=== PATIENT | female | born 1935 | race Caucasian/White ===

== ENCOUNTER 2016-06-04 15:15 | Emergency (ER) | payer BC ==
[~2016-06-04 15:15] MED LIST: CALC-51 PO; CHOL100010 PO; DILT240C48 PO; METO25TA56 PO; PLV75 PO
[2016-06-04 15:27] VITALS: BP 122/90; PULSE 83; TEMP 36.5; O2SAT 98
[2016-06-04] MEDS ORDERED: ACETAMINOPHEN 500 MG TAB PO STA (15:40)
--- NOTE | 2016-06-04 16:13 | DIAGNOSTIC IMAGING REPORT ---
HEAD CT NONCONTRAST CT DOSE: 2315.78 mGy.cm HISTORY: Trauma. Change in mental status. EVAL TRAUMA TECHNIQUE: Multiaxial CT images of the head were performed without the use of intravenous contrast. Comparison: 11/17/2015 Findings: The paranasal sinuses and mastoid air cells are clear. Moderate ventricular prominence considered chronic. Old left occipital infarct. Mild chronic small vessel change of aging. No acute intracranial abnormality. No midline shift. Impression: Chronic change. No acute intracranial abnormality. Electronically signed by: Doug Adams M.D. 06/04/2016 4:11 PM Dictated Date/Time: 06/04/2016 4:10 PM
--- NOTE | 2016-06-04 16:26 | EMERGENCY ROOM VISIT NOTE ---
ED Visit Note First contact with patient: 15:32 Patient was seen by our PA/[employer]. I was involved in the patient's care and did evaluate the patient myself. I was involved in the care throughout the ER stay. The patient has suffered head trauma from a fall, she has a posterior scalp hematoma. Brain CT shows no acute bleed or mass effect. There are no other obvious injuries by exam. Patient is being discharged with her family.
--- NOTE | 2016-06-04 16:27 | EMERGENCY ROOM VISIT NOTE ---
ED Visit Note First contact with patient: 15:32 CHIEF COMPLAINT: Fall, scalp hematoma HISTORY OF PRESENT ILLNESS: Patient is a 80-year-old white female with extensive past medical history including dementia, atrial fibrillation, hypertension, COPD, among other chronic medical problems who is brought to the emergency department accompanied by her daughters for evaluation of a fall. Injury occurred about 30 minutes ago. Daughter was present with the patient and witnessed the entire incident. The patient was reportedly on the toilet and fell while trying to get off. She fell backwards striking the back of her head on the sink, landing on her buttocks on the floor. The patient's daughter was just not close enough to be able to catch her. She does have problems with lower extremity weakness and has a history of frequent falls. They noticed scant bleeding from a hematoma on the left side of the back of her head, but bleeding has been controlled. There was no loss of consciousness. They report that the patient has been at her baseline. She has otherwise been well recently. She is anticoagulated on Plavix. REVIEW OF SYSTEMS: Review of systems as per HPI. All other systems reviewed were negative. At least 6 systems reviewed. PMH: Electronic medical records are reviewed and summarized as above/below. See Problem List. Tetanus is believed to be up-to-date. SOCIAL HISTORY: Patient lives at home. PHYSICAL EXAM: Vital Signs: Reviewed Nurse's notes. GENERAL: Patient is a thin, chronically ill-appearing 80-year-old white female who is awake and alert and seated in a wheelchair in no acute distress. She is pleasantly demented. HEENT: Head -Left occipital scalp laceration with abrasion, no repairable laceration. Pupils are equal, round, and reactive to light. Extraocular eye muscles are intact and sclera are anicteric. Ears - bilaterally patent canals with no evidence of hemotympanum. Nose - moist nasal mucosa without evidence of trauma or discharge. Mouth - moist buccal mucosa with no trauma to the teeth or signs of malocclusion. Neck: The neck is supple and there is no pain to palpation over the posterior cervical spine and no obvious step-offs or deformities. There is no JVD or tracheal deviation. Chest: There are no signs of deformities, contusions or abrasions to the chest wall. There is no obvious crepitus or paradoxical chest rise. Neuro: Seated in a wheelchair. Demented and not oriented. Moving all extremities, pushing herself around in a wheel chair. Essentially nonverbal. ED COURSE: The patient was seen and evaluated as above. Old records are reviewed. She sustained a minor fall and struck the back of her head. She is on Plavix. Head CT was obtained and not in any acute findings including intracranial bleed. The follow-up. To be mechanical in nature, does not appear to be related to syncope, seizure or arrhythmia. She otherwise is neurologically at her baseline. She does not appear to have sustained any additional injury including neck/spine, rib or other musculoskeletal injury. Family members were educated on the worrisome signs or symptoms for which they should return to the emergency department. The patient was discharged home in good condition. Problem List Medical Problems: (1) Abnormal EKG Status: Resolved (2) Atrial fibrillation Status: Chronic (3) Back pain Status: Resolved (4) Blood clot in abdominal vein Status: Chronic (5) blood clot lower extremity Status: Chronic (6) Bronchitis Status: Chronic (7) Cholecystectomy Status: Resolved (8) Deep venous thrombosis Status: Chronic (9) Dementia Status: Chronic (10) Elevated WBC count Status: Resolved (11) Emphysema Status: Chronic (12) Encephalopathy Status: Resolved (13) Gallbladder problem Status: Chronic (14) Head injury Status: Resolved (15) Heart disease Status: Chronic (16) Hematoma Status: Resolved (17) Hematuria Status: Resolved (18) Hypertension Status: Chronic (19) Hypokalemia Status: Resolved (20) Hyponatremia Status: Resolved (21) Pneumonia Status: Chronic (22) Swelling of right extremity Status: Resolved (23) Swelling of right extremity Status: Resolved (24) Syncope Status: Resolved (25) Urinary tract infection Status: Resolved Current/Historical Medications Scheduled Ascorbic Acid (Vitamin C), 500 MG PO BID Calcium Carbonate-Vitamin D (Calcium), 1,000 MG PO DAILY Cholecalciferol (Vitamin D), 500 INTER.UNIT PO BID Clopidogrel Bisulfate (Clopidogrel), 75 MG PO QAM Diltiazem Hcl Coated Beads (Cartia Xt), 1 CAP PO DAILY Furosemide (Lasix), 20 MG PO DAILY Metoprolol Tartrate (Lopressor) (Lopressor), 0.5 TAB PO BID Multivitamin (Multivitamin), 1 TAB PO DAILY Polyethylene Glycol 3350 (Miralax), 17 GM PO DAILY Potassium Ext Rel (Klor-Con), 20 MEQ PO DAILY Scheduled PRN Hydrocodone/Acetaminophen 5MG/325MG ([place] 5MG/325MG), 0.5 TABLET PO UD PRN for Pain Allergies Coded Allergies: Heparin (Verified Allergy, Unknown, Significant GI bleed, 11/17/15) (per G[facility]elda's H&P) Penicillins (Verified Allergy, Unknown, HAS HAD ROCEPHIN W/OUT PROBLEM, ) Sulfa Antibiotics (Verified Allergy, Unknown, Unknown, 11/17/15) Sulfamethoxazole (Verified Allergy, Unknown, 11/17/15) Vital Signs Date Time Temp Pulse Resp B/P Pulse Ox O2 Delivery O2 Flow Rate FiO2 06/04/16 15:27 36.5 83 18 122/90 98 Room Air Medications Administered Medications (Trade) Dose Ordered Sig/Kathy Route Start Time Stop Time Status Last Admin Dose Admin Acetaminophen (Tylenol Tab) 1,000 mg NOW STAT PO 06/04/16 15:40 06/04/16 15:42 DC 06/04/16 15:48 1,000 MG Departure Information Impression Primary Impression: Scalp hematoma Additional Impression: Fall Referrals Jaspreet Cruz M.D. (PCP) Patient Instructions My [facility] Additional Instructions Ice to the area for pain and swelling. Continue current medications. Acetaminophen(Tylenol) may be used for fever or pain. Use 1000mg every six hours as needed. Avoid using more than 3000mg in a 24 hour period. Return to the emergency department for severe sudden worsening headache, lethargy or inability to awaken from sleep, confusion, vomiting, seizures or passing out, changes in mental status, or any other concerns. Follow up with your primary physician in 2-3 days for a recheck of your current condition. Problem Qualifiers
[2016-07-25] MEDS ORDERED: ERTA1INJ IM (16:32)
[2016-08-29] MEDS ORDERED: POTA20TA16 PO (06:27)
[2016-08-29] MEDS ORDERED: POLY335019 PO (06:31)
[2016-08-29] MEDS ORDERED: FURO-85 PO (10:51)
[2016-09-25] MEDS ORDERED: CPR500 PO (10:42)
[2016-09-25] MEDS ORDERED: NYSP EXT (10:42)
[2016-09-25] MEDS ORDERED: LACTCHW3 PO (10:42)
[2016-09-25] MEDS ORDERED: ERYOPO IO (10:42)
[2016-10-01] MEDS ORDERED: MULT-506 PO (07:17)
[2016-10-01] MEDS ORDERED: ASCO500C3 PO (07:19)
[2016-10-01] MEDS ORDERED: ACET1TAB84 PO (15:06)
[2016-10-01] MEDS ORDERED: PRT/40 PO (17:59)
[2016-10-01] MEDS ORDERED: CALC500T83 PO (17:59)
[2016-10-01] MEDS ORDERED: CHOL100010 PO (17:59)
== END 2016-06-04 16:34 | disposition home or self-care (01) ==
LOC: C.EDB 15:16 → C.EDD 16:34
DX: S00.03XA Contusion of scalp, initial encounter (principal); W18.11XA Fall from or off toilet without subsequent striking against object, initial encounter; Y92.012 Bathroom of single-family (private) house as the place of occurrence of the external cause; F03.90 Unspecified dementia, unspecified severity, without behavioral disturbance, psychotic disturbance, mood disturbance, and anxiety; I48.91 Unspecified atrial fibrillation; I10 Essential (primary) hypertension; J44.9 Chronic obstructive pulmonary disease, unspecified; Z86.718 Personal history of other venous thrombosis and embolism; J43.9 Emphysema, unspecified; I51.9 Heart disease, unspecified; Z79.02 Long term (current) use of antithrombotics/antiplatelets; Z79.899 Other long term (current) drug therapy

== ENCOUNTER → 2016-06-16 | Outpatient (CLI) | payer BC ==
[~2016-06-16] MED LIST changes: +ACET1TAB84 PO; +ASCO500C3 PO; +ATV5X PO; +CALC500T83 PO; +CHOL1000 PO; +CLOP1TAB15 PO; +CPR500 PO; +CPR500HP PO; +DEXT30TA7 PO; +DILT240C57 PO; +ERTA1INJ IM; +ERYOPO IO; +FURO-85 PO; +HYDR-4313 PO; +HYDR-5688 PO; +INVI1 INJ; +LACTCHW3 PO; +LPR25 PO; +LSX20 PO; +MRLP527 PO; +MULT-506 PO; +NITR-5 PO; +NITR100C6 PO; +NYSP EXT; +POLY335019 PO; +POTA20TA13 PO; +POTA20TA16 PO; +PRT/40 PO; +VITACAP26 PO; +[UNRECOGNIZED DRUG - CODE] INJ
--- NOTE | 2016-06-16 17:00 | DIAGNOSTIC IMAGING REPORT ---
LUMBAR SPINE 5 VIEWS HISTORY: Trauma. Pain. FALL COMPARISON: 11/09/2014 FINDINGS: There is no fracture. No subluxation. Generalized degenerative disc change. IMPRESSION: Generalized degenerative change. No acute compression deformity. Stable aneurysmal distention lower abdominal aorta. Nonobstructive bowel pattern. Electronically signed by: Doug Adams M.D. 06/16/2016 4:59 PM Dictated Date/Time: 06/16/2016 4:58 PM
--- NOTE | 2016-06-16 17:11 | DIAGNOSTIC IMAGING REPORT ---
SACRUM COCCYX MIN 2 VIEWS CLINICAL HISTORY: FALL pain COMPARISON STUDY: 11/17/2015 FINDINGS: Mild deformity of the sacrococcygeal junction possibly secondary to old trauma. No acute bony abnormalities appreciated. Sacral foramina although compromise in visibility due to overlying fecal material appear unremarkable. IMPRESSION: Degenerative change. No acute process. Electronically signed by: Doug Adams M.D. 06/16/2016 5:10 PM Dictated Date/Time: 06/16/2016 5:07 PM
== END | disposition home or self-care (01) ==
LOC: C.RADBC 16:16
PROVIDERS: ATTEND Internal Medicine Geriatric Medicine
DX: M54.5 Low back pain (principal); W19.XXXA Unspecified fall, initial encounter

== ENCOUNTER → 2016-06-21 | Outpatient (CLI) | payer BC ==
--- NOTE | 2016-06-21 10:55 | DIAGNOSTIC IMAGING REPORT ---
ULTRASOUND RIGHT VENOUS DOPP LOWER EXT UNILAT CLINICAL HISTORY: Right leg swelling COMPARISON STUDY: 11/17/2015 FINDINGS: The common femoral vein and popliteal veins demonstrated wall thickening and were incompletely compressible. The findings remain similar to the prior October 2015 study, and are likely chronic. IMPRESSION: Right lower extremity DVT involving the superficial femoral and popliteal veins. The findings remain similar to the prior October 2015 study, and likely represent chronic DVT. Electronically signed by: Silver Fong M.D. 06/21/2016 10:54 AM Dictated Date/Time: 06/21/2016 10:48 AM
== END | disposition home or self-care (01) ==
LOC: C.ULTRBC 10:13
PROVIDERS: ATTEND Internal Medicine Geriatric Medicine
DX: I82.431 Acute embolism and thrombosis of right popliteal vein (principal); I82.411 Acute embolism and thrombosis of right femoral vein

== ENCOUNTER → 2016-06-22 | Outpatient (CLI) | payer BC ==
[2016-06-22 18:59] LABS: URINE APPEARANCE TURBID (CLEAR); URINE BILIRUBIN NEG (NEG); URINE COLOR YELLOW; URINE EPITHELIAL CELL AUTO >30 /lpf (0-5); URINE NITRITE POS (NEG); URINE PH 6.5 (4.5-7.5); UROBILINOGEN NEG (NEG)
[2016-06-22 19:09] LABS: MANUAL MICROSCOPIC REQUIRED? NO; REVIEW REQ? YES
== END | disposition home or self-care (01) ==
LOC: C.LAB 17:57
PROVIDERS: ATTEND Internal Medicine Geriatric Medicine
DX: I50.9 Heart failure, unspecified (principal); R39.9 Unspecified symptoms and signs involving the genitourinary system

== ENCOUNTER → 2016-06-29 | Outpatient (CLI) | payer BC ==
--- NOTE | 2016-06-29 11:55 | DIAGNOSTIC IMAGING REPORT ---
SOFT TISSUE ULTRASOUND OF THE LOWER BACK CLINICAL HISTORY: Palpable back mass COMPARISON STUDY: No previous studies for comparison. FINDINGS: Within the lower back and coccygeal level, there is soft tissue edema. To the right of the coccyx, there is a 4 x 0.9 x 1.9 cm echogenic focus which likely represents subcutaneous fat. There are no definite fluid collections. If a clinically suspicious mass is palpated, then a CT scan or MRI could be obtained in follow-up. IMPRESSION: Soft tissue edema. No suspicious masses or fluid collections identified ultrasonographically. If a clinically suspicious mass is repalpated, then additional imaging such as a CT scan or MRI could be obtained in follow-up. Electronically signed by: Silver Fong M.D. 06/29/2016 11:54 AM Dictated Date/Time: 06/29/2016 11:52 AM
== END | disposition home or self-care (01) ==
LOC: C.ULTRBC 11:00
PROVIDERS: ATTEND Internal Medicine Geriatric Medicine
DX: R60.0 Localized edema (principal)

== ENCOUNTER 2016-07-19 16:43 | Inpatient (IN) | payer BC, OTHER ==
[~2016-07-19] VITALS: Ht 165.1 cm; Wt 49.7 kg
[~2016-07-19 16:43] MED LIST changes: -ACET1TAB84 PO; -ASCO500C3 PO; -ATV5X PO; -CALC500T83 PO; -CHOL1000 PO; -CLOP1TAB15 PO; -CPR500 PO; -CPR500HP PO; -DEXT30TA7 PO; -DILT240C57 PO; -ERTA1INJ IM; -ERYOPO IO; -FURO-85 PO; -HYDR-4313 PO; -HYDR-5688 PO; -INVI1 INJ; -LACTCHW3 PO; -LPR25 PO; -LSX20 PO; -MRLP527 PO; -MULT-506 PO; -NITR-5 PO; -NITR100C6 PO; -NYSP EXT; -POLY335019 PO; -POTA20TA13 PO; -POTA20TA16 PO; -PRT/40 PO; -VITACAP26 PO; -[UNRECOGNIZED DRUG - CODE] INJ
[2016-07-19] MEDS ORDERED: SODIUM CHLORIDE 0.9% 1000ML 1,000 ML IV STA (16:55)
[2016-07-19 17:25] LABS: BASO % 0.2 %; BASO ABS # 0.02 K/uL (0-0.2); COMPLETE YES; EOS % 1.2 %; IG% 0.2 %; LYMPH ABS # 2.41 K/uL (1.2-3.4); MEAN CELL VOLUME 89.6 fL (80-100); MEAN CORPUSCULAR HEMOGLOBIN 30.6 pg (25-34); MEAN CORPUSCULAR HGB CONC 34.2 g/dl (32-36); MEAN PLATELET VOLUME 10.1 fL (7.4-10.4); MONO % 7.8 %; NEUT % 66.6 %; PLATELET COUNT 201 K/uL (130-400); WHITE BLOOD COUNT 10.06 K/uL (4.8-10.8)
[2016-07-19 17:35] LABS: INR 1.1 (0.9-1.1); PARTIAL THROMBOPLASTIN RATIO 0.9; PROTHROMBIN TIME (PATIENT) 11.6 SECONDS (9.0-12.0)
[2016-07-19 17:37] LABS: URINE APPEARANCE TURBID (CLEAR); URINE BILIRUBIN NEG (NEG); URINE COLOR YELLOW; URINE NITRITE POS (NEG); URINE SPECIFIC GRAVITY 1.013 (1.000-1.030); UROBILINOGEN NEG (NEG)
[2016-07-19] MEDS ORDERED: METOPROLOL TARTRATE 1 MG/ML VIAL IV STA (17:38)
[2016-07-19 17:43] LABS: MANUAL MICROSCOPIC REQUIRED? NO; REVIEW REQ? NO
[2016-07-19 17:45] LABS: BUN/CREATININE RATIO 18.4 (10-20); CALCIUM 9.1 mg/dl (8.5-10.1); POTASSIUM 4.2 mmol/L (3.5-5.1)
[2016-07-19 17:56] LABS: PHOSPHORUS 3.1 mg/dl (2.5-4.9); THYROID STIMULATING HORMONE 5.19 uIu/ml (0.300-4.500)
[2016-07-19] MEDS ORDERED: HALOPERIDOL LACTATE 5 MG/ML 1 ML VIAL IV STA ×2 (18:13→18:40)
--- NOTE | 2016-07-19 18:17 | DIAGNOSTIC IMAGING REPORT ---
CHEST ONE VIEW PORTABLE HISTORY: SEIZURE COMPARISON: Chest 11/17/2015. FINDINGS: The heart remains enlarged. No focal lung consolidations to suggest pneumonia. No evidence for pulmonary edema. Mild interstitial thickening appears to be chronic. The patient is slightly rotated on this study. An IVC filter is unchanged in position. This appears to be in an intrahepatic location. IMPRESSION: No significant change compared to the prior study. No acute process. Chronic changes as described above. Electronically signed by: Doug Burt M.D. 07/19/2016 6:15 PM Dictated Date/Time: 07/19/2016 6:14 PM
--- NOTE | 2016-07-19 19:56 | DIAGNOSTIC IMAGING REPORT ---
HEAD CT NONCONTRAST CT DOSE: 537.48 mGy.cm HISTORY: seizure TECHNIQUE: Multiaxial CT images of the head were performed without the use of intravenous contrast. Automated exposure control was utilized for this study. Comparison: Head CT 06/04/2016. Findings: The paranasal sinuses and mastoid air cells are clear. The calvarium and skull base are intact. There is no mass, hematoma, midline shift, acute infarct. White matter hypodensity is nonspecific but suggestive of moderate microvascular ischemic change. The ventricles and sulci demonstrate moderate age-related involutional changes. Old infarcts seen within the bilateral occipital lobes and right MCA territory. This remains unchanged. Impression: No significant change compared to the prior study. No acute intracranial abnormality. Old infarcts as described above Electronically signed by: Doug Burt M.D. 07/19/2016 7:55 PM Dictated Date/Time: 07/19/2016 7:49 PM
[2016-07-19] MEDS ORDERED: CEFTRIAXONE SOD INJ 1 GM ADDVIAL IV STA (20:42)
[2016-07-19] MEDS ORDERED: AZTREONAM IV 2,000 MG in DEXTROSE 5% 100ML 100 ML IV STA (20:45)
[2016-07-19] MEDS ORDERED: ERTAPENEM 1 GM ADDVIAL IV ONE (21:00)
[2016-07-19] MEDS ORDERED: MoRPHine SULFATE 2 MG/ML CARP IV PRN (21:30)
[2016-07-19] MEDS ORDERED: ACETAMINOPHEN 325 MG TAB PO PRN (21:30)
[2016-07-19] MEDS ORDERED: LORAZEPAM 2 MG/ML 1 ML VIAL IV PRN (21:30)
[2016-07-19] MEDS ORDERED: HYDROCODONE/ACETAMOPHEN 5/325MG TAB PO PRN (21:30)
[2016-07-19] MEDS ORDERED: ONDANSETRON INJ 2 MG/ML 2 ML VIAL IV PRN (21:30)
[2016-07-19] MEDS ORDERED: ERTAPENEM IV 1 GM in SODIUM CHLOR 0.9% AD-VAN 50ML IV ONE (22:00)
--- NOTE | 2016-07-19 22:17 | History and Physical ---
History & Physical Date & Time of Service: Jul 19, 2016 at 22:15 Chief Complaint: Seizure Primary Care Physician: Jaspreet Cruz M.D. History of Present Illness Mrs Mccurdy is a 80-year-old female with atrial fibrillation, history of stroke in October 2015, and advanced dementia who presents with altered mental status. She isn't normally only verbal with her daughter who lives at home with her, and not many other people. Her other daughter reports they found her being less responsive than usual, the eyes are open, and she was having rhythmic movements of her upper extremity. They were concerned she was having a severe so brought her in. Currently she is not communicating with me, or her other daughter she normally talks to. She is pulling at all IV lines and trying to eat them. She required 2 doses of Haldol just to obtain routine lab work. Past Medical/Surgical History Medical Problems: (1) Abnormal EKG Status: Resolved (2) Atrial fibrillation Status: Chronic (3) Back pain Status: Resolved (4) Blood clot in abdominal vein Status: Chronic (5) blood clot lower extremity Status: Chronic (6) Bronchitis Status: Chronic (7) Cholecystectomy Status: Resolved (8) Deep venous thrombosis Status: Chronic (9) Dementia Status: Chronic (10) Elevated WBC count Status: Resolved (11) Emphysema Status: Chronic (12) Encephalopathy Status: Resolved (13) Gallbladder problem Status: Chronic (14) Head injury Status: Resolved (15) Heart disease Status: Chronic (16) Hematoma Status: Resolved (17) Hematuria Status: Resolved (18) Hypertension Status: Chronic (19) Hypokalemia Status: Resolved (20) Hyponatremia Status: Resolved (21) Pneumonia Status: Chronic (22) Swelling of right extremity Status: Resolved (23) Swelling of right extremity Status: Resolved (24) Syncope Status: Resolved (25) Urinary tract infection Status: Resolved Family History FH: HTN (hypertension) FH: diabetes mellitus Gallbladder disease Heart disease Lung disease Social History Smoking Status: Former Smoker Drug Use: none Marital Status: Housing status: lives with family Occupational Status: retired Immunizations History of Influenza Vaccine: Unknown History of Tetanus Vaccine?: Unknown History of Pneumococcal: Unknown History of Hepatitis B Vaccine: Unknown Multi-Drug Resistant Organisms History of MDRO: No Allergies Coded Allergies: Heparin (Verified Allergy, Unknown, Significant GI bleed, 07/19/16) (per A.Urban's H&P) Penicillins (Verified Allergy, Unknown, HAS HAD ROCEPHIN W/OUT PROBLEM, ) Sulfa Antibiotics (Verified Allergy, Unknown, Unknown, 07/19/16) Sulfamethoxazole (Verified Allergy, Unknown, 07/19/16) Home Medications Scheduled Ascorbic Acid (Vitamin C), 500 MG PO BID Calcium (Calcium), 500 MG PO BID Cholecalciferol (Vitamin D), 500 UNIT PO BID Clopidogrel Bisulfate (Clopidogrel), 75 MG PO QAM Diltiazem Hcl Coated Beads (Cartia Xt), 1 CAP PO DAILY Furosemide (Lasix), 20 MG PO DAILY Metoprolol Tartrate (Lopressor) (Lopressor), 0.5 TAB PO BID Multivitamin (Multivitamin), 1 TAB PO DAILY Pantoprazole (Pantoprazole Sodium), 40 MG PO QAM Polyethylene Glycol 3350 (Miralax), 17 GM PO DAILY Potassium Ext Rel (Klor-Con), 20 MEQ PO DAILY Scheduled PRN Hydrocodone/Acetaminophen 5MG/325MG ([place] 5MG/325MG), 0.5 TABLET PO UD PRN for Pain Review of Systems Review of systems unable to be obtained due to altered mental status Physical Exam Vital Signs Date Time Temp Pulse Resp B/P Pulse Ox O2 Delivery O2 Flow Rate FiO2 07/19/16 22:13 100 20 130/88 94 Room Air 07/19/16 20:23 100 20 119/72 96 Room Air 07/19/16 18:34 80 18 152/83 96 Room Air 07/19/16 17:57 111 136/86 07/19/16 17:48 124 07/19/16 17:14 36.2 105 20 108/91 95 Room Air 07/19/16 17:14 95 Room Air 07/19/16 17:14 95 Room Air 07/19/16 16:59 36.2 105 20 108/91 94 Room Air GENERAL: Awake, disoriented, cachectic. Pulling out lines, drinking water from sponge given to her by her daughter. HENT: Normocephalic, atraumatic. Oropharynx dry EYES: Normal conjunctiva. Sclera non-icteric. NECK: Supple. No nuchal rigidity. FROM. No JVD. RESPIRATORY: Clear to auscultation. CARDIAC: Regular rate, normal rhythm. Extremities warm and well perfused. Pulses equal. ABDOMEN: Soft, non-distended. No tenderness to palpation. No rebound or guarding. No masses. RECTAL: Deferred. MUSCULOSKELETAL: Chest examination reveals no tenderness. The back is symmetrical on inspection without obvious abnormality. There is no CVA tenderness to palpation. No joint edema. LOWER EXTREMITIES: Calves are equal size bilaterally and non-tender. No edema. No discoloration. NEURO: Disoriented x 3 SKIN: No rash or jaundice noted. Diagnostics Laboratory Results Results Past 24 Hours Test 07/19/16 17:05 07/19/16 17:10 Range/Units Urine Color YELLOW Urine Appearance TURBID CLEAR Urine pH 5.0 4.5-7.5 Urine Specific Wanda 1.013 1.000-1.030 Urine Protein TRACE NEG Urine Glucose (UA) NEG NEG Urine Ketones NEG NEG Urine Occult Blood 2+ NEG Urine Nitrite POS NEG Urine Bilirubin NEG NEG Urine Urobilinogen NEG NEG Urine Leukocyte Esterase LARGE NEG Urine WBC (Auto) >30 0-5 /hpf Urine RBC (Auto) 5-10 0-4 /hpf Urine Hyaline Casts (Auto) 1-5 0-5 /lpf Urine Epithelial Cells (Auto) 10-20 0-5 /lpf Urine Bacteria (Auto) 4+ NEG White Blood Count 10.06 4.8-10.8 K/uL Red Blood Count 4.80 4.2-5.4 M/uL Hemoglobin 14.7 12.0-16.0 g/dL Hematocrit 43.0 37-47 % Mean Corpuscular Volume 89.6 80-100 fL Mean Corpuscular Hemoglobin 30.6 25-34 pg Mean Corpuscular Hemoglobin Concent 34.2 32-36 g/dl Platelet Count 201 130-400 K/uL Mean Platelet Volume 10.1 7.4-10.4 fL Neutrophils (%) (Auto) 66.6 % Lymphocytes (%) (Auto) 24.0 % Monocytes (%) (Auto) 7.8 % Eosinophils (%) (Auto) 1.2 % Basophils (%) (Auto) 0.2 % Neutrophils # (Auto) 6.71 1.4-6.5 K/uL Lymphocytes # (Auto) 2.41 1.2-3.4 K/uL Monocytes # (Auto) 0.78 0.11-0.59 K/uL Eosinophils # (Auto) 0.12 0-0.5 K/uL Basophils # (Auto) 0.02 0-0.2 K/uL RDW Standard Deviation 46.4 36.4-46.3 fL RDW Coefficient of Variation 14.1 11.5-14.5 % Immature Granulocyte % (Auto) 0.2 % Immature Granulocyte # (Auto) 0.02 0.00-0.02 K/uL Prothrombin Time 11.6 9.0-12.0 SECONDS Prothromb Time International Ratio 1.1 0.9-1.1 Activated Partial Thromboplast Time 23.3 21.0-31.0 SECONDS Partial Thromboplastin Ratio 0.9 Sodium Level 138 136-145 mmol/L Potassium Level 4.2 3.5-5.1 mmol/L Chloride Level 101 98-107 mmol/L Carbon Dioxide Level 28 21-32 mmol/L Anion Gap 9.0 3-11 mmol/L Blood Urea Nitrogen 18 7-18 mg/dl Creatinine 1.00 0.60-1.20 mg/dl Est Creatinine Clear Calc Drug Dose 35.8 ml/min Estimated GFR () 62.1 Estimated GFR (Non- 53.5 BUN/Creatinine Ratio 18.4 10-20 Random Glucose 143 70-99 mg/dl Calcium Level 9.1 8.5-10.1 mg/dl Phosphorus Level 3.1 2.5-4.9 mg/dl Magnesium Level 2.0 1.8-2.4 mg/dl Thyroid Stimulating Hormone (TSH) 5.190 0.300-4.500 uIu/ml Microbiology Results 07/19/16 Urine Culture, Received Pending Diagnostic Radiology CT HEAD: Impression: No significant change compared to the prior study. No acute intracranial abnormality. Old infarcts as described above CXR normal Normal EKG Impression Assessment and Plan 80-year-old female with background of dementia presents with acute metabolic encephalopathy. Differential includes UTI, stroke, pneumonia, iatrogenic, dehydration, sepsis. Plan: Acute metabolic encephalopathy - We'll treat underlying cause, for now the top differential is UTI.Stroke was ruled out by CT, no focal weakness was found. Pneumonia was ruled out by chest x-ray. She'll receive IV fluids to avoid dehydration, though she does seem to have good by mouth intake. - We'll continue with Haldol 1 mg IM q4h when necessary for agitation UTI, with history of ESBL - We'll continue with ertapenem IV, and consult infectious diseases - Culture her urine from ED History of stroke - Continue Plavix 75 mg daily Atrial fibrillation - Continue metoprolol 12.5 twice a day - Continue diltiazem - Is not anticoagulated apart from Plavix Both her daughters say that she is a DO NOT RESUSCITATE and priority would be to keep her comfortable if she were to deteriorate. Level of Care Med/Surg VTE Prophylaxis VTE Risk Assessment Done? Y/N: Yes Risk Level: Moderate Given or contraindicated: Tisha Swanson, SCD's Resident Tracking Resident Involvement: Resident Care Provided Care Provided: [facility] Medicine Assessment and Plan Attending Addendum: I have physically seen and examined this patient, have directed their medical care, have supervised the medical residents activities, and agree with the H&P as noted above, with the following changes: The patient is awake, alert, not oriented and nonverbal, normocephalic and atraumatic, lying in bed , continually licking fingers, and in no acute distress. HEENT--PERRL, EOMI, mucous membranes and oropharynx dry. Neck--supple, no JVD or bruits, thyroid normal, trachea midline, no adenopathy. Heart--normal S1 and S2, no extra beats, no murmurs, rubs or gallops. Lungs--clear bilaterally, no respiratory distress, no accessory muscle use. Abdomen--normal bowel sounds and soft, nontender and nondistended, no hernias or masses, no organomegaly. Extremities--no cyanosis, clubbing or edema. There are good distal pulses b/l. Dermatologic--normal skin turgor, normal color, warm and dry, no abnormal lymph nodes, no rash. Neurologic--cranial nerves II through XII grossly intact. Rheumatologic--normal range of motion, nontender, muscles and joints. Psychiatric--flat affect. Assessment and Plan: Altered mental status/acute metabolic encephalopathy/history of ESBL UTI-- ertapenem 1 g IV daily, follow urine culture and sensitivity reports. Haldol 1 mg IM every 4 hours when necessary as per outpatient. Cerebrovascular disease--CT suggests old infarcts, would not likely be able to get an MRI performed as she were very sedated, and with nonfocal examination would not pursue additional studies. Atrial fibrillation/hypertension--continue metoprolol tartrate 12.5 mg by mouth twice a day, clopidogrel 75 mg by mouth daily, Cardia XT daily, and potassium chloride, 20 mEq by mouth daily. We'll hold Lasix 20 mg by mouth daily. GERD--continue pantoprazole 40 mg by mouth every morning.
[2016-07-19] MEDS ORDERED: HALOPERIDOL LACTATE 5 MG/ML 1 ML VIAL IM PRN (22:30)
[2016-07-19 23:40] VITALS: BP 109/84; PULSE 95; TEMP 37.2; O2SAT 96; Ht 165.1 cm; Wt 49.7 kg
--- NOTE | 2016-07-19 23:56 | EMERGENCY ROOM VISIT NOTE ---
History Report prepared by Brody: Terese Francisco Under the Supervision of: Dr. Cornelio Thompson M.D. First contact with patient: 16:53 Stated Complaint: SEIZURE History of Present Illness The patient is a 80 year old female who presents to the Emergency Room with complaints of sudden seizure like activity that occurred prior to arrival. Per the patient's family, the patient has a history of Alzheimer's and is non- verbal except to one daughter. They note that the patient today has been non- verbal to her daughter. The family notes that the patient has a history of blood clots in her bilateral lower extremities and a recent stroke. They note that she is on blood thinners. The patient's family states that the patient had a fall at the beginning of June, but denies any more recent falls. They deny the patient having any history of seizures. The patient's family notes that the patient was contracted and screaming for approximately 15 minutes. They state that the patient wasn't responsive during the episode. The patient' s family states that the patient was unresponsive and flaccid after the episode. They additionally note that the patient was incontinent. The patient' s family notes that the patient was recently treated for a UTI, and has a history of them. The history is limited secondary to dementia. Source of History: family History Limited By: dementia Onset: prior to arrival Position: other (global) Quality: other (seizure like activity) Timing: other (sudden) Note: Associated Symptoms: flaccid, unresponsive, incontinent of urine. Review of Systems History is limited secondary to dementia. Past Medical & Surgical Medical Problems: (1) Abnormal EKG (2) Altered mental state (3) Altered mental status (4) Atrial fibrillation (5) Back pain (6) Blood clot in abdominal vein (7) blood clot lower extremity (8) Bronchitis (9) Cholecystectomy (10) CVA (cerebral vascular accident) (11) Deep venous thrombosis (12) Dementia (13) Elevated WBC count (14) Emphysema (15) Encephalopathy (16) Gallbladder problem (17) Head injury (18) Heart disease (19) Hematoma (20) Hematuria (21) Hypertension (22) Hypokalemia (23) Hyponatremia (24) Pneumonia (25) Seizure-like activity (26) Swelling of right extremity (27) Swelling of right extremity (28) Syncope (29) Urinary tract infection (30) UTI (urinary tract infection) Family History FH: HTN (hypertension) FH: diabetes mellitus Gallbladder disease Heart disease Lung disease Social History Smoking Status: Never Smoker Alcohol Use: none Drug Use: none Marital Status: Housing Status: lives with family Occupation Status: retired Current/Historical Medications Scheduled Ascorbic Acid (Vitamin C), 500 MG PO BID Calcium (Calcium), 500 MG PO BID Cholecalciferol (Vitamin D), 500 UNIT PO BID Clopidogrel Bisulfate (Clopidogrel), 75 MG PO QAM Diltiazem Hcl Coated Beads (Cartia Xt), 1 CAP PO DAILY Furosemide (Lasix), 20 MG PO DAILY Metoprolol Tartrate (Lopressor) (Lopressor), 0.5 TAB PO BID Multivitamin (Multivitamin), 1 TAB PO DAILY Pantoprazole (Pantoprazole Sodium), 40 MG PO QAM Polyethylene Glycol 3350 (Miralax), 17 GM PO DAILY Potassium Ext Rel (Klor-Con), 20 MEQ PO DAILY Scheduled PRN Hydrocodone/Acetaminophen 5MG/325MG ([place] 5MG/325MG), 0.5 TABLET PO UD PRN for Pain Allergies Coded Allergies: Heparin (Verified Allergy, Unknown, Significant GI bleed, 07/19/16) (per Gricelda's H&P) Penicillins (Verified Allergy, Unknown, HAS HAD ROCEPHIN W/OUT PROBLEM, ) Sulfa Antibiotics (Verified Allergy, Unknown, Unknown, 07/19/16) Sulfamethoxazole (Verified Allergy, Unknown, 07/19/16) Physical Exam Vital Signs Date Time Temp Pulse Resp B/P Pulse Ox O2 Delivery O2 Flow Rate FiO2 07/19/16 23:31 98 18 101/75 97 07/19/16 22:13 100 20 130/88 94 Room Air 07/19/16 20:23 100 20 119/72 96 Room Air 07/19/16 18:34 80 18 152/83 96 Room Air 07/19/16 17:57 111 136/86 07/19/16 17:48 124 07/19/16 17:14 36.2 105 20 108/91 95 Room Air 07/19/16 17:14 95 Room Air 07/19/16 17:14 95 Room Air 07/19/16 16:59 36.2 105 20 108/91 94 Room Air Physical Exam GENERAL: Awake, alert, mildly uncomfortable-appearing, sitting upright, in no distress HENT: Normocephalic, atraumatic. Oropharynx unremarkable. EYES: Normal conjunctiva. Sclera non-icteric. PERRL. NECK: Supple. No nuchal rigidity. FROM. No JVD. RESPIRATORY: Clear to auscultation. CARDIAC: Regular rate, normal rhythm. Extremities warm and well perfused. Pulses equal. ABDOMEN: Soft, non-distended. No tenderness to palpation. No rebound or guarding. No masses. RECTAL: Deferred. MUSCULOSKELETAL: Chest examination reveals no tenderness. The back is kyphotic. There is no CVA tenderness to palpation. No joint edema. LOWER EXTREMITIES: Chronic venous discoloration, 1+ pitting edema. Calves are equal size bilaterally and non-tender. NEURO: Demented sensorium. Nonverbal, not following commands. SKIN: No rash or jaundice noted. Medical Decision & Procedures ER Provider Diagnostic Interpretation: X ray results as stated below per my interpretation and radiologist interpretation. Other radiology results as stated below per my review and radiologist interpretation CHEST ONE VIEW PORTABLE HISTORY: SEIZURE COMPARISON: Chest 11/17/2015. FINDINGS: The heart remains enlarged. No focal lung consolidations to suggest pneumonia. No evidence for pulmonary edema. Mild interstitial thickening appears to be chronic. The patient is slightly rotated on this study. An IVC filter is unchanged in position. This appears to be in an intrahepatic location. IMPRESSION: No significant change compared to the prior study. No acute process. Chronic changes as described above. Electronically signed by: Doug Burt M.D. 07/19/2016 6:15 PM Dictated Date/Time: 07/19/2016 6:[address]AST CT DOSE: 537.48 mGy.cm HISTORY: seizure TECHNIQUE: Multiaxial CT images of the head were performed without the use of intravenous contrast. Automated exposure control was utilized for this study. Comparison: Head CT 06/04/2016. Findings: The paranasal sinuses and mastoid air cells are clear. The calvarium and skull base are intact. There is no mass, hematoma, midline shift, acute infarct. White matter hypodensity is nonspecific but suggestive of moderate microvascular ischemic change. The ventricles and sulci demonstrate moderate age-related involutional changes. Old infarcts seen within the bilateral occipital lobes and right MCA territory. This remains unchanged. Impression: No significant change compared to the prior study. No acute intracranial abnormality. Old infarcts as described above Electronically signed by: Doug Burt M.D. 07/19/2016 7:55 PM Laboratory Results 07/19/16 17:10 Red Blood Count 4.80, Mean Corpuscular Volume 89.6, Mean Corpuscular Hemoglobin 30.6, Mean Corpuscular Hemoglobin Concent 34.2, Mean Platelet Volume 10.1, Neutrophils (%) (Auto) 66.6, Lymphocytes (%) (Auto) 24.0, Monocytes (%) (Auto) 7.8, Eosinophils (%) (Auto) 1.2, Basophils (%) (Auto) 0.2, Neutrophils # (Auto) 6.71, Lymphocytes # (Auto) 2.41, Monocytes # (Auto) 0.78, Eosinophils # (Auto) 0.12, Basophils # (Auto) 0.02 07/19/16 17:10 Test 07/19/16 17:05 07/19/16 17:10 Urine Color YELLOW Urine Appearance TURBID (CLEAR) Urine pH 5.0 (4.5-7.5) Urine Specific [place] 1.013 (1.000-1.030) Urine Protein TRACE (NEG) Urine Glucose (UA) NEG (NEG) Urine Ketones NEG (NEG) Urine Occult Blood 2+ (NEG) Urine Nitrite POS (NEG) Urine Bilirubin NEG (NEG) Urine Urobilinogen NEG (NEG) Urine Leukocyte Esterase LARGE (NEG) Urine WBC (Auto) >30 /hpf (0-5) Urine RBC (Auto) 5-10 /hpf (0-4) Urine Hyaline Casts (Auto) 1-5 /lpf (0-5) Urine Epithelial Cells (Auto) 10-20 /lpf (0-5) Urine Bacteria (Auto) 4+ (NEG) White Blood Count 10.06 K/uL (4.8-10.8) Red Blood Count 4.80 M/uL (4.2-5.4) Hemoglobin 14.7 g/dL (12.0-16.0) Hematocrit 43.0 % (37-47) Mean Corpuscular Volume 89.6 fL (80-100) Mean Corpuscular Hemoglobin 30.6 pg (25-34) Mean Corpuscular Hemoglobin Concent 34.2 g/dl (32-36) Platelet Count 201 K/uL (130-400) Mean Platelet Volume 10.1 fL (7.4-10.4) Neutrophils (%) (Auto) 66.6 % Lymphocytes (%) (Auto) 24.0 % Monocytes (%) (Auto) 7.8 % Eosinophils (%) (Auto) 1.2 % Basophils (%) (Auto) 0.2 % Neutrophils # (Auto) 6.71 K/uL (1.4-6.5) Lymphocytes # (Auto) 2.41 K/uL (1.2-3.4) Monocytes # (Auto) 0.78 K/uL (0.11-0.59) Eosinophils # (Auto) 0.12 K/uL (0-0.5) Basophils # (Auto) 0.02 K/uL (0-0.2) RDW Standard Deviation 46.4 fL (36.4-46.3) RDW Coefficient of Variation 14.1 % (11.5-14.5) Immature Granulocyte % (Auto) 0.2 % Immature Granulocyte # (Auto) 0.02 K/uL (0.00-0.02) Prothrombin Time 11.6 SECONDS (9.0-12.0) Prothromb Time International Ratio 1.1 (0.9-1.1) Activated Partial Thromboplast Time 23.3 SECONDS (21.0-31.0) Partial Thromboplastin Ratio 0.9 Anion Gap 9.0 mmol/L (3-11) Est Creatinine Clear Calc Drug Dose 35.8 ml/min Estimated GFR () 62.1 Estimated GFR (Non- 53.5 BUN/Creatinine Ratio 18.4 (10-20) Calcium Level 9.1 mg/dl (8.5-10.1) Phosphorus Level 3.1 mg/dl (2.5-4.9) Magnesium Level 2.0 mg/dl (1.8-2.4) Thyroid Stimulating Hormone (TSH) 5.190 uIu/ml (0.300-4.500) Laboratory results reviewed by me Medications Administered Medications (Trade) Dose Ordered Sig/Kathy Route Start Time Stop Time Status Last Admin Dose Admin Sodium Chloride (Nss 1000ml) 1,000 ml @ 125 mls/hr Q8H STAT IV 3/21/17 16:55 07/20/16 00:54 07/19/16 16:55 125 MLS/HR Metoprolol Tartrate (Lopressor Iv) 2.5 mg Q5M STAT IV 07/19/16 17:38 07/19/16 17:39 DC 07/19/16 17:57 2.5 MG Haloperidol Lactate (Haldol Inj) 1 mg NOW STAT IV 07/19/16 18:13 07/19/16 18:14 DC 07/19/16 18:18 1 MG Haloperidol Lactate 2 mg 2 mg NOW STAT IV 07/19/16 18:40 07/19/16 18:41 DC 07/19/16 19:01 2 MG Ertapenem/Sodium Chloride (Invanz Iv/Nss Ad-Van 50ml) 50 ml @ 100 mls/hr TODAY@2200 ONCE IV 07/19/16 22:00 07/19/16 22:29 DC 07/19/16 21:42 100 MLS/HR ECG Indication: other (seizure like activity) Rate (beats per minute): 122 Rhythm: atrial fibrillation (with RVR) Findings: Q waves (Septal), no acute ischemic change, other (Normal QT) ED Course 1655: Ordered Sodium Chloride 1000 ml @ 125 mls/hr IV. 1732: The patient was evaluated in room C4. A complete history and physical exam was performed. 1737: Ordered Lopressor IV 2.5 mg IV. 1812: Ordered Haldol Inj 1 mg IV. 1839: Ordered Haldol Inj 2 mg IV. 0: I updated the patients family at this time. 2044: I consulted pharmacy at this time, they recommended Invanz for the patient 's UTI. 2047: I reevaluated the patient and she is resting comfortably. I discussed the exam findings with her family and I discussed the treatment plan. They verbalized complete understanding and agreement. The patient will be evaluated for further treatment. 2099: Ordered Invanz IV 1 gm IV. 2109: I discussed the patient's case with Dr. Susi Hopson, Taxi Driver. She is going to evaluate the patient for further treatment. Medical Decision Prior records/ancillary studies reviewed and summarized above. Nursing notes reviewed and agree them. Additional history obtained from family. The patient's history was concerning for altered mental status. Differential diagnosis: Etiologies such as infection, hypoglycemia, electrolyte abnormalities, cardiac sources, intracerebral event, toxicologic, neurologic, as well as others were entertained. Physical examination: As above ER treatment provided: IV Lock Normal saline hydration IV Invanz IV Haldol 2 to help facilitate imaging and catheterization Diagnostics interpretation by me: ECG: Unremarkable except for A. fib The labs revealed an unremarkable CBC and chemistry panel. Urinalysis is very concerning for infection. Record review indicates the patient has an ESBL Escherichia coli on prior infections. Magnesium and phosphorus levels were unremarkable. TSH was unremarkable. Imaging studies: X-ray and CT scan as above. Consultation: A consultation was placed with the hospitalist. The case was discussed and diagnostics were reviewed. The patient was evaluated in the ER for further treatment. The chart was completed utilizing [employer] Speech voice recognition software. Grammatical errors, random word insertions, pronoun errors, and incomplete sentences are an occasional consequence of this system due to software limitations, ambient noise, and hardware issues. Any formal questions or concerns about the content, text, or information contained within the body of this dictation should be directly addressed to the physician for clarification. Consults Time Called: 2051 Consulting Physician: Dr. Susi Hopson, Taxi Driver Returned Call: [phone] I discussed the patient's case with Dr. Susi Hopson, Taxi Driver. She is going to evaluate the patient for further treatment. Impression Primary Impression: UTI (urinary tract infection) Additional Impression: Seizure-like activity Scribe Attestation The scribe's documentation has been prepared under my direction and personally reviewed by me in its entirety. I confirm that the note above accurately reflects all work, treatment, procedures, and medical decision making performed by me. Departure Information Dispostion Being Evaluated By Hospitalist Jaspreet Stratton M.D. (PCP) Problem Qualifiers
[2016-07-20] MEDS: NSS + 20MEQ KCL 1000ML 1,000 ML IV SCH ×2 (00:32→13:49)
[2016-07-20 07:31] VITALS: BP 126/82; PULSE 99; TEMP 36.8; O2SAT 98
[2016-07-20] MEDS: METOPROLOL TARTRATE 25 MG TAB PO SCH ×2 (10:22→20:45)
[2016-07-20] MEDS: CLOPIDOGREL BISULFATE 75 MG TAB PO SCH (10:22)
[2016-07-20] MEDS: DILTIAZEM HCL 240 MG CAPCR PO SCH (10:23)
[2016-07-20] MEDS: POTASSIUM CHLORIDE 20 MEQ TABCR PO SCH (10:24)
[2016-07-20] MEDS: FUROSEMIDE 20 MG TAB PO SCH (10:24)
[2016-07-20] MEDS: PANTOprazole SOD 40 MG TAB PO SCH (10:25)
--- NOTE | 2016-07-20 11:33 | Medical Consult ---
Consultation Date of Consultation: Jul 20, 2016. Attending Physician: Favian Navarro M.D. Reason for Consultation: ESBL UTI History of Present Illness Patient is a 80-year-old female who presented to the emergency department with her daughter with concerns of sudden seizure-like activity at home. The patient is nonverbal and lethargic, so her daughter fills in most of the patient 's history. The patient does have history of Alzheimer's and is typically nonverbal, but she does normally communicate with her daughter. The patient all of a sudden at home began to have contractions, and had been gradually becoming less attentive. Her daughter states that she does have history of recurrent urinary tract infections which have been in the past very resistant antibiotics. The patient has had to do I had an antibiotics at home because she is prone to pulling out IV lines otherwise. Since admission, the patient's white blood cell count was 10.06. Her TSH was noted be 5.19 fever. Her creatinine was 1.00. Her urinalysis showed 4+ bacteria, greater than 30 white blood cells, large leukocyte esterase, and positive nitrite with 2+ blood. Her urine culture is growing E coli with sensitivities pending. The patient's past records were reviewed, and it was noted that she has had E coli which was resistant to most antibiotics, and sensitive to only carbapenems, Zosyn, Macrobid, and aminoglycosides. The patient is penicillin allergic as well. She is currently on IV ertapenem pending culture results. She did have a chest x-ray which showed no significant change to her prior study and no acute process. A CT scan of her head showed no acute abnormality either. Past Medical/Surgical History Medical Problems: (1) Cardiac ischemia Status: Acute (2) DVT (deep venous thrombosis) Status: Acute (3) Elevated liver enzymes Status: Acute (4) Fall Status: Acute (5) Scalp hematoma Status: Acute (6) Sepsis Status: Acute (7) UTI (urinary tract infection) Status: Acute (8) UTI (urinary tract infection) Status: Acute Medical Problems: (1) Abnormal EKG (2) Altered mental state (3) Altered mental status (4) Atrial fibrillation (5) Back pain (6) Blood clot in abdominal vein (7) blood clot lower extremity (8) Bronchitis (9) Cholecystectomy (10) CVA (cerebral vascular accident) (11) Deep venous thrombosis (12) Dementia (13) Elevated WBC count (14) Emphysema (15) Encephalopathy (16) Gallbladder problem (17) Head injury (18) Heart disease (19) Hematoma (20) Hematuria (21) Hypertension (22) Hypokalemia (23) Hyponatremia (24) Pneumonia (25) Seizure-like activity (26) Swelling of right extremity (27) Swelling of right extremity (28) Syncope (29) Urinary tract infection (30) UTI (urinary tract infection) Family History FH: HTN (hypertension) FH: diabetes mellitus Gallbladder disease Heart disease Lung disease Noncontributory Social History Smoking Status: Never Smoker Drug Use: none Marital Status: Housing Status: lives with family Occupation Status: retired Allergies Coded Allergies: Heparin (Verified Allergy, Unknown, Significant GI bleed, 07/19/16) (per [facility] H&P) Penicillins (Verified Allergy, Unknown, HAS HAD ROCEPHIN W/OUT PROBLEM, ) Sulfa Antibiotics (Verified Allergy, Unknown, Unknown, 07/19/16) Sulfamethoxazole (Verified Allergy, Unknown, 07/19/16) Home Medications Reported Home Medications Medications Dose Route/Sig Max Daily Dose Days Date Category Pantoprazole Sodium (Pantoprazole) 40 Mg Tab 40 Mg PO QAM 07/19/16 Reported Vitamin D (Cholecalciferol) 1,000 Unit Tab 500 Unit PO BID 07/19/16 Reported Calcium 500 Mg Tab 500 Mg PO BID 07/19/16 Reported Clopidogrel (Clopidogrel Bisulfate) 75 Mg Tab 75 Mg PO QAM 30 11/20/15 Rx Lasix (Furosemide) 20 Mg Tab 20 Mg PO DAILY 11/17/15 Reported Lopressor (Metoprolol Tartrate) 25 Mg Tab 0.5 Tab PO BID 90 05/09/15 Rx Cartia Xt (Diltiazem Hcl Coated Beads) 240 Mg Cap 1 Cap PO DAILY 30 05/06/15 Reported Vitamin C (Ascorbic Acid) 500 Mg Chw 500 Mg PO BID 11/01/14 Reported Multivitamin (Multivitamins) Tab 1 Tab PO DAILY 11/01/14 Reported Oracle 5MG/325MG (Acetaminophen/Hydrocodone Bitart) Tab 0.5 Tablet PO UD PRN 09/02/13 Reported Miralax (Polyethylene Glycol 3350) 1 Pow Pow 17 Gm PO DAILY 08/26/13 Reported Klor-Con (Potassium Chloride) 20 Meq Tabcr 20 Meq PO DAILY 08/26/13 Reported Current Inpatient Medications Current Inpatient Medications Medications (Trade) Dose Ordered Sig/Kathy Route Start Time Stop Time Status Last Admin Dose Admin Potassium Chloride/Sodium Chloride (Nss + 20meq KCl 1000ml) 1,000 ml @ 75 mls/hr [id number] IV 07/19/16 23:59 07/21/16 15:58 07/20/16 00:32 75 MLS/HR Acetaminophen (Tylenol Tab) 650 mg Q4H PRN PO 07/19/16 21:30 08/18/16 21:29 Ondansetron HCl (Zofran Inj) 4 mg Q6H PRN IV 07/19/16 21:30 08/18/16 21:29 Morphine Sulfate (MoRPHine SULFATE INJ) 2 mg Q30M PRN IV 07/19/16 21:30 08/02/16 21:29 Lorazepam (Ativan Inj) 0.5 mg Q4H PRN IV 07/19/16 21:30 08/18/16 21:29 Clopidogrel Bisulfate (plAVix TAB) 75 mg QAM PO 07/20/16 09:00 08/19/16 08:59 07/20/16 10:22 75 MG Diltiazem HCl (Cardizem Cd Cap) 240 mg DAILY PO 07/20/16 09:00 08/19/16 08:59 07/20/16 10:23 240 MG Furosemide (Lasix Tab) 20 mg DAILY PO 07/20/16 09:00 08/19/16 08:59 07/20/16 10:24 20 MG Acetaminophen/ Hydrocodone Bitart (Oracle 5/325 Tab) 1 tab Q6H PRN PO 07/19/16 21:30 08/02/16 21:29 Metoprolol Tartrate (Lopressor Tab) 12.5 mg BID PO 07/20/16 09:00 08/19/16 08:59 07/20/16 10:22 12.5 MG Pantoprazole Sodium (Protonix Tab) 40 mg QAM PO 07/20/16 09:00 08/19/16 08:59 07/20/16 10:25 40 MG Potassium Chloride 20 meq 20 meq DAILY PO 07/20/16 09:00 08/19/16 08:59 07/20/16 10:24 20 MEQ Ertapenem/Sodium Chloride (Invanz Iv/Nss Ad-Van 50ml) 50 ml @ 120 mls/hr Q24H IV 07/20/16 21:00 07/29/16 23:59 Haloperidol Lactate (Haldol Inj) 1 mg Q4H PRN IM 07/19/16 22:30 08/18/16 22:29 Review of Systems ROS unable to be obtained due to patient lethargy/state. Daughter answered some questions regarding history Constitutional: + fatigue, + weakness, No chills, No fever, No sweats Eyes: No worsening of vision ENT: No hearing loss Physical Exam Date Time Temp Pulse Resp B/P Pulse Ox O2 Delivery O2 Flow Rate FiO2 07/20/16 07:45 Room Air 07/20/16 07:31 36.8 99 18 126/82 98 Room Air 07/20/16 02:00 Room Air 07/20/16 02:00 Room Air 07/19/16 23:40 37.2 95 16 109/84 96 Room Air 07/19/16 23:31 98 18 101/75 97 07/19/16 22:13 100 20 130/88 94 Room Air 07/19/16 20:23 100 20 119/72 96 Room Air 07/19/16 18:34 80 18 152/83 96 Room Air 07/19/16 17:57 111 136/86 07/19/16 17:48 124 07/19/16 17:14 36.2 105 20 108/91 95 Room Air 07/19/16 17:14 95 Room Air 07/19/16 17:14 95 Room Air 07/19/16 16:59 36.2 105 20 108/91 94 Room Air General Appearance: + pertinent finding (lethargic, thin, nonverbal) Head: normocephalic, atraumatic Eyes: + pertinent finding (closed throughout most of exam) ENT: + pertinent finding (unable to assess) Neck: supple Respiratory/Chest: chest non-tender, normal breath sounds, no respiratory distress, no accessory muscle use Cardiovascular: regular rate, rhythm Abdomen/GI: normal bowel sounds, soft Extremities/Musculoskelatal: + pedal edema (mild b/l) Neurologic/Psych: alert, normal mood/affect Skin: normal color, warm/dry, no rash Laboratory Results CHEST ONE VIEW PORTABLE HISTORY: SEIZURE COMPARISON: Chest 11/17/2015. FINDINGS: The heart remains enlarged. No focal lung consolidations to suggest pneumonia. No evidence for pulmonary edema. Mild interstitial thickening appears to be chronic. The patient is slightly rotated on this study. An IVC filter is unchanged in position. This appears to be in an intrahepatic location. IMPRESSION: No significant change compared to the prior study. No acute process. Chronic changes as described above. RUN DATE: 07/20/16 [facility] LAB PAGE 1 RUN TIME: 848 Specimen Inquiry PATIENT: LA NENA CAMEJO LOC: S[facility]chaLEIGHANN U # : [id number] AGE/SX: 80/F ROOM: [facility] REG : 07/19/[address]: Favian Navarro M.D : 1935 BED: 1 DIS : STATUS: ADM IN TLOC: SPEC #: [id number] ISIAH: 07/19/16 STATUS: RES REQ #: [id number] RECD: 07/19/[address] [facility] [address]: Cornelio Thompson MD SOURCE: URINE CATH ENTR: 07/19/16 [facility] DR: Jsapreet Cruz M.D. [facility]: ORDERED: CULTURE UR CATH COMMENTS: Has Specimen Been Obtained/Collected? Y Procedure Result Verified Site URINE CULTURE Preliminary 07/20/1649 Organism 1 ESCHERICHIA COLI COLONY COUNT >100,000 CFU/ml SENS SENSITIVITY TO FOLLOW Last 24 Hours Test 07/19/16 17:05 07/19/16 17:10 Urine Color YELLOW Urine Appearance TURBID Urine pH 5.0 Urine Specific Reva 1.013 Urine Protein TRACE Urine Glucose (UA) NEG Urine Ketones NEG Urine Occult Blood 2+ Urine Nitrite POS Urine Bilirubin NEG Urine Urobilinogen NEG Urine Leukocyte Esterase LARGE Urine WBC (Auto) >30 /hpf Urine RBC (Auto) 5-10 /hpf Urine Hyaline Casts (Auto) 1-5 /lpf Urine Epithelial Cells (Auto) 10-20 /lpf Urine Bacteria (Auto) 4+ White Blood Count 10.06 K/uL Red Blood Count 4.80 M/uL Hemoglobin 14.7 g/dL Hematocrit 43.0 % Mean Corpuscular Volume 89.6 fL Mean Corpuscular Hemoglobin 30.6 pg Mean Corpuscular Hemoglobin Concent 34.2 g/dl Platelet Count 201 K/uL Mean Platelet Volume 10.1 fL Neutrophils (%) (Auto) 66.6 % Lymphocytes (%) (Auto) 24.0 % Monocytes (%) (Auto) 7.8 % Eosinophils (%) (Auto) 1.2 % Basophils (%) (Auto) 0.2 % Neutrophils # (Auto) 6.71 K/uL Lymphocytes # (Auto) 2.41 K/uL Monocytes # (Auto) 0.78 K/uL Eosinophils # (Auto) 0.12 K/uL Basophils # (Auto) 0.02 K/uL RDW Standard Deviation 46.4 fL RDW Coefficient of Variation 14.1 % Immature Granulocyte % (Auto) 0.2 % Immature Granulocyte # (Auto) 0.02 K/uL Prothrombin Time 11.6 SECONDS Prothromb Time International Ratio 1.1 Activated Partial Thromboplast Time 23.3 SECONDS Partial Thromboplastin Ratio 0.9 Sodium Level 138 mmol/L Potassium Level 4.2 mmol/L Chloride Level 101 mmol/L Carbon Dioxide Level 28 mmol/L Anion Gap 9.0 mmol/L Blood Urea Nitrogen 18 mg/dl Creatinine 1.00 mg/dl Est Creatinine Clear Calc Drug Dose 35.8 ml/min Estimated GFR () 62.1 Estimated GFR (Non- 53.5 BUN/Creatinine Ratio 18.4 Random Glucose 143 mg/dl Calcium Level 9.1 mg/dl Phosphorus Level 3.1 mg/dl Magnesium Level 2.0 mg/dl Thyroid Stimulating Hormone (TSH) 5.190 uIu/ml Assessment & Plan Patient with E. Coli UTI and encephalopathy in the setting of dementia and previous ESBL E. Coli UTI. The patient is currently on IV Ertapenem. Agree with this pending culture results. The patient has had multiple occasions with the same ESBL E. Coli in her urine. Question whether this patient could have chronically infected renal stones. She has not had abdominal imaging recently. Recommend at least Abdominal X-Ray to assess for stones and maybe consider Abdominal/pelvic CT scan. Unsure of whether this patient would be a candidate for lithotripsy/stone removal regardless of result. She likely will require continued IV therapy, and she has had IM Ertapenem in the past at home per her daughter. We will follow Plan: 1. Continue Ertapenem 2. Follow urine cx 3. Recommend Abdominal X-Ray or CT to assess for renal stones Note: This document was dictated utilizing [employer] voice recognition software. Minor errors in scouts may be present. PROVIDER ADDENDUM: Patient examined and reviewed with Ms. Ernst. Agree with above assessment.
--- NOTE | 2016-07-20 12:54 | Hospitalist Progress Note ---
Hospitalist Progress Note Date of Service Jul 20, 2016. Subjective Pt evaluation today including: conversation w/ patient, conversation w/ family , physical exam, chart review, lab review, review of studies, review of inpatient medication list Patient will not open eyes or communicate with me. Daughter that is present with patient now reports that through the night she was trying to get out of bed and ate breakfast and lunch. She has underlying dementia. Additional Comments: Unable to attain due to dementia and current medical condition. Objective Vital Signs Date Time Temp Pulse Resp B/P Pulse Ox O2 Delivery O2 Flow Rate FiO2 07/20/16 07:45 Room Air 07/20/16 07:31 36.8 99 18 126/82 98 Room Air 07/20/16 02:00 Room Air 07/20/16 02:00 Room Air 07/19/16 23:40 37.2 95 16 109/84 96 Room Air 07/19/16 23:31 98 18 101/75 97 07/19/16 22:13 100 20 130/88 94 Room Air 07/19/16 20:23 100 20 119/72 96 Room Air 07/19/16 18:34 80 18 152/83 96 Room Air 07/19/16 17:57 111 136/86 07/19/16 17:48 124 07/19/16 17:14 36.2 105 20 108/91 95 Room Air 07/19/16 17:14 95 Room Air 07/19/16 17:14 95 Room Air 07/19/16 16:59 36.2 105 20 108/91 94 Room Air Physical Exam Notes: GEN: Not in acute distress HEENT: MMM Neck: Soft, supple Lungs: CTA b/l, no r/r/w Heart: IRREG, nrl S1S2 without murmurs, rubs or gallops Abdomen: Soft, NT, ND, + BS EXT: No C/C/E NEURO: moves all 4 extremities. Skin: warm, dry, no rashes Laboratory Results Last 24 Hours Test 07/19/16 17:05 07/19/16 17:10 Urine Color YELLOW Urine Appearance TURBID Urine pH 5.0 Urine Specific Valders 1.013 Urine Protein TRACE Urine Glucose (UA) NEG Urine Ketones NEG Urine Occult Blood 2+ Urine Nitrite POS Urine Bilirubin NEG Urine Urobilinogen NEG Urine Leukocyte Esterase LARGE Urine WBC (Auto) >30 /hpf Urine RBC (Auto) 5-10 /hpf Urine Hyaline Casts (Auto) 1-5 /lpf Urine Epithelial Cells (Auto) 10-20 /lpf Urine Bacteria (Auto) 4+ White Blood Count 10.06 K/uL Red Blood Count 4.80 M/uL Hemoglobin 14.7 g/dL Hematocrit 43.0 % Mean Corpuscular Volume 89.6 fL Mean Corpuscular Hemoglobin 30.6 pg Mean Corpuscular Hemoglobin Concent 34.2 g/dl Platelet Count 201 K/uL Mean Platelet Volume 10.1 fL Neutrophils (%) (Auto) 66.6 % Lymphocytes (%) (Auto) 24.0 % Monocytes (%) (Auto) 7.8 % Eosinophils (%) (Auto) 1.2 % Basophils (%) (Auto) 0.2 % Neutrophils # (Auto) 6.71 K/uL Lymphocytes # (Auto) 2.41 K/uL Monocytes # (Auto) 0.78 K/uL Eosinophils # (Auto) 0.12 K/uL Basophils # (Auto) 0.02 K/uL RDW Standard Deviation 46.4 fL RDW Coefficient of Variation 14.1 % Immature Granulocyte % (Auto) 0.2 % Immature Granulocyte # (Auto) 0.02 K/uL Prothrombin Time 11.6 SECONDS Prothromb Time International Ratio 1.1 Activated Partial Thromboplast Time 23.3 SECONDS Partial Thromboplastin Ratio 0.9 Sodium Level 138 mmol/L Potassium Level 4.2 mmol/L Chloride Level 101 mmol/L Carbon Dioxide Level 28 mmol/L Anion Gap 9.0 mmol/L Blood Urea Nitrogen 18 mg/dl Creatinine 1.00 mg/dl Est Creatinine Clear Calc Drug Dose 35.8 ml/min Estimated GFR () 62.1 Estimated GFR (Non- 53.5 BUN/Creatinine Ratio 18.4 Random Glucose 143 mg/dl Calcium Level 9.1 mg/dl Phosphorus Level 3.1 mg/dl Magnesium Level 2.0 mg/dl Thyroid Stimulating Hormone (TSH) 5.190 uIu/ml Assessment and Plan 1) UTI - E.Coli - IV Ertapenem, IVF, I.D. on case 2) Dementia - Appears patient is not verbal to anyone other than family (which is also intermittent) 3) HTN - stable 4) A Fib - rate stable, not on full anticoagulation. takes plavix. DVT prophylaxis - TEDs and SCDs, patient has a heparin allergy. Continued [facility] stay due to: multiple IV medications needed
[2016-07-20 15:37] VITALS: BP 100/57; PULSE 88; TEMP 36.5; O2SAT 98
[2016-07-20] MEDS: BOOST PLUS VANILLA PO SCH ×2 (17:13)
[2016-07-20 19:25] VITALS: O2SAT 96
[2016-07-20 20:43] VITALS: BP 106/66; PULSE 65
[2016-07-20] MEDS: ERTAPENEM IV 1 GM in SODIUM CHLOR 0.9% AD-VAN 50ML 50 ML IV SCH (20:45)
[2016-07-20 23:40] VITALS: BP 112/71; PULSE 98; TEMP 37; O2SAT 100
[2016-07-21] MEDS: NSS + 20MEQ KCL 1000ML 1,000 ML IV SCH (02:13)
[2016-07-21 07:24] LABS: BASO % 0.1 %; BASO ABS # 0.01 K/uL (0-0.2); COMPLETE YES; EOS % 0.7 %; IG% 0.2 %; LYMPH % 19.3 %; LYMPH ABS # 1.65 K/uL (1.2-3.4); MEAN CELL VOLUME 87.5 fL (80-100); MEAN CORPUSCULAR HGB CONC 33.1 g/dl (32-36); MEAN PLATELET VOLUME 9.8 fL (7.4-10.4); MONO % 8.2 %; NEUT % 71.5 %; PLATELET COUNT 148 K/uL (130-400); WHITE BLOOD COUNT 8.56 K/uL (4.8-10.8)
[2016-07-21 07:51] VITALS: BP 105/69; PULSE 79; TEMP 36.4; O2SAT 97
[2016-07-21 08:02] LABS: BUN/CREATININE RATIO 28.2 (10-20); CALCIUM 7.9 mg/dl (8.5-10.1); CREATININE 0.72 mg/dl (0.60-1.20)
[2016-07-21 08:10] VITALS: O2SAT 98
[2016-07-21] MEDS: BOOST PLUS VANILLA PO SCH ×4 (09:29→17:45)
[2016-07-21] MEDS: CLOPIDOGREL BISULFATE 75 MG TAB PO SCH (09:31)
[2016-07-21] MEDS: METOPROLOL TARTRATE 25 MG TAB PO SCH ×2 (09:31→21:00)
[2016-07-21] MEDS: FUROSEMIDE 20 MG TAB PO SCH (09:32)
[2016-07-21] MEDS: PANTOprazole SOD 40 MG TAB PO SCH (09:32)
[2016-07-21] MEDS: POTASSIUM CHLORIDE 20 MEQ TABCR PO SCH (09:33)
[2016-07-21] MEDS: DILTIAZEM HCL 240 MG CAPCR PO SCH (09:34)
--- NOTE | 2016-07-21 10:18 | Clinical Documentation Query ---
CLINICAL DOCUMENTATION QUERY Metabolic encephalopathy was well documented on H&P but has since fallen off the record. Unless carried through record and on to DC summary this diagnosis and its' associated SOI may be lost. In your clinical opinion is this patient being managed for: ( X ) Metabolic encephalopathy in setting of UTI ( ) ruled out Please clarify and document your clinical opinion in the progress notes and discharge summary. Terms such as "probable", "suspected", "likely", "questionable", "possible", or "still to be ruled out" are acceptable. IF IN AGREEMENT, YOU MUST DOCUMENT ABOVE DIAGNOSTIC STATEMENT IN DAILY PROGRESS NOTES AND DISCHARGE SUMMARY. This document is not part of the patient's record. Thank You, Deshaun Mcelroy, RN [phone]
--- NOTE | 2016-07-21 11:02 | Infectious Disease Progress Nt ---
Progress Note Date of Service Jul 21, 2016. Subjective Pt evaluation today including: conversation w/ patient, conversation w/ family (daughter), physical exam, chart review, lab review, review of studies, review of inpatient medication list WBC count this morning was 8.56. Urine culture is growing ESBL producing E. Coli - same that she has previously grown. Patient is feeling slightly better today according to her daughter. Patient continues to be nonverbal, but she is speaking with her daughter intermitently. She is up in her chair today and does stand up with PT in the room. All Other Systems: Reviewed and Negative Medications Current Inpatient Medications Medications (Trade) Dose Ordered Sig/Kathy Route Start Time Stop Time Status Last Admin Dose Admin Potassium Chloride/Sodium Chloride (Nss + 20meq KCl 1000ml) 1,000 ml @ 75 mls/hr [id number] IV 07/19/16 23:59 07/21/16 15:58 07/21/16 02:13 75 MLS/HR Acetaminophen (Tylenol Tab) 650 mg Q4H PRN PO 07/19/16 21:30 08/18/16 21:29 Ondansetron HCl (Zofran Inj) 4 mg Q6H PRN IV 07/19/16 21:30 08/18/16 21:29 Morphine Sulfate (MoRPHine SULFATE INJ) 2 mg Q30M PRN IV 07/19/16 21:30 08/02/16 21:29 Lorazepam (Ativan Inj) 0.5 mg Q4H PRN IV 07/19/16 21:30 08/18/16 21:29 Clopidogrel Bisulfate (plAVix TAB) 75 mg QAM PO 07/20/16 09:00 08/19/16 08:59 07/21/16 09:31 75 MG Diltiazem HCl (Cardizem Cd Cap) 240 mg DAILY PO 07/20/16 09:00 08/19/16 08:59 07/21/16 09:34 240 MG Furosemide (Lasix Tab) 20 mg DAILY PO 07/20/16 09:00 08/19/16 08:59 07/21/16 09:32 20 MG Acetaminophen/ Hydrocodone Bitart ([place] 5/325 Tab) 1 tab Q6H PRN PO 07/19/16 21:30 08/02/16 21:29 Metoprolol Tartrate (Lopressor Tab) 12.5 mg BID PO 07/20/16 09:00 08/19/16 08:59 07/21/16 09:31 12.5 MG Pantoprazole Sodium (Protonix Tab) 40 mg QAM PO 07/20/16 09:00 08/19/16 08:59 07/21/16 09:32 40 MG Potassium Chloride 20 meq 20 meq DAILY PO 07/20/16 09:00 08/19/16 08:59 07/21/16 09:33 20 MEQ Ertapenem/Sodium Chloride (Invanz Iv/Nss Ad-Van 50ml) 50 ml @ 120 mls/hr Q24H IV 07/20/16 21:00 07/29/16 23:59 07/20/16 20:45 120 MLS/HR Haloperidol Lactate (Haldol Inj) 1 mg Q4H PRN IM 07/19/16 22:30 08/18/16 22:29 Enteral Nutritional Formula (Boost Plus Vanilla) 1 can BIDM PO 07/20/16 17:45 08/19/16 17:44 07/21/16 09:29 1 CAN Objective Vital Signs Date Time Temp Pulse Resp B/P Pulse Ox O2 Delivery O2 Flow Rate FiO2 07/21/16 08:10 98 Room Air 07/21/16 08:10 Room Air 07/21/16 07:51 36.4 79 16 105/69 97 07/20/16 23:40 37.0 98 18 112/71 100 Room Air 07/20/16 20:43 65 106/66 07/20/16 19:25 96 Room Air 07/20/16 19:25 Room Air 07/20/16 15:37 36.5 88 17 100/57 98 Room Air Physical Exam General Appearance: no apparent distress, + thin Eyes: normal inspection, sclerae normal ENT: hearing grossly normal Neck: supple, trachea midline Respiratory/Chest: no respiratory distress, no accessory muscle use Cardiovascular: regular rate, rhythm Abdomen: normal bowel sounds Neurologic/Psychiatric: alert, + pertinent finding (nonverbal) Skin: normal color, warm/dry, no rash Laboratory Results RUN DATE: 07/21/16 [facility] LAB PAGE 1 RUN TIME: 736 Specimen Inquiry PATIENT: LA NENA CAMEJO LOC: [facility]A U # : [id number] AGE/SX: 80/F ROOM: [facility] REG : 07/19/[address]: Javier Méndez DO : 1935 BED: 1 DIS : STATUS: ADM IN TLOC: SPEC #: [id number] ISIAH: 07/19/16 STATUS: RES REQ #: [id number] RECD: 07/19/[address]: Cornelio Thompson MD SOURCE: URINE CATH ENTR: 07/19/16 [facility] DR: Jaspreet Cruz M.D. [facility] UR CATH COMMENTS: Has Specimen Been Obtained/Collected? Y Procedure Result Verified Site URINE CULTURE Preliminary 07/21/16-0737 Organism 1 ESCHERICHIA COLI COLONY COUNT >100,000 CFU/ml SENS SENSITIVITY TO FOLLOW SENSITIVITY RESULT INDICATES AN ORGANISM WITH AN EXTENDED SPECTRUM BETA LACTAMASE.THIS IS CONSIDERED A MULTIDRUG RESISTANT ORGANISM.PHONED TO CLAUDIO RAHMAN ON 07/21/16 AT 0736 BY Brandon Price. Results were verbalized back to [facility]ERT. RESULTS WERE ALSO CALLED TO [facility] INFECTION CONTROL ANSWERING MACHINE ON 07/21/16 BY EVERT. 1. ESCHERICHIA COLI Target Route Dose RX AB Cost M.I.C. IQ ------ ----- ------ -- ------ -------- - ------ TRIMET/SULFA R >2/38 AMPICILLIN R >16 AMPICILLIN/SUL R >16/8 CEFAZOLIN R >16 CEFOTAXIME R >32 CEFTRIAXONE R >32 CEFEPIME R >16 CEFUROXIME R >16 IMIPENEM S <=1 GENTAMICIN S <=4 TOBRAMYCIN S <=4 AMIKACIN S <=16 CIPROFLOXACIN R >2 LEVOFLOXACIN R >4 ERTAPENEM S <=1 NITROFURANTOIN S <=32 PIP/TAZO S <=16 S = SENSITIVE I = INTERMEDIATE R = RESISTANT Last 24 Hours Test 07/21/16 07:05 White Blood Count 8.56 K/uL Red Blood Count 4.00 M/uL Hemoglobin 11.6 g/dL Hematocrit 35.0 % Mean Corpuscular Volume 87.5 fL Mean Corpuscular Hemoglobin 29.0 pg Mean Corpuscular Hemoglobin Concent 33.1 g/dl Platelet Count 148 K/uL Mean Platelet Volume 9.8 fL Neutrophils (%) (Auto) 71.5 % Lymphocytes (%) (Auto) 19.3 % Monocytes (%) (Auto) 8.2 % Eosinophils (%) (Auto) 0.7 % Basophils (%) (Auto) 0.1 % Neutrophils # (Auto) 6.12 K/uL Lymphocytes # (Auto) 1.65 K/uL Monocytes # (Auto) 0.70 K/uL Eosinophils # (Auto) 0.06 K/uL Basophils # (Auto) 0.01 K/uL RDW Standard Deviation 45.8 fL RDW Coefficient of Variation 14.2 % Immature Granulocyte % (Auto) 0.2 % Immature Granulocyte # (Auto) 0.02 K/uL Sodium Level 142 mmol/L Potassium Level 4.0 mmol/L Chloride Level 110 mmol/L Carbon Dioxide Level 25 mmol/L Anion Gap 7.0 mmol/L Blood Urea Nitrogen 20 mg/dl Creatinine 0.72 mg/dl Est Creatinine Clear Calc Drug Dose 49.7 ml/min Estimated GFR () 92.3 Estimated GFR (Non- 79.7 BUN/Creatinine Ratio 28.2 Random Glucose 109 mg/dl Calcium Level 7.9 mg/dl Assessment and Plan Patient with ESBL producing E. Coli UTI and encephalopathy in the setting of dementia and history of multiple ESBL E. Coli UTI. The patient is currently on IV Ertapenem. Will continue this therapy. Question whether this patient could have chronically infected renal stones. Ordered Abdominal/pelvic CT scan to check for renal stones. Unsure of whether this patient would be a candidate for lithotripsy/stone removal regardless of result. She likely will require continued IV therapy, and she has had IM Ertapenem in the past at home per her daughter. We will follow Plan: 1. Continue Ertapenem 2. Abdominal CT scan to check for stones PROVIDER ADDENDUM: Patient reviewed with Ms. Ernst. Agree with above assessment.
--- NOTE | 2016-07-21 11:52 | DIAGNOSTIC IMAGING REPORT ---
ABDOMEN AND PELVIS CT WITHOUT CONTRAST CT DOSE: 541.82 mGycm HISTORY: Flank pain Recurrent UTI with ESBL E. Coli- ? Stones TECHNIQUE: Multiaxial CT images of the abdomen and pelvis were performed without the use of intravenous and oral contrast according to the standard department stone protocol. COMPARISON STUDY: 11/01/2014 FINDINGS: Trace pleural fluid right base. Minimal infiltrative change right base. Left base is clear. Aneurysmal dilatation lower thoracic aorta unchanged. Small hiatal hernia. Inferior vena caval filter in position. Prior cholecystectomy. Aneurysmal dilatation abdominal aorta unchanged from the prior exam. 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 Interval development of mild body wall anasarca. Kidneys negative for hydronephrosis or obstructive change. Moderate increase in fecal load throughout the colon. Small amount of free fluid within the pelvic cul-de-sac. Mild fecal impaction. Mild rectal prolapse. IMPRESSION: 1. No evidence for an obstructing urinary tract calculus. 2. Mild increase in fecal load throughout the colon similar to the prior study. 3. Interval development of mild to moderate body wall anasarca. 4. 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 5. Prior cholecystectomy as well as inferior vena caval stent placement. 6. Small amount of free fluid within the pelvic cul-de-sac. 7 small right pleural effusion with mild right basilar infiltrative change. Electronically signed by: Doug Adams M.D. 07/21/2016 11:51 AM Dictated Date/Time: 07/21/2016 11:46 AM
[2016-07-21 15:37] VITALS: BP 98/65; PULSE 69; TEMP 36.9; O2SAT 96
--- NOTE | 2016-07-21 17:19 | Hospitalist Progress Note ---
Hospitalist Progress Note Date of Service Jul 21, 2016. 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 I spoke with daughter who reports that when Terese is awake she is acting more like herself. Sensitivities show that Ertapenem is appropriate. Additional Comments: Unable to assess due to sedation in the face of severe dementia. Objective Vital Signs Date Time Temp Pulse Resp B/P Pulse Ox O2 Delivery O2 Flow Rate FiO2 07/21/16 15:37 36.9 69 20 98/65 96 Room Air 07/21/16 08:10 98 Room Air 07/21/16 08:10 Room Air 07/21/16 07:51 36.4 79 16 105/69 97 07/20/16 23:40 37.0 98 18 112/71 100 Room Air 07/20/16 20:43 65 106/66 07/20/16 19:25 96 Room Air 07/20/16 19:25 Room Air Physical Exam Notes: Neck: Soft, supple Lungs: CTA b/l, no r/r/w Heart: REG, nrl S1S2 without murmurs, rubs or gallops Abdomen: Soft, NT, ND, + BS EXT: No C/C/E NEURO: reports that patient has no deficits was seated eating breakfast this am. Skin: warm, dry, no rashes PSYCH: pt is sleeping soundly. Laboratory Results Last 24 Hours Test 07/21/16 07:05 White Blood Count 8.56 K/uL Red Blood Count 4.00 M/uL Hemoglobin 11.6 g/dL Hematocrit 35.0 % Mean Corpuscular Volume 87.5 fL Mean Corpuscular Hemoglobin 29.0 pg Mean Corpuscular Hemoglobin Concent 33.1 g/dl Platelet Count 148 K/uL Mean Platelet Volume 9.8 fL Neutrophils (%) (Auto) 71.5 % Lymphocytes (%) (Auto) 19.3 % Monocytes (%) (Auto) 8.2 % Eosinophils (%) (Auto) 0.7 % Basophils (%) (Auto) 0.1 % Neutrophils # (Auto) 6.12 K/uL Lymphocytes # (Auto) 1.65 K/uL Monocytes # (Auto) 0.70 K/uL Eosinophils # (Auto) 0.06 K/uL Basophils # (Auto) 0.01 K/uL RDW Standard Deviation 45.8 fL RDW Coefficient of Variation 14.2 % Immature Granulocyte % (Auto) 0.2 % Immature Granulocyte # (Auto) 0.02 K/uL Sodium Level 142 mmol/L Potassium Level 4.0 mmol/L Chloride Level 110 mmol/L Carbon Dioxide Level 25 mmol/L Anion Gap 7.0 mmol/L Blood Urea Nitrogen 20 mg/dl Creatinine 0.72 mg/dl Est Creatinine Clear Calc Drug Dose 49.7 ml/min Estimated GFR () 92.3 Estimated GFR (Non- 79.7 BUN/Creatinine Ratio 28.2 Random Glucose 109 mg/dl Calcium Level 7.9 mg/dl Assessment and Plan 1) UTI - E.Coli - IV Ertapenem, IVF, Following IDs recommendations. 2) Dementia - She is awake at night and morning and sleeps in the afternoon and early evening. 3) HTN - stable 4) A Fib - rate stable, not on full anticoagulation. takes plavix. DVT prophylaxis - TEDs and SCDs, patient has a heparin allergy.
[2016-07-21] MEDS: ERTAPENEM IV 1 GM in SODIUM CHLOR 0.9% AD-VAN 50ML 50 ML IV SCH (22:30)
[2016-07-21 23:18] VITALS: BP 122/78; PULSE 82; TEMP 36.5; O2SAT 95
[2016-07-22 08:04] VITALS: BP 123/80; PULSE 82; TEMP 36; O2SAT 97
[2016-07-22 08:18] LABS: BASO % 0.2 %; BASO ABS # 0.02 K/uL (0-0.2); COMPLETE YES; EOS % 0.8 %; HEMATOCRIT 37.6 % (37-47); IG% 0.2 %; LYMPH % 20.1 %; LYMPH ABS # 1.84 K/uL (1.2-3.4); MEAN CELL VOLUME 90.6 fL (80-100); MEAN CORPUSCULAR HEMOGLOBIN 29.6 pg (25-34); MEAN CORPUSCULAR HGB CONC 32.7 g/dl (32-36); MEAN PLATELET VOLUME 9.7 fL (7.4-10.4); MONO % 9.3 %; NEUT % 69.4 %; PLATELET COUNT 165 K/uL (130-400); RED BLOOD COUNT 4.15 M/uL (4.2-5.4); WHITE BLOOD COUNT 9.17 K/uL (4.8-10.8)
[2016-07-22 08:46] LABS: BUN/CREATININE RATIO 23.8 (10-20); CALCIUM 8.3 mg/dl (8.5-10.1); CREATININE 0.97 mg/dl (0.60-1.20); POTASSIUM 4.3 mmol/L (3.5-5.1)
[2016-07-22] MEDS: METOPROLOL TARTRATE 25 MG TAB PO SCH ×2 (09:20→21:11)
[2016-07-22] MEDS: CLOPIDOGREL BISULFATE 75 MG TAB PO SCH (09:22)
[2016-07-22] MEDS: FUROSEMIDE 20 MG TAB PO SCH (09:22)
[2016-07-22] MEDS: POTASSIUM CHLORIDE 20 MEQ TABCR PO SCH (09:23)
[2016-07-22] MEDS: PANTOprazole SOD 40 MG TAB PO SCH (09:23)
[2016-07-22] MEDS: DILTIAZEM HCL 240 MG CAPCR PO SCH (09:23)
[2016-07-22] MEDS: BOOST PLUS VANILLA PO SCH ×4 (09:41→18:21)
[2016-07-22 10:46] VITALS: O2SAT 97
[2016-07-22 15:08] VITALS: BP 104/59; PULSE 81; TEMP 37.2; O2SAT 97
--- NOTE | 2016-07-22 18:39 | Hospitalist Progress Note ---
Hospitalist Progress Note Date of Service Jul 22, 2016. Subjective Pt evaluation today including: conversation w/ family, physical exam, chart review, lab review, review of studies, review of inpatient medication list Daughter feels patient is back to her baseline mentation. Patient was again soundly sleeping when I visited as she is awake all night. Daughter reports that her mother worked 3rd trick. Patient resides with daughters. They want her to return to home with them. Not interested in even short term care even if IV antibiotics are needed they would want to do at home. Additional Comments: Unobtainable. Objective Vital Signs Date Time Temp Pulse Resp B/P Pulse Ox O2 Delivery O2 Flow Rate FiO2 07/22/16 15:30 Room Air 07/22/16 15:08 37.2 81 18 104/59 97 Room Air 07/22/16 10:46 97 Room Air 07/22/16 08:04 36.0 82 28 123/80 97 Room Air 07/22/16 08:00 Room Air 07/21/16 23:18 36.5 82 16 122/78 95 Room Air Physical Exam Notes: GEN: Sleeping, did awaken briefly when daughter spoke to her. HEENT: MMM Neck: Soft, supple Lungs: decreased breath sounds at the bases. Heart: REG, nrl S1S2 without murmurs, rubs or gallops Abdomen: Soft, NT, ND, + BS EXT: No C/C/E NEURO: moves all 4. Skin: warm, dry, no rashes PSYCH: Non-verbal. she speaks only to daughters. Laboratory Results Last 24 Hours Test 07/22/16 08:06 White Blood Count 9.17 K/uL Red Blood Count 4.15 M/uL Hemoglobin 12.3 g/dL Hematocrit 37.6 % Mean Corpuscular Volume 90.6 fL Mean Corpuscular Hemoglobin 29.6 pg Mean Corpuscular Hemoglobin Concent 32.7 g/dl Platelet Count 165 K/uL Mean Platelet Volume 9.7 fL Neutrophils (%) (Auto) 69.4 % Lymphocytes (%) (Auto) 20.1 % Monocytes (%) (Auto) 9.3 % Eosinophils (%) (Auto) 0.8 % Basophils (%) (Auto) 0.2 % Neutrophils # (Auto) 6.37 K/uL Lymphocytes # (Auto) 1.84 K/uL Monocytes # (Auto) 0.85 K/uL Eosinophils # (Auto) 0.07 K/uL Basophils # (Auto) 0.02 K/uL RDW Standard Deviation 48.6 fL RDW Coefficient of Variation 14.6 % Immature Granulocyte % (Auto) 0.2 % Immature Granulocyte # (Auto) 0.02 K/uL Sodium Level 142 mmol/L Potassium Level 4.3 mmol/L Chloride Level 107 mmol/L Carbon Dioxide Level 27 mmol/L Anion Gap 8.0 mmol/L Blood Urea Nitrogen 23 mg/dl Creatinine 0.97 mg/dl Est Creatinine Clear Calc Drug Dose 36.9 ml/min Estimated GFR () 64.4 Estimated GFR (Non- 55.5 BUN/Creatinine Ratio 23.8 Random Glucose 96 mg/dl Calcium Level 8.3 mg/dl Assessment and Plan 1) UTI - E.Coli - IV Ertapenem, IVF. 2) Dementia - Back to her baseline per family. 3) HTN - stable 4) A Fib - rate stable, not on full anticoagulation. takes plavix. DVT prophylaxis - TEDs and SCDs, patient has a heparin allergy. Anticipate her here through the weekend. Will go home after hospital stay.
[2016-07-22] MEDS: ERTAPENEM IV 1 GM in SODIUM CHLOR 0.9% AD-VAN 50ML 50 ML IV SCH (21:08)
[2016-07-22 21:11] VITALS: BP 108/67; PULSE 88
[2016-07-22 23:30] VITALS: BP 114/74; PULSE 83; TEMP 36.4; O2SAT 95
[2016-07-23] VITALS (7 sets, daily range): BP systolic 100–122; BP diastolic 64–81; PULSE 59–96; TEMP 36.5–37; O2SAT 96–99
[2016-07-23 08:01] LABS: BASO % 0.3 %; BASO ABS # 0.03 K/uL (0-0.2); COMPLETE YES; EOS % 0.7 %; HEMATOCRIT 36.3 % (37-47); IG% 0.3 %; LYMPH % 20.2 %; LYMPH ABS # 2.01 K/uL (1.2-3.4); MEAN CELL VOLUME 89.6 fL (80-100); MEAN CORPUSCULAR HEMOGLOBIN 29.4 pg (25-34); MEAN CORPUSCULAR HGB CONC 32.8 g/dl (32-36); MEAN PLATELET VOLUME 10.1 fL (7.4-10.4); MONO % 9.5 %; PLATELET COUNT 167 K/uL (130-400); RED BLOOD COUNT 4.05 M/uL (4.2-5.4); WHITE BLOOD COUNT 9.96 K/uL (4.8-10.8)
[2016-07-23 08:36] LABS: BUN/CREATININE RATIO 33.6 (10-20); CALCIUM 8.5 mg/dl (8.5-10.1); CREATININE 0.86 mg/dl (0.60-1.20); POTASSIUM 3.9 mmol/L (3.5-5.1)
[2016-07-23] MEDS: FUROSEMIDE 20 MG TAB PO SCH (09:00)
[2016-07-23] MEDS: DILTIAZEM HCL 240 MG CAPCR PO SCH (09:00)
[2016-07-23] MEDS: BOOST PLUS VANILLA PO SCH ×4 (09:28→17:41)
[2016-07-23] MEDS: METOPROLOL TARTRATE 25 MG TAB PO SCH ×2 (09:28→21:31)
[2016-07-23] MEDS ORDERED: COUGH DROP (SUGAR FREE) LOZ 24 LOZ/1 BOX ONE (09:41)
[2016-07-23] MEDS: CLOPIDOGREL BISULFATE 75 MG TAB PO SCH (09:48)
[2016-07-23] MEDS: PANTOprazole SOD 40 MG TAB PO SCH (09:48)
[2016-07-23] MEDS: POTASSIUM CHLORIDE 20 MEQ TABCR PO SCH (09:48)
--- NOTE | 2016-07-23 13:15 | Hospitalist Progress Note ---
Hospitalist Progress Note Date of Service Jul 23, 2016. Subjective Pt evaluation today including: conversation w/ family, physical exam, chart review, lab review, review of studies, review of inpatient medication list Patient remains at baseline. Daughter reports no new issues. Additional Comments: Unobtainable due to severe dementia. Objective Vital Signs Date Time Temp Pulse Resp B/P Pulse Ox O2 Delivery O2 Flow Rate FiO2 07/23/16 11:52 36.7 85 22 103/64 98 Room Air 07/23/16 10:41 Room Air 07/23/16 10:29 98 Room Air 07/23/16 08:29 37.0 80 24 121/80 98 Room Air 07/23/16 07:32 72 16 122/81 99 Room Air 07/23/16 00:50 Room Air 07/22/16 23:30 36.4 83 17 114/74 95 Room Air 07/22/16 21:11 88 108/67 07/22/16 20:00 Room Air 07/22/16 15:30 Room Air 07/22/16 15:08 37.2 81 18 104/59 97 Room Air Physical Exam Notes: GEN: Awake today. Non-verbal. HEENT: Tm's intact, no inflammation, EOMI, PERRLA, MMM Neck: Soft, supple Lungs: CTA b/l, no r/r/w Heart: REG, nrl S1S2 without murmurs, rubs or gallops Abdomen: Soft, NT, ND, + BS EXT: No C/C/E NEURO: moving all 4, does not follow commands. Skin: warm, dry, no rashes Laboratory Results Last 24 Hours Test 07/23/16 07:44 White Blood Count 9.96 K/uL Red Blood Count 4.05 M/uL Hemoglobin 11.9 g/dL Hematocrit 36.3 % Mean Corpuscular Volume 89.6 fL Mean Corpuscular Hemoglobin 29.4 pg Mean Corpuscular Hemoglobin Concent 32.8 g/dl Platelet Count 167 K/uL Mean Platelet Volume 10.1 fL Neutrophils (%) (Auto) 69.0 % Lymphocytes (%) (Auto) 20.2 % Monocytes (%) (Auto) 9.5 % Eosinophils (%) (Auto) 0.7 % Basophils (%) (Auto) 0.3 % Neutrophils # (Auto) 6.87 K/uL Lymphocytes # (Auto) 2.01 K/uL Monocytes # (Auto) 0.95 K/uL Eosinophils # (Auto) 0.07 K/uL Basophils # (Auto) 0.03 K/uL RDW Standard Deviation 47.3 fL RDW Coefficient of Variation 14.4 % Immature Granulocyte % (Auto) 0.3 % Immature Granulocyte # (Auto) 0.03 K/uL Sodium Level 142 mmol/L Potassium Level 3.9 mmol/L Chloride Level 106 mmol/L Carbon Dioxide Level 28 mmol/L Anion Gap 8.0 mmol/L Blood Urea Nitrogen 29 mg/dl Creatinine 0.86 mg/dl Est Creatinine Clear Calc Drug Dose 41.6 ml/min Estimated GFR () 74.5 Estimated GFR (Non- 64.3 BUN/Creatinine Ratio 33.6 Random Glucose 94 mg/dl Calcium Level 8.5 mg/dl Assessment and Plan 1) UTI - E.Coli - IV Ertapenem, IVF, ID following and advising. 2) Dementia - Back to her baseline per family. 3) HTN - stable 4) A Fib - rate stable, not on full anticoagulation. takes plavix. DVT prophylaxis - TEDs and SCDs, patient has a heparin allergy. Anticipate her here through the weekend. Will go home after hospital stay she has good family support and care.
[2016-07-23] MEDS: ERTAPENEM IV 1 GM in SODIUM CHLOR 0.9% AD-VAN 50ML 50 ML IV SCH (21:33)
[2016-07-24 00:15] VITALS: PULSE 78
[2016-07-24 08:13] VITALS: BP 110/70; PULSE 78; TEMP 36.8; O2SAT 97
[2016-07-24] MEDS: CLOPIDOGREL BISULFATE 75 MG TAB PO SCH (09:53)
[2016-07-24] MEDS: METOPROLOL TARTRATE 25 MG TAB PO SCH ×2 (09:53→21:00)
[2016-07-24] MEDS: FUROSEMIDE 20 MG TAB PO SCH (09:54)
[2016-07-24] MEDS: POTASSIUM CHLORIDE 20 MEQ TABCR PO SCH (09:55)
[2016-07-24] MEDS: PANTOprazole SOD 40 MG TAB PO SCH (09:55)
[2016-07-24] MEDS: DILTIAZEM HCL 240 MG CAPCR PO SCH (09:56)
[2016-07-24] MEDS: BOOST PLUS VANILLA PO SCH ×4 (09:56→18:14)
[2016-07-24 10:05] VITALS: BP 108/67; PULSE 89
[2016-07-24 15:06] VITALS: BP 94/54; PULSE 77; TEMP 36.9; O2SAT 96
--- NOTE | 2016-07-24 17:16 | Hospitalist Progress Note ---
Hospitalist Progress Note Date of Service Jul 24, 2016. Subjective Pt evaluation today including: conversation w/ family, physical exam, chart review, lab review, review of studies, review of inpatient medication list Patient was awake today eating pudding (requires being fed). She again does not talk to me, but nurse reported hearing her say ouch. Additional Comments: unobtainable due to dementia. Objective Vital Signs Date Time Temp Pulse Resp B/P Pulse Ox O2 Delivery O2 Flow Rate FiO2 07/24/16 15:06 36.9 77 20 94/54 96 Room Air 07/24/16 10:05 89 108/67 07/24/16 09:00 Room Air 07/24/16 08:13 36.8 78 21 110/70 97 Room Air 07/24/16 00:15 78 07/24/16 00:15 Room Air 07/23/16 23:29 36.8 59 18 100/64 96 Room Air 07/23/16 21:22 96 105/69 Physical Exam Notes: GEN: Awake, alert. Not in acute distress HEENT: EOMI, PERRLA, MMM Neck: Soft, supple Lungs: CTA b/l, no r/r/w Heart: REG, nrl S1S2 without murmurs, rubs or gallops Abdomen: Soft, NT, ND, + BS EXT: No C/C/E NEURO: CN's II-XII intact, non-focal. Skin: warm, dry, no rashes PSYCH: pleasantly demented. Assessment and Plan 1) UTI - E.Coli - IV Ertapenem, IVF, ID following and advising. 2) Dementia - Back to her baseline per family. 3) HTN - stable 4) A Fib - rate stable, not on full anticoagulation. takes plavix. DVT prophylaxis - TEDs and SCDs, patient has a heparin allergy. Anticipate D/C tomorrow. This will require IM Ertapenem daily for length of time to be determined by ID. Will go home after hospital stay she has good family support and care.
[2016-07-24 21:32] VITALS: BP 93/52; PULSE 77
[2016-07-24] MEDS: ERTAPENEM IV 1 GM in SODIUM CHLOR 0.9% AD-VAN 50ML 50 ML IV SCH (21:35)
[2016-07-24 23:11] VITALS: BP 104/70; PULSE 83; TEMP 36.8; O2SAT 95
[2016-07-25] VITALS (13 sets, daily range): BP systolic 104–122; BP diastolic 66–82; PULSE 87–97; TEMP 35.8–37.3; O2SAT 85–95
--- NOTE | 2016-07-25 06:43 | DIAGNOSTIC IMAGING REPORT ---
CHEST ONE VIEW PORTABLE CLINICAL HISTORY: Tachypnea, hypoxia. COMPARISON STUDY: 07/19/2016 FINDINGS: The heart is enlarged. There are low lung volumes. There is no lobar consolidation. There is no overt failure. An IVC filter is visualized. There is minor blunting of the right lateral costophrenic angle.[ IMPRESSION: Technically limited study with low lung volumes. Cardiomegaly. No focal pulmonary consolidation. Electronically signed by: Silver Fong M.D. 07/25/2016 6:42 AM Dictated Date/Time: 07/25/2016 6:40 AM
--- NOTE | 2016-07-25 09:03 | Infectious Disease Progress Nt ---
Progress Note Date of Service Jul 22, 2016. Subjective Pt evaluation today including: conversation w/ patient, conversation w/ family , physical exam, chart review, lab review, review of studies, review of inpatient medication list Patient appears to be slightly improved today. She is standing up with physical therapy and is more conversant with her daughters. It was noted that on her abdominal/pelvic CT scan as she was not noted to have any renal stones. She was noted to have mild increase in fecal load and a mild to moderate body wall anasarca. Her white blood cell count was 9.17. Her creatinine was stable at 0.97. All Other Systems: Reviewed and Negative Medications Current Inpatient Medications Medications (Trade) Dose Ordered Sig/Kathy Route Start Time Stop Time Status Last Admin Dose Admin Acetaminophen (Tylenol Tab) 650 mg Q4H PRN PO 07/19/16 21:30 08/18/16 21:29 Ondansetron HCl (Zofran Inj) 4 mg Q6H PRN IV 07/19/16 21:30 08/18/16 21:29 Morphine Sulfate (MoRPHine SULFATE INJ) 2 mg Q30M PRN IV 07/19/16 21:30 08/02/16 21:29 Lorazepam (Ativan Inj) 0.5 mg Q4H PRN IV 07/19/16 21:30 08/18/16 21:29 Clopidogrel Bisulfate (plAVix TAB) 75 mg QAM PO 07/20/16 09:00 08/19/16 08:59 07/24/16 09:53 75 MG Diltiazem HCl (Cardizem Cd Cap) 240 mg DAILY PO 07/20/16 09:00 08/19/16 08:59 07/24/16 09:56 240 MG Furosemide (Lasix Tab) 20 mg DAILY PO 07/20/16 09:00 08/19/16 08:59 07/24/16 09:54 20 MG Acetaminophen/ Hydrocodone Bitart ([place] 5/325 Tab) 1 tab Q6H PRN PO 07/19/16 21:30 08/02/16 21:29 07/23/16 12:04 1 TAB Metoprolol Tartrate (Lopressor Tab) 12.5 mg BID PO 07/20/16 09:00 08/19/16 08:59 07/24/16 09:53 12.5 MG Pantoprazole Sodium (Protonix Tab) 40 mg QAM PO 07/20/16 09:00 08/19/16 08:59 07/24/16 09:55 40 MG Potassium Chloride 20 meq 20 meq DAILY PO 07/20/16 09:00 08/19/16 08:59 07/24/16 09:55 20 MEQ Ertapenem/Sodium Chloride (Invanz Iv/Nss Ad-Van 50ml) 50 ml @ 120 mls/hr Q24H IV 07/20/16 21:00 07/29/16 23:59 07/24/16 21:35 120 MLS/HR Haloperidol Lactate (Haldol Inj) 1 mg Q4H PRN IM 07/19/16 22:30 08/18/16 22:29 Enteral Nutritional Formula (Boost Plus Vanilla) 1 can BIDM PO 07/20/16 17:45 08/19/16 17:44 07/24/16 18:14 1 CAN Objective Vital Signs Date Time Temp Pulse Resp B/P Pulse Ox O2 Delivery O2 Flow Rate FiO2 07/25/16 08:27 87 07/25/16 08:15 37.3 89 16 110/66 95 Room Air 07/25/16 03:29 97 24 95 Nasal Cannula 3.0 07/25/16 00:03 95 Nasal Cannula 3.0 07/25/16 00:01 88 Nasal Cannula 2.0 07/25/16 00:00 36 85 Room Air 07/24/16 23:11 36.8 83 20 104/70 95 Room Air 07/24/16 21:32 77 93/52 07/24/16 16:15 Room Air 07/24/16 15:06 36.9 77 20 94/54 96 Room Air 07/24/16 10:05 89 108/67 Physical Exam General Appearance: no apparent distress, + thin Eyes: normal inspection, sclerae normal ENT: hearing grossly normal Neck: supple, trachea midline Respiratory/Chest: no respiratory distress, no accessory muscle use Cardiovascular: + pertinent finding (regular rate) Extremities: normal range of motion Neurologic/Psychiatric: alert, + pertinent finding (nonverbal) Skin: normal color, warm/dry Laboratory Results ABDOMEN AND PELVIS CT WITHOUT CONTRAST CT DOSE: 541.82 mGycm HISTORY: Flank pain Recurrent UTI with ESBL E. Coli- ? Stones TECHNIQUE: Multiaxial CT images of the abdomen and pelvis were performed without the use of intravenous and oral contrast according to the standard department stone protocol. COMPARISON STUDY: 11/01/2014 FINDINGS: Trace pleural fluid right base. Minimal infiltrative change right base. Left base is clear. Aneurysmal dilatation lower thoracic aorta unchanged. Small hiatal hernia. Inferior vena caval filter in position. Prior cholecystectomy. Aneurysmal dilatation abdominal aorta unchanged from the prior exam. 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 Interval development of mild body wall anasarca. Kidneys negative for hydronephrosis or obstructive change. Moderate increase in fecal load throughout the colon. Small amount of free fluid within the pelvic cul-de-sac. Mild fecal impaction. Mild rectal prolapse. IMPRESSION: 1. No evidence for an obstructing urinary tract calculus. 2. Mild increase in fecal load throughout the colon similar to the prior study. 3. Interval development of mild to moderate body wall anasarca. 4. 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 5. Prior cholecystectomy as well as inferior vena caval stent placement. 6. Small amount of free fluid within the pelvic cul-de-sac. 7 small right pleural effusion with mild right basilar infiltrative change. RUN DATE: 07/21/16 [facility] LAB PAGE 1 RUN TIME: 1207 Specimen Inquiry PATIENT: LA NENA CAMEJO Waqas LOC: VERA U # : [id number] AGE/SX: 80/F ROOM: [facility] REG : 07/19/[address]: Javier Méndez DO : 1935 BED: 1 DIS : STATUS: ADM IN TLOC: SPEC #: [id number] ISIAH: 07/19/16 STATUS: COMP REQ #: [id number] RECD: 07/19/[address]: Cornelio Thompson MD SOURCE: URINE CATH ENTR: 07/19/16-[address]: Jaspreet Cruz M.D. SPDESC: ORDERED: CULTURE UR CATH COMMENTS: Has Specimen Been Obtained/Collected? Y Procedure Result Verified Site URINE CULTURE Final 07/21/16-1207 Organism 1 ESCHERICHIA COLI COLONY COUNT >100,000 CFU/ml SENS SENSITIVITY TO FOLLOW SENSITIVITY RESULT INDICATES AN ORGANISM WITH AN EXTENDED SPECTRUM BETA LACTAMASE.THIS IS CONSIDERED A MULTIDRUG RESISTANT ORGANISM.PHONED TO CLAUDIO RAHMAN ON 07/21/16 AT 0736 BY Brandon Price. Results were verbalized back to EVERT. RESULTS WERE ALSO CALLED TO [facility] INFECTION CONTROL ANSWERING MACHINE ON 07/21/16 BY EVERT. 1. ESCHERICHIA COLI Target Route Dose RX AB Cost M.I.C. IQ ------ ----- ------ -- ------ -------- - ------ TRIMET/SULFA R >2/38 AMPICILLIN R >16 AMPICILLIN/SUL R >16/8 CEFAZOLIN R >16 CEFOTAXIME R >32 CEFTRIAXONE R >32 CEFEPIME R >16 CEFUROXIME R >16 IMIPENEM S <=1 GENTAMICIN S <=4 TOBRAMYCIN S <=4 AMIKACIN S <=16 CIPROFLOXACIN R >2 LEVOFLOXACIN R >4 ERTAPENEM S <=1 NITROFURANTOIN S <=32 PIP/TAZO S <=16 S = SENSITIVE I = INTERMEDIATE R = RESISTANT Assessment and Plan Patient with ESBL producing E. Coli UTI and encephalopathy in the setting of dementia and history of multiple ESBL E. Coli UTI. The patient is currently on IV Ertapenem. Recommend completing 14 days of therapy with Ertapenem. May transition to IM Ertapenem at home for ease of use with patient's dementia/ likelihood to pull out PICC line. Daughter agrees. We can follow as outpatient. Thanks PROVIDER ADDENDUM: Pt. reviewed with Ms. Ernst. Agree with above assessment.
[2016-07-25] MEDS: METOPROLOL TARTRATE 25 MG TAB PO SCH (11:18)
[2016-07-25] MEDS: PANTOprazole SOD 40 MG TAB PO SCH (11:19)
[2016-07-25] MEDS: FUROSEMIDE 20 MG TAB PO SCH (11:21)
[2016-07-25] MEDS: POTASSIUM CHLORIDE 20 MEQ TABCR PO SCH (11:21)
[2016-07-25] MEDS: DILTIAZEM HCL 240 MG CAPCR PO SCH (11:23)
[2016-07-25] MEDS: CLOPIDOGREL BISULFATE 75 MG TAB PO SCH (11:24)
[2016-07-25] MEDS: BOOST PLUS VANILLA PO SCH ×2 (11:24)
[2016-07-25] MEDS ORDERED: ALBUT/IPRATROP 3MG/0.5MG NEB 3 ML VIAL INH PRN (12:00)
[2016-07-25] MEDS: ALBUT/IPRATROP 3MG/0.5MG NEB 3 ML VIAL INH SCH ×2 (12:12→16:07)
--- NOTE | 2016-07-25 16:23 | Infectious Disease Progress Nt ---
Progress Note Date of Service Jul 25, 2016. Subjective Pt evaluation today including: conversation w/ patient, physical exam, chart review, lab review, review of studies, review of inpatient medication list WBC count on 07/23 was 9.96. Creatinine was stable. CXR showed no focal consolidation. Patient had some SOB overnight according to her daughter but has improved today. She is anticipating D/C. Additional Comments: Patient is nonverbal so unable to review systems Medications Current Inpatient Medications Medications (Trade) Dose Ordered Sig/Kathy Route Start Time Stop Time Status Last Admin Dose Admin Acetaminophen (Tylenol Tab) 650 mg Q4H PRN PO 07/19/16 21:30 08/18/16 21:29 Ondansetron HCl (Zofran Inj) 4 mg Q6H PRN IV 07/19/16 21:30 08/18/16 21:29 Morphine Sulfate (MoRPHine SULFATE INJ) 2 mg Q30M PRN IV 07/19/16 21:30 08/02/16 21:29 Lorazepam (Ativan Inj) 0.5 mg Q4H PRN IV 07/19/16 21:30 08/18/16 21:29 Clopidogrel Bisulfate (plAVix TAB) 75 mg QAM PO 07/20/16 09:00 08/19/16 08:59 07/25/16 11:24 75 MG Diltiazem HCl (Cardizem Cd Cap) 240 mg DAILY PO 07/20/16 09:00 08/19/16 08:59 07/25/16 11:23 240 MG Furosemide (Lasix Tab) 20 mg DAILY PO 07/20/16 09:00 08/19/16 08:59 07/25/16 11:21 20 MG Acetaminophen/ Hydrocodone Bitart ([place] 5/325 Tab) 1 tab Q6H PRN PO 07/19/16 21:30 08/02/16 21:29 07/23/16 12:04 1 TAB Metoprolol Tartrate (Lopressor Tab) 12.5 mg BID PO 07/20/16 09:00 08/19/16 08:59 07/25/16 11:18 12.5 MG Pantoprazole Sodium (Protonix Tab) 40 mg QAM PO 07/20/16 09:00 08/19/16 08:59 07/25/16 11:19 40 MG Potassium Chloride 20 meq 20 meq DAILY PO 07/20/16 09:00 08/19/16 08:59 07/25/16 11:21 20 MEQ Ertapenem/Sodium Chloride (Invanz Iv/Nss Ad-Van 50ml) 50 ml @ 120 mls/hr Q24H IV 07/20/16 21:00 07/29/16 23:59 07/24/16 21:35 120 MLS/HR Haloperidol Lactate (Haldol Inj) 1 mg Q4H PRN IM 07/19/16 22:30 08/18/16 22:29 Enteral Nutritional Formula (Boost Plus Vanilla) 1 can BIDM PO 07/20/16 17:45 08/19/16 17:44 07/25/16 11:24 1 CAN Albuterol/ Ipratropium (Duoneb) 3 ml QIDR INH 07/25/16 12:00 08/24/16 11:59 07/25/16 16:07 3 ML Albuterol/ Ipratropium (Duoneb) 3 ml Q2H PRN INH 07/25/16 12:00 08/24/16 11:59 Objective Vital Signs Date Time Temp Pulse Resp B/P Pulse Ox O2 Delivery O2 Flow Rate FiO2 07/25/16 16:08 93 18 95 Room Air 07/25/16 15:19 35.8 89 20 104/71 95 Room Air 07/25/16 12:15 90 20 95 Room Air 07/25/16 11:15 89 122/82 07/25/16 11:04 94 Room Air 07/25/16 08:27 87 07/25/16 08:15 37.3 89 16 110/66 95 Room Air 07/25/16 08:10 Room Air 07/25/16 03:29 97 24 95 Nasal Cannula 3.0 07/25/16 00:03 95 Nasal Cannula 3.0 07/25/16 00:01 88 Nasal Cannula 2.0 07/25/16 00:00 36 85 Room Air 07/24/16 23:11 36.8 83 20 104/70 95 Room Air 07/24/16 21:32 77 93/52 Physical Exam General Appearance: no apparent distress, + thin, + pertinent finding ( nonverbal) Eyes: normal inspection, sclerae normal Neck: trachea midline Respiratory/Chest: no respiratory distress, no accessory muscle use Neurologic/Psychiatric: alert, + pertinent finding (nonverbal- does not make conversation) Skin: warm/dry, no rash Laboratory Results CHEST ONE VIEW PORTABLE CLINICAL HISTORY: Tachypnea, hypoxia. COMPARISON STUDY: 07/19/2016 FINDINGS: The heart is enlarged. There are low lung volumes. There is no lobar consolidation. There is no overt failure. An IVC filter is visualized. There is minor blunting of the right lateral costophrenic angle.[ IMPRESSION: Technically limited study with low lung volumes. Cardiomegaly. No focal pulmonary consolidation. Assessment and Plan Patient with ESBL producing E. Coli UTI and encephalopathy in the setting of dementia and history of multiple ESBL E. Coli UTI. The patient is currently on IV Ertapenem. Recommend completing 14 days of therapy with Ertapenem. May transition to IM Ertapenem at home for ease of use with patient's dementia/ likelihood to pull out PICC line. Daughter agrees. We can follow as outpatient. Thanks PROVIDER ADDENDUM: Patient reviewed with Ms. Ernst. Agree with above assessment.
[2016-07-25] MEDS ORDERED: ERTA1INJ IM (16:32)
--- NOTE | 2016-07-25 16:36 | Discharge Instructions ---
Discharge Instructions Date of Service Jul 25, 2016. Admission Reason for Admission: Altered Mental Status Uti Discharge Discharge Diagnosis / Problem: UTI (multi-resistant)/Dementia Discharge Goals Goal(s): Improve function, Improve disease control Activity Recommendations Activity Limitations: resume your previous activity . Instructions / Follow-Up Instructions / Follow-Up PCP in 5-7 days. Infectious disease, Dr. Ingram and Kateryna Ernst PA-C in 2-3 weeks - call office for follow up appointment Current Hospital Diet Patient's current hospital diet: AHA Diet (Heart Healthy) Discharge Diet Recommended Diet: AHA Diet (Heart Healthy) Procedures Procedures Performed: None Pending Studies Studies pending at discharge: no Medical Emergencies . Who to Call and When: Medical Emergencies: If at any time you feel your situation is an emergency, please call 911 immediately. . Non-Emergent Contact Non-Emergency issues call your: Primary Care Provider . . "Provider Documentation" section prepared by Javier Méndez. VTE Core Measure Inpt VTE Proph given/why not?: Tisha Swanson, SCD's
[2016-07-25] MEDS: ERTAPENEM IV 1 GM in SODIUM CHLOR 0.9% AD-VAN 50ML 50 ML IV SCH (17:10)
--- NOTE | 2016-07-25 19:23 | Discharge Summary ---
Discharge Summary Date of Service Jul 25, 2016. Discharge Summary Admission Date: Jul 19, 2016 at 22:11 Discharge Date: Jul 25, 2016 Discharge Disposition: Home Principal Diagnosis: UTI - ESBL Problems/Secondary Diagnoses: A.Fib/dementia Immunizations: Have You Had Influenza Vaccine: Unknown History of Tetanus Vaccine?: Unknown History of Pneumococcal: Unknown History of Hepatitis B Vaccine: Unknown Procedures: None. Consultations: Infectious disease, Dr. Ingram and Kateryna Ernst PA-C. Medication Reconciliation New Medications: Ertapenem Sodium (Invanz) 1 Gm Inj 1 GM IM Q24H for 7 Days, #7 VIAL NS Continued Medications: Ascorbic Acid (Vitamin C) 500 Mg Chw 500 MG PO BID Calcium (Calcium) 500 Mg Tab 500 MG PO BID Cholecalciferol (Vitamin D) 1,000 Unit Tab 500 UNIT PO BID Clopidogrel Bisulfate (Clopidogrel) 75 Mg Tab 75 MG PO QAM for 30 Days, #30 TAB 1 Refill Diltiazem Hcl Coated Beads (Cartia Xt) 240 Mg Cap 1 CAP PO DAILY for 30 Days, #30 CAP 5 Refills Furosemide (Lasix) 20 Mg Tab 20 MG PO DAILY, TAB Hydrocodone/Acetaminophen 5MG/325MG ([place] 5MG/325MG) Tab 0.5 TABLET PO UD PRN for Pain Metoprolol Tartrate (Lopressor) (Lopressor) 25 Mg Tab 0.5 TAB PO BID for 90 Days, #180 TAB 1 Refill Multivitamin (Multivitamin) Tab 1 TAB PO DAILY Pantoprazole (Pantoprazole Sodium) 40 Mg Tab 40 MG PO QAM, #30 Polyethylene Glycol 3350 (Miralax) 1 Pow Pow 17 GM PO DAILY Potassium Ext Rel (Klor-Con) 20 Meq Tabcr 20 MEQ PO DAILY Discharge Exam ROS is not obtainable due to non-verbal state of dementia. GEN: Awake, alert. Not in acute distress HEENT: EOMI, PERRLA, MMM Neck: Soft, supple Lungs: Scattered rhonchi. Heart: IRREG, nrl S1S2 without murmurs, rubs or gallops Abdomen: Soft, NT, ND, + BS EXT: No C/C/E NEURO: non-focal Skin: warm, dry, no rashes PSYCH: pleasantly demented. Hospital Course Patient presented with metabolic encephalopathy due to UTI she was treated with IV Ertapenem and IVF. She returned to her baseline dementia state. Id was consulted and recommended a total of 14 day course of Ertapenem. At discharge she had 7 days of IV. She will continue 7 days of IM at home. Actually the daughters had treated the patient with the same in the past. The night prior to discharge, she was found to have aspirated and was hypoxemic transiently. Chest X-ray showed no pneumonia. She had no further low pulse ox readings and was at her baseline in the after noon. I discharged her after the dose of Ertapenem. DVT prophylaxis - TEDs and SCDs, patient has a heparin allergy. Total Time Spent: Greater than 30 minutes This includes examination of the patient, discharge planning, medication reconciliation, and communication with other providers. Discharge Instructions Please refer to the electronic Patient Visit Report (Discharge Instructions) for additional information. Follow-Up PCP in 5-7 days Infectious disease, Dr. Ingram and Kateryna Ernst PA-C - call office to set up visit.
[2016-08-29] MEDS ORDERED: POTA20TA16 PO (06:27)
[2016-08-29] MEDS ORDERED: POLY335019 PO (06:31)
[2016-08-29] MEDS ORDERED: FURO-85 PO (10:51)
[2016-09-25] MEDS ORDERED: NYSP EXT (10:42)
[2016-09-25] MEDS ORDERED: ERYOPO IO (10:42)
[2016-09-25] MEDS ORDERED: CPR500 PO (10:42)
[2016-09-25] MEDS ORDERED: LACTCHW3 PO (10:42)
[2016-10-01] MEDS ORDERED: MULT-506 PO (07:17)
[2016-10-01] MEDS ORDERED: ASCO500C3 PO (07:19)
[2016-10-01] MEDS ORDERED: ACET1TAB84 PO (15:06)
[2016-10-01] MEDS ORDERED: PRT/40 PO (17:59)
[2016-10-01] MEDS ORDERED: CALC500T83 PO (17:59)
[2016-10-01] MEDS ORDERED: CHOL100010 PO (17:59)
== END 2016-07-25 19:30 | disposition home health service (06) | DRG 689 ==
LOC: ENRESERVDT → ENRESERVTM → EDBD 16:43 → C.EDC 16:44 → C.MSN 22:11 → EDBEDREQSVC 22:29
PROVIDERS: ADMIT Hospitalist; ATTEND Hospitalist
DX: N39.0 Urinary tract infection, site not specified (principal); G93.41 Metabolic encephalopathy; G30.9 Alzheimer's disease, unspecified; I48.91 Unspecified atrial fibrillation; I25.10 Atherosclerotic heart disease of native coronary artery without angina pectoris; R56.9 Unspecified convulsions; Z16.12 Extended spectrum beta lactamase (ESBL) resistance; K21.9 Gastro-esophageal reflux disease without esophagitis; B96.20 Unspecified Escherichia coli [E. coli] as the cause of diseases classified elsewhere; I10 Essential (primary) hypertension; F02.80 Dementia in other diseases classified elsewhere, unspecified severity, without behavioral disturbance, psychotic disturbance, mood disturbance, and anxiety; Z86.73 Personal history of transient ischemic attack (TIA), and cerebral infarction without residual deficits; Z86.718 Personal history of other venous thrombosis and embolism; Z43.9 Encounter for attention to unspecified artificial opening; Z79.02 Long term (current) use of antithrombotics/antiplatelets; Z79.899 Other long term (current) drug therapy; Z87.891 Personal history of nicotine dependence; Z79.891 Long term (current) use of opiate analgesic

== ENCOUNTER 2016-07-30 22:17 | Emergency (ER) | payer BC ==
[~2016-07-30] VITALS: Ht 157.5 cm; Wt 50.0 kg
[~2016-07-30 22:17] MED LIST changes: -CALC-51 PO; -CHOL100010 PO; +ERTA1INJ IM
[2016-07-30 22:27] VITALS: TEMP 36.8; Ht 157.5 cm; Wt 50.0 kg
[2016-07-30] MEDS ORDERED: SODIUM CHLORIDE 0.9% 1000ML 500 ML IV STA (23:03)
--- NOTE | 2016-07-30 23:11 | EMERGENCY ROOM VISIT NOTE ---
History Report prepared by Brody: Malcom Daniels Under the Supervision of: Dr. Edmond Acuna M.D. First contact with patient: 22:58 Chief Complaint: ALTERED MENTAL STATUS Stated Complaint: AMS/WEAKNESS Nursing Triage Summary: brought in by ALS. lives with daughter, found her gasping for air tonight while sleeping in bed and unresponsive. for EMS, gained wakefullness with stimulation. VS stable - sbp 90s. Hx dementia. TORRES, agitated but not speaking. Per daughter, not interactive at baseline but does talk. More agitated than usual. When asked if she follows commands at baseline, daughter said, "sometimes she does, and sometimes she doesn't. it's been worse since she had the UTI." Daughter reports worsening right lower extremity swelling noticed today. Recently discharged from [facility] for UTI with home nursing. PMH: afib, htn, dementia, wheelchair bound History of Present Illness The patient is a 80 year old female who presents to the Emergency Room via ALS with complaints of altered mental status that occurred this evening. This HPI is limited secondary to the patient's altered mental status. The patient was found unresponsive tonight by her family. The patient has a history of dementia. She was discharged from the hospital six days ago with a UTI. She is currently getting Invanz IM injections to treat the very resistant urine infection. Per her family, the patient seemed to have been improving over the past couple of days. She was verbal and eating normally. Tonight, she was "gasping for air" and coughing occasionally. Currently, she is nonverbal which is abnormal. Source of History: family, EMS History Limited By: AMS Onset: this evening Position: other (global) Symptom Intensity: moderate Quality: other (altered mental status) Timing: constant Associated Symptoms: + SOB, + cough Review of Systems Limited secondary to altered mental status. Past Medical & Surgical Medical Problems: (1) Abnormal EKG (2) Altered mental state (3) Altered mental status (4) Atrial fibrillation (5) Back pain (6) Blood clot in abdominal vein (7) blood clot lower extremity (8) Bronchitis (9) Cholecystectomy (10) CVA (cerebral vascular accident) (11) Deep venous thrombosis (12) Dementia (13) Elevated WBC count (14) Emphysema (15) Encephalopathy (16) Gallbladder problem (17) Head injury (18) Heart disease (19) Hematoma (20) Hematuria (21) Hypertension (22) Hypokalemia (23) Hyponatremia (24) Pneumonia (25) Seizure-like activity (26) Swelling of right extremity (27) Swelling of right extremity (28) Syncope (29) Urinary tract infection (30) UTI (urinary tract infection) Family History FH: HTN (hypertension) FH: diabetes mellitus Gallbladder disease Heart disease Lung disease Social History Smoking Status: Former Smoker Alcohol Use: none Drug Use: none Marital Status: Housing Status: lives with family Occupation Status: retired Current/Historical Medications Scheduled Ascorbic Acid (Vitamin C), 500 MG PO BID Calcium (Calcium), 500 MG PO BID Cholecalciferol (Vitamin D), 1,000 UNIT PO BID Clopidogrel Bisulfate (Clopidogrel), 75 MG PO QAM Diltiazem Hcl Coated Beads (Cardizem Cd), 240 MG PO DAILY Furosemide (Lasix), 20 MG PO DAILY Metoprolol Tartrate (Lopressor) (Lopressor), 0.5 TAB PO BID Multivitamin (Multivitamin), 1 TAB PO DAILY Pantoprazole (Pantoprazole Sodium), 40 MG PO QAM Potassium Ext Rel (Klor-Con), 20 MEQ PO DAILY Scheduled PRN Hydrocodone/Acetaminophen 5MG/325MG ([place] 5MG/325MG), 0.5 TABLET PO UD PRN for Pain Polyethylene Glycol 3350 (Miralax), 17 GM PO DAILY PRN for Constipation Allergies Coded Allergies: Heparin (Verified Allergy, Unknown, Significant GI bleed, 07/19/16) (per Gricelda's H&P) Penicillins (Verified Allergy, Unknown, HAS HAD ROCEPHIN W/OUT PROBLEM, ) Sulfa Antibiotics (Verified Allergy, Unknown, Unknown, 07/19/16) Sulfamethoxazole (Verified Allergy, Unknown, 07/19/16) Physical Exam Vital Signs Date Time Temp Pulse Resp B/P Pulse Ox O2 Delivery O2 Flow Rate FiO2 07/31/16 01:52 84 20 101/52 96 07/31/16 00:58 87 18 96/58 96 Room Air 07/30/16 22:43 110 07/30/16 22:27 36.8 90 18 100/76 94 Room Air Physical Exam GENERAL: Patient is in no acute distress. HEENT: No acute trauma, normocephalic atraumatic, mucous membranes moist, no nasal congestion, no scleral icterus. NECK: No stridor, no adenopathy, no meningismus, trachea is midline. LUNGS: Clear to auscultation bilaterally, no wheeze, no rhonchi, breath sounds equal. HEART: Without murmurs gallops or rubs, regular rate and rhythm. ABDOMEN: Soft, nontender, bowel sounds positive, no hernias, no peritonitis. EXTREMITIES: No cyanosis, moderate bilateral pedal edema that is worse on the right, full range of motion of all the joints without pain or difficulty, no signs for acute trauma. NEUROLOGIC: Presently nonverbal, moving all extremities, somewhat agitated, no focal motor deficits, awake. SKIN: No rash, no jaundice, no diaphoresis. Medical Decision & Procedures ER Provider Diagnostic Interpretation: X ray results and stated below per my interpretation and radiologist interpretation. Other radiology results and stated below per my review and radiologist interpretation: US VENOUS BILATERAL LOWER EXTREMITIES: There is a previous examination from 11/17/15 There is extensive DVT bilaterally. DVT was seen bilaterally on the previous examination as well. Essentially, all interrogated veins have findings suspicious for at least a component of DVT. Much of thrombus has an echogenic appearance and appears chronic. A component of acute on chronic DVT is not definitively excluded. Apparently, patient is on anticoagulation. Soft tissue edema. Radiologist: Barry Lo M.D. CHEST X-RAY: No pneumonia or CHF, no mediastinal widening, compared to old, similar findings. Per nc CT HEAD: Comparison 07/19 No significant interval changes appreciated. Unchanged findings include atrophy and chronic-appearing ischemic changes/old infarcts as well as some mild sinus opacity with hazy opacity in the left maxillary sinus which may represent acute sinusitis and partial opacification of mastoids. Radiologist: Barry Lo M.D. Laboratory Results 07/30/16 23:21 Red Blood Count 4.14, Mean Corpuscular Volume 88.2, Mean Corpuscular Hemoglobin 29.7, Mean Corpuscular Hemoglobin Concent 33.7, Mean Platelet Volume 9.4, Neutrophils (%) (Auto) 76.3, Lymphocytes (%) (Auto) 13.5, Monocytes (%) (Auto) 8.0, Eosinophils (%) (Auto) 1.6, Basophils (%) (Auto) 0.4, Neutrophils # (Auto) 6.30, Lymphocytes # (Auto) 1.11, Monocytes # (Auto) 0.66, Eosinophils # (Auto) 0.13, Basophils # (Auto) 0.03 07/30/16 23:21 Test 07/30/16 23:21 07/30/16 23:31 White Blood Count 8.25 K/uL (4.8-10.8) Red Blood Count 4.14 M/uL (4.2-5.4) Hemoglobin 12.3 g/dL (12.0-16.0) Hematocrit 36.5 % (37-47) Mean Corpuscular Volume 88.2 fL (80-100) Mean Corpuscular Hemoglobin 29.7 pg (25-34) Mean Corpuscular Hemoglobin Concent 33.7 g/dl (32-36) Platelet Count 191 K/uL (130-400) Mean Platelet Volume 9.4 fL (7.4-10.4) Neutrophils (%) (Auto) 76.3 % Lymphocytes (%) (Auto) 13.5 % Monocytes (%) (Auto) 8.0 % Eosinophils (%) (Auto) 1.6 % Basophils (%) (Auto) 0.4 % Neutrophils # (Auto) 6.30 K/uL (1.4-6.5) Lymphocytes # (Auto) 1.11 K/uL (1.2-3.4) Monocytes # (Auto) 0.66 K/uL (0.11-0.59) Eosinophils # (Auto) 0.13 K/uL (0-0.5) Basophils # (Auto) 0.03 K/uL (0-0.2) RDW Standard Deviation 45.2 fL (36.4-46.3) RDW Coefficient of Variation 13.9 % (11.5-14.5) Immature Granulocyte % (Auto) 0.2 % Immature Granulocyte # (Auto) 0.02 K/uL (0.00-0.02) Anion Gap 8.0 mmol/L (3-11) Est Creatinine Clear Calc Drug Dose 32.7 ml/min Estimated GFR () 55.3 Estimated GFR (Non- 47.7 BUN/Creatinine Ratio 24.1 (10-20) Calcium Level 8.5 mg/dl (8.5-10.1) Magnesium Level 2.2 mg/dl (1.8-2.4) Total Bilirubin 0.3 mg/dl (0.2-1) Aspartate Amino Transf (AST/SGOT) 20 U/L (15-37) Alanine Aminotransferase (ALT/SGPT) 30 U/L (12-78) Alkaline Phosphatase 150 U/L (45-117) Troponin I < 0.015 ng/ml (0-0.045) Total Protein 6.7 gm/dl (6.4-8.2) Albumin 2.7 gm/dl (3.4-5.0) Globulin 4.0 gm/dl (2.5-4.0) Albumin/Globulin Ratio 0.7 (0.9-2) Thyroid Stimulating Hormone (TSH) 3.070 uIu/ml (0.300-4.500) Urine Color YELLOW Urine Appearance CLEAR (CLEAR) Urine pH 7.0 (4.5-7.5) Urine Specific [place] 1.014 (1.000-1.030) Urine Protein NEG (NEG) Urine Glucose (UA) NEG (NEG) Urine Ketones NEG (NEG) Urine Occult Blood NEG (NEG) Urine Nitrite NEG (NEG) Urine Bilirubin NEG (NEG) Urine Urobilinogen NEG (NEG) Urine Leukocyte Esterase NEG (NEG) Laboratory results reviewed by me. Medications Administered Medications (Trade) Dose Ordered Sig/Kathy Route Start Time Stop Time Status Last Admin Dose Admin Sodium Chloride (Nss 1000ml) 500 ml @ 999 mls/hr Q31M STAT IV 07/30/16 23:03 07/30/16 23:33 DC 07/31/16 00:58 999 MLS/HR ECG Indication: weakness Rate (beats per minute): 96 Rhythm: atrial fibrillation Findings: no acute ischemic change, other (Old lateral and septal infarct, flattened T-waves laterally) Comparison ECG Date: 19 Jul 2016 Change: The lateral infarct seems to be new. ED Course 2258: The patient was evaluated in room C9. A complete history and physical exam was performed. 2303: Ordered 500 ml @ 999 mls/hr 0143: At this time, I spoke with the patient's family. He agreed to send the patient home. 0150: Reevaluated the patient. Discussed results and discharge instructions: The family verbalized understanding and agreement. The patient is ready for discharge. Medical Decision Differential diagnosis includes but is not limited to intracranial bleeding, stroke, worsening infection, renal failure, electrolyte imbalance, anemia, pneumonia, pulmonary embolism, and cardiac ischemia. There is no leukocytosis or concerning anemia. No significant electrolyte abnormality, kidney failure or hepatitis. Urinalysis does not show evidence for infection. Brain CT does not show acute bleed or mass effect. Sinusitis was seen-this sinus disease was documented on previous CT scans. Chest x-ray does not show pneumonia or pneumothorax. There is no CHF. Bilateral lower extremity ultrasound shows significant clot, this has also been documented before. EKG shows A. fib without any acute ischemia. Some old infarcts were noted. Cardiac enzyme testing 1 is not consistent with acute cardiac injury. The patient received IV saline, she has remained wake. Her family has been to visit and has been with her the entire time in the emergency room. In regard to the bilateral lower extremity DVT, apparently the patient is on Pradaxa and has a vena cava filter. The family was told that the clots would never resolved. I had a long talk with the patient's family. At this point, I do not find anything truly acute. The patient's urinalysis appears improved compared to previous testing and she is still receiving Ertapenem injections. The family states that they would just like to take her home. No need for hospitalization. The patient has fairly severe dementia and does not do well in the hospital. Patient is being discharged, the cause for the change in mental status is unclear. In short, no acute changes were found today in her workup. Her urinalysis/urine infection appears improved. Impression Primary Impression: Altered mental status Scribe Attestation The scribe's documentation has been prepared under my direction and personally reviewed by me in its entirety. I confirm that the note above accurately reflects all work, treatment, procedures, and medical decision making performed by me. Departure Information Dispostion Home / Self-Care Referrals Jaspreet Cruz M.D. Forms HOME CARE DOCUMENTATION FORM, IMPORTANT VISIT INFORMATION Patient Instructions My [facility] Additional Instructions care as before see luis miguel varma this upcoming week return for worsening symptoms testing today seemed as baseline urine is clean by our testing
[2016-07-30 23:27] LABS: BASO % 0.4 %; BASO ABS # 0.03 K/uL (0-0.2); COMPLETE YES; EOS % 1.6 %; HEMATOCRIT 36.5 % (37-47); IG% 0.2 %; LYMPH % 13.5 %; LYMPH ABS # 1.11 K/uL (1.2-3.4); MEAN CELL VOLUME 88.2 fL (80-100); MEAN CORPUSCULAR HEMOGLOBIN 29.7 pg (25-34); MEAN CORPUSCULAR HGB CONC 33.7 g/dl (32-36); MEAN PLATELET VOLUME 9.4 fL (7.4-10.4); NEUT % 76.3 %; PLATELET COUNT 191 K/uL (130-400); RED BLOOD COUNT 4.14 M/uL (4.2-5.4); WHITE BLOOD COUNT 8.25 K/uL (4.8-10.8)
[2016-07-30 23:45] LABS: ALT/SGPT 30 U/L (12-78); AST/SGOT 20 U/L (15-37); BLOOD UREA NITROGEN 27 mg/dl (7-18); BUN/CREATININE RATIO 24.1 (10-20); CALCIUM 8.5 mg/dl (8.5-10.1); CARBON DIOXIDE 27 mmol/L (21-32); CHLORIDE 102 mmol/L (98-107); GLUCOSE 143 mg/dl (70-99); MAGNESIUM 2.2 mg/dl (1.8-2.4); POTASSIUM 4.8 mmol/L (3.5-5.1); SODIUM 137 mmol/L (136-145)
[2016-07-30 23:54] LABS: ALB/GLOB RATIO 0.7 (0.9-2); ALKALINE PHOSPHATASE 150 U/L (45-117)
[2016-07-31 00:07] LABS: URINE APPEARANCE CLEAR (CLEAR); URINE BILIRUBIN NEG (NEG); URINE COLOR YELLOW; URINE NITRITE NEG (NEG); URINE SPECIFIC GRAVITY 1.014 (1.000-1.030); UROBILINOGEN NEG (NEG); ZZURINE CULT IF INDIC CATH NO
[2016-07-31 00:12] LABS: MANUAL MICROSCOPIC REQUIRED? NO; REVIEW REQ? NO
[2016-07-31 01:52] VITALS: BP 101/52; PULSE 84; O2SAT 96
--- NOTE | 2016-07-31 06:53 | DIAGNOSTIC IMAGING REPORT ---
ULTRASOUND VENOUS DOPPLER LWR EXT BILA CLINICAL HISTORY: Bilateral leg swelling COMPARISON STUDY: 11/17/2015 FINDINGS: There is chronic fibrin stranding within the right common femoral superficial femoral and popliteal vein. There is broken flow within the calf vessels. On the left, there is chronic fibrin stranding within the common femoral superficial femoral and popliteal vein. There is broken flow with the calf vessels. There is soft tissue edema present. IMPRESSION: Extensive bilateral chronic DVT. No definite acute thrombus identified. Soft tissue swelling. Electronically signed by: Silver Fong M.D. 07/31/2016 6:52 AM Dictated Date/Time: 07/31/2016 6:50 AM
--- NOTE | 2016-07-31 07:11 | DIAGNOSTIC IMAGING REPORT ---
CT HEAD WITHOUT CONTRAST (CT) CLINICAL HISTORY: Acute change in mental status COMPARISON STUDY: 07/19/2016 TECHNIQUE: Axial CT of the brain is performed from the vertex to the skull base. IV contrast was not administered for this examination. CT DOSE: 921.40 mGy.cm FINDINGS: No intra or extra-axial mass lesions are visualized. There is no CT evidence of acute cortical infarction. There is no evidence of midline shift. There is no acute hemorrhage. No calvarial fractures are visualized. There are patchy extensive matter hypodensities likely on a small vessel basis. 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 There is ventricular dilatation, likely secondary to volume loss. There is mild left maxillary sinus mucosal thickening. There is opacification of inferior left mastoid air cells. IMPRESSION: No acute intracranial findings Electronically signed by: Silver Fong M.D. 07/31/2016 7:09 AM Dictated Date/Time: 07/31/2016 7:07 AM
--- NOTE | 2016-07-31 07:20 | DIAGNOSTIC IMAGING REPORT ---
CHEST ONE VIEW PORTABLE CLINICAL HISTORY: Altered mental status, weakness. COMPARISON STUDY: 07/25/2016 FINDINGS: The heart remains enlarged. There is mild interstitial thickening/edema. There is no lobar consolidation. There is minor left basilar atelectasis. There is no significant pleural fluid.[ IMPRESSION: Cardiomegaly and mild interstitial thickening possibly chronic. No evidence of lobar consolidation Electronically signed by: Silver Fong M.D. 07/31/2016 7:19 AM Dictated Date/Time: 07/31/2016 7:18 AM
[2016-08-29] MEDS ORDERED: POTA20TA16 PO (06:27)
[2016-08-29] MEDS ORDERED: POLY335019 PO (06:31)
[2016-08-29] MEDS ORDERED: FURO-85 PO (10:51)
[2016-09-25] MEDS ORDERED: ERYOPO IO (10:42)
[2016-09-25] MEDS ORDERED: LACTCHW3 PO (10:42)
[2016-09-25] MEDS ORDERED: CPR500 PO (10:42)
[2016-09-25] MEDS ORDERED: NYSP EXT (10:42)
[2016-10-01] MEDS ORDERED: MULT-506 PO (07:17)
[2016-10-01] MEDS ORDERED: ASCO500C3 PO (07:19)
[2016-10-01] MEDS ORDERED: ACET1TAB84 PO (15:06)
[2016-10-01] MEDS ORDERED: CHOL100010 PO (17:59)
[2016-10-01] MEDS ORDERED: PANT40TA2 PO (17:59)
[2016-10-01] MEDS ORDERED: CALC500T83 PO (17:59)
== END 2016-07-31 01:53 | disposition home or self-care (01) ==
LOC: EDBD 22:17 → C.EDC 22:18
DX: R41.82 Altered mental status, unspecified (principal); R53.1 Weakness; F03.90 Unspecified dementia, unspecified severity, without behavioral disturbance, psychotic disturbance, mood disturbance, and anxiety; N39.0 Urinary tract infection, site not specified; I10 Essential (primary) hypertension; I82.403 Acute embolism and thrombosis of unspecified deep veins of lower extremity, bilateral; Z87.891 Personal history of nicotine dependence; Z79.899 Other long term (current) drug therapy; I48.91 Unspecified atrial fibrillation; R60.9 Edema, unspecified

== ENCOUNTER → 2016-08-11 | Outpatient (CLI) | payer BC ==
[~2016-08-11] MED LIST changes: +ACET1TAB84 PO; +ASCO500C3 PO; +ATV5X PO; +CALC-51 PO; +CALC500T83 PO; +CHOL1000 PO; +CHOL100010 PO; +CLOP1TAB15 PO; +CPR500 PO; +CPR500HP PO; +DEXT30TA7 PO; +DILT240C57 PO; -ERTA1INJ IM; +ERYOPO IO; +FURO-85 PO; +HYDR-4313 PO; +HYDR-5688 PO; +INVI1 INJ; +LACTCHW3 PO; +LPR25 PO; +LSX20 PO; +MRLP527 PO; +MULT-506 PO; +NITR-5 PO; +NITR100C6 PO; +NYSP EXT; +PANT40TA2 PO; +POLY335019 PO; +POTA20TA13 PO; +POTA20TA16 PO; +VITACAP26 PO; +[UNRECOGNIZED DRUG - CODE] INJ
[2016-08-11 15:44] LABS: URINE APPEARANCE CLEAR (CLEAR); URINE BILIRUBIN NEG (NEG); URINE COLOR YELLOW; URINE EPITHELIAL CELL AUTO >30 /lpf (0-5); URINE NITRITE NEG (NEG); URINE PH 5.5 (4.5-7.5); URINE SPECIFIC GRAVITY 1.009 (1.000-1.030); UROBILINOGEN NEG (NEG)
[2016-08-11 16:02] LABS: MANUAL MICROSCOPIC REQUIRED? NO; REVIEW REQ? NO
== END | disposition home or self-care (01) ==
LOC: C.LABSPEC 14:08
PROVIDERS: ATTEND Internal Medicine Geriatric Medicine
DX: R30.0 Dysuria (principal)

== ENCOUNTER → 2016-08-13 | Outpatient (CLI) | payer BC ==
[2016-08-13 11:59] LABS: URINE APPEARANCE TURBID (CLEAR); URINE BILIRUBIN NEG (NEG); URINE COLOR YELLOW; URINE NITRITE NEG (NEG); URINE SPECIFIC GRAVITY 1.006 (1.000-1.030); UROBILINOGEN NEG (NEG)
[2016-08-13 12:01] LABS: MANUAL MICROSCOPIC REQUIRED? NO; REVIEW REQ? NO
== END | disposition home or self-care (01) ==
LOC: C.LAB 11:14
PROVIDERS: ATTEND Internal Medicine Geriatric Medicine
DX: N39.0 Urinary tract infection, site not specified (principal); R39.9 Unspecified symptoms and signs involving the genitourinary system

== ENCOUNTER 2016-08-29 18:00 | Emergency (ER) | payer BC ==
[~2016-08-29] VITALS: Ht 165.1 cm; Wt 50.0 kg
[~2016-08-29 18:00] MED LIST changes: -ACET1TAB84 PO; -ASCO500C3 PO; -ATV5X PO; -CALC-51 PO; -CALC500T83 PO; -CHOL1000 PO; -CHOL100010 PO; -CLOP1TAB15 PO; -CPR500 PO; -CPR500HP PO; -DEXT30TA7 PO; -DILT240C48 PO; -DILT240C57 PO; -ERYOPO IO; -HYDR-4313 PO; -HYDR-5688 PO; -INVI1 INJ; -LACTCHW3 PO; -LPR25 PO; -LSX20 PO; -MRLP527 PO; -MULT-506 PO; -NITR-5 PO; -NITR100C6 PO; -NYSP EXT; -PANT40TA2 PO; -POTA20TA13 PO; -VITACAP26 PO; -[UNRECOGNIZED DRUG - CODE] INJ
[2016-08-29 18:21] VITALS: TEMP 36.3; Ht 165.1 cm; Wt 50.0 kg
[2016-08-29] MEDS ORDERED: LIDOCAINE/EPINEPH/TETRACAINE 1 EA SYR EXT STA (18:23)
[2016-08-29] MEDS ORDERED: HYDR-5688 PO (18:23)
[2016-08-29] MEDS ORDERED: LIDO/EPINEPHRINE/SOD BICARB 20 ML VIAL INFIL ONE (18:30)
--- NOTE | 2016-08-29 18:40 | EMERGENCY ROOM VISIT NOTE ---
History Report prepared by Brody: Michael Petersen Under the Supervision of: Dr. Edmond Acuna M.D. First contact with patient: 18:12 Chief Complaint: FALL Stated Complaint: FALL, HEAD INJURY History of Present Illness The patient is an 81 year old female with severe dementia who presents to the Emergency Room with complaints of a sudden fall beginning 30-45 minutes prior to arrival. As per daughter, she administered a shot to the patient that makes her "woozy". The patient was using the restroom and when she pulled up her pants , the patient fell forward hitting her head off of the bathtub and then backwards onto her bottom. She denies the patient losing consciousness during the event. The daughter notes the patient is on Plavix. She denies the patient vomiting. The daughter associates the patient having a laceration to the forehead and a skin tear on her right ring finger. She states the patient was able to weight bare following the incident. The daughter notes the patient's tetanus shot is up to date. 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 A total of 10 systems reviewed and were otherwise negative. Past Medical & Surgical Medical Problems: (1) Abnormal EKG (2) Altered mental state (3) Altered mental status (4) Atrial fibrillation (5) Back pain (6) Blood clot in abdominal vein (7) blood clot lower extremity (8) Bronchitis (9) Cholecystectomy (10) CVA (cerebral vascular accident) (11) Deep venous thrombosis (12) Dementia (13) Elevated WBC count (14) Emphysema (15) Encephalopathy (16) Gallbladder problem (17) Head injury (18) Heart disease (19) Hematoma (20) Hematuria (21) Hypertension (22) Hypokalemia (23) Hyponatremia (24) Pneumonia (25) Seizure-like activity (26) Swelling of right extremity (27) Swelling of right extremity (28) Syncope (29) Urinary tract infection (30) UTI (urinary tract infection) Family History FH: HTN (hypertension) FH: diabetes mellitus Gallbladder disease Heart disease Lung disease Social History Smoking Status: Former Smoker Alcohol Use: none Drug Use: none Marital Status: Housing Status: lives with family Occupation Status: retired Current/Historical Medications Scheduled Ascorbic Acid (Vitamin C), 500 MG PO DAILY Calcium (Calcium), 500 MG PO DAILY Cholecalciferol (Vitamin D), 1,000 UNIT PO DAILY Clopidogrel Bisulfate (Clopidogrel), 75 MG PO QAM Diltiazem Hcl Coated Beads (Cardizem Cd), 240 MG PO DAILY Ertapenem (Invanz), 1 DOSE INJ DAILY Furosemide (Lasix), 20 MG PO DAILY Lidocaine HCl (Lidocaine HCl), 10 ML INJ DAILY Metoprolol Tartrate (Lopressor) (Lopressor), 0.5 TAB PO BID Multivitamin (Multivitamin), 1 TAB PO DAILY Pantoprazole (Pantoprazole Sodium), 40 MG PO QAM Potassium Ext Rel (Klor-Con), 20 MEQ PO DAILY Scheduled PRN Hydrocodone/Acetaminophen 5MG/325MG ([place] 5MG/325MG), 0.5 TABLET PO UD PRN for Pain Polyethylene Glycol 3350 (Miralax), 17 GM PO DAILY PRN for Constipation Allergies Coded Allergies: Heparin (Verified Allergy, Unknown, Significant GI bleed, 07/19/16) (per Gricelda's H&P) Penicillins (Verified Allergy, Unknown, HAS HAD ROCEPHIN W/OUT PROBLEM, ) Sulfa Antibiotics (Verified Allergy, Unknown, Unknown, 07/19/16) Sulfamethoxazole (Verified Allergy, Unknown, 07/19/16) Physical Exam Vital Signs Date Time Temp Pulse Resp B/P Pulse Ox O2 Delivery O2 Flow Rate FiO2 08/29/16 20:13 64 16 125/87 92 08/29/16 18:21 36.3 80 20 125/80 Room Air Physical Exam GENERAL: Patient is in no acute distress. HEENT: 1/2 cm laceration just superior to the left eyebrow laterally. No negro step-off. No other facial or scalp trauma noted. Mucous membranes are moist. NECK: No posterior C-spine tenderness or step-off. No stridor, no adenopathy, no meningismus, trachea is midline. LUNGS: Clear to auscultation bilaterally, no wheeze, no rhonchi, breath sounds equal. HEART: Without murmurs gallops or rubs, regular rate and rhythm. ABDOMEN: Soft, nontender, bowel sounds positive, no hernias, no peritonitis. BACK: Nontender thoracic or lumbar spine. EXTREMITIES: Skin tear on the dorsal aspect of the right 4th finger, no suturing required, no obvious deformity. Functionality of all joints seems intact. No other extremity trauma noted. NEUROLOGIC: Awake, moving all extremities, non-verbal, confused consistent with dementia. SKIN: No rash, no jaundice, no diaphoresis. Medical Decision & Procedures ER Provider Diagnostic Interpretation: X ray results and stated below per my interpretation and radiologist interpretation. Other radiology results and stated below per my review and radiologist interpretation: RIGHT FOURTH FINGER 3 VIEWS CLINICAL HISTORY: Fourth finger injury. FINDINGS: 3 portable views of the right fourth finger are obtained. No prior studies are available for comparison at the time of dictation. The skeletal structures are osteopenic. No fracture is identified in the right fourth finger. The fourth metacarpophalangeal and interphalangeal joints appear maintained. The overlying soft tissues are within normal limits. IMPRESSION: There is no radiographic evidence of right fourth finger fracture as clinically queried. Electronically signed by: Edmond Schwarz M.D. 08/29/2016 7:[address] SCAN OF THE BRAIN WITHOUT IV CONTRAST CLINICAL HISTORY: Fall. Head injury. COMPARISON STUDY: CT of the brain dated 07/31/2016. TECHNIQUE: Unenhanced axial CT scan of the brain is performed from the vertex to the skull base. The Examination is degraded by motion artifact. The skull base was scanned twice in an attempt to improve image quality. CT DOSE: 1132.92 mGycm FINDINGS: Brain parenchyma: There are age-related involutional changes noting moderate to advanced subcortical and periventricular microangiopathic change. There is right posterior frontal encephalomalacia consistent with remote infarct. There is no hemorrhage, mass effect, or evidence of acute territorial ischemia by CT criteria. A chronic lacunar infarct is present in the right caudate head. Palma-white matter is preserved. No extra-axial fluid collection is seen. Ventricles, sulci, cisterns: Prominent secondary to involutional change. Intracranial vasculature: There is atherosclerotic calcification of the cavernous carotid and vertebral arteries. Calvarium: The skeletal structures are osteopenic. There is no depressed calvarial fracture. Sinuses and mastoids: Trace mucosal thickening is seen within the left maxillary antrum. The remaining paranasal sinuses are clear. There are small bilateral mastoid effusions. Orbits: The bony orbits are grossly intact. IMPRESSION: 1. Motion degraded examination. 2. Senescent changes and remote infarct as above. There is no hemorrhage, mass effect, or evidence of acute territorial ischemia by CT criteria. Electronically signed by: Edmond Schwarz M.D. 08/29/2016 6:[address] SCAN OF THE CERVICAL SPINE CLINICAL HISTORY: Fall. COMPARISON STUDY: CT scan of cervical spine dated 08/28/2013. TECHNIQUE: CT scan of the cervical spine is performed from the skull base to the upper thoracic spine. Images are reviewed in the axial, sagittal, and coronal planes. IV contrast was not administered for this examination. CT DOSE: 408.62 mGycm FINDINGS: Skeletal structures: The skeletal structures are osteopenic. There is no evidence of fracture or subluxation involving the cervical spine. Vertebral body height and alignment are maintained. The odontoid process and lateral masses are intact. The atlantoaxial articulation is preserved noting productive degenerative change. The spinous processes appear intact. There is moderate multilevel cervical spondylosis. Uncovertebral and facet arthropathy contribute to neural foraminal narrowing at most levels. Intervertebral discs: There is moderate to advanced degenerative disc space narrowing at C5-C6 and C6-C7. Mild narrowing is seen at the remaining cervical levels. Central canal: Posterior disc osteophyte complexes at C4-C5, C5-C6, and C6-C7 likely contribute to acquired compromise of the central canal. Soft tissues: The prevertebral and paraspinous soft tissues are within normal limits. There is advanced atherosclerotic calcification of the carotid bulbs. Low-attenuation thyroid nodules measure up to 1.1 cm. Calvarium: The visualized calvarium at the skull base appears intact. Brain parenchyma: Partially visualized brain parenchyma the skull base is within normal limits noting age-related involutional change. Sinuses and mastoids: Trace mucosal thickening is seen in the left maxillary antrum. There are bilateral mastoid effusions. Lung apices: Emphysema is noted. Apical lung parenchyma is otherwise clear as visualized. Secretions are present within the trachea and upper esophagus. IMPRESSION: 1. There is no evidence of fracture or subluxation involving the cervical spine. 2. Osteopenia and spondylotic change as above. 3. Emphysema. Electronically signed by: Edmond Schwarz M.D. 08/29/2016 7:07 PM Medications Administered Medications (Trade) Dose Ordered Sig/Kathy Route Start Time Stop Time Status Last Admin Dose Admin Tetracaine/ Epinephrine/ Lidocaine (L.e.t. Gel 4%/ 1:100/0.5%) 1 ea NOW STAT EXT 08/29/16 18:23 08/29/16 18:25 DC 08/29/16 19:00 1 EA ED Course 1815: The patient was evaluated in room C10. A complete history and physical exam was performed. 1822: Ordered Tetracaine/ Epinephrine/ Lidocaine 1 ea EXT. 1829: Ordered Lidocaine/ Epinephrine 20 ml INFIL. 1925: Reevaluated and updated the patient and her daughter at this time. Refer to Terrance Jim PA-C procedure note. 1945: Reevaluated the patient. Discussed results and discharge instructions with the patient's daughter: She verbalized understanding and agreement. The patient is ready for discharge. Medical Decision The differential diagnoses include but are not limited to: intracranial bleeding , skull fracture, finger fracture; neck, chest, back or abdominal trauma. The patient presents after falling. Brain CT shows no acute bleed or mass effect. No skull fracture. C-spine CT shows no fracture. Right fourth finger film shows no fracture. On exam, I could not find evidence for injury to the back, chest or abdomen. The patient's tetanus was current. The patient's left forehead laceration was repaired by my PA, please see his note. The right fourth finger skin tear was dressed, suturing was not required. Family was reassured. The patient is being discharged. They can follow with the family doctors office for suture removal. They will watch closely for infection. Impression Primary Impression: Head trauma Additional Impressions: Facial laceration Finger laceration Fall Scribe Attestation The scribe's documentation has been prepared under my direction and personally reviewed by me in its entirety. I confirm that the note above accurately reflects all work, treatment, procedures, and medical decision making performed by me. Departure Information Dispostion Home / Self-Care Referrals Jaspreet Cruz M.D. (PCP) Forms HOME CARE DOCUMENTATION FORM, IMPORTANT VISIT INFORMATION Patient Instructions My [facility] Additional Instructions suture out in about 1 week watch for infection--redness, fever, drainage return for worsening symptoms or change in behavior clean wound with soap and water gently 2x per day and redress Brain CT scan and finger film were ok today Problem Qualifiers
--- NOTE | 2016-08-29 19:00 | DIAGNOSTIC IMAGING REPORT ---
CT SCAN OF THE BRAIN WITHOUT IV CONTRAST CLINICAL HISTORY: Fall. Head injury. COMPARISON STUDY: CT of the brain dated 07/31/2016. TECHNIQUE: Unenhanced axial CT scan of the brain is performed from the vertex to the skull base. The Examination is degraded by motion artifact. The skull base was scanned twice in an attempt to improve image quality. CT DOSE: 1132.92 mGycm FINDINGS: Brain parenchyma: There are age-related involutional changes noting moderate to advanced subcortical and periventricular microangiopathic change. There is right posterior frontal encephalomalacia consistent with remote infarct. There is no hemorrhage, mass effect, or evidence of acute territorial ischemia by CT criteria. A chronic lacunar infarct is present in the right caudate head. Palma-white matter is preserved. No extra-axial fluid collection is seen. Ventricles, sulci, cisterns: Prominent secondary to involutional change. Intracranial vasculature: There is atherosclerotic calcification of the cavernous carotid and vertebral arteries. Calvarium: The skeletal structures are osteopenic. There is no depressed calvarial fracture. Sinuses and mastoids: Trace mucosal thickening is seen within the left maxillary antrum. The remaining paranasal sinuses are clear. There are small bilateral mastoid effusions. Orbits: The bony orbits are grossly intact. IMPRESSION: 1. Motion degraded examination. 2. Senescent changes and remote infarct as above. There is no hemorrhage, mass effect, or evidence of acute territorial ischemia by CT criteria. Electronically signed by: Edmond Schwarz M.D. 08/29/2016 6:59 PM Dictated Date/Time: 08/29/2016 6:55 PM
--- NOTE | 2016-08-29 19:09 | DIAGNOSTIC IMAGING REPORT ---
CT SCAN OF THE CERVICAL SPINE CLINICAL HISTORY: Fall. COMPARISON STUDY: CT scan of cervical spine dated 08/28/2013. TECHNIQUE: CT scan of the cervical spine is performed from the skull base to the upper thoracic spine. Images are reviewed in the axial, sagittal, and coronal planes. IV contrast was not administered for this examination. CT DOSE: 408.62 mGycm FINDINGS: Skeletal structures: The skeletal structures are osteopenic. There is no evidence of fracture or subluxation involving the cervical spine. Vertebral body height and alignment are maintained. The odontoid process and lateral masses are intact. The atlantoaxial articulation is preserved noting productive degenerative change. The spinous processes appear intact. There is moderate multilevel cervical spondylosis. Uncovertebral and facet arthropathy contribute to neural foraminal narrowing at most levels. Intervertebral discs: There is moderate to advanced degenerative disc space narrowing at C5-C6 and C6-C7. Mild narrowing is seen at the remaining cervical levels. Central canal: Posterior disc osteophyte complexes at C4-C5, C5-C6, and C6-C7 likely contribute to acquired compromise of the central canal. Soft tissues: The prevertebral and paraspinous soft tissues are within normal limits. There is advanced atherosclerotic calcification of the carotid bulbs. Low-attenuation thyroid nodules measure up to 1.1 cm. Calvarium: The visualized calvarium at the skull base appears intact. Brain parenchyma: Partially visualized brain parenchyma the skull base is within normal limits noting age-related involutional change. Sinuses and mastoids: Trace mucosal thickening is seen in the left maxillary antrum. There are bilateral mastoid effusions. Lung apices: Emphysema is noted. Apical lung parenchyma is otherwise clear as visualized. Secretions are present within the trachea and upper esophagus. IMPRESSION: 1. There is no evidence of fracture or subluxation involving the cervical spine. 2. Osteopenia and spondylotic change as above. 3. Emphysema. Electronically signed by: Edmond Schwarz M.D. 08/29/2016 7:07 PM Dictated Date/Time: 08/29/2016 7:04 PM
--- NOTE | 2016-08-29 19:23 | DIAGNOSTIC IMAGING REPORT ---
RIGHT FOURTH FINGER 3 VIEWS CLINICAL HISTORY: Fourth finger injury. FINDINGS: 3 portable views of the right fourth finger are obtained. No prior studies are available for comparison at the time of dictation. The skeletal structures are osteopenic. No fracture is identified in the right fourth finger. The fourth metacarpophalangeal and interphalangeal joints appear maintained. The overlying soft tissues are within normal limits. IMPRESSION: There is no radiographic evidence of right fourth finger fracture as clinically queried. Electronically signed by: Edmond Schwarz M.D. 08/29/2016 7:22 PM Dictated Date/Time: 08/29/2016 7:20 PM
--- NOTE | 2016-08-29 19:40 | EMERGENCY ROOM VISIT NOTE ---
ED Visit Note Patient was seen and evaluated by Dr. Acuna. I was asked to perform primary wound closure of the left temporal region laceration. Risks and benefits of performing primary wound closure versus no repair were discussed with the patient/family who verbalizes understanding. Verbal consent was obtained prior to performing the procedure. Let gel was applied to the left temporal region with adequate anesthetization. The wound was cleansed and prepped in the typical sterile fashion utilizing normal saline and Betadine. Once proper anesthetization was established, the wound was further examined and demonstrated a subcentimeter laceration overlying the left islam region. The wound was copiously irrigated with normal saline and Betadine. The wound was closed using one simple, 6-0 nylon sutures with the wound edges being well approximated. Patient tolerated the procedure well. No complications were met. The wound was cleansed and dressed with a Bacitracin dressing. Please refer to further documentation regarding the patient's management and care.
[2016-08-29] MEDS ORDERED: [UNRECOGNIZED DRUG - CODE] INJ (20:08)
[2016-08-29] MEDS ORDERED: INVI1 INJ (20:08)
[2016-08-29 20:13] VITALS: BP 125/87; PULSE 64; O2SAT 92
[2016-08-29] MEDS ORDERED: DILT240C57 PO (22:34)
[2016-09-25] MEDS ORDERED: LACTCHW3 PO (10:42)
[2016-09-25] MEDS ORDERED: NYSP EXT (10:42)
[2016-09-25] MEDS ORDERED: CPR500 PO (10:42)
[2016-09-25] MEDS ORDERED: ERYOPO IO (10:42)
[2016-10-01] MEDS ORDERED: MULT-506 PO (07:17)
[2016-10-01] MEDS ORDERED: ASCO500C3 PO (07:19)
[2016-10-01] MEDS ORDERED: ACET1TAB84 PO (15:06)
[2016-10-01] MEDS ORDERED: PANT40TA2 PO (17:59)
[2016-10-01] MEDS ORDERED: CHOL100010 PO (17:59)
[2016-10-01] MEDS ORDERED: CALC500T83 PO (17:59)
== END 2016-08-29 20:15 | disposition home or self-care (01) ==
LOC: EDBD 18:00 → C.EDC 18:01
DX: S09.90XA Unspecified injury of head, initial encounter (principal); S01.81XA Laceration without foreign body of other part of head, initial encounter; S61.214A Laceration without foreign body of right ring finger without damage to nail, initial encounter; W18.12XA Fall from or off toilet with subsequent striking against object, initial encounter; J43.9 Emphysema, unspecified; I10 Essential (primary) hypertension; I48.91 Unspecified atrial fibrillation; Z86.73 Personal history of transient ischemic attack (TIA), and cerebral infarction without residual deficits; Z86.718 Personal history of other venous thrombosis and embolism; Z87.01 Personal history of pneumonia (recurrent); Z87.440 Personal history of urinary (tract) infections; Z79.02 Long term (current) use of antithrombotics/antiplatelets; Z82.49 Family history of ischemic heart disease and other diseases of the circulatory system; Z83.3 Family history of diabetes mellitus; Z87.891 Personal history of nicotine dependence

== ENCOUNTER → 2016-09-12 | Outpatient (CLI) | payer BC ==
[~2016-09-12] MED LIST changes: +ACET1TAB84 PO; +ASCO500C3 PO; +ATV5X PO; +CALC-51 PO; +CALC500T83 PO; +CHOL1000 PO; +CHOL100010 PO; +CLOP1TAB15 PO; +CPR500 PO; +CPR500HP PO; +DEXT30TA7 PO; +DILT240C48 PO; +DILT240C57 PO; +ERYOPO IO; +HYDR-4313 PO; +HYDR-5688 PO; +INVI1 INJ; +LACTCHW3 PO; +LPR25 PO; +LSX20 PO; +MRLP527 PO; +MULT-506 PO; +NITR-5 PO; +NITR100C6 PO; +NYSP EXT; +PANT40TA2 PO; +POTA20TA13 PO; +VITACAP26 PO; +[UNRECOGNIZED DRUG - CODE] INJ
--- NOTE | 2016-09-12 19:27 | DIAGNOSTIC IMAGING REPORT ---
RIGHT HAND 3 VIEWS CLINICAL HISTORY: Second finger injury. FINDINGS: 3 views of the right hand are correlated with radiographs of the right fourth finger dated 08/29/2016. The skeletal structures are osteopenic. There is a minimally distracted oblique fracture through the base of the second proximal phalanx with overlying soft tissue edema. No additional fracture is seen. Advanced arthritic change is present at the first carpometacarpal joint with bony sclerosis, subchondral cyst rotation, overgrowth, and subluxation. Osteoarthritic change is present involving the interphalangeal joints, distal greater than proximal. Mild erosive osteoarthritis is noted at the second and third distal interphalangeal joints. Osteoarthritic change is also seen at the first metacarpophalangeal joint. IMPRESSION: 1. Minimally distracted oblique fracture through the base of the second proximal phalanx with overlying soft tissue edema. 2. Osteopenia and arthritic change as above. Electronically signed by: Edmond Schwarz M.D. 09/12/2016 7:26 PM Dictated Date/Time: 09/12/2016 7:22 PM
== END | disposition home or self-care (01) ==
LOC: C.RAD 18:57
PROVIDERS: ATTEND Internal Medicine
DX: S62.610A Displaced fracture of proximal phalanx of right index finger, initial encounter for closed fracture (principal); X58.XXXA Exposure to other specified factors, initial encounter

== ENCOUNTER 2016-09-22 13:46 | Inpatient (IN) | payer BC, OTHER ==
[~2016-09-22] VITALS: Ht 165.1 cm; Wt 47.0 kg
[~2016-09-22 13:46] MED LIST changes: -ACET1TAB84 PO; -ASCO500C3 PO; -ATV5X PO; -CALC-51 PO; -CALC500T83 PO; -CHOL1000 PO; -CHOL100010 PO; -CLOP1TAB15 PO; -CPR500 PO; -CPR500HP PO; -DEXT30TA7 PO; -DILT240C48 PO; -ERYOPO IO; -HYDR-4313 PO; -LACTCHW3 PO; -LPR25 PO; -LSX20 PO; -MRLP527 PO; -MULT-506 PO; -NITR-5 PO; -NITR100C6 PO; -NYSP EXT; -PANT40TA2 PO; -POTA20TA13 PO; -VITACAP26 PO
[2016-09-22] MEDS ORDERED: SODIUM CHLORIDE 0.9% 1000ML 1,000 ML IV STA (13:54)
[2016-09-22 14:18] LABS: BASO % 0.2 %; BASO ABS # 0.03 K/uL (0-0.2); COMPLETE YES; EOS % 0.6 %; HEMATOCRIT 45.6 % (37-47); IG% 0.2 %; LYMPH % 11.5 %; MEAN CELL VOLUME 88.2 fL (80-100); MEAN CORPUSCULAR HEMOGLOBIN 28.8 pg (25-34); MEAN CORPUSCULAR HGB CONC 32.7 g/dl (32-36); MEAN PLATELET VOLUME 9.4 fL (7.4-10.4); MONO % 6.6 %; NEUT % 80.9 %; PLATELET COUNT 203 K/uL (130-400); RED BLOOD COUNT 5.17 M/uL (4.2-5.4); WHITE BLOOD COUNT 12.17 K/uL (4.8-10.8)
[2016-09-22 14:24] LABS: INR 1.1 (0.9-1.1); PARTIAL THROMBOPLASTIN RATIO 0.9; PROTHROMBIN TIME (PATIENT) 11.4 SECONDS (9.0-12.0)
--- NOTE | 2016-09-22 14:26 | DIAGNOSTIC IMAGING REPORT ---
CT OF THE HEAD WITHOUT CONTRAST CLINICAL HISTORY: Altered mental status. Weakness. COMPARISON STUDY: Head CT August 29, 2016. CT DOSE: 614.27 mGy.cm TECHNIQUE: Helical axial images of the head were obtained without IV contrast. Automated exposure control was utilized for the study. FINDINGS: This exam is mild compromised by motion artifact. No acute intracranial hemorrhage, midline shift or mass effect is present. Moderate ventricular dilatation is unchanged and likely due to central atrophy. 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 Moderate small vessel disease suggests small vessel disease. There are no findings to suggest acute dural sinus thrombosis or acute territorial infarct. An old lacunar infarct within the right basal ganglia is noted. There are no calvarial abnormalities. There are secretions within the left maxillary sinus. IMPRESSION: No acute intracranial findings. No significant change since prior exam with stable ventricular dilatation likely due to atrophy and several old infarcts. Electronically signed by: Tello Fernández M.D. 09/22/2016 2:25 PM Dictated Date/Time: 09/22/2016 2:22 PM
[2016-09-22 14:34] LABS: ALT/SGPT 24 U/L (12-78); AST/SGOT 21 U/L (15-37); BLOOD UREA NITROGEN 16 mg/dl (7-18); BUN/CREATININE RATIO 14.9 (10-20); CARBON DIOXIDE 32 mmol/L (21-32); CHLORIDE 101 mmol/L (98-107); GLUCOSE 130 mg/dl (70-99); MAGNESIUM 2.1 mg/dl (1.8-2.4); POTASSIUM 4.6 mmol/L (3.5-5.1); SODIUM 139 mmol/L (136-145)
--- NOTE | 2016-09-22 14:36 | DIAGNOSTIC IMAGING REPORT ---
CHEST ONE VIEW PORTABLE CLINICAL HISTORY: Altered mental status. Weakness. COMPARISON STUDY: Chest radiograph July 31, 2016. FINDINGS: There is a trace right pleural effusion. Moderate cardiomegaly is unchanged. There is no evidence of pulmonary edema. There is no consolidation to suggest pneumonia. There is no pneumothorax. An IVC filter is incidentally noted. IMPRESSION: 1. Moderate cardiomegaly without evidence of pulmonary edema. 2. Trace right pleural effusion. Electronically signed by: Tello Fernández M.D. 09/22/2016 2:35 PM Dictated Date/Time: 09/22/2016 2:34 PM
[2016-09-22 14:42] LABS: ALKALINE PHOSPHATASE 177 U/L (45-117); CKMB/CK RATIO 3.8 (0-3.0)
[2016-09-22 14:47] LABS: URINE APPEARANCE TURBID (CLEAR); URINE BILIRUBIN NEG (NEG); URINE COLOR YELLOW; URINE EPITHELIAL CELL AUTO >30 /lpf (0-5); URINE NITRITE POS (NEG); URINE PH 7.5 (4.5-7.5); URINE SPECIFIC GRAVITY 1.012 (1.000-1.030); UROBILINOGEN NEG (NEG)
[2016-09-22 14:48] LABS: MANUAL MICROSCOPIC REQUIRED? NO; REVIEW REQ? NO
[2016-09-22] MEDS ORDERED: CEFTRIAXONE SOD INJ 1 GM ADDVIAL IV STA (15:59)
--- NOTE | 2016-09-22 16:21 | History and Physical ---
History & Physical Date & Time of Service: September 22, 2016 at 16:17 Chief Complaint: Stroke Systems Primary Care Physician: Jaspreet Cruz M.D. History of Present Illness This is an 81 yo F with PMHx of atrial fibrillation on Plavix, COPD, CHF, HTN, DM II, DVT, dementia and ESBL producing E. Coli UTI which has occured multiple times, and dementia who presents today with acute onset of aphasia. Patient is here with her daughter, daughter supplies majority of history as the patient is nonverbal. The patient's daughter lives with her at home, and reports that last night she was in normal state of health. This morning the patient was unable to talk and so she was brought to the ER. Per outside records the patient has been nonverbal due to severe dementia for some time now. The patient was seen by urology last week for routine follow-up to determine why she has so many recurrent UTIs. The patient finished a course of ertapenem IM injections to total a 14 day course, ~3-4weeks ago from the most recent libation for encephalopathy associated with UTI. Patient does follow commands occasionally during my examination; she takes deep breaths when asked. Daughter reports that she is very cold often, but have not noted any fevers or sweats at home. In the ER CT of the head was completed to rule out stroke which was negative for any acute findings, a chest x-ray 1 view portable was done showing moderate cardiomegaly and trace right pleural effusion. WBC=12 K with left shift. Alk phos is elevated along with direct bilirubin. Glucose mildly elevated = 130. UA is grossly dirty with positive esterase and nitrates and 1+ bacteria. Past Medical/Surgical History Medical Problems: (1) Abnormal EKG Status: Resolved (2) Atrial fibrillation Status: Chronic (3) Back pain Status: Resolved (4) Blood clot in abdominal vein Status: Chronic (5) blood clot lower extremity Status: Chronic (6) Bronchitis Status: Chronic (7) Cholecystectomy Status: Resolved (8) Deep venous thrombosis Status: Chronic (9) Dementia Status: Chronic (10) Elevated WBC count Status: Resolved (11) Emphysema Status: Chronic (12) Encephalopathy Status: Resolved (13) Gallbladder problem Status: Chronic (14) Head injury Status: Resolved (15) Heart disease Status: Chronic (16) Hematoma Status: Resolved (17) Hematuria Status: Resolved (18) Hypertension Status: Chronic (19) Hypokalemia Status: Resolved (20) Hyponatremia Status: Resolved (21) Pneumonia Status: Chronic (22) Swelling of right extremity Status: Resolved (23) Swelling of right extremity Status: Resolved (24) Syncope Status: Resolved (25) Urinary tract infection Status: Resolved Family History FH: HTN (hypertension) FH: diabetes mellitus Gallbladder disease Heart disease Lung disease Social History Smoking Status: Unknown if Ever Smoked Drug Use: none Marital Status: Housing status: lives with family Occupational Status: retired Immunizations History of Influenza Vaccine: Unknown History of Tetanus Vaccine?: Unknown History of Pneumococcal: Unknown History of Hepatitis B Vaccine: Unknown Multi-Drug Resistant Organisms History of MDRO: No Allergies Coded Allergies: Heparin (Verified Allergy, Unknown, Significant GI bleed, 07/19/16) (per [facility] H&P) Penicillins (Verified Allergy, Unknown, HAS HAD ROCEPHIN W/OUT PROBLEM, ) Sulfa Antibiotics (Verified Allergy, Unknown, Unknown, 07/19/16) Sulfamethoxazole (Verified Allergy, Unknown, 07/19/16) Home Medications Scheduled Ascorbic Acid (Vitamin C), 500 MG PO DAILY Calcium (Calcium), 500 MG PO DAILY Cholecalciferol (Vitamin D), 1,000 UNIT PO DAILY Clopidogrel Bisulfate (Clopidogrel), 75 MG PO QAM Diltiazem Hcl Coated Beads (Cardizem Cd), 240 MG PO DAILY Furosemide (Lasix), 20 MG PO DAILY Metoprolol Tartrate (Lopressor) (Lopressor), 0.5 TAB PO BID Multivitamin (Multivitamin), 1 TAB PO DAILY Pantoprazole (Pantoprazole Sodium), 40 MG PO QAM Potassium Ext Rel (Klor-Con), 20 MEQ PO DAILY Scheduled PRN Acetaminophen (Tylenol Arthritis Ext Rel), 650 MG PO Q8H PRN for Pain Hydrocodone/Acetaminophen 5MG/325MG ([place] 5MG/325MG), 0.5 TABLET PO UD PRN for Pain Polyethylene Glycol 3350 (Miralax), 17 GM PO DAILY PRN for Constipation Physical Exam Vital Signs Date Time Temp Pulse Resp B/P Pulse Ox O2 Delivery O2 Flow Rate FiO2 09/22/16 14:41 87 18 120/67 98 Room Air 09/22/16 14:05 81 09/22/16 13:57 36.6 88 14 122/83 95 Room Air Diagnostics Laboratory Results Results Past 24 Hours Test 09/22/16 14:00 09/22/16 14:04 09/22/16 14:35 Range/Units White Blood Count 12.17 4.8-10.8 K/uL Red Blood Count 5.17 4.2-5.4 M/uL Hemoglobin 14.9 12.0-16.0 g/dL Hematocrit 45.6 37-47 % Mean Corpuscular Volume 88.2 80-100 fL Mean Corpuscular Hemoglobin 28.8 25-34 pg Mean Corpuscular Hemoglobin Concent 32.7 32-36 g/dl Platelet Count 203 130-400 K/uL Mean Platelet Volume 9.4 7.4-10.4 fL Neutrophils (%) (Auto) 80.9 % Lymphocytes (%) (Auto) 11.5 % Monocytes (%) (Auto) 6.6 % Eosinophils (%) (Auto) 0.6 % Basophils (%) (Auto) 0.2 % Neutrophils # (Auto) 9.85 1.4-6.5 K/uL Lymphocytes # (Auto) 1.40 1.2-3.4 K/uL Monocytes # (Auto) 0.80 0.11-0.59 K/uL Eosinophils # (Auto) 0.07 0-0.5 K/uL Basophils # (Auto) 0.03 0-0.2 K/uL RDW Standard Deviation 44.7 36.4-46.3 fL RDW Coefficient of Variation 13.7 11.5-14.5 % Immature Granulocyte % (Auto) 0.2 % Immature Granulocyte # (Auto) 0.02 0.00-0.02 K/uL Prothrombin Time 11.4 9.0-12.0 SECONDS Prothromb Time International Ratio 1.1 0.9-1.1 Activated Partial Thromboplast Time 23.1 21.0-31.0 SECONDS Partial Thromboplastin Ratio 0.9 Sodium Level 139 136-145 mmol/L Potassium Level 4.6 3.5-5.1 mmol/L Chloride Level 101 98-107 mmol/L Carbon Dioxide Level 32 21-32 mmol/L Anion Gap 6.0 3-11 mmol/L Blood Urea Nitrogen 16 7-18 mg/dl Creatinine 1.10 0.60-1.20 mg/dl Est Creatinine Clear Calc Drug Dose 30.7 ml/min Estimated GFR () 54.9 Estimated GFR (Non- 47.4 BUN/Creatinine Ratio 14.9 10-20 Random Glucose 130 70-99 mg/dl Calcium Level 9.0 8.5-10.1 mg/dl Magnesium Level 2.1 1.8-2.4 mg/dl Total Bilirubin 0.9 0.2-1 mg/dl Direct Bilirubin 0.3 0-0.2 mg/dl Aspartate Amino Transf (AST/SGOT) 21 15-37 U/L Alanine Aminotransferase (ALT/SGPT) 24 12-78 U/L Alkaline Phosphatase 177 45-117 U/L Total Creatine Kinase 45 26-192 U/L Creatine Kinase MB 1.7 0.5-3.6 ng/ml Creatine Kinase MB Ratio 3.8 0-3.0 Troponin I < 0.015 0-0.045 ng/ml Total Protein 7.1 6.4-8.2 gm/dl Albumin 2.9 3.4-5.0 gm/dl Lipase 88 73-393 U/L Thyroid Stimulating Hormone (TSH) 1.930 0.300-4.500 uIu/ml Bedside Prothrombin Time INR 1.1 0.9-1.1 Bedside Glucose 113 70-90 mg/dl Urine Color YELLOW Urine Appearance TURBID CLEAR Urine pH 7.5 4.5-7.5 Urine Specific [place] 1.012 1.000-1.030 Urine Protein NEG NEG Urine Glucose (UA) NEG NEG Urine Ketones NEG NEG Urine Occult Blood 1+ NEG Urine Nitrite POS NEG Urine Bilirubin NEG NEG Urine Urobilinogen NEG NEG Urine Leukocyte Esterase LARGE NEG Urine WBC (Auto) >30 0-5 /hpf Urine RBC (Auto) 5-10 0-4 /hpf Urine Hyaline Casts (Auto) 1-5 0-5 /lpf Urine Epithelial Cells (Auto) >30 0-5 /lpf Urine Bacteria (Auto) 1+ NEG Microbiology Results 09/22/16 Urine Culture, Received Pending Diagnostic Radiology CT OF THE HEAD WITHOUT CONTRAST CLINICAL HISTORY: Altered mental status. Weakness. COMPARISON STUDY: Head CT August 29, 2016. CT DOSE: 614.27 mGy.cm TECHNIQUE: Helical axial images of the head were obtained without IV contrast. Automated exposure control was utilized for the study. FINDINGS: This exam is mild compromised by motion artifact. No acute intracranial hemorrhage, midline shift or mass effect is present. Moderate ventricular dilatation is unchanged and likely due to central atrophy. 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 Moderate small vessel disease suggests small vessel disease. There are no findings to suggest acute dural sinus thrombosis or acute territorial infarct. An old lacunar infarct within the right basal ganglia is noted. There are no calvarial abnormalities. There are secretions within the left maxillary sinus. IMPRESSION: No acute intracranial findings. No significant change since prior exam with stable ventricular dilatation likely due to atrophy and several old infarcts. Electronically signed by: Tello Fernández M.D. 09/22/2016 2:25 PM Dictated Date/Time: 09/22/2016 2:22 PM The status of this report is Signed. CHEST ONE VIEW PORTABLE CLINICAL HISTORY: Altered mental status. Weakness. COMPARISON STUDY: Chest radiograph July 31, 2016. FINDINGS: There is a trace right pleural effusion. Moderate cardiomegaly is unchanged. There is no evidence of pulmonary edema. There is no consolidation to suggest pneumonia. There is no pneumothorax. An IVC filter is incidentally noted. IMPRESSION: 1. Moderate cardiomegaly without evidence of pulmonary edema. 2. Trace right pleural effusion. Electronically signed by: Tello Fernández M.D. 09/22/2016 2:35 PM Dictated Date/Time: 09/22/2016 2:34 PM The status of this report is Signed. Impression Assessment and Plan This is an 81 yo F with PMHx of atrial fibrillation on Plavix, COPD, chronic diastolic CHF, HTN, DM II, DVT, dementia and ESBL producing E. Coli UTI which has occured multiple times, and dementia who presents today with acute onset of aphasia. 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 She was most recently seen by infectious disease during her last hospitalization in June 2016 where she was treated with IV ertapenem x 14 d course. Due to the patient's dementia ertapenem was transitioned to IM injections for fear that she would pull out a PICC line if placed. The patient was seen by urology as an outpatient and have plans for future cystoscopy workup for anatomical abnormality with repetitive UTIs. - Will consult urology for inpatient cystoscopy - UA and UCx likely to show similar picture now, await culture results - No blood cultures initially drawn, will check them now - Mild leukocytosis with a left shift - ID consult for antibiotic recs- patient received 1 dose ceftriaxone in the ER , will transition to ertapenem IV + Cough - Patient with wet cough, daughter reports patient has been bringing up clear/ white mucus recently - will keep the pt NPO until speech eval - Speech therapy consulted - Chest x-ray completed in showing trace right-sided pleural effusion, ordering lateral view as only AP completed. 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 Chronic atrial fibrillation -Continue on Pradaxa Chronic diastolic CHF HTN - Cont Cardizem 240 mg daily and metoprolol tartrate 12.5 mg BID - Last Echo completed in 2013 per [employer] with EF >70% and left ventricular wall thickness. Dementia - nonverbal state of the patient appears to be chronic, may have been an acute change in obeying commands vs aphasia. - chronic, unsure of pts baseline status or if this is acutely worsening. - PT OT to evaluate, the patient may benefit from SNF placement. DM II - Currently NPO, will order accuchecks Q6H while npo, dextrose prn GERD - GI prophylaxis with Protonix IV for now will switch from oral tablet. DVT prophylaxis: Teds, SCDs, continue Pradaxa CODE STATUS: DO NOT RESUSCITATE Disposition: Patient from home, await PT OT evaluation Level of Care Med/Surg Resuscitation Status DO NOT RESUSCITATE VTE Prophylaxis VTE Risk Assessment Done? Y/N: Yes Risk Level: Very Low Given or contraindicated: T.E.Tiffany Stockings, SCD's Reviewed: Pt Seen/Exam by Me History Family is present with pt. Her daughter (who is not the daughter who lives with pt "but I am there all the time") states that pt is looking better s/p IVF and abx. She states that pt will generally talk to them, "but you can't really tell what she is saying, none of it makes any sense". Today she was not doing that as much and had some facial droop, so they called EMS. Facial droop is gone and pt is interacting more, but not quite at baseline. Daughter states that urine was cloudy "like Ca-seltzer" the last few days. Pt has back pain at baseline, but no new complaints per daughter. Daughter who lives with pt is not present during my exam. Agree with HPI/ROS as noted. All info came from daughter as pt is unable to provide details. General Appearance: no apparent distress, thin Respiratory: normal breath sounds, no respiratory distress Cardiovascular: normal peripheral pulses, regular rate, rhythm Gastrointestinal: non tender, soft Extremities: non-tender, no pedal edema Neurologic/Psychiatric: alert (eyes open, look at me when I say her name, opens mouth to speak with non meaningful words formed) Skin Characteristics: normal color, warm/dry Assessment/Plan Agree with plan as outlined above Pt brought here with concern for CVA, however improving s/p IVF and abx UA +, cx pending Started on ceftriaxone in the ED, recent cx shows R to this. Changed to ertapenem and monitor Blood cx not drawn prior to abx, will draw now Elevated WBC Pt was for cysto as outpt for concern about anatomy, will have urology eval pt given likely new UTI Concern for possible need for placement, PT/OT pending
--- NOTE | 2016-09-22 16:29 | EMERGENCY ROOM VISIT NOTE ---
History Report prepared by Brody: Shant Connors Under the Supervision of: Dr. Rahat Rodas D.O. First contact with patient: 13:49 History of Present Illness The patient is an 81 year old female who presents to the Emergency Room with complaints of persistent stroke symptoms that started around an hour and a half ago. Per EMS, the patient had a CVA a year ago. Per the patient's daughter, the patient awoke from a nap around 1215 this afternoon, and was leaning towards her right side with a right-sided facial droop. The patient was not following any commands, and the patient is usually verbal. She has been nonverbal since awaking from the nap. The patient has not been able to swallow well. Her right arm was originally flaccid, per EMS. The patient still is not moving her right arm. The patient's daughter is concerned of a stroke or heart attack. The patient takes Plavix daily. The patient has a history of hypertension and atrial fibrillation. Source of History: patient, family, EMS Onset: 1215 this afternoon Position: other (global - stroke symptoms) Symptom Intensity: right arm originally flaccid Timing: other (persistent) Note: Associated symptoms: Not using right arm. Leaning towards right side with right- sided facial droop. Unable to swallow, nonverbal, not following commands. Review of Systems See HPI for pertinent positives & negatives. A total of 10 systems reviewed and were otherwise negative. Past Medical & Surgical Medical Problems: (1) Abnormal EKG (2) Altered mental state (3) Altered mental status (4) Atrial fibrillation (5) Back pain (6) Blood clot in abdominal vein (7) blood clot lower extremity (8) Bronchitis (9) Cholecystectomy (10) CVA (cerebral vascular accident) (11) Deep venous thrombosis (12) Dementia (13) Elevated WBC count (14) Emphysema (15) Encephalopathy (16) Gallbladder problem (17) Head injury (18) Heart disease (19) Hematoma (20) Hematuria (21) Hypertension (22) Hypokalemia (23) Hyponatremia (24) Pneumonia (25) Seizure-like activity (26) Swelling of right extremity (27) Swelling of right extremity (28) Syncope (29) Urinary tract infection (30) UTI (urinary tract infection) Family History FH: HTN (hypertension) FH: diabetes mellitus Gallbladder disease Heart disease Lung disease Social History Smoking Status: Former Smoker Alcohol Use: none Drug Use: none Marital Status: Housing Status: lives with family Occupation Status: retired Current/Historical Medications Scheduled Ascorbic Acid (Vitamin C), 500 MG PO DAILY Calcium (Calcium), 500 MG PO DAILY Cholecalciferol (Vitamin D), 1,000 UNIT PO DAILY Clopidogrel Bisulfate (Clopidogrel), 75 MG PO QAM Diltiazem Hcl Coated Beads (Cardizem Cd), 240 MG PO DAILY Furosemide (Lasix), 20 MG PO DAILY Metoprolol Tartrate (Lopressor) (Lopressor), 0.5 TAB PO BID Multivitamin (Multivitamin), 1 TAB PO DAILY Pantoprazole (Pantoprazole Sodium), 40 MG PO QAM Potassium Ext Rel (Klor-Con), 20 MEQ PO DAILY Scheduled PRN Acetaminophen (Tylenol Arthritis Ext Rel), 650 MG PO Q8H PRN for Pain Hydrocodone/Acetaminophen 5MG/325MG ([place] 5MG/325MG), 0.5 TABLET PO UD PRN for Pain Polyethylene Glycol 3350 (Miralax), 17 GM PO DAILY PRN for Constipation Allergies Coded Allergies: Heparin (Verified Allergy, Unknown, Significant GI bleed, 07/19/16) (per Gricelda's H&P) Penicillins (Verified Allergy, Unknown, HAS HAD ROCEPHIN W/OUT PROBLEM, ) Sulfa Antibiotics (Verified Allergy, Unknown, Unknown, 07/19/16) Sulfamethoxazole (Verified Allergy, Unknown, 07/19/16) Physical Exam Vital Signs Date Time Temp Pulse Resp B/P Pulse Ox O2 Delivery O2 Flow Rate FiO2 09/22/16 14:41 87 18 120/67 98 Room Air 09/22/16 14:05 81 09/22/16 13:57 36.6 88 14 122/83 95 Room Air Physical Exam CONSTITUTIONAL/VITAL SIGNS: Reviewed / noted above. GENERAL: Non-toxic in appearance. INTEGUMENTARY: Warm, dry, and [place]. HEAD: Normocephalic. EYES: without scleral icterus or trauma. ENT/OROPHARYNX: clear and moist. LYMPHADENOPATHY/NECK: Is supple without lymphadenopathy or meningismus. RESPIRATORY: Lungs clear and equal. CARDIOVASCULAR: Regular rate and rhythm. GI/ABDOMEN: Soft and nontender. No organomegaly or pulsatile mass. No rebound or guarding. Normal bowel sounds. EXTREMITIES: Warm and well perfused. BACK: No CVA tenderness. NEUROLOGICAL: Nonverbal (not her baseline). Has right arm weakness compared to left, appears to have difficulty with control of right arm. Right sided neglect. PSYCHIATRIC: normal affect. MUSCULOSKELETAL: Normally developed with good muscle tone. Medical Decision & Procedures ER Provider Diagnostic Interpretation: Radiology results as stated below per my review and radiologist interpretation: CT OF THE HEAD WITHOUT CONTRAST CLINICAL HISTORY: Altered mental status. Weakness. COMPARISON STUDY: Head CT August 29, 2016. CT DOSE: 614.27 mGy.cm TECHNIQUE: Helical axial images of the head were obtained without IV contrast. Automated exposure control was utilized for the study. FINDINGS: This exam is mild compromised by motion artifact. No acute intracranial hemorrhage, midline shift or mass effect is present. Moderate ventricular dilatation is unchanged and likely due to central atrophy. 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 Moderate small vessel disease suggests small vessel disease. There are no findings to suggest acute dural sinus thrombosis or acute territorial infarct. An old lacunar infarct within the right basal ganglia is noted. There are no calvarial abnormalities. There are secretions within the left maxillary sinus. IMPRESSION: No acute intracranial findings. No significant change since prior exam with stable ventricular dilatation likely due to atrophy and several old infarcts. Electronically signed by: Tello Fernández M.D. 09/22/2016 2:25 PM Dictated Date/Time: 09/22/2016 2:22 PM CHEST ONE VIEW PORTABLE CLINICAL HISTORY: Altered mental status. Weakness. COMPARISON STUDY: Chest radiograph July 31, 2016. FINDINGS: There is a trace right pleural effusion. Moderate cardiomegaly is unchanged. There is no evidence of pulmonary edema. There is no consolidation to suggest pneumonia. There is no pneumothorax. An IVC filter is incidentally noted. IMPRESSION: 1. Moderate cardiomegaly without evidence of pulmonary edema. 2. Trace right pleural effusion. Electronically signed by: Tello Fernández M.D. 09/22/2016 2:35 PM Dictated Date/Time: 09/22/2016 2:34 PM Laboratory Results 09/22/16 14:00 Red Blood Count 5.17, Mean Corpuscular Volume 88.2, Mean Corpuscular Hemoglobin 28.8, Mean Corpuscular Hemoglobin Concent 32.7, Mean Platelet Volume 9.4, Neutrophils (%) (Auto) 80.9, Lymphocytes (%) (Auto) 11.5, Monocytes (%) (Auto) 6.6, Eosinophils (%) (Auto) 0.6, Basophils (%) (Auto) 0.2, Neutrophils # (Auto) 9.85, Lymphocytes # (Auto) 1.40, Monocytes # (Auto) 0.80, Eosinophils # (Auto) 0.07, Basophils # (Auto) 0.03 09/22/16 14:00 Test 09/22/16 14:00 09/22/16 14:04 09/22/16 14:35 White Blood Count 12.17 K/uL (4.8-10.8) Red Blood Count 5.17 M/uL (4.2-5.4) Hemoglobin 14.9 g/dL (12.0-16.0) Hematocrit 45.6 % (37-47) Mean Corpuscular Volume 88.2 fL (80-100) Mean Corpuscular Hemoglobin 28.8 pg (25-34) Mean Corpuscular Hemoglobin Concent 32.7 g/dl (32-36) Platelet Count 203 K/uL (130-400) Mean Platelet Volume 9.4 fL (7.4-10.4) Neutrophils (%) (Auto) 80.9 % Lymphocytes (%) (Auto) 11.5 % Monocytes (%) (Auto) 6.6 % Eosinophils (%) (Auto) 0.6 % Basophils (%) (Auto) 0.2 % Neutrophils # (Auto) 9.85 K/uL (1.4-6.5) Lymphocytes # (Auto) 1.40 K/uL (1.2-3.4) Monocytes # (Auto) 0.80 K/uL (0.11-0.59) Eosinophils # (Auto) 0.07 K/uL (0-0.5) Basophils # (Auto) 0.03 K/uL (0-0.2) RDW Standard Deviation 44.7 fL (36.4-46.3) RDW Coefficient of Variation 13.7 % (11.5-14.5) Immature Granulocyte % (Auto) 0.2 % Immature Granulocyte # (Auto) 0.02 K/uL (0.00-0.02) Prothrombin Time 11.4 SECONDS (9.0-12.0) Prothromb Time International Ratio 1.1 (0.9-1.1) Activated Partial Thromboplast Time 23.1 SECONDS (21.0-31.0) Partial Thromboplastin Ratio 0.9 Anion Gap 6.0 mmol/L (3-11) Est Creatinine Clear Calc Drug Dose 30.7 ml/min Estimated GFR () 54.9 Estimated GFR (Non- 47.4 BUN/Creatinine Ratio 14.9 (10-20) Calcium Level 9.0 mg/dl (8.5-10.1) Magnesium Level 2.1 mg/dl (1.8-2.4) Total Bilirubin 0.9 mg/dl (0.2-1) Direct Bilirubin 0.3 mg/dl (0-0.2) Aspartate Amino Transf (AST/SGOT) 21 U/L (15-37) Alanine Aminotransferase (ALT/SGPT) 24 U/L (12-78) Alkaline Phosphatase 177 U/L (45-117) Total Creatine Kinase 45 U/L (26-192) Creatine Kinase MB 1.7 ng/ml (0.5-3.6) Creatine Kinase MB Ratio 3.8 (0-3.0) Troponin I < 0.015 ng/ml (0-0.045) Total Protein 7.1 gm/dl (6.4-8.2) Albumin 2.9 gm/dl (3.4-5.0) Lipase 88 U/L (73-393) Thyroid Stimulating Hormone (TSH) 1.930 uIu/ml (0.300-4.500) Bedside Prothrombin Time INR 1.1 (0.9-1.1) Bedside Glucose 113 mg/dl (70-90) Urine Color YELLOW Urine Appearance TURBID (CLEAR) Urine pH 7.5 (4.5-7.5) Urine Specific [place] 1.012 (1.000-1.030) Urine Protein NEG (NEG) Urine Glucose (UA) NEG (NEG) Urine Ketones NEG (NEG) Urine Occult Blood 1+ (NEG) Urine Nitrite POS (NEG) Urine Bilirubin NEG (NEG) Urine Urobilinogen NEG (NEG) Urine Leukocyte Esterase LARGE (NEG) Urine WBC (Auto) >30 /hpf (0-5) Urine RBC (Auto) 5-10 /hpf (0-4) Urine Hyaline Casts (Auto) 1-5 /lpf (0-5) Urine Epithelial Cells (Auto) >30 /lpf (0-5) Urine Bacteria (Auto) 1+ (NEG) Laboratory results as stated above per my review. Medications Administered Medications (Trade) Dose Ordered Sig/Kathy Route Start Time Stop Time Status Last Admin Dose Admin Sodium Chloride (Nss 1000ml) 1,000 ml @ 999 mls/hr Q1H1M STAT IV 09/22/16 13:54 09/22/16 14:54 DC 09/22/16 13:54 999 MLS/HR ECG Indication: weakness (one sided) Rate (beats per minute): 80 Rhythm: atrial fibrillation Findings: no ectopy, other (no acute injury) ED Course 1349: Previous medical records were reviewed. The patient was evaluated in room B1. A complete history and physical examination was performed. 1354: Ordered NSS 1000 ml @ 999 mls/hr IV. 1559: Ordered Rocephin Inj 1 gm IV. 1604: I reevaluated the patient and she is resting comfortably. The patient's daughter verbally expressed understanding and agreement of the treatment plan. The patient will be evaluated for further treatment. 1608: I discussed the patient with Dr. Javier Peguero supervisor aircraft maintenance - she will evaluate the patient for further treatment. Medical Decision Differential includes acute coronary syndrome, myocardial infarction, CVA, TIA, anemia, infection, pneumonia, UTI, pyelonephritis, poor nutrition, dehydration, electrolyte disturbance,hypoglycemia. I attest that I have personally reviewed the patient's current medication list. Consults Time Called: 1604 Consulting Physician: Dr. Javier Peguero supervisor aircraft maintenance Returned Call: 1608 (in person) I discussed the patient with Dr. Javier Peguero supervisor aircraft maintenance - she will evaluate the patient for further treatment. Impression Primary Impression: Stroke Additional Impression: UTI (urinary tract infection) Scribe Attestation The scribe's documentation has been prepared under my direction and personally reviewed by me in its entirety. I confirm that the note above accurately reflects all work, treatment, procedures, and medical decision making performed by me. Departure Information Dispostion Being Evaluated By Hospitalist Jaspreet Stratton M.D. (PCP) Stroke History Time Last Known Well Unknown Stroke t-PA Criteria Reviewed Does NOT meet criteria for t-PA Reason t-PA Not Given Treatment not indicated (time of onset unknown) Problem Qualifiers
[2016-09-22] MEDS ORDERED: SODIUM CHLORIDE 0.9% 1000ML 1,000 ML IV SCH (16:39)
[2016-09-22] MEDS ORDERED: ENOXAPARIN 30 MG/0.3 ML SYR SC SCH (16:45)
[2016-09-22] MEDS ORDERED: BISACODYL 5 MG TABEC PO PRN (16:45)
[2016-09-22] MEDS ORDERED: GLUCAGON FOR INJ 1 MG VIAL SQ PRN (17:15)
[2016-09-22] MEDS ORDERED: GLUCOSE 10 TABS/TUBE PO PRN (17:15)
[2016-09-22] MEDS ORDERED: DEXTROSE 50% 50 ML SYR IV PRN (17:15)
[2016-09-22] MEDS ORDERED: GLUCOSE 40% GEL 15 GM TUBE PO PRN (17:15)
[2016-09-22 18:47] VITALS: BP 112/74; PULSE 87; TEMP 36.7; O2SAT 97; Ht 165.1 cm; Wt 47.0 kg
[2016-09-22 20:05] VITALS: O2SAT 95
[2016-09-22] MEDS: METOPROLOL TARTRATE 25 MG TAB PO SCH (21:00)
[2016-09-22] MEDS: ERTAPENEM IV 1 GM in SODIUM CHLOR 0.9% AD-VAN 50ML 50 ML IV SCH (21:11)
[2016-09-22] MEDS ORDERED: METOPROLOL TARTRATE 1 MG/ML VIAL IV PRN (21:45)
[2016-09-22 23:16] VITALS: BP 126/86; PULSE 94; TEMP 36.3; O2SAT 97
[2016-09-22 23:59] VITALS: O2SAT 97
[2016-09-23] VITALS (7 sets, daily range): BP systolic 98–122; BP diastolic 58–79; PULSE 63–97; TEMP 36.4–36.9; O2SAT 94–97
[2016-09-23 07:04] LABS: BASO % 0.4 %; BASO ABS # 0.03 K/uL (0-0.2); COMPLETE YES; EOS % 1.2 %; HEMATOCRIT 42.5 % (37-47); IG% 0.1 %; LYMPH % 16.7 %; LYMPH ABS # 1.43 K/uL (1.2-3.4); MEAN CELL VOLUME 87.3 fL (80-100); MEAN CORPUSCULAR HEMOGLOBIN 29.2 pg (25-34); MEAN CORPUSCULAR HGB CONC 33.4 g/dl (32-36); MEAN PLATELET VOLUME 9.4 fL (7.4-10.4); MONO % 8.7 %; NEUT % 72.9 %; PLATELET COUNT 181 K/uL (130-400); RED BLOOD COUNT 4.87 M/uL (4.2-5.4); WHITE BLOOD COUNT 8.55 K/uL (4.8-10.8)
[2016-09-23 07:22] LABS: PARTIAL THROMBOPLASTIN RATIO 0.9; PROTHROMBIN TIME (PATIENT) 11.2 SECONDS (9.0-12.0)
[2016-09-23 07:47] LABS: BUN/CREATININE RATIO 17.9 (10-20); CALCIUM 8.5 mg/dl (8.5-10.1); CREATININE 0.76 mg/dl (0.60-1.20); POTASSIUM 4.1 mmol/L (3.5-5.1)
--- NOTE | 2016-09-23 09:02 | Clinical Documentation Query ---
DANIEL Dave : CLINICAL DOCUMENTATION QUERY Patient is an 81 year old female admitted for treatment of recurrent UTI. Noted BMI of 17.2 kg/m*m. Weight this admission 47 kg. Weight last October was 63.7 kg. This represents a weight loss of 26.2% of initial body weight over this interval. She is described as "thin" on physical exam. Prior slip presser assessment suggested use of dietary supplementation for noted weight loss. As appropriate, consider clarification as suggested below to capture the severity of illness associated with this important clinical diagnosis. In your clinical opinion is this patient being managed for: (x ) Severe protein-calorie malnutrition ( ) Other explanation of clinical findings (Please Explain) ( ) Unable to determine (Please Define) ( ) Need to Discuss ( ) Not Agree The medical record reflects the following clinical findings, treatment, and risk factors. Clinical Indicators: As above Treatment: MVI, dietary consultation based upon BMI Risk Factors: Age, dementia, difficulty chewing, swallowing Please clarify and document your clinical opinion in the progress notes and discharge summary. Terms such as "probable", "suspected", "likely", "questionable", "possible", or "still to be ruled out" are acceptable. IF IN AGREEMENT, YOU MUST DOCUMENT ABOVE DIAGNOSTIC STATEMENT IN DAILY PROGRESS NOTES AND DISCHARGE SUMMARY. This document is not part of the patient's record. Thank You, Didier French RN [phone]
[2016-09-23] MEDS: METOPROLOL TARTRATE 25 MG TAB PO SCH ×2 (09:07→20:52)
[2016-09-23] MEDS: DILTIAZEM HCL 240 MG CAPCR PO SCH (09:08)
[2016-09-23] MEDS: POLYETHYLENE (MIRALAX) 17 GM PACK PO SCH (09:08)
[2016-09-23] MEDS: CLOPIDOGREL BISULFATE 75 MG TAB PO SCH (09:08)
--- NOTE | 2016-09-23 09:53 | DIAGNOSTIC IMAGING REPORT ---
CHEST 1 VW lateral CLINICAL HISTORY: coarse breath sounds, ?asp pnea pneumonitis COMPARISON STUDY: 09/22/2016 FINDINGS: A single lateral projection of the chest was performed per the ordering provider. Calcification of the mitral annulus is noted. Lateral projection demonstrates lungs to be clear. There are degenerative changes of the thoracic spine. IMPRESSION: No acute process of the chest based on the lateral projection. Electronically signed by: Doug Adams M.D. 09/23/2016 9:52 AM Dictated Date/Time: 09/23/2016 9:51 AM
[2016-09-23] MEDS ORDERED: PANTOprazole INJ 40 MG in SYRINGE 0 ML IV SCH (11:00)
--- NOTE | 2016-09-23 11:45 | Medical Consult ---
Consultation Date of Consultation: September 23, 2016. Attending Physician: Shade Gunn MD Reason for Consultation: ESBL E. Coli UTI hx History of Present Illness Patient is an 81 year old female well known to myself from previous consultation inpatient presented to the emergency department with complaints of right-sided facial weakness and a fading just. The patient does have chronic history of being nonverbal the majority of the time. The patient does also have history of ESBL producing E coli UTI which has occurred multiple times over the past few months. The patient previously was treated with 14 days of IV [place] ertapenem at home. She overall has done well with this treatment, but continues to have recurrent urinary tract infections. She previously was evaluated by CT scan of for concern of renal stones, but she was noted to have no nephrolithiasis of the bilateral kidneys. Since current admission, the patient did have repeat blood and urine cultures completed. Blood cultures are pending. Urine culture is showing gram-negative bacilli pending identification. Her white blood cell count on admission was 12.17. Her creatinine was 1.10. She was placed on IV ertapenem empirically. Her daughter states that she has improved greatly today already. She did have a head CT completed which showed no acute intracranial findings. A chest x-ray was completed as well which showed no acute consolidative changes. The patient' s most recent hospital records were reviewed, and it was noted that on her previous culture results, the patient did have sensitivity of her ESBL producing E coli to Macrobid. Past Medical/Surgical History Medical Problems: (1) Cardiac ischemia Status: Acute (2) DVT (deep venous thrombosis) Status: Acute (3) Elevated liver enzymes Status: Acute (4) Facial laceration Status: Acute (5) Fall Status: Acute (6) Fall Status: Acute (7) Finger laceration Status: Acute (8) Head trauma Status: Acute (9) Scalp hematoma Status: Acute (10) Sepsis Status: Acute (11) Stroke Status: Acute (12) UTI (urinary tract infection) Status: Acute (13) UTI (urinary tract infection) Status: Acute Medical Problems: (1) Abnormal EKG (2) Altered mental state (3) Altered mental status (4) Aphasia (5) Atrial fibrillation (6) Back pain (7) Blood clot in abdominal vein (8) blood clot lower extremity (9) Bronchitis (10) Cholecystectomy (11) CVA (cerebral vascular accident) (12) Deep venous thrombosis (13) Dementia (14) Elevated WBC count (15) Emphysema (16) Encephalopathy (17) Gallbladder problem (18) Head injury (19) Heart disease (20) Hematoma (21) Hematuria (22) Hypertension (23) Hypokalemia (24) Hyponatremia (25) Pneumonia (26) Seizure-like activity (27) Swelling of right extremity (28) Swelling of right extremity (29) Syncope (30) Urinary tract infection (31) UTI (urinary tract infection) Family History FH: HTN (hypertension) FH: diabetes mellitus Gallbladder disease Heart disease Lung disease Noncontributory Social History Smoking Status: Current Some Day Smoker Drug Use: none Marital Status: Housing Status: lives with family Occupation Status: retired Allergies Coded Allergies: Heparin (Verified Allergy, Unknown, Significant GI bleed, 07/19/16) (per [facility]) Penicillins (Verified Allergy, Unknown, HAS HAD ROCEPHIN W/OUT PROBLEM, ) Sulfa Antibiotics (Verified Allergy, Unknown, Unknown, 07/19/16) Sulfamethoxazole (Verified Allergy, Unknown, 07/19/16) Home Medications Reported Home Medications Medications Dose Route/Sig Max Daily Dose Days Date Category Tylenol Arthritis Ext Rel (Acetaminophen) 650 Mg Cplt 650 Mg PO Q8H PRN 09/22/16 Reported Cardizem Cd (Diltiazem Hcl Coated Beads) 240 Mg Cap 240 Mg PO DAILY 07/30/16 Reported Pantoprazole Sodium (Pantoprazole) 40 Mg Tab 40 Mg PO QAM 07/19/16 Reported Vitamin D (Cholecalciferol) 1,000 Unit Tab 1,000 Unit PO DAILY 07/19/16 Reported Calcium 500 Mg Tab 500 Mg PO DAILY 07/19/16 Reported Clopidogrel (Clopidogrel Bisulfate) 75 Mg Tab 75 Mg PO QAM 30 11/20/15 Rx Lasix (Furosemide) 20 Mg Tab 20 Mg PO DAILY 11/17/15 Reported Lopressor (Metoprolol Tartrate) 25 Mg Tab 0.5 Tab PO BID 90 05/09/15 Rx Vitamin C (Ascorbic Acid) 500 Mg Chw 500 Mg PO DAILY 11/01/14 Reported Multivitamin (Multivitamins) Tab 1 Tab PO DAILY 11/01/14 Reported Warren 5MG/325MG (Acetaminophen/Hydrocodone Bitart) Tab 0.5 Tablet PO UD PRN 09/02/13 Reported Miralax (Polyethylene Glycol 3350) 1 Pow Pow 17 Gm PO DAILY PRN 08/26/13 Reported Klor-Con (Potassium Chloride) 20 Meq Tabcr 20 Meq PO DAILY 08/26/13 Reported Current Inpatient Medications Current Inpatient Medications Medications (Trade) Dose Ordered Sig/Kathy Route Start Time Stop Time Status Last Admin Dose Admin Ertapenem/Sodium Chloride (Invanz Iv/Nss Ad-Van 50ml) 50 ml @ 120 mls/hr Q24H IV 09/22/16 20:00 10/02/16 19:59 09/22/16 21:11 120 MLS/HR Clopidogrel Bisulfate (plAVix TAB) 75 mg QAM PO 09/23/16 09:00 10/23/16 08:59 09/23/16 09:08 75 MG Diltiazem HCl (Cardizem Cd Cap) 240 mg DAILY PO 09/23/16 09:00 10/23/16 08:59 09/23/16 09:08 240 MG Metoprolol Tartrate 12.5 mg 12.5 mg BID PO 09/22/16 21:00 10/22/16 20:59 09/23/16 09:07 12.5 MG Pantoprazole Sodium/Syringe (Protonix Inj/ Syringe) 10 ml @ 5 mls/min DAILY@11 IV 09/23/16 11:00 10/23/16 10:59 09/23/16 09:08 5 MLS/MIN Polyethylene (Miralax Powder Packet) 17 gm DAILY PO 09/23/16 09:00 10/23/16 08:59 09/23/16 09:08 17 GM Bisacodyl (Dulcolax Tab) 5 mg BID PRN PO 09/22/16 16:45 10/22/16 16:44 Glucose (Glucose 40% Gel) 15-30 GRAMS 15 GRAMS... UD PRN PO 09/22/16 17:15 10/22/16 17:14 Glucose (Glucose Chew Tab) 4-8 Tablets 4 Tabl... UD PRN PO 09/22/16 17:15 10/22/16 17:14 Dextrose (Dextrose 50% 50ML Syringe) 25-50ML OF 50% DW IV FOR... UD PRN IV 09/22/16 17:15 10/22/16 17:14 Glucagon (Glucagon Inj) 1 mg UD PRN SQ 09/22/16 17:15 10/22/16 17:14 Metoprolol Tartrate (Lopressor Iv) 5 mg Q6 PRN IV 09/22/16 21:45 10/22/16 21:44 Review of Systems ROS limited due to patient's state, but daughters helped to fill in Constitutional: + fatigue, + weakness, No chills, No fever, No sweats Eyes: No worsening of vision ENT: No hearing loss Respiratory: + cough, + sputum Cardiovascular: No chest pain Abdomen: No diarrhea, No nausea, No pain, No vomiting Musculoskeletal: No joint pain, No swelling Genitourinary - Female: No dysuria, No urinary frequency, No urinary urgency Integumentary: No itch, No rash Physical Exam Date Time Temp Pulse Resp B/P Pulse Ox O2 Delivery O2 Flow Rate FiO2 09/23/16 08:00 Room Air 09/23/16 07:54 36.5 89 16 121/58 96 09/23/16 04:00 97 Room Air 09/23/16 03:06 36.4 97 16 122/79 97 Room Air 09/22/16 23:59 97 Room Air 09/22/16 23:16 36.3 94 20 126/86 97 Room Air 09/22/16 20:05 95 Room Air 09/22/16 18:47 36.7 87 18 112/74 97 Room Air 09/22/16 18:12 36.6 79 25 109/59 93 09/22/16 18:02 86/65 09/22/16 18:01 79 25 93 09/22/16 17:56 82 25 94 09/22/16 17:51 83 20 92 09/22/16 17:46 92 23 94 09/22/16 17:41 85 27 93 09/22/16 17:36 84 25 93 09/22/16 17:31 82 26 102/63 93 09/22/16 17:26 85 32 91 09/22/16 17:21 94 26 92 09/22/16 17:16 80 28 92 09/22/16 17:11 82 33 91 09/22/16 17:06 85 27 94 09/22/16 17:01 86 22 100/84 89 09/22/16 16:56 88 27 94 09/22/16 16:51 82 30 92 09/22/16 16:46 84 20 92 09/22/16 16:41 92 21 95 09/22/16 16:36 93 9 95 09/22/16 16:31 79 26 109/70 95 09/22/16 16:26 80 21 95 09/22/16 16:21 91 17 94 09/22/16 16:16 81 27 96 09/22/16 16:11 79 20 95 09/22/16 16:06 82 15 94 09/22/16 16:01 78 24 104/66 95 09/22/16 15:56 81 22 96 09/22/16 15:51 77 23 96 09/22/16 15:46 75 24 97 09/22/16 15:41 79 23 96 09/22/16 15:36 81 26 96 09/22/16 15:31 80 19 104/70 94 09/22/16 15:26 71 25 92 09/22/16 15:21 81 24 93 09/22/16 15:16 69 24 96 09/22/16 15:11 82 25 97 09/22/16 15:10 98/72 09/22/16 15:06 81 25 94 09/22/16 15:01 82 22 95 09/22/16 14:56 78 23 95 09/22/16 14:51 81 26 95 09/22/16 14:41 87 18 120/67 98 Room Air 09/22/16 14:40 120/78 09/22/16 14:36 81 29 94 09/22/16 14:31 82 21 96 09/22/16 14:26 81 24 95 09/22/16 14:25 116/67 09/22/16 14:06 80 23 95 09/22/16 14:05 81 09/22/16 13:57 36.6 88 14 122/83 95 Room Air 09/22/16 13:56 122/83 09/22/16 13:49 156/98 General Appearance: no apparent distress, + thin Head: normocephalic, atraumatic Eyes: normal inspection, sclerae normal ENT: hearing grossly normal Neck: trachea midline Respiratory/Chest: chest non-tender, no respiratory distress, no accessory muscle use, + pertinent finding (coarse breath sounds left base) Cardiovascular: regular rate, rhythm Abdomen/GI: normal bowel sounds, non tender Extremities/Musculoskelatal: normal inspection, no pedal edema Neurologic/Psych: alert Skin: normal color, warm/dry, no rash Laboratory Results CHEST 1 VW lateral CLINICAL HISTORY: coarse breath sounds, ?asp pnea pneumonitis COMPARISON STUDY: 09/22/2016 FINDINGS: A single lateral projection of the chest was performed per the ordering provider. Calcification of the mitral annulus is noted. Lateral projection demonstrates lungs to be clear. There are degenerative changes of the thoracic spine. IMPRESSION: No acute process of the chest based on the lateral projection. Item Value Date Time Blood Culture Received 09/22/161937 Blood Pending Blood Culture Received 09/22/161934 Blood Pending Urine Culture - Preliminary Resulted 09/22/16 1435 Urine,Catheterized Gram Negative Bacilli Last 24 Hours Test 09/22/16 14:00 09/22/16 14:04 09/22/16 14:35 09/22/16 20:35 White Blood Count 12.17 K/uL Red Blood Count 5.17 M/uL Hemoglobin 14.9 g/dL Hematocrit 45.6 % Mean Corpuscular Volume 88.2 fL Mean Corpuscular Hemoglobin 28.8 pg Mean Corpuscular Hemoglobin Concent 32.7 g/dl Platelet Count 203 K/uL Mean Platelet Volume 9.4 fL Neutrophils (%) (Auto) 80.9 % Lymphocytes (%) (Auto) 11.5 % Monocytes (%) (Auto) 6.6 % Eosinophils (%) (Auto) 0.6 % Basophils (%) (Auto) 0.2 % Neutrophils # (Auto) 9.85 K/uL Lymphocytes # (Auto) 1.40 K/uL Monocytes # (Auto) 0.80 K/uL Eosinophils # (Auto) 0.07 K/uL Basophils # (Auto) 0.03 K/uL RDW Standard Deviation 44.7 fL RDW Coefficient of Variation 13.7 % Immature Granulocyte % (Auto) 0.2 % Immature Granulocyte # (Auto) 0.02 K/uL Prothrombin Time 11.4 SECONDS Prothromb Time International Ratio 1.1 Activated Partial Thromboplast Time 23.1 SECONDS Partial Thromboplastin Ratio 0.9 Sodium Level 139 mmol/L Potassium Level 4.6 mmol/L Chloride Level 101 mmol/L Carbon Dioxide Level 32 mmol/L Anion Gap 6.0 mmol/L Blood Urea Nitrogen 16 mg/dl Creatinine 1.10 mg/dl Est Creatinine Clear Calc Drug Dose 30.7 ml/min Estimated GFR () 54.9 Estimated GFR (Non- 47.4 BUN/Creatinine Ratio 14.9 Random Glucose 130 mg/dl Calcium Level 9.0 mg/dl Magnesium Level 2.1 mg/dl Total Bilirubin 0.9 mg/dl Direct Bilirubin 0.3 mg/dl Aspartate Amino Transf (AST/SGOT) 21 U/L Alanine Aminotransferase (ALT/SGPT) 24 U/L Alkaline Phosphatase 177 U/L Total Creatine Kinase 45 U/L Creatine Kinase MB 1.7 ng/ml Creatine Kinase MB Ratio 3.8 Troponin I < 0.015 ng/ml Total Protein 7.1 gm/dl Albumin 2.9 gm/dl Lipase 88 U/L Thyroid Stimulating Hormone (TSH) 1.930 uIu/ml Bedside Prothrombin Time INR 1.1 Bedside Glucose 113 mg/dl 102 mg/dl Urine Color YELLOW Urine Appearance TURBID Urine pH 7.5 Urine Specific [place] 1.012 Urine Protein NEG Urine Glucose (UA) NEG Urine Ketones NEG Urine Occult Blood 1+ Urine Nitrite POS Urine Bilirubin NEG Urine Urobilinogen NEG Urine Leukocyte Esterase LARGE Urine WBC (Auto) >30 /hpf Urine RBC (Auto) 5-10 /hpf Urine Hyaline Casts (Auto) 1-5 /lpf Urine Epithelial Cells (Auto) >30 /lpf Urine Bacteria (Auto) 1+ Test 09/23/16 00:49 09/23/16 06:42 09/23/16 06:52 Bedside Glucose 100 mg/dl 103 mg/dl White Blood Count 8.55 K/uL Red Blood Count 4.87 M/uL Hemoglobin 14.2 g/dL Hematocrit 42.5 % Mean Corpuscular Volume 87.3 fL Mean Corpuscular Hemoglobin 29.2 pg Mean Corpuscular Hemoglobin Concent 33.4 g/dl Platelet Count 181 K/uL Mean Platelet Volume 9.4 fL Neutrophils (%) (Auto) 72.9 % Lymphocytes (%) (Auto) 16.7 % Monocytes (%) (Auto) 8.7 % Eosinophils (%) (Auto) 1.2 % Basophils (%) (Auto) 0.4 % Neutrophils # (Auto) 6.24 K/uL Lymphocytes # (Auto) 1.43 K/uL Monocytes # (Auto) 0.74 K/uL Eosinophils # (Auto) 0.10 K/uL Basophils # (Auto) 0.03 K/uL RDW Standard Deviation 43.2 fL RDW Coefficient of Variation 13.7 % Immature Granulocyte % (Auto) 0.1 % Immature Granulocyte # (Auto) 0.01 K/uL Prothrombin Time 11.2 SECONDS Prothromb Time International Ratio 1.0 Activated Partial Thromboplast Time 24.0 SECONDS Partial Thromboplastin Ratio 0.9 Sodium Level 140 mmol/L Potassium Level 4.1 mmol/L Chloride Level 105 mmol/L Carbon Dioxide Level 29 mmol/L Anion Gap 6.0 mmol/L Blood Urea Nitrogen 14 mg/dl Creatinine 0.76 mg/dl Est Creatinine Clear Calc Drug Dose 43.8 ml/min Estimated GFR () 85.9 Estimated GFR (Non- 74.1 BUN/Creatinine Ratio 17.9 Random Glucose 99 mg/dl Calcium Level 8.5 mg/dl Assessment & Plan Patient with acute onset weakness and encephalopathy- now improving with recurrent UTI. The patient does have history of ESBL E. Coli and feel that she may have this again. If it is the same bacteria, recommend completion of 7 days of IV ertapenem 1 g daily at home (can transition to IM at home- daughters have done this before) and then will start PO Macrobid 100 mg daily after discontinuation of Ertapenem. She is showing Macrobid sensitivity, and I feel that this patient may benefit from attempted suppression of infection. We will follow up as outpatient. PROVIDER ADDENDUM: Patient examined and reviewed with Ms. Ernst. Agree with above assessment.
[2016-09-23] MEDS: ERTAPENEM IV 1 GM in SODIUM CHLOR 0.9% AD-VAN 50ML 50 ML IV SCH (20:52)
[2016-09-23] MEDS: NYSTATIN POWDER 15GM BTL EXT SCH (20:52)
--- NOTE | 2016-09-23 22:20 | Progress Note ---
Subjective Date of Service: September 23, 2016. Subjective Pt evaluation today including: conversation w/ family (daughter at bedside), physical exam, chart review, lab review, review of inpatient medication list Pain: nothing obvious PO Intake: fair Voiding: incontinence tele stable overnight no issues reported by daughter at bedside patient lives with her daughter has had dementia for 10 years largely nonverbal Problem List Medical Problems: (1) Cardiac ischemia Status: Acute (2) DVT (deep venous thrombosis) Status: Acute (3) Elevated liver enzymes Status: Acute (4) Facial laceration Status: Acute (5) Fall Status: Acute (6) Fall Status: Acute (7) Finger laceration Status: Acute (8) Head trauma Status: Acute (9) Scalp hematoma Status: Acute (10) Sepsis Status: Acute (11) Stroke Status: Acute (12) UTI (urinary tract infection) Status: Acute (13) UTI (urinary tract infection) Status: Acute Review of Systems unable to obtain due to noncommunicative status Objective Vital Signs Date Time Temp Pulse Resp B/P Pulse Ox O2 Delivery O2 Flow Rate FiO2 09/23/16 19:44 96 18 109/72 94 Room Air 09/23/16 19:39 Room Air 09/23/16 16:00 Room Air 09/23/16 15:07 78 95 09/23/16 14:55 36.6 63 18 98/62 97 Room Air 09/23/16 12:06 36.9 76 18 122/63 95 09/23/16 12:00 Room Air 09/23/16 08:00 Room Air 09/23/16 07:54 36.5 89 16 121/58 96 09/23/16 04:00 97 Room Air 09/23/16 03:06 36.4 97 16 122/79 97 Room Air 09/22/16 23:59 97 Room Air 09/22/16 23:16 36.3 94 20 126/86 97 Room Air Physical Exam General Appearance: no apparent distress, + thin ENT: pharynx normal Neck: no JVD Respiratory/Chest: lungs clear, no respiratory distress, no accessory muscle use Cardiovascular: no gallop, no murmur, + irregularly irregular Abdomen: normal bowel sounds, non tender, soft, no organomegaly Extremities: no pedal edema Neurologic/Psychiatric: alert, + pertinent finding (nonverbal; contractures of LEs noted ) Skin: + pertinent finding (candidal rash in groin, thighs, vulvar region ) Laboratory Results Last 24 Hours Test 09/23/16 00:49 09/23/16 06:42 09/23/16 06:52 09/23/16 11:37 Bedside Glucose 100 mg/dl 103 mg/dl 125 mg/dl White Blood Count 8.55 K/uL Red Blood Count 4.87 M/uL Hemoglobin 14.2 g/dL Hematocrit 42.5 % Mean Corpuscular Volume 87.3 fL Mean Corpuscular Hemoglobin 29.2 pg Mean Corpuscular Hemoglobin Concent 33.4 g/dl Platelet Count 181 K/uL Mean Platelet Volume 9.4 fL Neutrophils (%) (Auto) 72.9 % Lymphocytes (%) (Auto) 16.7 % Monocytes (%) (Auto) 8.7 % Eosinophils (%) (Auto) 1.2 % Basophils (%) (Auto) 0.4 % Neutrophils # (Auto) 6.24 K/uL Lymphocytes # (Auto) 1.43 K/uL Monocytes # (Auto) 0.74 K/uL Eosinophils # (Auto) 0.10 K/uL Basophils # (Auto) 0.03 K/uL RDW Standard Deviation 43.2 fL RDW Coefficient of Variation 13.7 % Immature Granulocyte % (Auto) 0.1 % Immature Granulocyte # (Auto) 0.01 K/uL Prothrombin Time 11.2 SECONDS Prothromb Time International Ratio 1.0 Activated Partial Thromboplast Time 24.0 SECONDS Partial Thromboplastin Ratio 0.9 Sodium Level 140 mmol/L Potassium Level 4.1 mmol/L Chloride Level 105 mmol/L Carbon Dioxide Level 29 mmol/L Anion Gap 6.0 mmol/L Blood Urea Nitrogen 14 mg/dl Creatinine 0.76 mg/dl Est Creatinine Clear Calc Drug Dose 43.8 ml/min Estimated GFR () 85.9 Estimated GFR (Non- 74.1 BUN/Creatinine Ratio 17.9 Random Glucose 99 mg/dl Calcium Level 8.5 mg/dl Assessment and Plan 81yo female with: 1. concern of UTI - urine cx growing GNR. has h/o ESBL producing e. coli UTIs this may represent chronic colonization seen by ID; ertapenem recommended, followed by macrobid prophylaxis chronically thereafter await final ID/sens on GNR in urine 2. h/o DVT - has IVC filter in place 3. acute kidney injury - resolved; Cr now at baseline. 4. CKD stage 3 - Cr at baseline. 5. advanced dementia - speech therapy for swallow eval. Moist pureed diet with NECTAR THICK liquids recommended. 6. candidal rash - nystatin powder TID. 7. a. fib - rates controlled. 8. h/o COPD - noted; respiratory status is stable. 9. chronic diastolic CHF - compensated. 10. h/o T2DM - glycemic control is acceptable at this time. 11. HTN - controlled. d/c tele move to med/surg home this weekend once urine cx is final Continued [facility] stay due to: multiple IV medications needed
[2016-09-24 00:21] VITALS: BP 113/77; PULSE 82; TEMP 36.9; O2SAT 97
[2016-09-24 07:09] LABS: BASO % 0.3 %; BASO ABS # 0.03 K/uL (0-0.2); COMPLETE YES; EOS % 1.3 %; HEMATOCRIT 38.3 % (37-47); IG% 0.1 %; LYMPH % 24.8 %; LYMPH ABS # 2.13 K/uL (1.2-3.4); MEAN CELL VOLUME 87.8 fL (80-100); MEAN CORPUSCULAR HEMOGLOBIN 29.6 pg (25-34); MEAN CORPUSCULAR HGB CONC 33.7 g/dl (32-36); MEAN PLATELET VOLUME 9.7 fL (7.4-10.4); MONO % 9.2 %; NEUT % 64.3 %; PLATELET COUNT 163 K/uL (130-400); RED BLOOD COUNT 4.36 M/uL (4.2-5.4)
[2016-09-24 07:37] LABS: INR 1.1 (0.9-1.1)
[2016-09-24 07:44] LABS: BUN/CREATININE RATIO 31.6 (10-20); CALCIUM 8.3 mg/dl (8.5-10.1); CREATININE 0.78 mg/dl (0.60-1.20); POTASSIUM 4.3 mmol/L (3.5-5.1)
[2016-09-24] MEDS: METOPROLOL TARTRATE 25 MG TAB PO SCH ×2 (08:08→20:40)
[2016-09-24] MEDS: NYSTATIN POWDER 15GM BTL EXT SCH ×3 (08:08→20:40)
[2016-09-24] MEDS: DILTIAZEM HCL 240 MG CAPCR PO SCH (08:08)
[2016-09-24] MEDS: CLOPIDOGREL BISULFATE 75 MG TAB PO SCH (08:08)
[2016-09-24] MEDS: POLYETHYLENE (MIRALAX) 17 GM PACK PO SCH (08:08)
[2016-09-24 08:11] VITALS: BP 109/72; PULSE 78; TEMP 36.5; O2SAT 95
[2016-09-24] MEDS ORDERED: NURSING DECISION MEDICATION ORDER SCH (08:30)
[2016-09-24] MEDS ORDERED: ARTIFICIAL TEARS OP OINT 3.5 GM TUBE OP PRN (09:30)
[2016-09-24 15:33] VITALS: BP 105/69; PULSE 81; TEMP 35.8; O2SAT 92
[2016-09-24 16:45] VITALS: O2SAT 92
[2016-09-24] MEDS: ERTAPENEM IV 1 GM in SODIUM CHLOR 0.9% AD-VAN 50ML 50 ML IV SCH (20:38)
[2016-09-25 00:11] VITALS: BP 110/67; PULSE 68; TEMP 36.5; O2SAT 96
--- NOTE | 2016-09-25 04:24 | Progress Note ---
Subjective Date of Service: late entry for visit September 24, 2016. Subjective Pt evaluation today including: conversation w/ family (daughter at bedside), physical exam, chart review, lab review, review of inpatient medication list Pain: none PO Intake: good Voiding: incontinence no issues overnight daughter confirms her mother is at bedside Problem List Medical Problems: (1) Cardiac ischemia Status: Acute (2) DVT (deep venous thrombosis) Status: Acute (3) Elevated liver enzymes Status: Acute (4) Facial laceration Status: Acute (5) Fall Status: Acute (6) Fall Status: Acute (7) Finger laceration Status: Acute (8) Head trauma Status: Acute (9) Scalp hematoma Status: Acute (10) Sepsis Status: Acute (11) Stroke Status: Acute (12) UTI (urinary tract infection) Status: Acute (13) UTI (urinary tract infection) Status: Acute Review of Systems cannot obtain ROS due to dementia and noncommunicative status Objective Vital Signs Date Time Temp Pulse Resp B/P Pulse Ox O2 Delivery O2 Flow Rate FiO2 09/25/16 00:30 Room Air 09/25/16 00:11 36.5 68 18 110/67 96 Room Air 09/24/16 16:45 92 Room Air 09/24/16 15:33 35.8 81 16 105/69 92 Room Air 09/24/16 08:11 36.5 78 16 109/72 95 Room Air 09/24/16 08:00 Room Air Physical Exam General Appearance: no apparent distress ENT: pharynx normal Neck: no JVD Respiratory/Chest: lungs clear, no respiratory distress, no accessory muscle use Cardiovascular: regular rate, rhythm, no gallop, no murmur Abdomen: normal bowel sounds, non tender, soft, no organomegaly Extremities: no pedal edema Neurologic/Psychiatric: + pertinent finding (alert, nonverbal) Laboratory Results Last 24 Hours Test 09/24/16 06:44 White Blood Count 8.60 K/uL Red Blood Count 4.36 M/uL Hemoglobin 12.9 g/dL Hematocrit 38.3 % Mean Corpuscular Volume 87.8 fL Mean Corpuscular Hemoglobin 29.6 pg Mean Corpuscular Hemoglobin Concent 33.7 g/dl Platelet Count 163 K/uL Mean Platelet Volume 9.7 fL Neutrophils (%) (Auto) 64.3 % Lymphocytes (%) (Auto) 24.8 % Monocytes (%) (Auto) 9.2 % Eosinophils (%) (Auto) 1.3 % Basophils (%) (Auto) 0.3 % Neutrophils # (Auto) 5.53 K/uL Lymphocytes # (Auto) 2.13 K/uL Monocytes # (Auto) 0.79 K/uL Eosinophils # (Auto) 0.11 K/uL Basophils # (Auto) 0.03 K/uL RDW Standard Deviation 45.0 fL RDW Coefficient of Variation 13.8 % Immature Granulocyte % (Auto) 0.1 % Immature Granulocyte # (Auto) 0.01 K/uL Prothrombin Time 12.0 SECONDS Prothromb Time International Ratio 1.1 Activated Partial Thromboplast Time 24.8 SECONDS Partial Thromboplastin Ratio 1.0 Sodium Level 140 mmol/L Potassium Level 4.3 mmol/L Chloride Level 105 mmol/L Carbon Dioxide Level 29 mmol/L Anion Gap 6.0 mmol/L Blood Urea Nitrogen 25 mg/dl Creatinine 0.78 mg/dl Est Creatinine Clear Calc Drug Dose 42.7 ml/min Estimated GFR () 83.2 Estimated GFR (Non- 71.8 BUN/Creatinine Ratio 31.6 Random Glucose 99 mg/dl Calcium Level 8.3 mg/dl Assessment and Plan 81yo female with: 1. GNR UTI - awaiting final urine cx result. cont ertapenem. has h/o ESBL producing e. coli UTIs seen by ID; ertapenem recommended, followed by macrobid prophylaxis chronically thereafter 2. h/o DVT - has IVC filter in place 3. acute kidney injury - resolved; Cr now at baseline. BUN elevated today but pt eating/drinking well; repeat BMP in am 4. CKD stage 3 - Cr at baseline. 5. advanced dementia - speech therapy for swallow eval. Moist pureed diet with NECTAR THICK liquids recommended. 6. candidal rash - nystatin powder TID. 7. a. fib - rates controlled. 8. h/o COPD - stable. 9. chronic diastolic CHF - compensated. 10. h/o T2DM - glycemic control is acceptable at this time. 11. HTN - controlled. hopefully home tomorrow pending final urine cx result Continued [facility] stay due to: multiple IV medications needed Discharge planning: home
[2016-09-25 07:06] LABS: BUN/CREATININE RATIO 30.4 (10-20); CALCIUM 8.1 mg/dl (8.5-10.1); CREATININE 0.72 mg/dl (0.60-1.20); POTASSIUM 4.2 mmol/L (3.5-5.1)
[2016-09-25] MEDS: DILTIAZEM HCL 240 MG CAPCR PO SCH (07:21)
[2016-09-25] MEDS: METOPROLOL TARTRATE 25 MG TAB PO SCH (07:21)
[2016-09-25] MEDS: NYSTATIN POWDER 15GM BTL EXT SCH (07:22)
[2016-09-25] MEDS: POLYETHYLENE (MIRALAX) 17 GM PACK PO SCH (07:22)
[2016-09-25] MEDS: CLOPIDOGREL BISULFATE 75 MG TAB PO SCH (07:22)
[2016-09-25 08:00] VITALS: BP 119/82; PULSE 75; TEMP 36.6; O2SAT 96
[2016-09-25] MEDS ORDERED: CIPROFLOXACIN 500 MG TAB PO SCH (09:00)
[2016-09-25] MEDS ORDERED: NYSP EXT (10:42)
[2016-09-25] MEDS ORDERED: ERYOPO IO (10:42)
[2016-09-25] MEDS ORDERED: LACTCHW3 PO (10:42)
[2016-09-25] MEDS ORDERED: CPR500 PO (10:42)
--- NOTE | 2016-09-25 10:53 | Discharge Instructions ---
Discharge Instructions Date of Service September 25, 2016. Admission Reason for Admission: Urinary Tract Infection Discharge Discharge Diagnosis / Problem: Urinary Tract Infection Discharge Goals Goal(s): Learn about illness, Diagnostic testing, Therapeutic intervention Activity Recommendations Activity Limitations: resume your previous activity . Instructions / Follow-Up Instructions / Follow-Up From Dr. Gunn 1. urinary tract infection - * please take cipro 500mg twice a day for 10 days; start this TONIGHT 09/25/16 * please take lactinex 2 chewable tablets three times a day for 10 days; this will prevent diarrhea from the antibiotics 2. yeast rash in groin - * use nystatin powder three times a day for 7-10 days 3. left eye drainage - * use erythromycin eye ointment once a day to the left eye at bedtime for 7-10 days 4. skin irritation on lower back/sacral area - * apply optifoam dressing to the region * leave in place and change daily or every other day * frequent turning in bed at home will prevent worsening of the irritation * the home health nurse can check the area frequently as well 5. please see Ms. Yolis Ernst, infectious disease, in 7-10 days to discuss ongoing prophylactic antibiotics after the cipro is complete 6. diet - * please continue PUREED foods with nectar thick liquids * this will help prevent aspiration * it is best for Ms Mccurdy to remain upright in bed or the chair for meals and snacks Return to [facility] if - * fever over 100.5 degrees * poor oral intake * concern of dehydration * vomiting * shortness of breath Current Hospital Diet Patient's current hospital diet: Diabetes Type 2 Diet Discharge Diet Recommended Diet: Diabetes Type 2 Diet Diet Texture: Pureed (blended smooth) Liquid Consistency: [place] Thick Procedures Procedures Performed: CAT scan of the head - no evidence of stroke. Pending Studies Studies pending at discharge: no Medical Emergencies . Who to Call and When: Medical Emergencies: If at any time you feel your situation is an emergency, please call 911 immediately. . Non-Emergent Contact Non-Emergency issues call your: Primary Care Provider Call Non-Emergent contact if: temperature is above 100.5, you have any medication questions . . "Provider Documentation" section prepared by Shade Gunn. . VTE Core Measure Inpt VTE Proph given/why not?: Tisha Swanson, SCD's
[2016-09-25 11:13] VITALS: BP 119/82; PULSE 75; TEMP 36.6; O2SAT 96
--- NOTE | 2016-09-26 23:00 | Discharge Summary ---
Discharge Summary Date of Service September 26, 2016. Discharge Summary Admission Date: September 22, 2016 at 16:46 Discharge Date: September 25, 2016 Discharge Disposition: Home with services Principal Diagnosis: pseudomonas UTI Problems/Secondary Diagnoses: 1. advanced dementia 2. dysphagia 3. acute kidney injury 4. T2DM 5. CKD stage 3 6. chronic diastolic CHF 7. COPD 8. h/o DVT s/p IVC filter 9. a. fib 10. HTN 11. recurrent UTIs 12. candidal rash - groin 13. severe protein calorie malnutrition Immunizations: Have You Had Influenza Vaccine: Unknown History of Tetanus Vaccine?: Unknown History of Pneumococcal: Unknown History of Hepatitis B Vaccine: Unknown Procedures: head CT - no acute pathology Consultations: infectious disease - JUSTINA Kay / Heladio Ingram MD speech therapy Medication Reconciliation New Medications: Erythromycin Opth (Erythromycin Opth) 12 Appln/3.5 Gm Oint 1 APPLN IO HS, #1 TUBE 0 Refills apply to left eye Lactobacillus (Lactinex) Chw 2 TAB PO TID for 10 Days, #60 CHW 0 Refills Ciprofloxacin (Ciprofloxacin HCl) 500 Mg Tab 500 MG PO BID for 10 Days, #19 TAB 0 Refills take first dose EVENING of 09/25/16 Nystatin (Nystop) 45 Appln/15 Gm Powd 1 APPLN EXT TID for 10 Days, #1 CAN 1 Refill apply liberally to groin/inner thighs/vulvar region Continued Medications: Acetaminophen (Tylenol Arthritis Ext Rel) 650 Mg Cplt 650 MG PO Q8H PRN for Pain, CAP Ascorbic Acid (Vitamin C) 500 Mg Chw 500 MG PO DAILY Calcium (Calcium) 500 Mg Tab 500 MG PO DAILY Cholecalciferol (Vitamin D) 1,000 Unit Tab 1000 UNIT PO DAILY Clopidogrel Bisulfate (Clopidogrel) 75 Mg Tab 75 MG PO QAM for 30 Days, #30 TAB 1 Refill Diltiazem Hcl Coated Beads (Cardizem Cd) 240 Mg Cap 240 MG PO DAILY Furosemide (Lasix) 20 Mg Tab 20 MG PO DAILY, TAB Hydrocodone/Acetaminophen 5MG/325MG (Odonnell 5MG/325MG) Tab 0.5 TABLET PO UD PRN for Pain Metoprolol Tartrate (Lopressor) (Lopressor) 25 Mg Tab 0.5 TAB PO BID for 90 Days, #180 TAB 1 Refill Multivitamin (Multivitamin) Tab 1 TAB PO DAILY Pantoprazole (Pantoprazole Sodium) 40 Mg Tab 40 MG PO QAM, #30 Polyethylene Glycol 3350 (Miralax) 1 Pow Pow 17 GM PO DAILY PRN for Constipation Potassium Ext Rel (Klor-Con) 20 Meq Tabcr 20 MEQ PO DAILY Referrals At Discharge Follow up Referrals: Infectious Disease - Within 1 Week with Kateryna Ernst .REINA Discharge Exam Physical Exam: General Appearance: no apparent distress, + thin Eyes: + pertinent finding (scant drainage, left eye) ENT: pharynx normal Neck: no JVD Respiratory/Chest: lungs clear, no respiratory distress, no accessory muscle use Cardiovascular: no gallop, normal peripheral pulses, + systolic murmur, + irregularly irregular Abdomen / GI: normal bowel sounds, non tender, soft, no organomegaly Extremities: no pedal edema Neurologic/Psychiatric: + pertinent finding (nonverbal, +suck reflex, + grasp reflex, contractures LEs) Skin: + pertinent finding (candidal rash groin/thighs) Hospital Course HISTORY OF PRESENT ILLNESS: This is an 81yo female with history of atrial fibrillation, COPD, chronic diastolic CHF, HTN, DM II, DVT, dementia and ESBL producing E. Coli UTIs which have occurred multiple times who presented with acute onset of aphasia. Patient lives with her daughters and they reported that last night she was in her normal state of health. On the AM of admission, however, the patient was unable to talk and so she was brought to the ER by her family. Per the outpatient clinic records the patient is largely nonverbal at baseline due to her severe dementia. Thus, her daughters felt that she was not at neuropsychiatric baseline. The patient was seen by urology last week for routine follow-up to determine why she has recurrent UTIs. The patient finished a course of ertapenem IM injections about 3-4 weeks ago for ESBL e. coli UTI. In the ER CT of the head was completed to rule out stroke which was negative for any acute findings, a chest x-ray 1 view portable was done showing moderate cardiomegaly and trace right pleural effusion. WBC=12 K with left shift. UA was grossly dirty with positive leukocyte esterase, nitrates, and 1+ bacteria. HOSPITAL COURSE: The patient was ultimately found to have a pseudomonas UTI. Fortunately the pathogen was ye-sensitive and thus she will complete a 10-day course of oral cipro at home. She also had evidence of mild acute kidney injury with presenting creatinine of 1.1, improving to 0.7 before discharge. This was likely due to poor oral intake at home from the UTI. The family confirmed that she was at neuropsychiatric baseline on day of discharge. She was seen in consult by speech therapy who recommended a pureed diet with nectar thick liquids due to her dysphagia. The family was instructed on this diet. All other medical problems remained stable while hospitalized. The patient will have follow-up with the infectious disease clinic after discharge. Daily, oral prophylactic antibiotic has been considered in light of her recurrent UTIs. Lastly, social work has arranged home health services for the patient and her family. Total Time Spent: Greater than 30 minutes This includes examination of the patient, discharge planning, medication reconciliation, and communication with other providers. Discharge Instructions Please refer to the electronic Patient Visit Report (Discharge Instructions) for additional information. Follow-Up 1. see JUSTINA Kay - infectious disease - in 1-[address] Cruz within 1 week Additional Copies To Kateryna Ernst .HUC; Jaspreet Cruz M.D.
[2016-10-01] MEDS ORDERED: MULT-506 PO (07:17)
[2016-10-01] MEDS ORDERED: ASCO500C3 PO (07:19)
[2016-10-01] MEDS ORDERED: ACET1TAB84 PO (15:06)
[2016-10-01] MEDS ORDERED: PANT40TA2 PO (17:59)
[2016-10-01] MEDS ORDERED: CALC500T83 PO (17:59)
[2016-10-01] MEDS ORDERED: CHOL100010 PO (17:59)
== END 2016-09-25 12:10 | disposition home health service (06) | DRG 689 ==
LOC: ENRESERVTM → ENRESERVDT → EDBD 13:46 → C.EDB 13:47 → C.2T 16:46 → C.MS2W 09-23 19:31
PROVIDERS: ADMIT Family Medicine; ATTEND Internal Medicine
DX: N39.0 Urinary tract infection, site not specified (principal); G93.49 Other encephalopathy; E43 Unspecified severe protein-calorie malnutrition; N17.9 Acute kidney failure, unspecified; Z68.1 Body mass index [BMI] 19.9 or less, adult; I13.0 Hypertensive heart and chronic kidney disease with heart failure and stage 1 through stage 4 chronic kidney disease, or unspecified chronic kidney disease; R47.01 Aphasia; I50.32 Chronic diastolic (congestive) heart failure; B96.5 Pseudomonas (aeruginosa) (mallei) (pseudomallei) as the cause of diseases classified elsewhere; R29.810 Facial weakness; R13.10 Dysphagia, unspecified; R05 Cough; B37.2 Candidiasis of skin and nail; R32 Unspecified urinary incontinence; I48.2 Chronic atrial fibrillation; N18.3 Chronic kidney disease, stage 3 (moderate); E11.22 Type 2 diabetes mellitus with diabetic chronic kidney disease; J44.9 Chronic obstructive pulmonary disease, unspecified; K21.9 Gastro-esophageal reflux disease without esophagitis; F03.90 Unspecified dementia, unspecified severity, without behavioral disturbance, psychotic disturbance, mood disturbance, and anxiety; Z22.39 Carrier of other specified bacterial diseases; Z87.891 Personal history of nicotine dependence; Z86.718 Personal history of other venous thrombosis and embolism; Z79.02 Long term (current) use of antithrombotics/antiplatelets; Z79.891 Long term (current) use of opiate analgesic; Z79.899 Other long term (current) drug therapy

== ENCOUNTER 2016-10-01 18:20 | Emergency (ER) | payer BC, OTHER ==
[~2016-10-01] VITALS: Ht 162.6 cm; Wt 50.0 kg
[~2016-10-01 18:20] MED LIST changes: +ACET1TAB84 PO; +ASCO500C3 PO; +CALC500T83 PO; +CHOL100010 PO; +CPR500 PO; +ERYOPO IO; -INVI1 INJ; +LACTCHW3 PO; +MULT-506 PO; +NYSP EXT; +PANT40TA2 PO; -[UNRECOGNIZED DRUG - CODE] INJ
[2016-10-01 18:32] VITALS: TEMP 37.5; Ht 162.6 cm; Wt 50.0 kg
--- NOTE | 2016-10-01 18:47 | EMERGENCY ROOM VISIT NOTE ---
History Report prepared by Brody: Kushal Loving Under the Supervision of: Dr. Edmond Acuna M.D. First contact with patient: 18:33 Chief Complaint: ALTERED MENTAL STATUS Stated Complaint: SEIZURE History of Present Illness The patient is an 81 year old female with baseline dementia who presents to the Emergency Room with a possible seizure that occurred just prior to arrival. The patient's daughter, who lives with the patient, was attempting to help the patient up into a chair when she started shaking especially towards the left side. The episode only lasted for seconds and the patient did not yell out or make any noise. The patient did not lose consciousness, fall or hit her head. The daughter believes that the patient has a history of seizure disorder, however she is not on any seizure medications. The patient now appears to be at her baseline mental status as per the daughter. The patient appeared fine earlier in the day. The patient left the hospital last week after being treated for a UTI. The patient is currently on Cipro. Source of History: family (daughter) Onset: just prior to arrival Position: other (global) Quality: other (possible seizure) Timing: resolved Associated Symptoms: No LOC Review of Systems See HPI for pertinent positives & negatives. A total of 10 systems reviewed and were otherwise negative. Past Medical & Surgical Medical Problems: (1) Abnormal EKG (2) Altered mental state (3) Altered mental status (4) Aphasia (5) Atrial fibrillation (6) Back pain (7) Blood clot in abdominal vein (8) blood clot lower extremity (9) Bronchitis (10) Cholecystectomy (11) CVA (cerebral vascular accident) (12) Deep venous thrombosis (13) Dementia (14) Elevated WBC count (15) Emphysema (16) Encephalopathy (17) Gallbladder problem (18) Head injury (19) Heart disease (20) Hematoma (21) Hematuria (22) Hypertension (23) Hypokalemia (24) Hyponatremia (25) Pneumonia (26) Seizure-like activity (27) Swelling of right extremity (28) Swelling of right extremity (29) Syncope (30) Urinary tract infection (31) UTI (urinary tract infection) Family History FH: HTN (hypertension) FH: diabetes mellitus Gallbladder disease Heart disease Lung disease Social History Smoking Status: Former Smoker Alcohol Use: none Drug Use: none Marital Status: Housing Status: lives with family Occupation Status: retired Current/Historical Medications Scheduled Ascorbic Acid (Vitamin C), 500 MG PO DAILY Calcium (Calcium), 500 MG PO DAILY Cholecalciferol (Vitamin D), 1,000 INTER.UNIT PO DAILY Ciprofloxacin (Ciprofloxacin HCl), 500 MG PO BID Clopidogrel (Plavix), 75 MG PO QAM Diltiazem Hcl Coated Beads (Cartia Xt), 240 MG PO DAILY Erythromycin Opth (Erythromycin Opth), 1 APPLN IO HS Furosemide (Furosemide), 20 MG PO DAILY Lactobacillus (Lactinex), 2 TABS PO TID Metoprolol Tartrate (Lopressor), 12.5 MG PO BID Multivitamin (Multivitamin), 1 TAB PO DAILY Nystatin (Nystop), 1 APPLN EXT TID Pantoprazole (Pantoprazole Sodium), 40 MG PO QAM Potassium Chloride Microencaps (Potassium Chloride Er), 20 MEQ PO DAILY Scheduled PRN Acetaminophen (Tylenol Arthritis Ext Rel), 650 MG PO Q8H PRN for Pain Acetaminophen/Hydrocodone (Hydrocodone/Acetaminophen 5-325 mg), 0.5 TAB PO DAILY PRN for Pain Polyethylene (Polyethylene Glycol 3350), 17 GM PO DAILY PRN for Constipation Allergies Coded Allergies: Heparin (Verified Allergy, Unknown, Significant GI bleed, 07/19/16) (per Gricelda's H&P) Penicillins (Verified Allergy, Unknown, HAS HAD ROCEPHIN W/OUT PROBLEM, ) Sulfa Antibiotics (Verified Allergy, Unknown, Unknown, 07/19/16) Sulfamethoxazole (Verified Allergy, Unknown, 07/19/16) Physical Exam Vital Signs Date Time Temp Pulse Resp B/P (MAP) Pulse Ox O2 Delivery O2 Flow Rate FiO2 10/01/16 20:11 66 16 110/62 95 Room Air 10/01/16 18:32 37.5 70 18 110/62 97 Room Air 10/01/16 18:30 76 Physical Exam GENERAL: Patient is in no acute distress. HEENT: No acute trauma, normocephalic atraumatic, mucous membranes moist, no nasal congestion, no scleral icterus. NECK: No stridor, no adenopathy, no meningismus, trachea is midline. LUNGS: Clear to auscultation bilaterally, no wheeze, no rhonchi, breath sounds equal. HEART: Without murmurs gallops or rubs, regular rate and rhythm. ABDOMEN: Soft, nontender, bowel sounds positive, no hernias, no peritonitis. EXTREMITIES: No cyanosis or edema, full range of motion of all the joints without pain or difficulty, no signs for acute trauma. NEUROLOGIC: Somewhat agitated but awake and alert, moves all extremities equally , demonstrates evidence for dementia, daughter believes that the patient's mental state is now at baseline. SKIN: No rash, no jaundice, no diaphoresis. Medical Decision & Procedures ER Provider Diagnostic Interpretation: Radiology results as stated below per my review and radiologist interpretation: CT SCAN OF THE BRAIN WITHOUT IV CONTRAST CLINICAL HISTORY: Change in mental status. COMPARISON STUDY: CT of the brain dated 09/22/2016. TECHNIQUE: Unenhanced axial CT scan of the brain is performed from the vertex to the skull base. CT DOSE: 537.48 mGy.cm FINDINGS: Brain parenchyma: There are age-related involutional changes noting moderate to advanced subcortical and periventricular microangiopathic change. Foci of right frontal and bilateral occipital encephalomalacia are unchanged and consistent with remote infarcts. There is no hemorrhage, mass effect, or evidence of acute territorial ischemia by CT criteria. A chronic lacunar infarct is present in the right caudate head. Palma-white matter is preserved. No extra-axial fluid collection is seen. Ventricles, sulci, cisterns: Prominent secondary to involutional change. Intracranial vasculature: There is atherosclerotic calcification of the cavernous carotid and vertebral arteries. Calvarium: The skeletal structures are osteopenic. There is no depressed calvarial fracture. Sinuses and mastoids: The visualized paranasal sinuses are clear. There are small bilateral mastoid effusions. Orbits: The bony orbits are grossly intact. IMPRESSION: Senescent changes and remote infarcts as above. There is no hemorrhage, mass effect, or evidence of acute territorial ischemia by CT criteria and there has been no significant change from 09/22/2016. Electronically signed by: Edmond Schwarz M.D. 10/01/2016 7:40 PM Dictated Date/Time: 10/01/2016 7:36 PM Laboratory Results 10/01/16 19:46 10/01/16 19:46 Test 10/01/16 19:46 Red Blood Count 4.83 M/uL (4.2-5.4) Mean Corpuscular Volume 89.4 fL (80-100) Mean Corpuscular Hemoglobin 28.8 pg (25-34) Mean Corpuscular Hemoglobin Concent 32.2 g/dl (32-36) RDW Standard Deviation 45.8 fL (36.4-46.3) RDW Coefficient of Variation 13.9 % (11.5-14.5) Mean Platelet Volume 9.4 fL (7.4-10.4) Anion Gap 6.0 mmol/L (3-11) Est Creatinine Clear Calc Drug Dose 40.7 ml/min Estimated GFR () 72.9 Estimated GFR (Non- 62.9 BUN/Creatinine Ratio 22.3 (10-20) Calcium Level 8.4 mg/dl (8.5-10.1) Total Bilirubin 0.3 mg/dl (0.2-1) Aspartate Amino Transf (AST/SGOT) 20 U/L (15-37) Alanine Aminotransferase (ALT/SGPT) 22 U/L (12-78) Alkaline Phosphatase 155 U/L (45-117) Total Protein 7.0 gm/dl (6.4-8.2) Albumin 3.0 gm/dl (3.4-5.0) Globulin 4.0 gm/dl (2.5-4.0) Albumin/Globulin Ratio 0.8 (0.9-2) Laboratory results reviewed by me. ECG Indication: altered mental status Rate (beats per minute): 71 Rhythm: atrial fibrillation Findings: no acute ischemic change, no ectopy, other (old septal infarct) Comparison ECG Date: 22 Sep 2016 Change: no significant change ED Course 1833: The patient was evaluated in room B3b. A complete history and physical exam was performed. 2031: Reassessed the patient. She is doing okay. I discussed the discharge instructions with her daughter, who verbalized understanding and agreement. The patient is ready for discharge. Medical Decision Differential diagnosis includes near-syncope, dysrhythmia, anemia, electrolyte imbalance, dehydration, seizure, dementia. There is no leukocytosis or concerning anemia. No significant electrolyte abnormality, kidney failure or hepatitis. Brain CT shows some older changes, no acute bleed or mass effect. On exam, the patient was not febrile. She was not toxic. She had no focal neurologic deficits. As per her daughter, her mental state was at baseline. EKG shows A. fib, no acute ischemic change. The patient has been here now and has had no recurrence of symptoms. She is acting at her baseline as per her daughter. I am not sure what happened today, possibly, she had a near syncopal event with the change of position. This could have just been her dementia. I do think seizure is less likely but I have talked about the possibility with the daughter. At this point, the patient is being discharged with outpatient follow-up. No change in her care or medications. Medication Reconciliation: I attest that I have personally reviewed the patient' s current medication list. Blood Pressure Screening: Patient was found to have normal blood pressure on screening and does not require follow-up. Impression Primary Impression: Seizure-like activity Scribe Attestation The scribe's documentation has been prepared under my direction and personally reviewed by me in its entirety. I confirm that the note above accurately reflects all work, treatment, procedures, and medical decision making performed by me. Departure Information Dispostion Home / Self-Care Referrals Jaspreet Cruz M.D. (PCP) Forms HOME CARE DOCUMENTATION FORM, IMPORTANT VISIT INFORMATION Patient Instructions My [facility] Additional Instructions care as before see your doctor this week return if worsening all testing today was ok
--- NOTE | 2016-10-01 19:41 | DIAGNOSTIC IMAGING REPORT ---
CT SCAN OF THE BRAIN WITHOUT IV CONTRAST CLINICAL HISTORY: Change in mental status. COMPARISON STUDY: CT of the brain dated 09/22/2016. TECHNIQUE: Unenhanced axial CT scan of the brain is performed from the vertex to the skull base. CT DOSE: 537.48 mGy.cm FINDINGS: Brain parenchyma: There are age-related involutional changes noting moderate to advanced subcortical and periventricular microangiopathic change. Foci of right frontal and bilateral occipital encephalomalacia are unchanged and consistent with remote infarcts. There is no hemorrhage, mass effect, or evidence of acute territorial ischemia by CT criteria. A chronic lacunar infarct is present in the right caudate head. Palma-white matter is preserved. No extra-axial fluid collection is seen. Ventricles, sulci, cisterns: Prominent secondary to involutional change. Intracranial vasculature: There is atherosclerotic calcification of the cavernous carotid and vertebral arteries. Calvarium: The skeletal structures are osteopenic. There is no depressed calvarial fracture. Sinuses and mastoids: The visualized paranasal sinuses are clear. There are small bilateral mastoid effusions. Orbits: The bony orbits are grossly intact. IMPRESSION: Senescent changes and remote infarcts as above. There is no hemorrhage, mass effect, or evidence of acute territorial ischemia by CT criteria and there has been no significant change from 09/22/2016. Electronically signed by: Edmond Schwarz M.D. 10/01/2016 7:40 PM Dictated Date/Time: 10/01/2016 7:36 PM
[2016-10-01] MEDS ORDERED: DILT240C48 PO (19:54)
[2016-10-01] MEDS ORDERED: LACTCHW3 PO (19:54)
[2016-10-01] MEDS ORDERED: MRLP527 PO (19:54)
[2016-10-01] MEDS ORDERED: POTA20TA13 PO (19:54)
[2016-10-01] MEDS ORDERED: LSX20 PO (19:54)
[2016-10-01] MEDS ORDERED: LPR25 PO (19:54)
[2016-10-01] MEDS ORDERED: CPR500HP PO (19:54)
[2016-10-01] MEDS ORDERED: CLOP1TAB15 PO (19:54)
[2016-10-01 19:55] LABS: HEMATOCRIT 43.2 % (37-47); MEAN CELL VOLUME 89.4 fL (80-100); MEAN CORPUSCULAR HEMOGLOBIN 28.8 pg (25-34); MEAN CORPUSCULAR HGB CONC 32.2 g/dl (32-36); MEAN PLATELET VOLUME 9.4 fL (7.4-10.4); PLATELET COUNT 214 K/uL (130-400); RED BLOOD COUNT 4.83 M/uL (4.2-5.4)
[2016-10-01] MEDS ORDERED: HYDR-4313 PO (19:55)
[2016-10-01 20:14] LABS: ALB/GLOB RATIO 0.8 (0.9-2); BUN/CREATININE RATIO 22.3 (10-20); CALCIUM 8.4 mg/dl (8.5-10.1); CREATININE 0.87 mg/dl (0.60-1.20); POTASSIUM 4.5 mmol/L (3.5-5.1)
[2016-10-01 20:52] VITALS: BP 111/65; PULSE 65; O2SAT 96
== END 2016-10-01 21:00 | disposition home or self-care (01) ==
LOC: EDBD 18:20 → C.EDB 18:22
DX: R56.9 Unspecified convulsions (principal); I48.91 Unspecified atrial fibrillation; Z86.73 Personal history of transient ischemic attack (TIA), and cerebral infarction without residual deficits; F03.90 Unspecified dementia, unspecified severity, without behavioral disturbance, psychotic disturbance, mood disturbance, and anxiety; I10 Essential (primary) hypertension; E87.6 Hypokalemia; E87.1 Hypo-osmolality and hyponatremia; Z83.3 Family history of diabetes mellitus; Z82.49 Family history of ischemic heart disease and other diseases of the circulatory system; Z87.891 Personal history of nicotine dependence

== ENCOUNTER 2016-10-17 12:43 | Inpatient (IN) | payer BC, OTHER ==
[~2016-10-17] VITALS: Ht 162.6 cm; Wt 48.0 kg
[~2016-10-17 12:43] MED LIST changes: +CLOP1TAB15 PO; -CPR500 PO; +CPR500HP PO; +DILT240C48 PO; -DILT240C57 PO; -FURO-85 PO; +HYDR-4313 PO; -HYDR-5688 PO; +LPR25 PO; +LSX20 PO; -METO25TA56 PO; +MRLP527 PO; -PANT40TA2 PO; -PLV75 PO; -POLY335019 PO; +POTA20TA13 PO; -POTA20TA16 PO; +PRT/40 PO
[2016-10-17] MEDS ORDERED: SODIUM CHLORIDE 0.9% 500ML 500 ML IV STA (13:34)
--- NOTE | 2016-10-17 13:34 | EMERGENCY ROOM VISIT NOTE ---
History First contact with patient: 13:27 Chief Complaint: SYNCOPE Stated Complaint: SYNCOPE Nursing Triage Summary: Pt's daughter was transferring her from wheelchair to toilet and pt. had syncopal episode. Pt. placed back into wheelchair. Pt's daughter states pt. is more lethargic and confused than usual. Has been treated for UTIs recently. History of Present Illness The patient is a 81 year old female who presents to the Emergency Room with complaints of altered mental status. Episode of unresponsiveness around 12:30. She had fallen asleep in chair and then daughter was taking her to the bathroom. The patient had passed stool and urine in her underwear. Her daughter helped her up to pull down her underwear to clean it up. On sitting back down she slumped to the left side and became unresponsive to her voice. As per her daughter who she lives with; she is not far off her baseline with quite severe dementia. She is concerned about a UTI given she has had many before in the past. Last on antibiotics 2 weeks ago. They are waiting for insurance approval for chronic nitrofurantoin therapy. She is under [facility] [place] [facility]. Her usual state is wheelchair bound. Needs help feeding. Sometimes coughs on food (not today) and has a soft diet. She is not for resuscitation as per her daughter. Review of Systems See HPI for pertinent positives & negatives. A total of 10 systems reviewed with the patient's daughter and were otherwise negative. Past Medical/Surgical History Medical Problems: (1) Abnormal EKG (2) Altered mental state (3) Altered mental status (4) Aphasia (5) Atrial fibrillation (6) Back pain (7) Blood clot in abdominal vein (8) blood clot lower extremity (9) Bronchitis (10) Cholecystectomy (11) Complicated UTI (urinary tract infection) (12) CVA (cerebral vascular accident) (13) Deep venous thrombosis (14) Dementia (15) Elevated WBC count (16) Emphysema (17) Encephalopathy (18) Gallbladder problem (19) Head injury (20) Heart disease (21) Hematoma (22) Hematuria (23) Hypertension (24) Hypokalemia (25) Hyponatremia (26) Pneumonia (27) Seizure-like activity (28) Swelling of right extremity (29) Swelling of right extremity (30) Syncope (31) Urinary tract infection (32) UTI (urinary tract infection) Family History FH: HTN (hypertension) FH: diabetes mellitus Gallbladder disease Heart disease Lung disease Social History Smoking Status: Former Smoker Alcohol Use: none Drug Use: none Marital Status: Housing Status: lives with family Occupation Status: retired Current/Historical Medications Scheduled Ascorbic Acid (Vitamin C), 500 MG PO DAILY Calcium (Calcium), 500 MG PO DAILY Cholecalciferol (Vitamin D), 1,000 INTER.UNIT PO DAILY Clopidogrel (Plavix), 75 MG PO QAM Diltiazem Hcl Coated Beads (Cartia Xt), 240 MG PO DAILY Erythromycin Opth (Erythromycin Opth), 1 APPLN IO HS Furosemide (Furosemide), 20 MG PO DAILY Metoprolol Tartrate (Lopressor), 12.5 MG PO BID Multivitamin (Multivitamin), 1 TAB PO DAILY Nystatin (Nystop), 1 APPLN EXT TID Pantoprazole (Pantoprazole Sodium), 40 MG PO QAM Potassium Chloride Microencaps (Potassium Chloride Er), 20 MEQ PO DAILY Scheduled PRN Acetaminophen (Tylenol Arthritis Ext Rel), 650 MG PO Q8H PRN for Pain Acetaminophen/Hydrocodone (Hydrocodone/Acetaminophen 5-325 mg), 0.5 TAB PO DAILY PRN for Pain Polyethylene (Polyethylene Glycol 3350), 17 GM PO DAILY PRN for Constipation Allergies Coded Allergies: Penicillins (Verified Allergy, Unknown, HAS HAD ROCEPHIN W/OUT PROBLEM, ) Sulfa Antibiotics (Verified Allergy, Unknown, Unknown, 10/17/16) Sulfamethoxazole (Verified Allergy, Unknown, 10/17/16) Heparin (Verified Adverse Reaction, Unknown, Significant GI bleed, 10/17/16 ) (per G[facility]el[facility]'s H&P) Physical Exam Vital Signs Date Time Temp Pulse Resp B/P (MAP) Pulse Ox O2 Delivery O2 Flow Rate FiO2 10/17/16 15:50 67 16 88/62 95 Room Air 10/17/16 14:49 99 Room Air 10/17/16 12:53 61 10/17/16 12:49 62 19 90/54 98 Room Air Physical Exam VITAL SIGNS: were reviewed as above GENERAL: no acute distress, sleeping in bed on her right side, pulling up sheets and generally resistant to being examined, wakes to voice SKIN: Warm dry and pink, no rashes, no lesions HEAD: Normocephalic and atraumatic EYES: pupils equal OROPHARYNX: non erythematous, clear and moist NECK: Supple, no adenopathy or meningismus LUNGS: clear to auscultation, no accessory muscle use HEART: Regular rate and rhythm, heart sounds 1+2, no murmurs ABDOMEN: Soft and nontender, bowel sounds normal BACK: no CVA tenderness EXTREMITIES: Warm and well perfused, no calf tenderness/swelling, no pedal edema. NEUROLOGICALLY: Limited examination due to patient dementia and non compliance. Can follow basic commands (occasionally). Wakes to voice, disorientated. Pupils equal and moving upper extremities, limited movements of lower extremities elicited. There is no facial droop. MUSCULOSKELETAL: Increased tone in both legs, likely chronic, No evidence of trauma. No pain on hip movements or palpation of her back Medical Decision & Procedures ER Provider Diagnostic Interpretation: SINGLE VIEW CHEST CLINICAL HISTORY: Change in mental status. FINDINGS: An AP, portable, upright chest radiograph is compared to study dated 09/23/2016. The examination is severely degraded by portable technique and patient rotation. The heart is enlarged and there is atherosclerotic calcification of the thoracic aorta. The pulmonary vasculature is noncongested. The mitral annulus is densely calcified. Chronic interstitial thickening is similar to previous. The lungs and pleural spaces are clear. No pneumothorax is seen. The skeletal structures are osteopenic. The bony thorax is grossly intact. An IVC filter is located below the diaphragm. IMPRESSION: Cardiomegaly with no acute cardiopulmonary abnormality. Electronically signed by: Edmond Schwarz M.D. 10/17/2016 2:06 PM Dictated Date/Time: 10/17/2016 2:[address] CT DOSE: 1151.75 mGy.cm HISTORY: Mental status change AMS, unresponsive episode TECHNIQUE: Multiaxial CT images of the head were performed without the use of intravenous contrast. Comparison: 10/01/2016 Findings: The paranasal sinuses and mastoid air cells are clear. Chronic small vessel change of aging. Atrophy. Mild compensatory ventricular prominence. No acute intracranial hemorrhage. No midline shift. Impression: Chronic and age-related change. No acute process. Electronically signed by: Doug Adams M.D. 10/17/2016 3:04 PM Dictated Date/Time: 10/17/2016 3:01 PM Laboratory Results 10/17/16 14:35 Red Blood Count 4.73, Mean Corpuscular Volume 88.8, Mean Corpuscular Hemoglobin 29.4, Mean Corpuscular Hemoglobin Concent 33.1, Mean Platelet Volume 9.9, Neutrophils (%) (Auto) 82.3, Lymphocytes (%) (Auto) 9.3, Monocytes (%) (Auto) 7.2, Eosinophils (%) (Auto) 0.7, Basophils (%) (Auto) 0.2, Neutrophils # (Auto) 10.22, Lymphocytes # (Auto) 1.16, Monocytes # (Auto) 0.90, Eosinophils # (Auto) 0.09, Basophils # (Auto) 0.03 10/17/16 14:35 Test 10/17/16 13:51 10/17/16 14:35 Urine Color DK YELLOW Urine Appearance TURBID (CLEAR) Urine pH 6.5 (4.5-7.5) Urine Specific [place] 1.016 (1.000-1.030) Urine Protein 2+ (NEG) Urine Glucose (UA) NEG (NEG) Urine Ketones NEG (NEG) Urine Occult Blood 3+ (NEG) Urine Nitrite NEG (NEG) Urine Bilirubin NEG (NEG) Urine Urobilinogen NEG (NEG) Urine Leukocyte Esterase LARGE (NEG) Urine WBC (Auto) >30 /hpf (0-5) Urine RBC (Auto) >30 /hpf (0-4) Urine Hyaline Casts (Auto) 1-5 /lpf (0-5) Urine Epithelial Cells (Auto) 5-10 /lpf (0-5) Urine Bacteria (Auto) 4+ (NEG) Urine Pathogenic Casts /lpf (0) Urine Yeast (Auto) (NONE PRSENT) White Blood Count 12.44 K/uL (4.8-10.8) Red Blood Count 4.73 M/uL (4.2-5.4) Hemoglobin 13.9 g/dL (12.0-16.0) Hematocrit 42.0 % (37-47) Mean Corpuscular Volume 88.8 fL (80-100) Mean Corpuscular Hemoglobin 29.4 pg (25-34) Mean Corpuscular Hemoglobin Concent 33.1 g/dl (32-36) Platelet Count 196 K/uL (130-400) Mean Platelet Volume 9.9 fL (7.4-10.4) Neutrophils (%) (Auto) 82.3 % Lymphocytes (%) (Auto) 9.3 % Monocytes (%) (Auto) 7.2 % Eosinophils (%) (Auto) 0.7 % Basophils (%) (Auto) 0.2 % Neutrophils # (Auto) 10.22 K/uL (1.4-6.5) Lymphocytes # (Auto) 1.16 K/uL (1.2-3.4) Monocytes # (Auto) 0.90 K/uL (0.11-0.59) Eosinophils # (Auto) 0.09 K/uL (0-0.5) Basophils # (Auto) 0.03 K/uL (0-0.2) RDW Standard Deviation 46.8 fL (36.4-46.3) RDW Coefficient of Variation 14.3 % (11.5-14.5) Immature Granulocyte % (Auto) 0.3 % Immature Granulocyte # (Auto) 0.04 K/uL (0.00-0.02) Prothrombin Time 11.4 SECONDS (9.0-12.0) Prothromb Time International Ratio 1.1 (0.9-1.1) Activated Partial Thromboplast Time 21.4 SECONDS (21.0-31.0) Partial Thromboplastin Ratio 0.8 Anion Gap 9.0 mmol/L (3-11) Est Creatinine Clear Calc Drug Dose 28.6 ml/min Estimated GFR () 49.4 Estimated GFR (Non- 42.7 BUN/Creatinine Ratio 19.1 (10-20) Calcium Level 8.6 mg/dl (8.5-10.1) Total Bilirubin 0.7 mg/dl (0.2-1) Aspartate Amino Transf (AST/SGOT) 19 U/L (15-37) Alanine Aminotransferase (ALT/SGPT) 21 U/L (12-78) Alkaline Phosphatase 142 U/L (45-117) Total Protein 7.1 gm/dl (6.4-8.2) Albumin 2.9 gm/dl (3.4-5.0) Globulin 4.2 gm/dl (2.5-4.0) Albumin/Globulin Ratio 0.7 (0.9-2) Medications Administered Medications (Trade) Dose Ordered Sig/Kathy Route Start Time Stop Time Status Last Admin Dose Admin Sodium Chloride 500 ml @ 999 mls/hr Q31M STAT IV 10/17/16 13:34 10/17/16 14:04 DC 10/17/16 15:50 999 MLS/HR Imipenem/ Cilastatin Sodium 500 mg/Dextrose 110 ml @ 100 mls/hr NOW STAT IV 10/17/16 14:08 10/17/16 15:13 DC 10/17/16 15:08 100 MLS/HR Sodium Chloride 1,000 ml @ 500 mls/hr Q2H STAT IV 10/17/16 15:24 10/17/16 17:23 DC 10/17/16 16:04 500 MLS/HR ECG Indication: altered mental status Rate (beats per minute): 60 Rhythm: atrial fibrillation Findings: no acute ischemic change Change: no significant change (01 October 2016) ED Course Complete history and physical performed Discussed with Dr Rodas who separately performed history and physical Reassessed patient after imaging and labs back with no change in her mental status of examination Discussed with her family and Cr elevated with UA suggesting another UTI with previous ESBL, I suggested admission to the hospital to which they agreed Discussed with Dr Anderson and Dr Rivera and accepted for evaluation for admission Medical Decision Prior records/ancillary studies reviewed and summarized above. Nursing notes reviewed. Additional history obtained from patient The patient's history was concerning for altered mental status. Differential diagnosis: Etiologies such as metabolic, infection, hypoglycemia, electrolyte abnormalities , cardiac sources, intracerebral event, toxicologic, neurologic, as well as others were entertained. Physical examination: As above. no specific abnormal findings other than dementia. ER treatment provided: IV Lock Normal saline hydration at 500ml bolus then 1L 500ML/HR Imipenem 500mg IV after blood cultures taken On reassessment the patients mental status improved. Diagnostics interpretation by me: ECG: atrial fibrillation The labs revealed elevated WBC and CR (>1.5x her baseline) Imaging studies: CT head and CXR show no pathology Given the above diagnostic work-up and treatment, this episode appears to be consistent with orthostatic hypotension +/- UTI. Further treatment will be required. Consultation: A consultation was placed with the [facility] [place] hospitalist. The case was discussed and diagnostics were reviewed. The patient was evaluated in the ER for further treatment. Consults Time Called: [phone] Consulting Physician: Dr. Anderson Returned Call: [phone] Accepted patient for further evaluation Impression Primary Impression: Syncope Additional Impressions: Complicated UTI (urinary tract infection) Altered mental state Departure Information Dispostion Being Evaluated By Hospitalist Condition FAIR Referrals Jaspreet Cruz M.D. (PCP) Patient Instructions My [facility] Resident Tracking Resident Involvement: Resident Care Provided Care Provided: Adult ED Problem Qualifiers Primary Impression: Syncope Syncope type: unspecified Qualified Codes: R55 - Syncope and collapse Additional Impressions: Altered mental state Altered mental status type: unspecified Qualified Codes: R41.82 - Altered mental status, unspecified
[2016-10-17] MEDS ORDERED: IMIPENEM/CILASTATIN IV 500 MG in DEXTROSE 5% 100ML 100 ML IV STA ×2 (13:51→14:08)
[2016-10-17 14:06] LABS: URINE APPEARANCE TURBID (CLEAR); URINE COLOR DK YELLOW; URINE NITRITE NEG (NEG); URINE PH 6.5 (4.5-7.5); URINE SPECIFIC GRAVITY 1.016 (1.000-1.030); UROBILINOGEN NEG (NEG)
--- NOTE | 2016-10-17 14:07 | DIAGNOSTIC IMAGING REPORT ---
SINGLE VIEW CHEST CLINICAL HISTORY: Change in mental status. FINDINGS: An AP, portable, upright chest radiograph is compared to study dated 09/23/2016. The examination is severely degraded by portable technique and patient rotation. The heart is enlarged and there is atherosclerotic calcification of the thoracic aorta. The pulmonary vasculature is noncongested. The mitral annulus is densely calcified. Chronic interstitial thickening is similar to previous. The lungs and pleural spaces are clear. No pneumothorax is seen. The skeletal structures are osteopenic. The bony thorax is grossly intact. An IVC filter is located below the diaphragm. IMPRESSION: Cardiomegaly with no acute cardiopulmonary abnormality. Electronically signed by: Edmond Schwarz M.D. 10/17/2016 2:06 PM Dictated Date/Time: 10/17/2016 2:05 PM
[2016-10-17 14:23] LABS: MANUAL MICROSCOPIC REQUIRED? NO; REVIEW REQ? YES
[2016-10-17 14:24] LABS: URINE BILIRUBIN NEG (NEG)
[2016-10-17 14:46] LABS: BASO % 0.2 %; BASO ABS # 0.03 K/uL (0-0.2); COMPLETE YES; EOS % 0.7 %; IG% 0.3 %; LYMPH % 9.3 %; LYMPH ABS # 1.16 K/uL (1.2-3.4); MEAN CELL VOLUME 88.8 fL (80-100); MEAN CORPUSCULAR HEMOGLOBIN 29.4 pg (25-34); MEAN CORPUSCULAR HGB CONC 33.1 g/dl (32-36); MEAN PLATELET VOLUME 9.9 fL (7.4-10.4); MONO % 7.2 %; NEUT % 82.3 %; PLATELET COUNT 196 K/uL (130-400); RED BLOOD COUNT 4.73 M/uL (4.2-5.4); WHITE BLOOD COUNT 12.44 K/uL (4.8-10.8)
[2016-10-17 14:54] LABS: INR 1.1 (0.9-1.1); PARTIAL THROMBOPLASTIN RATIO 0.8; PROTHROMBIN TIME (PATIENT) 11.4 SECONDS (9.0-12.0)
--- NOTE | 2016-10-17 15:05 | DIAGNOSTIC IMAGING REPORT ---
HEAD CT NONCONTRAST CT DOSE: 1151.75 mGy.cm HISTORY: Mental status change AMS, unresponsive episode TECHNIQUE: Multiaxial CT images of the head were performed without the use of intravenous contrast. Comparison: 10/01/2016 Findings: The paranasal sinuses and mastoid air cells are clear. Chronic small vessel change of aging. Atrophy. Mild compensatory ventricular prominence. No acute intracranial hemorrhage. No midline shift. Impression: Chronic and age-related change. No acute process. Electronically signed by: Doug Adams M.D. 10/17/2016 3:04 PM Dictated Date/Time: 10/17/2016 3:01 PM
[2016-10-17 15:10] LABS: BUN/CREATININE RATIO 19.1 (10-20); CREATININE 1.2 mg/dl (0.60-1.20); POTASSIUM 4.3 mmol/L (3.5-5.1)
[2016-10-17 15:13] LABS: ALB/GLOB RATIO 0.7 (0.9-2); CALCIUM 8.6 mg/dl (8.5-10.1)
[2016-10-17] MEDS ORDERED: SODIUM CHLORIDE 0.9% 1000ML 1,000 ML IV STA (15:24)
[2016-10-17] MEDS ORDERED: ONDANSETRON INJ 2 MG/ML 2 ML VIAL IV PRN (16:00)
[2016-10-17] MEDS ORDERED: POLYETHYLENE (MIRALAX) 17 GM PACK PO PRN (16:00)
[2016-10-17] MEDS ORDERED: ZOLPIDEM TARTRATE 5 MG TAB PO PRN ×2 (16:00)
[2016-10-17] MEDS ORDERED: ACETAMINOPHEN 325 MG TAB PO PRN (16:00)
[2016-10-17] MEDS ORDERED: ALUMINUM/MAGNESIUM/SIMETH (MAALOX MAX) 30 ML UDC PO PRN (16:00)
[2016-10-17] MEDS ORDERED: MAGNESIUM HYDROXIDE SUSP 30 ML UDC PO PRN (16:00)
[2016-10-17] MEDS ORDERED: HYDROCODONE/ACETAMOPHEN 5/325MG TAB PO PRN (16:15)
--- NOTE | 2016-10-17 16:39 | EMERGENCY ROOM VISIT NOTE ---
History Report prepared by Ishmaelibchapis: Kushal Loving Under the Supervision of: Dr. Rahat Rodas D.O. First contact with patient: 13:27 Chief Complaint: SYNCOPE Stated Complaint: SYNCOPE Nursing Triage Summary: Pt's daughter was transferring her from wheelchair to toilet and pt. had syncopal episode. Pt. placed back into wheelchair. Pt's daughter states pt. is more lethargic and confused than usual. Has been treated for UTIs recently. History of Present Illness The patient is an 81 year old female with baseline dementia who presents to the Emergency Room with acute altered mental status. The patient has been altered since approximately 1230 today, and she is still not back to baseline. The patient's daughter states that she was incontinent of stool and urine. The daughter helped change her, and when she sat back down into her wheelchair she became unresponsive and remained so until EMS arrived. The patient's mental status is consistent with past UTIs. The patient came to the ED via ambulance. She lives with her daughter and is cared for by her children. Source of History: family (daughter) Onset: 1230 Position: other (global) Quality: other (altered mental status) Timing: other (acute) Associated Symptoms: + urinary symptoms (incontinent) Note: + incontinent of bowel Review of Systems See HPI for pertinent positives & negatives. A total of 10 systems reviewed and were otherwise negative. Past Medical & Surgical Medical Problems: (1) Abnormal EKG (2) Altered mental state (3) Altered mental status (4) Aphasia (5) Atrial fibrillation (6) Back pain (7) Blood clot in abdominal vein (8) blood clot lower extremity (9) Bronchitis (10) Cholecystectomy (11) Complicated UTI (urinary tract infection) (12) CVA (cerebral vascular accident) (13) Deep venous thrombosis (14) Dementia (15) Elevated WBC count (16) Emphysema (17) Encephalopathy (18) Gallbladder problem (19) Head injury (20) Heart disease (21) Hematoma (22) Hematuria (23) Hypertension (24) Hypokalemia (25) Hyponatremia (26) Pneumonia (27) Seizure-like activity (28) Swelling of right extremity (29) Swelling of right extremity (30) Syncope (31) Urinary tract infection (32) UTI (urinary tract infection) Family History FH: HTN (hypertension) FH: diabetes mellitus Gallbladder disease Heart disease Lung disease Social History Smoking Status: Former Smoker Alcohol Use: none Drug Use: none Marital Status: Housing Status: lives with family Occupation Status: retired Current/Historical Medications Scheduled Ascorbic Acid (Vitamin C), 500 MG PO DAILY Calcium (Calcium), 500 MG PO DAILY Cholecalciferol (Vitamin D), 1,000 INTER.UNIT PO DAILY Clopidogrel (Plavix), 75 MG PO QAM Diltiazem Hcl Coated Beads (Cartia Xt), 240 MG PO DAILY Erythromycin Opth (Erythromycin Opth), 1 APPLN IO HS Furosemide (Furosemide), 20 MG PO DAILY Metoprolol Tartrate (Lopressor), 12.5 MG PO BID Multivitamin (Multivitamin), 1 TAB PO DAILY Nystatin (Nystop), 1 APPLN EXT TID Pantoprazole (Pantoprazole Sodium), 40 MG PO QAM Potassium Chloride Microencaps (Potassium Chloride Er), 20 MEQ PO DAILY Scheduled PRN Acetaminophen (Tylenol Arthritis Ext Rel), 650 MG PO Q8H PRN for Pain Acetaminophen/Hydrocodone (Hydrocodone/Acetaminophen 5-325 mg), 0.5 TAB PO DAILY PRN for Pain Polyethylene (Polyethylene Glycol 3350), 17 GM PO DAILY PRN for Constipation Allergies Coded Allergies: Heparin (Verified Allergy, Unknown, Significant GI bleed, 10/17/16) (per Gricelda's H&P) Penicillins (Verified Allergy, Unknown, HAS HAD ROCEPHIN W/OUT PROBLEM, ) Sulfa Antibiotics (Verified Allergy, Unknown, Unknown, 10/17/16) Sulfamethoxazole (Verified Allergy, Unknown, 10/17/16) Physical Exam Vital Signs Date Time Temp Pulse Resp B/P (MAP) Pulse Ox O2 Delivery O2 Flow Rate FiO2 10/17/16 15:50 67 16 88/62 95 Room Air 10/17/16 14:49 99 Room Air 10/17/16 12:53 61 10/17/16 12:49 62 19 90/54 98 Room Air Physical Exam CONSTITUTIONAL/VITAL SIGNS: Reviewed / noted above. GENERAL: Patient has generalized weakness. She is resting comfortably and is in no distress. Daughter states that this is not unusual for her. INTEGUMENTARY: Warm, dry, and [place]. HEAD: Normocephalic. EYES: without scleral icterus or trauma. ENT/OROPHARYNX: clear and moist. LYMPHADENOPATHY/NECK: Is supple without lymphadenopathy or meningismus. RESPIRATORY: Lungs clear and equal. CARDIOVASCULAR: Regular rate and rhythm. GI/ABDOMEN: Soft and nontender. No organomegaly or pulsatile mass. No rebound or guarding. Normal bowel sounds. EXTREMITIES: Warm and well perfused. BACK: No CVA tenderness. NEUROLOGICAL: Follows basic commands at times. Nonverbal on exam. PSYCHIATRIC: normal affect. MUSCULOSKELETAL: Normally developed with good muscle tone. Medical Decision & Procedures ER Provider Diagnostic Interpretation: X ray results and stated below per my interpretation and radiology interpretation. Radiology results as stated below per my review and radiologist interpretation: SINGLE VIEW CHEST CLINICAL HISTORY: Change in mental status. FINDINGS: An AP, portable, upright chest radiograph is compared to study dated 09/23/2016. The examination is severely degraded by portable technique and patient rotation. The heart is enlarged and there is atherosclerotic calcification of the thoracic aorta. The pulmonary vasculature is noncongested. The mitral annulus is densely calcified. Chronic interstitial thickening is similar to previous. The lungs and pleural spaces are clear. No pneumothorax is seen. The skeletal structures are osteopenic. The bony thorax is grossly intact. An IVC filter is located below the diaphragm. IMPRESSION: Cardiomegaly with no acute cardiopulmonary abnormality. Electronically signed by: Edmond Schwarz M.D. 10/17/2016 2:06 PM Dictated Date/Time: 10/17/2016 2:[address]AST CT DOSE: 1151.75 mGy.cm HISTORY: Mental status change AMS, unresponsive episode TECHNIQUE: Multiaxial CT images of the head were performed without the use of intravenous contrast. Comparison: 10/01/2016 Findings: The paranasal sinuses and mastoid air cells are clear. Chronic small vessel change of aging. Atrophy. Mild compensatory ventricular prominence. No acute intracranial hemorrhage. No midline shift. Impression: Chronic and age-related change. No acute process. Electronically signed by: Doug Adams M.D. 10/17/2016 3:04 PM Dictated Date/Time: 10/17/2016 3:01 PM Laboratory Results 10/17/16 14:35 Red Blood Count 4.73, Mean Corpuscular Volume 88.8, Mean Corpuscular Hemoglobin 29.4, Mean Corpuscular Hemoglobin Concent 33.1, Mean Platelet Volume 9.9, Neutrophils (%) (Auto) 82.3, Lymphocytes (%) (Auto) 9.3, Monocytes (%) (Auto) 7.2, Eosinophils (%) (Auto) 0.7, Basophils (%) (Auto) 0.2, Neutrophils # (Auto) 10.22, Lymphocytes # (Auto) 1.16, Monocytes # (Auto) 0.90, Eosinophils # (Auto) 0.09, Basophils # (Auto) 0.03 10/17/16 14:35 Test 10/17/16 13:51 10/17/16 14:35 Urine Color DK YELLOW Urine Appearance TURBID (CLEAR) Urine pH 6.5 (4.5-7.5) Urine Specific [place] 1.016 (1.000-1.030) Urine Protein 2+ (NEG) Urine Glucose (UA) NEG (NEG) Urine Ketones NEG (NEG) Urine Occult Blood 3+ (NEG) Urine Nitrite NEG (NEG) Urine Bilirubin NEG (NEG) Urine Urobilinogen NEG (NEG) Urine Leukocyte Esterase LARGE (NEG) Urine WBC (Auto) >30 /hpf (0-5) Urine RBC (Auto) >30 /hpf (0-4) Urine Hyaline Casts (Auto) 1-5 /lpf (0-5) Urine Epithelial Cells (Auto) 5-10 /lpf (0-5) Urine Bacteria (Auto) 4+ (NEG) Urine Pathogenic Casts /lpf (0) Urine Yeast (Auto) (NONE PRSENT) White Blood Count 12.44 K/uL (4.8-10.8) Red Blood Count 4.73 M/uL (4.2-5.4) Hemoglobin 13.9 g/dL (12.0-16.0) Hematocrit 42.0 % (37-47) Mean Corpuscular Volume 88.8 fL (80-100) Mean Corpuscular Hemoglobin 29.4 pg (25-34) Mean Corpuscular Hemoglobin Concent 33.1 g/dl (32-36) Platelet Count 196 K/uL (130-400) Mean Platelet Volume 9.9 fL (7.4-10.4) Neutrophils (%) (Auto) 82.3 % Lymphocytes (%) (Auto) 9.3 % Monocytes (%) (Auto) 7.2 % Eosinophils (%) (Auto) 0.7 % Basophils (%) (Auto) 0.2 % Neutrophils # (Auto) 10.22 K/uL (1.4-6.5) Lymphocytes # (Auto) 1.16 K/uL (1.2-3.4) Monocytes # (Auto) 0.90 K/uL (0.11-0.59) Eosinophils # (Auto) 0.09 K/uL (0-0.5) Basophils # (Auto) 0.03 K/uL (0-0.2) RDW Standard Deviation 46.8 fL (36.4-46.3) RDW Coefficient of Variation 14.3 % (11.5-14.5) Immature Granulocyte % (Auto) 0.3 % Immature Granulocyte # (Auto) 0.04 K/uL (0.00-0.02) Prothrombin Time 11.4 SECONDS (9.0-12.0) Prothromb Time International Ratio 1.1 (0.9-1.1) Activated Partial Thromboplast Time 21.4 SECONDS (21.0-31.0) Partial Thromboplastin Ratio 0.8 Anion Gap 9.0 mmol/L (3-11) Est Creatinine Clear Calc Drug Dose 28.6 ml/min Estimated GFR () 49.4 Estimated GFR (Non- 42.7 BUN/Creatinine Ratio 19.1 (10-20) Calcium Level 8.6 mg/dl (8.5-10.1) Total Bilirubin 0.7 mg/dl (0.2-1) Aspartate Amino Transf (AST/SGOT) 19 U/L (15-37) Alanine Aminotransferase (ALT/SGPT) 21 U/L (12-78) Alkaline Phosphatase 142 U/L (45-117) Total Protein 7.1 gm/dl (6.4-8.2) Albumin 2.9 gm/dl (3.4-5.0) Globulin 4.2 gm/dl (2.5-4.0) Albumin/Globulin Ratio 0.7 (0.9-2) Laboratory results as stated above per my review. Medications Administered Medications (Trade) Dose Ordered Sig/Kathy Route Start Time Stop Time Status Last Admin Dose Admin Imipenem/ Cilastatin Sodium 500 mg/Dextrose 110 ml @ 100 mls/hr NOW STAT IV 10/17/16 14:08 10/17/16 15:13 DC 6/19/17 15:08 100 MLS/HR Sodium Chloride 1,000 ml @ 500 mls/hr Q2H STAT IV 10/17/16 15:24 10/17/16 17:23 10/17/16 16:04 500 MLS/HR ECG Indication: altered mental status Rate (beats per minute): 60 Rhythm: atrial fibrillation Findings: no acute ischemic change, no ectopy ED Course 1330: The patient was evaluated by my resident, Dr. Shade Canales M.D. 1334: NSS 500 ml @ 999 mls/hr. 1350: Previous medical records were reviewed. The patient was evaluated in room B7. A complete history and physical examination was performed. 1408: Imipenem / Cilastatin Sodium 500 mg / dextrose 110 ml @ 100 mls/hr IV. 1524: NSS 1000 ml @ 500 mls/hr. 1532: Dr. Canales discussed the case with Dr. Anderson, [facility]. The patient will be evaluated. Medical Decision Differential diagnosis: Etiologies such as metabolic, infection, hypo/hyperglycemia, electrolyte abnormalities, cardiac sources, intracerebral event, toxicologic, neurologic, as well as others were entertained. Medication Reconciliation: I attest that I have personally reviewed the patient' s current medication list. This is a 81-year-old female who presents to the ED with a chief complaint of altered mental status around noon today. Per the daughter the patient was also unresponsive briefly. She does have a history of dementia. She is not having any specific complaints herself. The patient's vital signs are stable. Her physical exam reveals the above. Much of her condition is chronic in nature. EKG shows A. fib at a rate of 60. This is chronic. CT scan of the head did not show acute disease. Chest x-ray was negative for acute disease. CBC and complete metabolic panel were unremarkable. Urine does suggest UTI. She was treated with IV fluids and IV antibiotics. Because of previous cultures, patient will be given imipenem IV. She'll be admitted to the hospital for further evaluation of her symptoms and await cultures. Consults Time Called: 1524 Consulting Physician: Dr. Anedrson, [facility]. Returned Call: 1531 The patient will be evaluated. Impression Primary Impression: UTI (urinary tract infection) Additional Impression: Altered mental status Scribe Attestation The scribe's documentation has been prepared under my direction and personally reviewed by me in its entirety. I confirm that the note above accurately reflects all work, treatment, procedures, and medical decision making performed by me. Departure Information Dispostion Being Evaluated By Hospitalist Referrals Jaspreet Cruz M.D. (PCP) Patient Instructions My [facility] Problem Qualifiers
[2016-10-17 16:47] VITALS: O2SAT 98; Ht 162.6 cm; Wt 48.0 kg
--- NOTE | 2016-10-17 17:02 | History and Physical ---
History & Physical Date & Time of Service: Oct 17, 2016 at 16:04 Chief Complaint: Syncope Primary Care Physician: Jaspreet Cruz M.D. History of Present Illness Source: patient, family 81F with a PMHx of ESBL producing UTIs, AZ, Afib, CVA, COPD, DM2, HTN, chronic diastolic CHF and chronic urinary and fecal incontinence (not on a home frank) p /w a one day history of AMS. Primary historian is the daughter who lives with the patient. According to the daughter the patient is off her baseline - she is not responding to questions and is wanting to sleep all day. The pt has a baseline of dementia but typically responds to questions. According to daughter pt acts like this whenever she has a UTI. Family is understandably frustrated the numerous hospital and ER visits for AMS, CVA and UTIs. Pt is currently being worked up as outpatient for chronic UTIs and appears to have cystoscopy scheduled. Pt was seen in Dr. Mason office last week and Rx'd Macrobid 100mg daily for UTI prophylaxis. Remainder of chart review shown below. Chart Review - Last hospital admission late August for seizure like activity showed a Pseudomonas UTI and pt was discharged on Ciprofloxacin 500mg BID. Pseudomonas was Caraballo Sensitive. - Previous Urine culture for E. Coli show: 08/13/16 Urine E. Coli: Sensitive to Ertapenem, Gent, Imipenem, Bactrim, Tobramycin, Macrobid Resistant to : Ampicillin, Cephalosporins, Ciprofloxacin, Levofloxacin 07/19/2016 - Urine E. Coli from Sensitive to Ertapenem, Get, Imipenem, Bactrim, Tobramycin, Macrobid Resistant to : Ampicillin, Cephalosporins, Ciprofloxacin, Macrobid, Levofloxacin - CT Abdo and Pelvis of the abdomen in June showed no renal stones. - Pt saw urology outpatient on September 12 to determine UTI etiology. Recommended Cystoscopy. According to family, not yet completed. - s/p ertapenem IM injections in July for ESBL E Coli UTI. - Chart Review shows that for the UTI in June pt was discharged on 7 days of Ertapenem 1g IV [id number]. Family states that there was some insurance issues with that. - Dr. Mason office (Yolis Ernst) visit on 10/11/16, pt Rx'ed Macrobid 100mg daily for prophylaxis. ROS: Unable to assess b/c pt is sleeping and not adequately responding to question. Daughter denies that the pt is feeling febrile. Daughter has no other concerns . Denies that the pt has been complaining of chest pain, SOB, dysuria. Pt is usually incontinent. PMHx: CVA, A Fib, UTIs, see above. Allergies: Penicillin (does not recall what happens, says it runs in the family) Sulfa (does not recall what happens, says it runs in the family) Meds: see chart SHx: Lives with daughter in home, does not get home services. Past Medical/Surgical History Medical Problems: (1) Abnormal EKG Status: Resolved (2) Atrial fibrillation Status: Chronic (3) Back pain Status: Resolved (4) Blood clot in abdominal vein Status: Chronic (5) blood clot lower extremity Status: Chronic (6) Bronchitis Status: Chronic (7) Cholecystectomy Status: Resolved (8) Deep venous thrombosis Status: Chronic (9) Dementia Status: Chronic (10) Elevated WBC count Status: Resolved (11) Emphysema Status: Chronic (12) Encephalopathy Status: Resolved (13) Gallbladder problem Status: Chronic (14) Head injury Status: Resolved (15) Heart disease Status: Chronic (16) Hematoma Status: Resolved (17) Hematuria Status: Resolved (18) Hypertension Status: Chronic (19) Hypokalemia Status: Resolved (20) Hyponatremia Status: Resolved (21) Pneumonia Status: Chronic (22) Swelling of right extremity Status: Resolved (23) Swelling of right extremity Status: Resolved (24) Syncope Status: Resolved (25) Urinary tract infection Status: Resolved Family History FH: HTN (hypertension) FH: diabetes mellitus Gallbladder disease Heart disease Lung disease Social History Smoking Status: Former Smoker Drug Use: none Marital Status: Housing status: lives with family Occupational Status: retired Immunizations History of Influenza Vaccine: Unknown History of Tetanus Vaccine?: Unknown History of Pneumococcal: Unknown History of Hepatitis B Vaccine: Unknown Multi-Drug Resistant Organisms History of MDRO: No Allergies Coded Allergies: Penicillins (Verified Allergy, Unknown, HAS HAD ROCEPHIN W/OUT PROBLEM, ) Sulfa Antibiotics (Verified Allergy, Unknown, Unknown, 10/17/16) Sulfamethoxazole (Verified Allergy, Unknown, 10/17/16) Heparin (Verified Adverse Reaction, Unknown, Significant GI bleed, 10/17/16 ) (per [facility] H&P) Home Medications Scheduled Ascorbic Acid (Vitamin C), 500 MG PO DAILY Calcium (Calcium), 500 MG PO DAILY Cholecalciferol (Vitamin D), 1,000 INTER.UNIT PO DAILY Clopidogrel (Plavix), 75 MG PO QAM Diltiazem Hcl Coated Beads (Cartia Xt), 240 MG PO DAILY Erythromycin Opth (Erythromycin Opth), 1 APPLN IO HS Furosemide (Furosemide), 20 MG PO DAILY Metoprolol Tartrate (Lopressor), 12.5 MG PO BID Multivitamin (Multivitamin), 1 TAB PO DAILY Nystatin (Nystop), 1 APPLN EXT TID Pantoprazole (Pantoprazole Sodium), 40 MG PO QAM Potassium Chloride Microencaps (Potassium Chloride Er), 20 MEQ PO DAILY Scheduled PRN Acetaminophen (Tylenol Arthritis Ext Rel), 650 MG PO Q8H PRN for Pain Acetaminophen/Hydrocodone (Hydrocodone/Acetaminophen 5-325 mg), 0.5 TAB PO DAILY PRN for Pain Polyethylene (Polyethylene Glycol 3350), 17 GM PO DAILY PRN for Constipation Physical Exam Vital Signs Date Time Temp Pulse Resp B/P (MAP) Pulse Ox O2 Delivery O2 Flow Rate FiO2 10/17/16 15:50 67 16 88/62 95 Room Air 10/17/16 14:49 99 Room Air 10/17/16 12:53 61 10/17/16 12:49 62 19 90/54 98 Room Air General Appearance: WD/WN, + pertinent finding (Pt appears tired. Unable to understand what she is saying at times due to slurring of speech. ) Respiratory/Chest: chest non-tender, no respiratory distress, + pertinent finding (CTA posteriorly and bilaterally. ) Cardiovascular: no murmur, + irregularly irregular Abdomen/GI: non tender, soft Back: no CVA tenderness Extremities/Musculoskelatal: no pedal edema, + pertinent finding (Difficult to assess MSK lower and upper extremities because pt does not respond to commands. ) Neurologic/Psych: + pertinent finding (Pt is a poor historian, not adequatly responding to questions, pt yells that she does not want to be examined and just wants to sleep. ) Diagnostics Laboratory Results Results Past 24 Hours Test 10/17/16 13:51 10/17/16 14:35 Range/Units Urine Color DK YELLOW Urine Appearance TURBID CLEAR Urine pH 6.5 4.5-7.5 Urine Specific [place] 1.016 1.000-1.030 Urine Protein 2+ NEG Urine Glucose (UA) NEG NEG Urine Ketones NEG NEG Urine Occult Blood 3+ NEG Urine Nitrite NEG NEG Urine Bilirubin NEG NEG Urine Urobilinogen NEG NEG Urine Leukocyte Esterase LARGE NEG Urine WBC (Auto) >30 0-5 /hpf Urine RBC (Auto) >30 0-4 /hpf Urine Hyaline Casts (Auto) 1-5 0-5 /lpf Urine Epithelial Cells (Auto) 5-10 0-5 /lpf Urine Bacteria (Auto) 4+ NEG Urine Pathogenic Casts 0 /lpf Urine Yeast (Auto) NONE PRSENT White Blood Count 12.44 4.8-10.8 K/uL Red Blood Count 4.73 4.2-5.4 M/uL Hemoglobin 13.9 12.0-16.0 g/dL Hematocrit 42.0 37-47 % Mean Corpuscular Volume 88.8 80-100 fL Mean Corpuscular Hemoglobin 29.4 25-34 pg Mean Corpuscular Hemoglobin Concent 33.1 32-36 g/dl Platelet Count 196 130-400 K/uL Mean Platelet Volume 9.9 7.4-10.4 fL Neutrophils (%) (Auto) 82.3 % Lymphocytes (%) (Auto) 9.3 % Monocytes (%) (Auto) 7.2 % Eosinophils (%) (Auto) 0.7 % Basophils (%) (Auto) 0.2 % Neutrophils # (Auto) 10.22 1.4-6.5 K/uL Lymphocytes # (Auto) 1.16 1.2-3.4 K/uL Monocytes # (Auto) 0.90 0.11-0.59 K/uL Eosinophils # (Auto) 0.09 0-0.5 K/uL Basophils # (Auto) 0.03 0-0.2 K/uL RDW Standard Deviation 46.8 36.4-46.3 fL RDW Coefficient of Variation 14.3 11.5-14.5 % Immature Granulocyte % (Auto) 0.3 % Immature Granulocyte # (Auto) 0.04 0.00-0.02 K/uL Prothrombin Time 11.4 9.0-12.0 SECONDS Prothromb Time International Ratio 1.1 0.9-1.1 Activated Partial Thromboplast Time 21.4 21.0-31.0 SECONDS Partial Thromboplastin Ratio 0.8 Sodium Level 139 136-145 mmol/L Potassium Level 4.3 3.5-5.1 mmol/L Chloride Level 101 98-107 mmol/L Carbon Dioxide Level 29 21-32 mmol/L Anion Gap 9.0 3-11 mmol/L Blood Urea Nitrogen 23 7-18 mg/dl Creatinine 1.20 0.60-1.20 mg/dl Est Creatinine Clear Calc Drug Dose 28.6 ml/min Estimated GFR () 49.4 Estimated GFR (Non- 42.7 BUN/Creatinine Ratio 19.1 10-20 Random Glucose 144 70-99 mg/dl Calcium Level 8.6 8.5-10.1 mg/dl Total Bilirubin 0.7 0.2-1 mg/dl Aspartate Amino Transf (AST/SGOT) 19 15-37 U/L Alanine Aminotransferase (ALT/SGPT) 21 12-78 U/L Alkaline Phosphatase 142 45-117 U/L Total Protein 7.1 6.4-8.2 gm/dl Albumin 2.9 3.4-5.0 gm/dl Globulin 4.2 2.5-4.0 gm/dl Albumin/Globulin Ratio 0.7 0.9-2 Microbiology Results 10/17/16 Blood Culture, Received Pending 10/17/16 Blood Culture, Received Pending 10/17/16 Urine Culture, Received Pending Diagnostic Radiology HEAD CT NONCONTRAST CT DOSE: 1151.75 mGy.cm HISTORY: Mental status change AMS, unresponsive episode TECHNIQUE: Multiaxial CT images of the head were performed without the use of intravenous contrast. Comparison: 10/01/2016 Findings: The paranasal sinuses and mastoid air cells are clear. Chronic small vessel change of aging. Atrophy. Mild compensatory ventricular prominence. No acute intracranial hemorrhage. No midline shift. Impression: Chronic and age-related change. No acute process. SINGLE VIEW CHEST CLINICAL HISTORY: Change in mental status. FINDINGS: An AP, portable, upright chest radiograph is compared to study dated 09/23/2016. The examination is severely degraded by portable technique and patient rotation. The heart is enlarged and there is atherosclerotic calcification of the thoracic aorta. The pulmonary vasculature is noncongested. The mitral annulus is densely calcified. Chronic interstitial thickening is similar to previous. The lungs and pleural spaces are clear. No pneumothorax is seen. The skeletal structures are osteopenic. The bony thorax is grossly intact. An IVC filter is located below the diaphragm. IMPRESSION: Cardiomegaly with no acute cardiopulmonary abnormality. EKG Atrial fibrillation Septal infarct (cited on or before 06-MAY-2015) Abnormal ECG When compared with ECG of 01-OCT-2016 19:40, No significant change was found Impression Assessment and Plan 81F with a significant PMHx of UTIs, AZ, CVA, COPD, HTN, Afib p/w one day history of AMS and generalized weakness. Pt is a poor historian. Pt lives with daughter who provides most of the history. Pt's baseline is wheelchair bound that responds to questions. Pt gets like this whenever she has UTIs. She is incontinent of urine and feces at her baseline. Given one dose of Imipenem in the ER. WBC elevated at 12. UA +'ve for bacteria, WBCs, RBCs and LE. Blood and urine cultures pending. Pt started on Ertapanem 1mg Q24hrs and NSS IVF. Complicated UTI - Pt is chronically incontinent of urine and feces and not on a frank catheter at home. - Chart Review shows that for the UTI in June pt was discharged on 7 days of Ertapenem 1g IV [id number]. Chart review shows: 09/22/2016 - Urine Psuedomonas was Caraballo sensititive 08/13/16 Urine E. Coli: Sensitive to Ertapenem, Gent, Imipenem, Bactrim, Tobramycin, Macrobid Resistant to : Ampicillin, Cephalosporins, Ciprofloxacin, Levofloxacin 07/19/2016 - Urine E. Coli from Sensitive to Ertapenem, Get, Imipenem, Bactrim, Tobramycin, Macrobid Resistant to : Ampicillin, Cephalosporins, Ciprofloxacin, Macrobid, Levofloxacin - Documented penicillin allergy but the family isn't sure what the reaction is. - Blood and urine culture pending. - WBC count of 12. - Continue to monitor CBC and BMPs. - NSS IVF of 80mls/hr + Pureed Diet. Acute Kidney Injury - Creatinine of 1.2, baseline around 0.8-0.9. - CT Abdo and Pelvis (07/21/2016) of the abdomen showed no renal stones. - Suspected dehydration to be the cause (prerenal azotemia). - IVF NSS 80mls/hr A. Fib - Pt is not currently on anticoagulation - family believes that Plavix is Anticoagulation. - Chart review shows allergy to heparin due to GI Bleed - family denies h/o GI bleed. - Hold Diltiazem - Continue Metoprolol 12.5mg BID. CVA - continue plavix, pureed diet. (saw speech therapy last visit and Pureed diet is their recommendation) GERD - PPI COPD - Pt appears to not be on any inhalers or COPD meds. PMHx of smoking. Respiratory status is stable. HTN - Hypotensive, will hold the Lasix. Will continue the KCl supplement. DM2 (documented) - Not on insulin, watch sugars. MSK Pain - continue [place] PRN home med Dispo - HepSQ BID - pt has an IVF filter, Discharge Planning Eval, Pureed Diet. Candidial Rash - Continue Nystatin Cream. Code Status: Full Code. I personally and independently interviewed and examined the patient I reviewed labs and imaging I agree with above mentioned physical exam, History and ROS I discussed and formulated the assessment and plan with Mrs. Rivera 81-year-old female P/W change in mental status ROS is unobtainable PE as above assessment: septic shock complicated UTI POA metabolic encephalopathy severe dementia Plan: Ertapenem F/U blood and urine Cx IVF hydration hold up BP meds [facility] [place] [facility] [place] [facility] [place] Prophylaxis VTE Risk Assessment Done? Y/N: Yes Risk Level: High Resident Involvement: Resident Care Provided Care Provided: Adult Hospital Medicine
[2016-10-17 17:38] VITALS: O2SAT 99
[2016-10-17 18:00] VITALS: BP 97/66; PULSE 76; TEMP 36.3; O2SAT 96
[2016-10-17] MEDS: SODIUM CHLORIDE 0.9% 1000ML 1,000 ML IV SCH (18:29)
[2016-10-17] MEDS: NYSTATIN POWDER 15GM BTL EXT SCH (19:37)
[2016-10-17] MEDS: METOPROLOL TARTRATE 25 MG TAB PO SCH (19:37)
[2016-10-17] MEDS: ERTAPENEM IV 1 GM in SODIUM CHLOR 0.9% AD-VAN 50ML 50 ML IV SCH (19:37)
[2016-10-17] MEDS: HEPARIN SOD 5000 UNIT/0.5 ML CARP SQ SCH (21:00)
[2016-10-17 23:21] VITALS: BP 119/82; PULSE 69; TEMP 36.4; O2SAT 91
[2016-10-18] MEDS: SODIUM CHLORIDE 0.9% 1000ML 1,000 ML IV SCH ×2 (05:59→18:15)
[2016-10-18 07:07] LABS: BASO % 0.3 %; BASO ABS # 0.03 K/uL (0-0.2); COMPLETE YES; EOS % 1.2 %; HEMATOCRIT 36.5 % (37-47); IG% 0.2 %; LYMPH % 23.9 %; LYMPH ABS # 2.07 K/uL (1.2-3.4); MEAN CORPUSCULAR HEMOGLOBIN 29.2 pg (25-34); MEAN CORPUSCULAR HGB CONC 33.2 g/dl (32-36); MEAN PLATELET VOLUME 9.9 fL (7.4-10.4); MONO % 7.5 %; NEUT % 66.9 %; PLATELET COUNT 146 K/uL (130-400); RED BLOOD COUNT 4.15 M/uL (4.2-5.4); WHITE BLOOD COUNT 8.67 K/uL (4.8-10.8)
[2016-10-18 07:31] VITALS: BP 117/78; PULSE 64; TEMP 37; O2SAT 96
[2016-10-18 07:51] LABS: ALB/GLOB RATIO 0.8 (0.9-2); BUN/CREATININE RATIO 22.6 (10-20); CALCIUM 8.1 mg/dl (8.5-10.1); CREATININE 0.78 mg/dl (0.60-1.20); MAGNESIUM 2.2 mg/dl (1.8-2.4); PHOSPHORUS 2.6 mg/dl (2.5-4.9)
[2016-10-18] MEDS ORDERED: CALCIUM CARBONATE 1250MG TAB PO SCH (08:00)
[2016-10-18] MEDS: CALCIUM CARBONATE 1250MG TAB PO SCH (08:50)
[2016-10-18] MEDS: PANTOprazole SOD 40 MG TAB PO SCH (08:51)
[2016-10-18] MEDS: LACTOBACILLUS ACIDOPHILUS 1 GM PACK PO SCH ×3 (08:51→17:45)
[2016-10-18] MEDS: METOPROLOL TARTRATE 25 MG TAB PO SCH ×2 (08:51→20:09)
[2016-10-18] MEDS: POTASSIUM CHLORIDE 20 MEQ TABCR PO SCH (08:52)
[2016-10-18] MEDS: MULTIVITAMIN TAB PO SCH (08:52)
[2016-10-18] MEDS: CHOLECALCIFEROL 1000 INTER.UNIT TAB PO SCH (08:52)
[2016-10-18] MEDS: CLOPIDOGREL BISULFATE 75 MG TAB PO SCH (08:53)
[2016-10-18] MEDS: HEPARIN SOD 5000 UNIT/0.5 ML CARP SQ SCH ×2 (08:53→20:07)
[2016-10-18] MEDS: NYSTATIN POWDER 15GM BTL EXT SCH ×3 (08:53→20:09)
[2016-10-18] MEDS ORDERED: DILTIAZEM HCL 240 MG CAPCR PO SCH (09:00)
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
[2016-10-18 20:08] VITALS: BP 117/77; PULSE 104
[2016-10-18] MEDS: ERTAPENEM IV 1 GM in SODIUM CHLOR 0.9% AD-VAN 50ML 50 ML IV SCH (20:09)
[2016-10-18] MEDS: BOOST VANILLA PUDDING CUP PO SCH (20:09)
[2016-10-18 23:35] VITALS: BP 134/85; PULSE 98; O2SAT 95
[2016-10-19 07:51] LABS: HEMATOCRIT 37.5 % (37-47); MEAN CELL VOLUME 89.1 fL (80-100); MEAN CORPUSCULAR HEMOGLOBIN 28.5 pg (25-34); MEAN PLATELET VOLUME 9.3 fL (7.4-10.4); PLATELET COUNT 136 K/uL (130-400); RED BLOOD COUNT 4.21 M/uL (4.2-5.4); WHITE BLOOD COUNT 7.76 K/uL (4.8-10.8)
[2016-10-19 08:04] VITALS: BP 128/76; PULSE 85; TEMP 36.7; O2SAT 97
[2016-10-19] MEDS: SODIUM CHLORIDE 0.9% 1000ML 1,000 ML IV SCH (08:11)
[2016-10-19] MEDS: CLOPIDOGREL BISULFATE 75 MG TAB PO SCH (08:12)
[2016-10-19] MEDS: CALCIUM CARBONATE 1250MG TAB PO SCH (08:12)
[2016-10-19] MEDS: BOOST VANILLA PUDDING CUP PO SCH (08:12)
[2016-10-19] MEDS: LACTOBACILLUS ACIDOPHILUS 1 GM PACK PO SCH ×2 (08:13→12:00)
[2016-10-19] MEDS: METOPROLOL TARTRATE 25 MG TAB PO SCH (08:13)
[2016-10-19] MEDS: PANTOprazole SOD 40 MG TAB PO SCH (08:14)
[2016-10-19] MEDS: CHOLECALCIFEROL 1000 INTER.UNIT TAB PO SCH (08:14)
[2016-10-19] MEDS: MULTIVITAMIN TAB PO SCH (08:14)
[2016-10-19] MEDS: POTASSIUM CHLORIDE 20 MEQ TABCR PO SCH (08:15)
[2016-10-19] MEDS: HEPARIN SOD 5000 UNIT/0.5 ML CARP SQ SCH (08:17)
[2016-10-19] MEDS: NYSTATIN POWDER 15GM BTL EXT SCH ×2 (08:17→14:07)
[2016-10-19 08:28] LABS: BUN/CREATININE RATIO 26.3 (10-20); CREATININE 0.83 mg/dl (0.60-1.20); POTASSIUM 4.1 mmol/L (3.5-5.1)
--- NOTE | 2016-10-19 09:58 | Clinical Documentation Query ---
CLINICAL DOCUMENTATION QUERY 81 yo F with end stage dementia (FAST 7D) who presents with altered mental status and abrupt decline in functional status, likely due to recurrent UTI Query #1/2 In your clinical opinion is this patient being managed for: ( x ) Metabolic encephalopathy m/b AMS from baseline in setting of UTI. ( ) Other explanation of clinical findings (Please Explain) ( ) Unable to determine (Please Define) ( ) Need to Discuss ( ) Not Agree The medical record reflects the following clinical findings, treatment, and risk factors. Clinical Indicators: AMS and abrupt functional decline. UC +E.Coli, WBC's 12.44, Lactic acid 2.2, Treatment: IV Boluses, IV Primaxin, IV Invanz, Risk Factors: Age, UTI, dehydration Query #2/2 In your clinical opinion is this patient being managed for: ( x) Early Sepsis POA in setting of complex UTI evidenced by hypotension (88/62), Leukocytosis, and elevated Lactic acid (2.2) treated with IVF boluses and multiple IV antibiotics. ( ) Other explanation of clinical findings (Please Explain) ( ) Unable to determine (Please Define) ( ) Need to Discuss ( ) Not Agree The medical record reflects the following clinical findings, treatment, and risk factors. Clinical Indicators: AMS, BP 88/62, UC +E.Coli, WBC's 12.44, Lactic acid 2.2, Treatment: IV Boluses, IV Primaxin, IV Invanz, Risk Factors: Age, UTI, Please clarify and document your clinical opinion in the progress notes and discharge summary. Terms such as "probable", "suspected", "likely", "questionable", "possible", or "still to be ruled out" are acceptable. IF IN AGREEMENT, YOU MUST DOCUMENT ABOVE DIAGNOSTIC STATEMENT IN DAILY PROGRESS NOTES AND DISCHARGE SUMMARY. This document is not part of the patient's record. Encephalopathy is a term for any diffuse disease of the brain that alters brain function or structure. There are many causes of encephalopathy including: advanced or severe disease states such as liver or kidney disease, infection, lack of oxygen to the brain, brain tumor or increased intracranial pressure, prolonged exposure to toxic substances including drug and alcohol abuse, trauma, poor nutrition and lack of adequate blood flow to the brain. Thank You, Deshaun Mcelroy, IBETH [phone]
[2016-10-19 15:36] VITALS: BP 114/73; PULSE 94; TEMP 37.1; O2SAT 98
[2016-10-19] MEDS ORDERED: NITR-5 PO (15:40)
--- NOTE | 2016-10-19 15:42 | Discharge Instructions ---
Discharge Instructions Date of Service Oct 19, 2016. Admission Reason for Admission: Complicated Uti (Urinary Tract Infection) Discharge Discharge Diagnosis / Problem: UTI Discharge Goals Goal(s): Improve disease control Activity Recommendations Activity Limitations: per Instructions/Follow-up section . Instructions / Follow-Up Instructions / Follow-Up Follow up with your PCP - an appt has been made at Dr. Jaspreet Cruz's office with Jojo Lee PA-C on MondayOctober 25 at 11:15 am. Please call their office with any changes. We would strongly recommend discussing transitioning to Hospice with your Home Nursing Agency. Current Hospital Diet Patient's current hospital diet: Regular Diet Discharge Diet Recommended Diet: Regular Diet Diet Texture: Pureed (blended smooth) Liquid Consistency: [place] Thick Pending Studies Studies pending at discharge: no Medical Emergencies . Who to Call and When: Medical Emergencies: If at any time you feel your situation is an emergency, please call 911 immediately. . Non-Emergent Contact Non-Emergency issues call your: Primary Care Provider . . "Provider Documentation" section prepared by Ssui Hopson. . VTE Core Measure Inpt VTE Proph given/why not?: Unfractionated heparin SQ
[2016-10-19 16:26] VITALS: BP 114/73; PULSE 94; TEMP 37.1; O2SAT 98
--- NOTE | 2016-10-19 17:08 | Discharge Summary ---
Discharge Summary Date of Service Oct 19, 2016. (Susi Hopson MD) Discharge Summary Admission Date: Oct 17, 2016 at 16:04 Discharge Date: Oct 19, 2016 Discharge Disposition: Home Principal Diagnosis: Complicated, recurrent UTI Problems/Secondary Diagnoses: Severe Dementia, FAST 7C Immunizations: Have You Had Influenza Vaccine: Unknown History of Tetanus Vaccine?: Unknown History of Pneumococcal: Unknown History of Hepatitis B Vaccine: Unknown (Susi Hopson MD) Medication Reconciliation New Medications: Nitrofurantoin Monohyd Macrocr (Macrobid) 100 Mg Cap 100 MG PO BID for 7 Days, #14 CAP Continued Medications: Acetaminophen (Tylenol Arthritis Ext Rel) 650 Mg Cplt 650 MG PO Q8H PRN for Pain, CAP Acetaminophen/Hydrocodone (Hydrocodone/Acetaminophen 5-325 mg) 1 Ea Tab 0.5 TAB PO DAILY PRN for Pain Clopidogrel (Plavix) 75 Mg Tab 75 MG PO QAM, TAB Diltiazem Hcl Coated Beads (Cartia Xt) 240 Mg Cap 240 MG PO DAILY Erythromycin Opth (Erythromycin Opth) 12 Appln/3.5 Gm Oint 1 APPLN IO HS, #1 TUBE 0 Refills apply to left eye Furosemide (Furosemide) 20 Mg Tab 20 MG PO DAILY Metoprolol Tartrate (Lopressor) 25 Mg Tab 12.5 MG PO BID Nystatin (Nystop) 45 Appln/15 Gm Powd 1 APPLN EXT TID for 10 Days, #1 CAN 1 Refill apply liberally to groin/inner thighs/vulvar region Pantoprazole (Pantoprazole Sodium) 40 Mg Tab 40 MG PO QAM Polyethylene (Polyethylene Glycol 3350) 527 Gm Soln 17 GM PO DAILY PRN for Constipation Potassium Chloride Microencaps (Potassium Chloride Er) 20 Meq Tab 20 MEQ PO DAILY Discontinued Medications: Ascorbic Acid (Vitamin C) 500 Mg Chw 500 MG PO DAILY Calcium (Calcium) 500 Mg Tab 500 MG PO DAILY Cholecalciferol (Vitamin D) 1,000 Unit Tab 1000 INTER.UNIT PO DAILY Multivitamin (Multivitamin) Tab 1 TAB PO DAILY Discharge Exam Unable to obtain ROS due to altered mental status. Physical Exam: General Appearance: no apparent distress, + cachetic, + thin Eyes: PERRL ENT: normal ENT inspection, + pertinent finding (temporal wasting) Neck: supple, no JVD Respiratory/Chest: lungs clear, normal breath sounds, no respiratory distress Cardiovascular: regular rate, rhythm, no murmur, normal peripheral pulses Abdomen / GI: normal bowel sounds, non tender, soft Extremities: no calf tenderness, no pedal edema Neurologic/Psychiatric: + disoriented (sleeping throughout most of admission ) Skin: no rash (Susi Hopson MD) Hospital Course HPI: 81F with a PMHx of ESBL producing UTIs, [place], Afib, CVA, COPD, DM2, HTN, chronic diastolic CHF and chronic urinary and fecal incontinence (not on a home frank) p /w a one day history of AMS. Primary historian is the daughter who lives with the patient. According to the daughter the patient is off her baseline - she is not responding to questions and is wanting to sleep all day. The pt has a baseline of dementia but typically responds to questions. According to daughter pt acts like this whenever she has a UTI. Family is understandably frustrated the numerous hospital and ER visits for AMS, CVA and UTIs. Pt is currently being worked up as outpatient for chronic UTIs and appears to have cystoscopy scheduled. Pt was seen in Dr. Mason office last week and Rx'd Macrobid 100mg daily for UTI prophylaxis 81 yo F with end stage dementia (FAST 7D) who presents with altered mental status and abrupt decline in functional status, likely due to recurrent UTI. Acute metabolic encephalopathy due to ESBL urine infection - Received Ertapenem during admission, which was changed to PO Nitrofurantoin once cultures returned Acute renal insufficiency, resolved - Was likely pre-renal, improved with dehydration Alzheimer's Dementia, FAST 7D - Pt would be a good candidate for Hospice. This was explained to pt, but they do not feel ready. It was explained that most things wouldnt change for their mother, as the 5 kids already rotate looking after her. They did not want hospice involvement just yet. Atrial fibrillation, rate controlled - Will continue beta claudia for rate control - Will continue Plavix for anticoagulation - Diltiazem on hold due to hypotension on arrival History of stroke - Continue Plavix Dysphagia - Continue pureed diets - Monitor for pocketing - Will stop some of her vitamins to decrease pill burden - discussed w/family Hx of Hypertension Was hypotensive on arrival, held diltaizem as inpt, can restart Type II Diabetes Mellitus No medication changes made VTE: Heparin SQ - pt is not allergic, she had a GI bleed in the past CODE STATUS: Changed to DNR per discussion with daughter. Dispo: Discharged home 10/19/16. Total Time Spent: Greater than 30 minutes This includes examination of the patient, discharge planning, medication reconciliation, and communication with other providers. (Susi Hopson MD) Resident Physician Supervision Note: I was present with Dr. Hopson during the history and exam. I discussed the case with the resident and agree with the findings and plan as documented in the note. Any exceptions or clarifications are listed here: 81 y/o female with end stage dementia admitted in early sepsis and acute metabolic encephalopathy due to urine infection, with acute mental status changes above baseline dementia. Family comfortable with discharge today and I recommend hospice consideration, which they will consider. In the interim, she will have home nursing and hopefully transition to hospice once family meets with the agency. Documented By: Boaz Negrete Total Time Spent: Less than 30 minutes (Boaz Negrete.,D.O.) Discharge Instructions Please refer to the electronic Patient Visit Report (Discharge Instructions) for additional information. (Susi Hopson MD) Follow-Up With PCP within a week. (Susi Hopson MD) Additional Copies To Jaspreet Cruz M.D. Resident Tracking Resident Involvement: Resident Care Provided Care Provided: Adult Hospital Medicine (Susi Hopson MD)
== END 2016-10-19 16:50 | disposition home health service (06) | DRG 689 ==
LOC: EDBD 12:43 → C.EDB 12:44 → C.MS4W 16:04 → ENRESERV 17:27
PROVIDERS: ADMIT Internal Medicine; ATTEND Family Medicine
DX: N39.0 Urinary tract infection, site not specified (principal); G93.41 Metabolic encephalopathy; I50.32 Chronic diastolic (congestive) heart failure; N17.9 Acute kidney failure, unspecified; I48.91 Unspecified atrial fibrillation; E11.9 Type 2 diabetes mellitus without complications; K21.9 Gastro-esophageal reflux disease without esophagitis; B37.9 Candidiasis, unspecified; R32 Unspecified urinary incontinence; R15.9 Full incontinence of feces; F03.90 Unspecified dementia, unspecified severity, without behavioral disturbance, psychotic disturbance, mood disturbance, and anxiety; R13.10 Dysphagia, unspecified; Z86.73 Personal history of transient ischemic attack (TIA), and cerebral infarction without residual deficits; Z82.49 Family history of ischemic heart disease and other diseases of the circulatory system; Z83.3 Family history of diabetes mellitus; Z87.891 Personal history of nicotine dependence; J44.9 Chronic obstructive pulmonary disease, unspecified; I11.0 Hypertensive heart disease with heart failure

== ENCOUNTER 2016-11-12 16:21 | Observation (INO) | payer BC, OTHER ==
[~2016-11-12] VITALS: Ht 165.1 cm; Wt 46.6 kg
[~2016-11-12 16:21] MED LIST changes: -ASCO500C3 PO; -CALC500T83 PO; -CHOL100010 PO; -CPR500HP PO; -LACTCHW3 PO; -MULT-506 PO
[2016-11-12] MEDS ORDERED: SODIUM CHLORIDE 0.9% 1000ML 1,000 ML IV ONE (16:30)
[2016-11-12] MEDS ORDERED: MULT-506 PO (16:36)
[2016-11-12] MEDS ORDERED: CALC-51 PO (16:36)
[2016-11-12] MEDS ORDERED: VITACAP26 PO (16:36)
[2016-11-12] MEDS ORDERED: CHOL1000 PO (16:36)
[2016-11-12 16:40] LABS: BASO % 0.2 %; BASO ABS # 0.02 K/uL (0-0.2); COMPLETE YES; EOS % 0.9 %; HEMATOCRIT 41.6 % (37-47); IG% 0.2 %; LYMPH % 19.4 %; LYMPH ABS # 2.34 K/uL (1.2-3.4); MEAN CELL VOLUME 89.7 fL (80-100); MEAN CORPUSCULAR HEMOGLOBIN 28.9 pg (25-34); MEAN CORPUSCULAR HGB CONC 32.2 g/dl (32-36); MEAN PLATELET VOLUME 9.9 fL (7.4-10.4); MONO % 8.5 %; NEUT % 70.8 %; PLATELET COUNT 205 K/uL (130-400); RED BLOOD COUNT 4.64 M/uL (4.2-5.4); WHITE BLOOD COUNT 12.08 K/uL (4.8-10.8)
--- NOTE | 2016-11-12 16:48 | EMERGENCY ROOM VISIT NOTE ---
History Report prepared by Brody: Savannah Lopez Under the Supervision of: Dr. Rahat Bone M.D. First contact with patient: 16:27 Chief Complaint: UNRESPONSIVE Stated Complaint: UNRESPONSIVE History of Present Illness The patient is an 81 year old female who presents to the Emergency Room with complaints of an episode of being unresponsive starting just prior to arrival. Per EMS, the daughter states that she was sleeping while watching TV when suddenly she sat straight up in her chair. The daughter reports that her mother then clutched her lower jaw like she was trying to rip it off and started shaking. EMS states that when they arrived she was breathing deeply and moaning. They report that at that time she was unresponsive to stimuli. The daughter notes that her mother has a history of atrial fibrillation, urinary tract infections, and had a stroke last year. The daughter denies noticing any fevers. Source of History: family, EMS Onset: prior to arrival Position: other (global) Quality: other (global) Timing: other (episode) Associated Symptoms: + SOB, No fevers Note: The patient's daughter complains of the daughter shaking, trying to rip her jaw off, and moaning. Review of Systems See HPI for pertinent positives & negatives. A total of 10 systems reviewed and were otherwise negative. Past Medical & Surgical Medical Problems: (1) Abnormal EKG (2) Altered mental state (3) Altered mental status (4) Aphasia (5) Atrial fibrillation (6) Back pain (7) Blood clot in abdominal vein (8) blood clot lower extremity (9) Bronchitis (10) Cholecystectomy (11) Complicated UTI (urinary tract infection) (12) CVA (cerebral vascular accident) (13) Deep venous thrombosis (14) Dementia (15) Elevated WBC count (16) Emphysema (17) Encephalopathy (18) Gallbladder problem (19) Head injury (20) Heart disease (21) Hematoma (22) Hematuria (23) History of CVA (cerebrovascular accident) (24) Hypertension (25) Hypokalemia (26) Hyponatremia (27) Pneumonia (28) Seizure-like activity (29) Swelling of right extremity (30) Swelling of right extremity (31) Syncope (32) Urinary tract infection (33) UTI (urinary tract infection) Family History FH: HTN (hypertension) FH: diabetes mellitus Gallbladder disease Heart disease Lung disease Social History Smoking Status: Former Smoker Alcohol Use: none Drug Use: none Marital Status: Housing Status: lives with family Occupation Status: retired Current/Historical Medications Scheduled Calcium Carbonate-Vitamin D (Calcium), 1 TAB PO DAILY Cholecalciferol (Vitamin D3), 1,000 UNITS PO DAILY Clopidogrel (Plavix), 75 MG PO QAM Diltiazem Hcl Coated Beads (Cartia Xt), 240 MG PO DAILY Erythromycin Opth (Erythromycin Opth), 1 APPLN IO HS Furosemide (Furosemide), 20 MG PO DAILY Metoprolol Tartrate (Lopressor), 12.5 MG PO BID Multivitamin (Multivitamin), 1 TAB PO DAILY Nystatin (Nystop), 1 APPLN EXT TID Pantoprazole (Pantoprazole Sodium), 40 MG PO QAM Potassium Chloride Microencaps (Potassium Chloride Er), 20 MEQ PO DAILY Vitamins C & E (Vitamin C), 1 CAP PO DAILY Scheduled PRN Acetaminophen (Tylenol Arthritis Ext Rel), 650 MG PO Q8H PRN for Pain Acetaminophen/Hydrocodone (Hydrocodone/Acetaminophen 5-325 mg), 0.5 TAB PO DAILY PRN for Pain Polyethylene (Polyethylene Glycol 3350), 17 GM PO DAILY PRN for Constipation Allergies Coded Allergies: Penicillins (Verified Allergy, Unknown, HAS HAD ROCEPHIN W/OUT PROBLEM, ) Sulfa Antibiotics (Verified Allergy, Unknown, Unknown, 10/17/16) Sulfamethoxazole (Verified Allergy, Unknown, 10/17/16) Heparin (Verified Adverse Reaction, Unknown, Significant GI bleed, 10/17/16 ) (per Gricelda's H&P) Physical Exam Vital Signs Date Time Temp Pulse Resp B/P (MAP) Pulse Ox O2 Delivery O2 Flow Rate FiO2 11/12/16 17:51 89 31 93 11/12/16 17:46 88 28 97 11/12/16 17:42 111/65 11/12/16 17:41 80 27 92 11/12/16 17:36 91 24 94 11/12/16 17:31 92 30 95 11/12/16 17:26 85 25 97 11/12/16 17:21 83 27 92 11/12/16 17:16 81 27 94 11/12/16 17:11 82 26 95 11/12/16 17:06 83 25 97 11/12/16 17:01 84 26 97 11/12/16 16:56 80 29 84 11/12/16 16:56 36.5 11/12/16 16:51 91 24 88 11/12/16 16:46 86 25 94 11/12/16 16:45 83 11/12/16 16:29 93 22 99/58 93 Room Air 11/12/16 16:28 99/58 11/12/16 16:25 95 Room Air Physical Exam GENERAL: Patient is a healthy-appearing well-nourished. Patient is looking around the room, nonverbal, appears to be at baseline per her daughter. HEAD: Normocephalic atraumatic EYES: Ocular movements intact pupils equal and react to light OROPHARYNX mucous membranes are moist no exudates present no erythema or edema present NECK: Supple no nuchal rigidity CHEST: Good equal expansion LUNGS: Clear and equal to auscultation CARDIAC: Normal S1 and S2 ABDOMEN: Soft nontender no guarding BACK: No CVA tenderness EXTREMITIES: No pain upon palpation normal muscle strength in all groups no clubbing cyanosis or edema NEURO: Patient is responsive to painful stimuli, Alert and oriented x3 Cranial Nerves 2-12 grossly intact. Medical Decision & Procedures ER Provider Diagnostic Interpretation: Radiology results as stated below per my review and radiologist interpretation: CHEST ONE VIEW PORTABLE CLINICAL HISTORY: Sepsis COMPARISON STUDY: 10/17/2016 FINDINGS: Moderate cardiomegaly lungs are clear. Diaphragms are smooth. IMPRESSION: Stable cardiomegaly. Otherwise negative study The above report was generated using voice recognition software. It may contain grammatical, syntax or spelling errors. Electronically signed by: Doug Adams M.D. 11/12/2016 5:02 PM Dictated Date/Time: 11/12/2016 5:01 PM HEAD WITHOUT CONTRAST (CT) CT DOSE: 687.98 mGy.cm HISTORY: Mental status change Pt c/o AMS TECHNIQUE: Multiaxial CT images of the head were performed without the use of intravenous contrast. Comparison: 10/17/2016 Findings: The paranasal sinuses and mastoid air cells are clear. The calvarium and skull base are intact. The ventricles and sulci are within normal limits. There is no mass, hematoma, midline shift, or acute infarct. Considerable atrophy. Ventricular prominence considered stable. Multiple old infarcts also stable. No acute intracranial hemorrhage. Impression: Considerable age-related and chronic small vessel change. No acute intracranial abnormality. The above report was generated using voice recognition software. It may contain grammatical, syntax or spelling errors. Electronically signed by: Doug Adams M.D. 11/12/2016 6:19 PM Dictated Date/Time: 11/12/2016 6:14 PM Laboratory Results 11/12/16 16:08 Red Blood Count 4.64, Mean Corpuscular Volume 89.7, Mean Corpuscular Hemoglobin 28.9, Mean Corpuscular Hemoglobin Concent 32.2, Mean Platelet Volume 9.9, Neutrophils (%) (Auto) 70.8, Lymphocytes (%) (Auto) 19.4, Monocytes (%) (Auto) 8.5, Eosinophils (%) (Auto) 0.9, Basophils (%) (Auto) 0.2, Neutrophils # (Auto) 8.55, Lymphocytes # (Auto) 2.34, Monocytes # (Auto) 1.03, Eosinophils # (Auto) 0.11, Basophils # (Auto) 0.02 11/12/16 16:08 Test 11/12/16 16:08 11/12/16 17:30 11/12/16 17:36 11/12/16 17:47 White Blood Count 12.08 K/uL (4.8-10.8) Red Blood Count 4.64 M/uL (4.2-5.4) Hemoglobin 13.4 g/dL (12.0-16.0) Hematocrit 41.6 % (37-47) Mean Corpuscular Volume 89.7 fL (80-100) Mean Corpuscular Hemoglobin 28.9 pg (25-34) Mean Corpuscular Hemoglobin Concent 32.2 g/dl (32-36) Platelet Count 205 K/uL (130-400) Mean Platelet Volume 9.9 fL (7.4-10.4) Neutrophils (%) (Auto) 70.8 % Lymphocytes (%) (Auto) 19.4 % Monocytes (%) (Auto) 8.5 % Eosinophils (%) (Auto) 0.9 % Basophils (%) (Auto) 0.2 % Neutrophils # (Auto) 8.55 K/uL (1.4-6.5) Lymphocytes # (Auto) 2.34 K/uL (1.2-3.4) Monocytes # (Auto) 1.03 K/uL (0.11-0.59) Eosinophils # (Auto) 0.11 K/uL (0-0.5) Basophils # (Auto) 0.02 K/uL (0-0.2) RDW Standard Deviation 48.1 fL (36.4-46.3) RDW Coefficient of Variation 14.7 % (11.5-14.5) Immature Granulocyte % (Auto) 0.2 % Immature Granulocyte # (Auto) 0.03 K/uL (0.00-0.02) Anion Gap 12.0 mmol/L (3-11) Est Creatinine Clear Calc Drug Dose 34.6 ml/min Estimated GFR () 61.6 Estimated GFR (Non- 53.2 BUN/Creatinine Ratio 18.6 (10-20) Calcium Level 8.6 mg/dl (8.5-10.1) Total Bilirubin 0.3 mg/dl (0.2-1) Aspartate Amino Transf (AST/SGOT) 23 U/L (15-37) Alanine Aminotransferase (ALT/SGPT) 26 U/L (12-78) Alkaline Phosphatase 149 U/L (45-117) Total Protein 6.7 gm/dl (6.4-8.2) Albumin 2.9 gm/dl (3.4-5.0) Globulin 3.8 gm/dl (2.5-4.0) Albumin/Globulin Ratio 0.8 (0.9-2) Urine Color YELLOW Urine Appearance CLEAR (CLEAR) Urine pH 6.5 (4.5-7.5) Urine Specific [place] 1.017 (1.000-1.030) Urine Protein NEG (NEG) Urine Glucose (UA) NEG (NEG) Urine Ketones NEG (NEG) Urine Occult Blood NEG (NEG) Urine Nitrite NEG (NEG) Urine Bilirubin NEG (NEG) Urine Urobilinogen NEG (NEG) Urine Leukocyte Esterase NEG (NEG) Urine WBC (Auto) 1-5 /hpf (0-5) Urine RBC (Auto) 0-4 /hpf (0-4) Urine Hyaline Casts (Auto) 1-5 /lpf (0-5) Urine Epithelial Cells (Auto) >30 /lpf (0-5) Urine Bacteria (Auto) NEG (NEG) Prothrombin Time 10.9 SECONDS (9.0-12.0) Prothromb Time International Ratio 1.0 (0.9-1.1) Activated Partial Thromboplast Time 19.8 SECONDS (21.0-31.0) Partial Thromboplastin Ratio 0.8 Bedside Lactic Acid Venous 1.71 mmol/L (0.90-1.70) Labs reviewed by ED physician. Medications Administered Medications (Trade) Dose Ordered Sig/Kathy Route Start Time Stop Time Status Last Admin Dose Admin Sodium Chloride 1,000 ml @ 999 mls/hr Q1H1M ONCE IV 11/12/16 16:30 11/12/16 17:30 DC 11/12/16 16:58 999 MLS/HR ED Course 1627: Past medical records reviewed. The patient was evaluated in room C9. A complete history and physical examination was performed. 1630: Ordered NSS 1000 ml @ 999 mls/hr IV. 182: I discussed the patient's case with Dr. Umanzor, he has agreed to evaluate the patient for further management and care. 1828: I reevaluated the patient and discussed the findings with her and her family. Medical Decision Medication Reconciliation: I attest that I have personally reviewed the patient' s current medication list Blood Pressure Screening: Patient was found to have normal blood pressure on screening and does not require follow up. Differential diagnosis: Etiologies such as sepsis, UTI, pneumonia, metabolic, electrolyte abnormalities , cardiac sources, intracerebral event, toxicologic, neurologic, as well as others were entertained. This is an 81-year-old female who presents emergency department complaining of altered mental status. The patient was hypotensive at home and found to be posturing. Upon arrival to the emergency department the patient is tachycardic and hypotensive. The patient was given a fluid bolus in the emergency department. She was sent for CAT scan of the head, chest x-ray and urinalysis were obtained. The patient does have an elevation in her white blood count cell count. I do believe based on these findings at the patient should be admitted to the hospitalist service. Patient family were in agreement with treatment plan. Consults Time Called: 1824 Consulting Physician: Dr. Umanzor Returned Call: 1825 I discussed the patient's case with Dr. Umanzor, he has agreed to evaluate the patient for further management and care. Impression Primary Impression: Altered mental status Additional Impression: UTI (urinary tract infection) Scribe Attestation The scribe's documentation has been prepared under my direction and personally reviewed by me in its entirety. I confirm that the note above accurately reflects all work, treatment, procedures, and medical decision making performed by me. Departure Information Dispostion Being Evaluated By Hospitalist Referrals Jaspreet Cruz M.D. (PCP) Patient Instructions [facility] Problem Qualifiers Primary Impression: Altered mental status Altered mental status type: unspecified Qualified Codes: R41.82 - Altered mental status, unspecified
[2016-11-12 17:01] LABS: BUN/CREATININE RATIO 18.6 (10-20); CALCIUM 8.6 mg/dl (8.5-10.1); POTASSIUM 4.4 mmol/L (3.5-5.1)
--- NOTE | 2016-11-12 17:03 | DIAGNOSTIC IMAGING REPORT ---
CHEST ONE VIEW PORTABLE CLINICAL HISTORY: Sepsis COMPARISON STUDY: 10/17/2016 FINDINGS: Moderate cardiomegaly lungs are clear. Diaphragms are smooth. IMPRESSION: Stable cardiomegaly. Otherwise negative study The above report was generated using voice recognition software. It may contain grammatical, syntax or spelling errors. Electronically signed by: Doug Adams M.D. 11/12/2016 5:02 PM Dictated Date/Time: 11/12/2016 5:01 PM
[2016-11-12 17:04] LABS: ALB/GLOB RATIO 0.8 (0.9-2)
--- NOTE | 2016-11-12 18:20 | DIAGNOSTIC IMAGING REPORT ---
HEAD WITHOUT CONTRAST (CT) CT DOSE: 687.98 mGy.cm HISTORY: Mental status change Pt c/o AMS TECHNIQUE: Multiaxial CT images of the head were performed without the use of intravenous contrast. Comparison: 10/17/2016 Findings: The paranasal sinuses and mastoid air cells are clear. The calvarium and skull base are intact. The ventricles and sulci are within normal limits. There is no mass, hematoma, midline shift, or acute infarct. Considerable atrophy. Ventricular prominence considered stable. Multiple old infarcts also stable. No acute intracranial hemorrhage. Impression: Considerable age-related and chronic small vessel change. No acute intracranial abnormality. The above report was generated using voice recognition software. It may contain grammatical, syntax or spelling errors. Electronically signed by: Doug Adams M.D. 11/12/2016 6:19 PM Dictated Date/Time: 11/12/2016 6:14 PM
[2016-11-12 18:39] LABS: URINE APPEARANCE CLEAR (CLEAR); URINE BILIRUBIN NEG (NEG); URINE COLOR YELLOW; URINE EPITHELIAL CELL AUTO >30 /lpf (0-5); URINE NITRITE NEG (NEG); URINE PH 6.5 (4.5-7.5); URINE SPECIFIC GRAVITY 1.017 (1.000-1.030); UROBILINOGEN NEG (NEG); ZZURINE CULT IF INDIC CATH NO
[2016-11-12 18:40] LABS: PARTIAL THROMBOPLASTIN RATIO 0.8; PROTHROMBIN TIME (PATIENT) 10.9 SECONDS (9.0-12.0)
[2016-11-12 18:40] LABS: MANUAL MICROSCOPIC REQUIRED? NO; REVIEW REQ? NO
[2016-11-12] MEDS ORDERED: ONDANSETRON INJ 2 MG/ML 2 ML VIAL IV PRN (19:45)
[2016-11-12] MEDS ORDERED: ALUMINUM/MAGNESIUM/SIMETH (MAALOX MAX) 30 ML UDC PO PRN (19:45)
[2016-11-12] MEDS ORDERED: ACETAMINOPHEN 325 MG TAB PO PRN (19:45)
[2016-11-12] MEDS ORDERED: MAGNESIUM HYDROXIDE SUSP 30 ML UDC PO PRN (19:45)
--- NOTE | 2016-11-12 19:46 | History and Physical ---
History & Physical Date & Time of Service: Nov 12, 2016 at 19:45 Chief Complaint: Unresponsive Primary Care Physician: Jaspreet Cruz M.D. History of Present Illness Mrs Mccurdy is an 81 yo F with multiple comorbidities, primarily being end- stage dementia, stage 7C, as well as hx of ESBL producing UTIs, Atrial fibrillation, COPD, Type 2 DM, Hypertension, chronic diastolic CHF, and chronic urinary and fecal incontinence (not on a frank at home). Daughter Terese ( not POA, who is named Amanda) reports earlier today while sleeping the patient was acting differently. They report she was making a lot of sounds with breathing in, almost as if she was unable to inhale. They tried to wake her up , and she was not responding to this. The daughter called her brother who came to fever and was also unsuccessful with waking her up. They decided to call the ambulance, and in the ambulance ride the paratransit driver and the patient's daughter reported the patient looked back to baseline. The daughter is concerned that the patient may be having small seizures or recurrent strokes, but also thinks it could be UTI. The patient was recently admitted from 07/19/16 to 07/25/16, then again from to 09/25/16, then again from 10/17 to 10/19/16, with multiple ED visits in between. I was managing her care in her most recent admission, and her daughter who is the POA reported she was a DNR, agreed with focusing on comfort, but was not ready to transition to hospice. Past Medical/Surgical History Medical Problems: (1) Abnormal EKG Status: Resolved (2) Atrial fibrillation Status: Chronic (3) Back pain Status: Resolved (4) Blood clot in abdominal vein Status: Chronic (5) blood clot lower extremity Status: Chronic (6) Bronchitis Status: Chronic (7) Cholecystectomy Status: Resolved (8) Deep venous thrombosis Status: Chronic (9) Dementia Status: Chronic (10) Elevated WBC count Status: Resolved (11) Emphysema Status: Chronic (12) Encephalopathy Status: Resolved (13) Gallbladder problem Status: Chronic (14) Head injury Status: Resolved (15) Heart disease Status: Chronic (16) Hematoma Status: Resolved (17) Hematuria Status: Resolved (18) Hypertension Status: Chronic (19) Hypokalemia Status: Resolved (20) Hyponatremia Status: Resolved (21) Pneumonia Status: Chronic (22) Swelling of right extremity Status: Resolved (23) Swelling of right extremity Status: Resolved (24) Syncope Status: Resolved (25) Urinary tract infection Status: Resolved Family History FH: HTN (hypertension) FH: diabetes mellitus Gallbladder disease Heart disease Lung disease Social History Smoking Status: Former Smoker Drug Use: none Marital Status: Housing status: lives with family Occupational Status: retired Immunizations History of Influenza Vaccine: Unknown History of Tetanus Vaccine?: Unknown History of Pneumococcal: Unknown History of Hepatitis B Vaccine: Unknown Multi-Drug Resistant Organisms History of MDRO: No Allergies Coded Allergies: Penicillins (Verified Allergy, Unknown, HAS HAD ROCEPHIN W/OUT PROBLEM, ) Sulfa Antibiotics (Verified Allergy, Unknown, Unknown, 10/17/16) Sulfamethoxazole (Verified Allergy, Unknown, 10/17/16) Heparin (Verified Adverse Reaction, Unknown, Significant GI bleed, 10/17/16 ) (per [facility] H&P) Home Medications Scheduled Calcium Carbonate-Vitamin D (Calcium), 1 TAB PO DAILY Cholecalciferol (Vitamin D3), 1,000 UNITS PO DAILY Clopidogrel (Plavix), 75 MG PO QAM Diltiazem Hcl Coated Beads (Cartia Xt), 240 MG PO DAILY Erythromycin Opth (Erythromycin Opth), 1 APPLN IO HS Furosemide (Furosemide), 20 MG PO DAILY Metoprolol Tartrate (Lopressor), 12.5 MG PO BID Multivitamin (Multivitamin), 1 TAB PO DAILY Nystatin (Nystop), 1 APPLN EXT TID Pantoprazole (Pantoprazole Sodium), 40 MG PO QAM Potassium Chloride Microencaps (Potassium Chloride Er), 20 MEQ PO DAILY Vitamins C & E (Vitamin C), 1 CAP PO DAILY Scheduled PRN Acetaminophen (Tylenol Arthritis Ext Rel), 650 MG PO Q8H PRN for Pain Acetaminophen/Hydrocodone (Hydrocodone/Acetaminophen 5-325 mg), 0.5 TAB PO DAILY PRN for Pain Polyethylene (Polyethylene Glycol 3350), 17 GM PO DAILY PRN for Constipation Review of Systems ROS was unable to be obtained from patient due to altered mental status. Physical Exam Vital Signs Date Time Temp Pulse Resp B/P (MAP) Pulse Ox O2 Delivery O2 Flow Rate FiO2 11/12/16 17:51 89 31 93 11/12/16 17:46 88 28 97 11/12/16 17:42 111/65 11/12/16 17:41 80 27 92 11/12/16 17:36 91 24 94 11/12/16 17:31 92 30 95 11/12/16 17:26 85 25 97 11/12/16 17:21 83 27 92 11/12/16 17:16 81 27 94 11/12/16 17:11 82 26 95 11/12/16 17:06 83 25 97 11/12/16 17:01 84 26 97 11/12/16 16:56 80 29 84 11/12/16 16:56 36.5 11/12/16 16:51 91 24 88 11/12/16 16:46 86 25 94 11/12/16 16:45 83 11/12/16 16:29 93 22 99/58 93 Room Air 11/12/16 16:28 99/58 11/12/16 16:25 95 Room Air General Appearance: WD/WN, + cachetic, + pertinent finding (licking fingers rhythmically) Head: normocephalic, atraumatic Eyes: normal inspection ENT: hearing grossly normal Neck: supple, no JVD Respiratory/Chest: lungs clear, normal breath sounds, no respiratory distress Cardiovascular: regular rate, rhythm, no murmur Abdomen/GI: normal bowel sounds, non tender, soft Back: no CVA tenderness, no muscle spasm Extremities/Musculoskelatal: no calf tenderness, no pedal edema Neurologic/Psych: alert, normal mood/affect, normal reflexes, oriented x 3 Skin: no rash Diagnostics Laboratory Results Results Past 24 Hours Test 11/12/16 16:08 11/12/16 17:30 11/12/16 17:36 11/12/16 17:47 Range/Units White Blood Count 12.08 4.8-10.8 K/uL Red Blood Count 4.64 4.2-5.4 M/uL Hemoglobin 13.4 12.0-16.0 g/dL Hematocrit 41.6 37-47 % Mean Corpuscular Volume 89.7 80-100 fL Mean Corpuscular Hemoglobin 28.9 25-34 pg Mean Corpuscular Hemoglobin Concent 32.2 32-36 g/dl Platelet Count 205 130-400 K/uL Mean Platelet Volume 9.9 7.4-10.4 fL Neutrophils (%) (Auto) 70.8 % Lymphocytes (%) (Auto) 19.4 % Monocytes (%) (Auto) 8.5 % Eosinophils (%) (Auto) 0.9 % Basophils (%) (Auto) 0.2 % Neutrophils # (Auto) 8.55 1.4-6.5 K/uL Lymphocytes # (Auto) 2.34 1.2-3.4 K/uL Monocytes # (Auto) 1.03 0.11-0.59 K/uL Eosinophils # (Auto) 0.11 0-0.5 K/uL Basophils # (Auto) 0.02 0-0.2 K/uL RDW Standard Deviation 48.1 36.4-46.3 fL RDW Coefficient of Variation 14.7 11.5-14.5 % Immature Granulocyte % (Auto) 0.2 % Immature Granulocyte # (Auto) 0.03 0.00-0.02 K/uL Sodium Level 136 136-145 mmol/L Potassium Level 4.4 3.5-5.1 mmol/L Chloride Level 99 98-107 mmol/L Carbon Dioxide Level 25 21-32 mmol/L Anion Gap 12.0 3-11 mmol/L Blood Urea Nitrogen 19 7-18 mg/dl Creatinine 1.00 0.60-1.20 mg/dl Est Creatinine Clear Calc Drug Dose 34.6 ml/min Estimated GFR () 61.6 Estimated GFR (Non- 53.2 BUN/Creatinine Ratio 18.6 10-20 Random Glucose 181 70-99 mg/dl Calcium Level 8.6 8.5-10.1 mg/dl Total Bilirubin 0.3 0.2-1 mg/dl Aspartate Amino Transf (AST/SGOT) 23 15-37 U/L Alanine Aminotransferase (ALT/SGPT) 26 12-78 U/L Alkaline Phosphatase 149 45-117 U/L Total Protein 6.7 6.4-8.2 gm/dl Albumin 2.9 3.4-5.0 gm/dl Globulin 3.8 2.5-4.0 gm/dl Albumin/Globulin Ratio 0.8 0.9-2 Urine Color YELLOW Urine Appearance CLEAR CLEAR Urine pH 6.5 4.5-7.5 Urine Specific [place] 1.017 1.000-1.030 Urine Protein NEG NEG Urine Glucose (UA) NEG NEG Urine Ketones NEG NEG Urine Occult Blood NEG NEG Urine Nitrite NEG NEG Urine Bilirubin NEG NEG Urine Urobilinogen NEG NEG Urine Leukocyte Esterase NEG NEG Urine WBC (Auto) 1-5 0-5 /hpf Urine RBC (Auto) 0-4 0-4 /hpf Urine Hyaline Casts (Auto) 1-5 0-5 /lpf Urine Epithelial Cells (Auto) >30 0-5 /lpf Urine Bacteria (Auto) NEG NEG Prothrombin Time 10.9 9.0-12.0 SECONDS Prothromb Time International Ratio 1.0 0.9-1.1 Activated Partial Thromboplast Time 19.8 21.0-31.0 SECONDS Partial Thromboplastin Ratio 0.8 Bedside Lactic Acid Venous 1.71 0.90-1.70 mmol/L Microbiology Results 11/12/16 Blood Culture, Received Pending 11/12/16 Blood Culture, Received Pending Diagnostic Radiology CXR IMPRESSION: Stable cardiomegaly. Otherwise negative study CT HEAD Impression: Considerable age-related and chronic small vessel change. No acute intracranial abnormality. Impression Assessment and Plan 81 yo F with end stage dementia & multiple co-morbidities who presents with altered mental status, now resolved - ddx includes infection, electrolyte abnormality, CHF exacerbation, stroke, seizure. Plan: Acute metabolic encephalopathy - We will keep her on telemetry overnight - Repeat BMP in AM - Seizure precautions Potential urine infection - Awaiting urine culture - Catheter placed, pts daughter does not want her to go home with this, is hesitant to have her remain on it during admission Hx HTN - Continue home metoprolol and diltiazem Hx CHF - Continue daily Lasix CODE STATUS: DNR DISPO: Tele VTE: Busterx Attending Addendum: I have physically seen and examined this patient, have supervised the medical residents activities, and agree with the H&P as noted above with the following exceptions: NONE The patient is awake, well-developed and adequately nourished, alert and oriented 3, normocephalic and atraumatic, lying in bed and in no acute distress. HEENT--PERRL, EOMI, mucous membranes and oropharynx dry. Neck--supple, no JVD or bruits, thyroid normal, trachea midline, no adenopathy. Heart--normal S1 and S2, no extra beats, no murmurs, rubs or gallops. Lungs--clear bilaterally but diminished throughout, no respiratory distress, no accessory muscle use. Abdomen--normal bowel sounds and soft, nontender and nondistended, no hernias or masses, no organomegaly. Extremities--no cyanosis, clubbing or edema. There are good distal pulses b/l. Dermatologic--normal skin turgor, normal color, warm and dry, no abnormal lymph nodes, no rash. Neurologic--cranial nerves II through XII grossly intact, motor and sensory examination normal. Rheumatologic--normal range of motion. Psychiatric--normal affect. Assessment and Plan: 1. Metabolic encephalopathy causing altered mental status with probable UTI origin with urinary retention--admitted to the medical floor. Hydrate with IV fluids. Follow serial BMP and magnesium levels. Empiric antibiotics IV. For hypertension/CHF we will continue metoprolol and diltiazem with hold parameters, hold Lasix. VTE Prophylaxis VTE Risk Assessment Done? Y/N: Yes Risk Level: Moderate Resident Tracking Resident Involvement: Resident Care Provided Care Provided: Adult Hospital Medicine
[2016-11-12 20:59] VITALS: BP 118/85; PULSE 95; TEMP 36.3; O2SAT 93; Ht 165.1 cm; Wt 46.6 kg
[2016-11-12] MEDS ORDERED: ERYTHROMYCIN OP OINT 5 MG/GM 3.5 GM TUBE TOP SCH (21:00)
[2016-11-12] MEDS ORDERED: IV FLUIDS COMPLETED PRN (21:30)
[2016-11-12] MEDS: METOPROLOL TARTRATE 25 MG TAB PO SCH (21:35)
[2016-11-12] MEDS: NYSTATIN POWDER 15GM BTL EXT SCH (21:35)
[2016-11-12 22:55] VITALS: BP 124/78; PULSE 87; TEMP 36.6; O2SAT 93
[2016-11-12 23:59] VITALS: O2SAT 93
[2016-11-13 04:25] VITALS: BP 114/72; PULSE 71; TEMP 36.7; O2SAT 97
[2016-11-13] MEDS: NYSTATIN POWDER 15GM BTL EXT SCH ×2 (07:39→10:39)
[2016-11-13] MEDS: METOPROLOL TARTRATE 25 MG TAB PO SCH (07:40)
[2016-11-13 07:48] VITALS: BP 111/60; PULSE 79; TEMP 36.9; O2SAT 97
--- NOTE | 2016-11-13 08:07 | Family Medicine Progress Note ---
Progress Note Date of Service Nov 13, 2016. Subjective SEE DISCHARGE SUMMARY OF SAME DATE Objective Vital Signs Date Time Temp Pulse Resp B/P (MAP) Pulse Ox O2 Delivery O2 Flow Rate FiO2 11/13/16 07:48 36.9 79 18 111/60 (77) 97 Room Air 11/13/16 04:25 36.7 71 18 114/72 (86) 97 Room Air 11/13/16 04:00 Room Air 11/12/16 23:59 93 Room Air 11/12/16 22:55 36.6 87 18 124/78 (93) 93 Room Air 11/12/16 20:59 36.3 95 20 118/85 93 Room Air 11/12/16 19:54 89 24 122/80 94 Room Air 11/12/16 17:51 89 31 93 11/12/16 17:46 88 28 97 11/12/16 17:42 111/65 11/12/16 17:41 80 27 92 11/12/16 17:36 91 24 94 11/12/16 17:31 92 30 95 11/12/16 17:26 85 25 97 11/12/16 17:21 83 27 92 11/12/16 17:16 81 27 94 11/12/16 17:11 82 26 95 11/12/16 17:06 83 25 97 11/12/16 17:01 84 26 97 11/12/16 16:56 80 29 84 11/12/16 16:56 36.5 11/12/16 16:51 91 24 88 11/12/16 16:46 86 25 94 11/12/16 16:45 83 11/12/16 16:29 93 22 99/58 93 Room Air 11/12/16 16:28 99/58 11/12/16 16:25 95 Room Air Assessment and Plan Resident Physician Supervision Note: I interviewed and examined the patient. Discussed with Dr. Ocampo and agree with findings and plan as documented in the note. Any exceptions or clarifications are listed here: None Documented By: Lucas Springer family notes back to baseline. no problems noted by nursing. diagnostic w/u without yield. ROS otherwise unobtainable except for as above vitals noted nad breathing unlabored no focal deficits transient distress/altered mental status - superimposed on severe baseline dementia - d/w dtr that with litlte to no findings on w/u thus far and with return to baseline unlikley that there's a serious disease process going on. discussed how small things can definitely cause these types of situations in severe dementia and moving forward watchful waiting is most appropriate plan. she is comfortable with this and comfortable taking pt home. Resident Tracking Resident Involvement: Resident Care Provided Care Provided: Adult Hospital Medicine
[2016-11-13] MEDS ORDERED: POTASSIUM CHLORIDE 20 MEQ TABCR PO SCH (09:00)
[2016-11-13] MEDS ORDERED: CLOPIDOGREL BISULFATE 75 MG TAB PO SCH (09:00)
[2016-11-13] MEDS ORDERED: PANTOprazole SOD 40 MG TAB PO SCH (09:00)
[2016-11-13] MEDS ORDERED: FUROSEMIDE 20 MG TAB PO SCH (09:00)
[2016-11-13] MEDS ORDERED: DILTIAZEM HCL 240 MG CAPCR PO SCH (09:00)
[2016-11-13 11:06] VITALS: BP 103/59; PULSE 75; TEMP 36.4; O2SAT 93
--- NOTE | 2016-11-13 14:16 | Discharge Instructions ---
Discharge Instructions Date of Service Nov 13, 2016. Admission Reason for Admission: Altered Mental Status Discharge Discharge Diagnosis / Problem: Transient confusion Discharge Goals Goal(s): Decrease discomfort, Diagnostic testing Activity Recommendations Activity Limitations: resume your previous activity . Instructions / Follow-Up Instructions / Follow-Up Patient was admitted with transient distress. Initial labs and diagnostic imaging were reassuring. There was no obvious signs of infection, electrolyte abnormality. Urine analysis was negative. Chest xray did not show any pneumonia. CT of the head was negative for stroke. Blood cultures after 24 hours are negative. Clinical assessment at time of discharge reveals that patient is at baseline. If patient has recurrence of symptoms, please call the PCP for medical professor of counseling. Thank you for allowing us to participate in the Ms. Meyers's care. Current Hospital Diet Patient's current hospital diet: Full Liquid Diet Discharge Diet Recommended Diet: Full Liquid Diet Pending Studies Studies pending at discharge: yes List of pending studies: Blood cultures Medical Emergencies . Who to Call and When: Medical Emergencies: If at any time you feel your situation is an emergency, please call 911 immediately. . Non-Emergent Contact Non-Emergency issues call your: Primary Care Provider . . "Provider Documentation" section prepared by Ca Ocampo. . VTE Core Measure Inpt VTE Proph given/why not?: Enoxaparin (Lovenox)SQ
[2016-11-13 14:26] VITALS: BP 103/59; PULSE 75; TEMP 36.4; O2SAT 93
--- NOTE | 2016-11-13 18:17 | Discharge Summary ---
Discharge Summary Date of Service Nov 13, 2016. Discharge Summary Admission Date: Nov 12, 2016 at 19:43 Discharge Date: Nov 13, 2016 Discharge Disposition: Home Principal Diagnosis: Transient confusion Immunizations: Have You Had Influenza Vaccine: Unknown History of Tetanus Vaccine?: Unknown History of Pneumococcal: Unknown History of Hepatitis B Vaccine: Unknown Medication Reconciliation Continued Medications: Acetaminophen (Tylenol Arthritis Ext Rel) 650 Mg Cplt 650 MG PO Q8H PRN for Pain, CAP Acetaminophen/Hydrocodone (Hydrocodone/Acetaminophen 5-325 mg) 1 Ea Tab 0.5 TAB PO DAILY PRN for Pain Calcium Carbonate-Vitamin D (Calcium) 1 Tab Tab 1 TAB PO DAILY Cholecalciferol (Vitamin D3) 1,000 Unit Tab 1000 UNITS PO DAILY for 90 Days, TAB 3 Refills Clopidogrel (Plavix) 75 Mg Tab 75 MG PO QAM, TAB Diltiazem Hcl Coated Beads (Cartia Xt) 240 Mg Cap 240 MG PO DAILY Erythromycin Opth (Erythromycin Opth) 12 Appln/3.5 Gm Oint 1 APPLN IO HS, #1 TUBE 0 Refills apply to left eye Furosemide (Furosemide) 20 Mg Tab 20 MG PO DAILY Metoprolol Tartrate (Lopressor) 25 Mg Tab 12.5 MG PO BID Multivitamin (Multivitamin) Tab 1 TAB PO DAILY, TAB Nystatin (Nystop) 45 Appln/15 Gm Powd 1 APPLN EXT TID for 10 Days, #1 CAN 1 Refill apply liberally to groin/inner thighs/vulvar region Pantoprazole (Pantoprazole Sodium) 40 Mg Tab 40 MG PO QAM Polyethylene (Polyethylene Glycol 3350) 527 Gm Soln 17 GM PO DAILY PRN for Constipation Potassium Chloride Microencaps (Potassium Chloride Er) 20 Meq Tab 20 MEQ PO DAILY Vitamins C & E (Vitamin C) 1 Cap Cap 1 CAP PO DAILY Discharge Exam Physical Exam: General Appearance: no apparent distress Neck: supple, no adenopathy, thyroid normal Respiratory/Chest: lungs clear, normal breath sounds, no respiratory distress, no accessory muscle use Cardiovascular: regular rate, rhythm, no murmur, normal peripheral pulses Abdomen / GI: normal bowel sounds, non tender, soft Extremities: normal inspection, normal capillary refill, no pedal edema Neurologic/Psychiatric: alert, normal mood/affect, + pertinent finding ( advanced dementia) Skin: normal color, warm/dry, no rash Lymphatic: no adenopathy Hospital Course Patient was admitted with transient distress. Initial labs and diagnostic imaging were reassuring. CBC showed borderline elevated WBC of 12, and POC lactic acid 1.7. There was no obvious signs of infection or electrolyte abnormality. Urine analysis was negative. Chest xray did not show any pneumonia. CT of the head was negative for stroke. Blood cultures after 24 hours are negative. Clinical assessment at time of discharge reveals that patient is comfortable, largely non verbal, but calm Family also comfortable as she had no repeat episodes of distress since ambulance drive, state she is at baseline throughout admission Comfortable with discharge Resident Physician Supervision Note: I interviewed and examined the patient. Discussed with Dr. Ocampo and agree with findings and plan as documented in the note. Any exceptions or clarifications are listed here: None Documented By: Lucas Springer family notes back to baseline. no problems noted by nursing. diagnostic w/u without yield. ROS otherwise unobtainable except for as above vitals noted nad breathing unlabored no focal deficits transient distress/altered mental status - superimposed on severe baseline dementia - d/w dtr that with litlte to no findings on w/u thus far and with return to baseline unlikley that there's a serious disease process going on. discussed how small things can definitely cause these types of situations in severe dementia and moving forward watchful waiting is most appropriate plan. she is comfortable with this and comfortable taking pt home. Total Time Spent: Less than 30 minutes This includes examination of the patient, discharge planning, medication reconciliation, and communication with other providers. Discharge Instructions Please refer to the electronic Patient Visit Report (Discharge Instructions) for additional information. Additional Copies To Jaspreet Cruz M.D. Resident Tracking Resident Involvement: Resident Care Provided Care Provided: Adult Hospital Medicine
== END 2016-11-13 15:06 | disposition home or self-care (01) ==
LOC: EDBD 16:21 → C.EDC 16:21 → C.2T 19:43 → ENRESERV 19:50 → EDBEDREQ 19:59 → C.2T 20:53
PROVIDERS: ADMIT Hospitalist; ATTEND Family Medicine
DX: R41.0 Disorientation, unspecified (principal); F03.90 Unspecified dementia, unspecified severity, without behavioral disturbance, psychotic disturbance, mood disturbance, and anxiety; I48.91 Unspecified atrial fibrillation; I10 Essential (primary) hypertension; Z86.73 Personal history of transient ischemic attack (TIA), and cerebral infarction without residual deficits; Z87.891 Personal history of nicotine dependence; Z79.899 Other long term (current) drug therapy

== ENCOUNTER 2016-12-22 10:47 | Inpatient (IN) | payer BC, OTHER ==
[~2016-12-22] VITALS: Ht 165.1 cm; Wt 48.6 kg
[~2016-12-22 10:47] MED LIST changes: +CALC-51 PO; +CHOL1000 PO; +MULT-506 PO; +VITACAP26 PO
[2016-12-22] MEDS ORDERED: SODIUM CHLORIDE 0.9% 1000ML 1,000 ML IV SCH (11:22)
[2016-12-22 12:17] LABS: BASO % 0.2 %; BASO ABS # 0.02 K/uL (0-0.2); COMPLETE YES; EOS % 0.4 %; IG% 0.3 %; LYMPH % 9.8 %; LYMPH ABS # 1.05 K/uL (1.2-3.4); MEAN CELL VOLUME 89.9 fL (80-100); MEAN CORPUSCULAR HEMOGLOBIN 29.2 pg (25-34); MEAN CORPUSCULAR HGB CONC 32.4 g/dl (32-36); MEAN PLATELET VOLUME 9.5 fL (7.4-10.4); MONO % 8.6 %; NEUT % 80.7 %; PLATELET COUNT 238 K/uL (130-400); RED BLOOD COUNT 4.56 M/uL (4.2-5.4); WHITE BLOOD COUNT 10.73 K/uL (4.8-10.8)
[2016-12-22 12:26] LABS: PARTIAL THROMBOPLASTIN RATIO 0.9; PROTHROMBIN TIME (PATIENT) 10.8 SECONDS (9.0-12.0)
[2016-12-22 12:27] LABS: BLOOD UREA NITROGEN 15 mg/dl (7-18); BUN/CREATININE RATIO 16.2 (10-20); CALCIUM 8.6 mg/dl (8.5-10.1); CARBON DIOXIDE 28 mmol/L (21-32); CHLORIDE 99 mmol/L (98-107); CREATININE 0.91 mg/dl (0.60-1.20); GLUCOSE 179 mg/dl (70-99); POTASSIUM 4.1 mmol/L (3.5-5.1); SODIUM 133 mmol/L (136-145)
[2016-12-22 12:32] LABS: CKMB/CK RATIO 2.5 (0-3.0)
--- NOTE | 2016-12-22 12:55 | DIAGNOSTIC IMAGING REPORT ---
CT OF THE HEAD WITHOUT CONTRAST CLINICAL HISTORY: Stroke. COMPARISON STUDY: Head CT November 12, 2016. CT DOSE: 537.48 mGy.cm TECHNIQUE: Helical axial images of the head were obtained without IV contrast. Automated exposure control was utilized for the study. A dose lowering technique was utilized adhering to the principles of ALARA. FINDINGS: No acute intracranial hemorrhage is present. Note is made of extensive hypodensity with loss of sorto-white differentiation within the right frontal, temporal and parietal lobes which is new since exam of November 12, 2016 and suggests an acute to subacute right MCA territory infarct. There is no significant mass effect. A 3.9 x 2.5 cm focus of encephalomalacia within the right cerebellar hemisphere is also new since prior head CT. This suggests a subacute to chronic infarct. Several old infarcts are noted within the right frontal and left occipital lobes. Ventricular dilatation is unchanged. The basilar cisterns are patent. There are no extra axial collections. There is no calvarial fracture. There is mild mucosal thickening of the maxillary sinuses which are diminutive. IMPRESSION: 1. Large acute to subacute right MCA territory infarct. No significant mass effect. No acute intracranial hemorrhage. 2. 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 3. Multiple chronic infarcts, as described above. Electronically signed by: Tello Fernández M.D. 12/22/2016 12:54 PM Dictated Date/Time: 12/22/2016 12:49 PM
[2016-12-22] MEDS ORDERED: CEFTRIAXONE SOD INJ 1 GM ADDVIAL IV STA (13:21)
[2016-12-22] MEDS ORDERED: ATV5X PO (13:58)
[2016-12-22] MEDS ORDERED: NITR100C6 PO (13:58)
[2016-12-22] MEDS ORDERED: DEXT30TA7 PO (14:00)
[2016-12-22] MEDS ORDERED: ASPIRIN 600 MG SUPP PR ONE (14:15)
[2016-12-22] MEDS ORDERED: ONDANSETRON INJ 2 MG/ML 2 ML VIAL IV PRN (15:00)
[2016-12-22] MEDS ORDERED: PHARMACIST DISCHARGE MED REC CONSULT PRN (15:00)
[2016-12-22 15:55] LABS: URINE APPEARANCE CLOUDY (CLEAR); URINE BILIRUBIN NEG (NEG); URINE COLOR YELLOW; URINE EPITHELIAL CELL AUTO >30 /lpf (0-5); URINE NITRITE NEG (NEG); URINE SPECIFIC GRAVITY 1.013 (1.000-1.030); UROBILINOGEN NEG (NEG); ZZURINE CULT IF INDIC CATH YES
[2016-12-22 16:00] VITALS: O2SAT 96; Ht 165.1 cm; Wt 48.6 kg
[2016-12-22 16:00] LABS: MANUAL MICROSCOPIC REQUIRED? NO; REVIEW REQ? YES
[2016-12-22] MEDS: SODIUM CHLOR 0.45% + 20MEQ KCL 1,000 ML IV SCH (16:51)
[2016-12-22 17:14] VITALS: BP 131/83; PULSE 89; TEMP 36.7; O2SAT 96
--- NOTE | 2016-12-22 17:29 | EMERGENCY ROOM VISIT NOTE ---
History Report prepared by Brody: Mary Gregorio Under the Supervision of: Dr. Lucas Farooq D.O. First contact with patient: 11:06 Chief Complaint: NEURO SYMPTOMS Stated Complaint: POSS. STROKE / LSN WAS 12 HRS. AGO Nursing Triage Summary: per family care givers. patient is not responding like she usually does. she is not moving her left side as she usually done and seems to have a right sided gaze. symptoms since last night at 2200 History of Present Illness The patient is a 81 year old female who presents to the Emergency Room with complaints of constant neurological symptoms beginning this morning. Per family , the patient is typically non-verbal and only occasionally "mumbles" words. This is due to a previous stroke. Family states that she is typically more alert than she is today. She is usually able to comb her hair. Family noticed this morning that she was not using her left arm and was staring to the right. This is unusual for the patient, and she is typically able to move both hands equally. Family is concerned that she may have had another stroke. The patient recently finished antibiotics for a UTI. Family states that last night the patient was complaining of a headache. She was brought to the ED by ambulance today. The HPI is limited secondary to the patient's AMS. Source of History: family History Limited By: AMS Onset: this morning Position: other (global) Quality: other (neurological) Timing: constant Associated Symptoms: + headache, + weakness (of left arm) Note: Pt gaze to right. Review of Systems ROS is limited secondary to the patient's AMS. Past Medical & Surgical Medical Problems: (1) Abnormal EKG (2) Altered mental state (3) Altered mental status (4) Aphasia (5) Atrial fibrillation (6) Back pain (7) Blood clot in abdominal vein (8) blood clot lower extremity (9) Bronchitis (10) Cholecystectomy (11) Complicated UTI (urinary tract infection) (12) CVA (cerebral vascular accident) (13) Deep venous thrombosis (14) Dementia (15) Elevated WBC count (16) Emphysema (17) Encephalopathy (18) Gallbladder problem (19) Head injury (20) Heart disease (21) Hematoma (22) Hematuria (23) History of CVA (cerebrovascular accident) (24) Hypertension (25) Hypokalemia (26) Hyponatremia (27) Need for comfort care (28) Pneumonia (29) Seizure-like activity (30) Stroke due to embolism (31) Swelling of right extremity (32) Swelling of right extremity (33) Syncope (34) Urinary tract infection (35) UTI (urinary tract infection) Family History FH: HTN (hypertension) FH: diabetes mellitus Gallbladder disease Heart disease Lung disease Social History Smoking Status: Former Smoker Alcohol Use: none Drug Use: none Marital Status: Housing Status: lives with family Occupation Status: retired Current/Historical Medications Scheduled Calcium Carbonate-Vitamin D (Calcium), 1 TAB PO DAILY Cholecalciferol (Vitamin D3), 1,000 UNITS PO DAILY Clopidogrel (Plavix), 75 MG PO QAM Dextromethorphan-Guaifenesin (Mucinex Dm), 1 TAB PO DAILY Diltiazem Hcl Coated Beads (Cartia Xt), 240 MG PO DAILY Erythromycin Opth (Erythromycin Opth), 1 APPLN IO HS Furosemide (Furosemide), 20 MG PO DAILY Metoprolol Tartrate (Lopressor), 12.5 MG PO BID Multivitamin (Multivitamin), 1 TAB PO DAILY Nitrofurantoin Monohyd Macro (Nitrofurantoin Monohydrat), 100 MG PO DAILY Nystatin (Nystop), 1 APPLN EXT TID Pantoprazole (Pantoprazole Sodium), 40 MG PO QAM Potassium Chloride Microencaps (Potassium Chloride Er), 20 MEQ PO DAILY Vitamins C & E (Vitamin C), 1 CAP PO DAILY Scheduled PRN Acetaminophen (Tylenol Arthritis Ext Rel), 650 MG PO Q8H PRN for Pain Acetaminophen/Hydrocodone (Hydrocodone/Acetaminophen 5-325 mg), 0.5 TAB PO DAILY PRN for Pain Lorazepam (Lorazepam), 0.5-1 MG PO BID PRN for Anxiety Allergies Coded Allergies: Penicillins (Verified Allergy, Unknown, HAS HAD ROCEPHIN W/OUT PROBLEM, ) Sulfa Antibiotics (Verified Allergy, Unknown, Unknown, 12/22/16) Sulfamethoxazole (Verified Allergy, Unknown, 12/22/16) Heparin (Verified Adverse Reaction, Unknown, Significant GI bleed, 12/22/16 ) (per Gricelda's H&P) Physical Exam Vital Signs Date Time Temp Pulse Resp B/P (MAP) Pulse Ox O2 Delivery O2 Flow Rate FiO2 12/22/16 14:47 99 31 94 12/22/16 14:15 96 22 140/96 96 12/22/16 14:14 140/96 12/22/16 14:00 151/101 12/22/16 13:47 90 27 96 12/22/16 13:34 38.1 82 20 129/88 98 Room Air 12/22/16 13:28 129/88 12/22/16 11:47 79 24 97 12/22/16 11:18 85 12/22/16 11:07 141/99 12/22/16 11:02 149/104 12/22/16 10:58 96 Room Air 12/22/16 10:58 36.7 91 22 141/99 99 Room Air Physical Exam GENERAL: alert, sitting up in bed, disheveled, ill appearing, malnourished, no distress, non-toxic EYE EXAM: normal conjunctiva, PERRL and EOM's grossly intact, gaze to the right. OROPHARYNX: no exudate, no erythema, lips, buccal mucosa, and tongue normal and mucous membranes are moist NECK: supple, no nuchal rigidity, no adenopathy, non-tender LUNGS: Clear to auscultation. Normal chest wall mechanics HEART: no murmurs, S1 normal and S2 normal ABDOMEN: abdomen soft, non-tender, normo-active bowel sounds, no masses, no rebound or guarding. BACK: Back is symmetrical on inspection and there is no deformity, no midline tenderness, no CVA tenderness. SKIN: no rashes and no bruising UPPER EXTREMITIES: Left arm held firm against the abdomen. LOWER EXTREMITIES: No pitting edema. NEURO EXAM: Alert, non-verbal, not tracking, looking to the right. No movement of the left upper extremity. Spontaneous movement of the right upper extremity. Withdraws minimally to pain in the left lower extremity and moves the right lower extremity spontaneously. Unable to perform drift or [id number]. Medical Decision & Procedures ER Provider Diagnostic Interpretation: Radiology results as stated below per my review and the radiologist's interpretation: CT OF THE HEAD WITHOUT CONTRAST CLINICAL HISTORY: Stroke. COMPARISON STUDY: Head CT November 12, 2016. CT DOSE: 537.48 mGy.cm TECHNIQUE: Helical axial images of the head were obtained without IV contrast. Automated exposure control was utilized for the study. A dose lowering technique was utilized adhering to the principles of ALARA. FINDINGS: No acute intracranial hemorrhage is present. Note is made of extensive hypodensity with loss of sorto-white differentiation within the right frontal, temporal and parietal lobes which is new since exam of November 12, 2016 and suggests an acute to subacute right MCA territory infarct. There is no significant mass effect. A 3.9 x 2.5 cm focus of encephalomalacia within the right cerebellar hemisphere is also new since prior head CT. This suggests a subacute to chronic infarct. Several old infarcts are noted within the right frontal and left occipital lobes. Ventricular dilatation is unchanged. The basilar cisterns are patent. There are no extra axial collections. There is no calvarial fracture. There is mild mucosal thickening of the maxillary sinuses which are diminutive. IMPRESSION: 1. Large acute to subacute right MCA territory infarct. No significant mass effect. No acute intracranial hemorrhage. 2. 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 3. Multiple chronic infarcts, as described above. Electronically signed by: Tello Fernández M.D. 12/22/2016 12:54 PM Dictated Date/Time: 12/22/2016 12:49 PM Laboratory Results 12/22/16 11:25 Red Blood Count 4.56, Mean Corpuscular Volume 89.9, Mean Corpuscular Hemoglobin 29.2, Mean Corpuscular Hemoglobin Concent 32.4, Mean Platelet Volume 9.5, Neutrophils (%) (Auto) 80.7, Lymphocytes (%) (Auto) 9.8, Monocytes (%) (Auto) 8.6, Eosinophils (%) (Auto) 0.4, Basophils (%) (Auto) 0.2, Neutrophils # (Auto) 8.67, Lymphocytes # (Auto) 1.05, Monocytes # (Auto) 0.92, Eosinophils # (Auto) 0.04, Basophils # (Auto) 0.02 12/22/16 11:25 Test 12/22/16 11:25 12/22/16 11:34 12/22/16 11:39 White Blood Count 10.73 K/uL (4.8-10.8) Red Blood Count 4.56 M/uL (4.2-5.4) Hemoglobin 13.3 g/dL (12.0-16.0) Hematocrit 41.0 % (37-47) Mean Corpuscular Volume 89.9 fL (80-100) Mean Corpuscular Hemoglobin 29.2 pg (25-34) Mean Corpuscular Hemoglobin Concent 32.4 g/dl (32-36) Platelet Count 238 K/uL (130-400) Mean Platelet Volume 9.5 fL (7.4-10.4) Neutrophils (%) (Auto) 80.7 % Lymphocytes (%) (Auto) 9.8 % Monocytes (%) (Auto) 8.6 % Eosinophils (%) (Auto) 0.4 % Basophils (%) (Auto) 0.2 % Neutrophils # (Auto) 8.67 K/uL (1.4-6.5) Lymphocytes # (Auto) 1.05 K/uL (1.2-3.4) Monocytes # (Auto) 0.92 K/uL (0.11-0.59) Eosinophils # (Auto) 0.04 K/uL (0-0.5) Basophils # (Auto) 0.02 K/uL (0-0.2) RDW Standard Deviation 48.6 fL (36.4-46.3) RDW Coefficient of Variation 14.9 % (11.5-14.5) Immature Granulocyte % (Auto) 0.3 % Immature Granulocyte # (Auto) 0.03 K/uL (0.00-0.02) Prothrombin Time 10.8 SECONDS (9.0-12.0) Prothromb Time International Ratio 1.0 (0.9-1.1) Activated Partial Thromboplast Time 23.3 SECONDS (21.0-31.0) Partial Thromboplastin Ratio 0.9 Anion Gap 6.0 mmol/L (3-11) Est Creatinine Clear Calc Drug Dose 37.8 ml/min Estimated GFR () 69.1 Estimated GFR (Non- 59.6 BUN/Creatinine Ratio 16.2 (10-20) Calcium Level 8.6 mg/dl (8.5-10.1) Total Creatine Kinase 40 U/L (26-192) Creatine Kinase MB 1.0 ng/ml (0.5-3.6) Creatine Kinase MB Ratio 2.5 (0-3.0) Troponin I < 0.015 ng/ml (0-0.045) Bedside Glucose 170 mg/dl (70-90) Bedside Prothrombin Time INR 1.1 (0.9-1.1) Laboratory results per my review. Medications Administered Medications (Trade) Dose Ordered Sig/Kathy Route Start Time Stop Time Status Last Admin Dose Admin Sodium Chloride 1,000 ml @ 50 mls/hr Q20H IV 12/22/16 11:22 12/22/16 16:33 DC 12/22/16 13:30 50 MLS/HR Ceftriaxone Sodium (Rocephin Inj) 1 gm NOW STAT IV 12/22/16 13:21 12/22/16 13:22 DC 12/22/16 14:04 1 GM Aspirin (Aspirin Supp) 600 mg NOW ONCE [place] 12/22/16 14:15 12/22/16 14:16 DC 12/22/16 15:34 600 MG ECG Indication: altered mental status Rate (beats per minute): 86 Rhythm: atrial fibrillation Findings: other (normal axis, poor baseline) ED Course ED COURSE: Vital signs were reviewed and showed febrile. The patients medical record was reviewed The above diagnostic studies were performed and reviewed. ED treatments and interventions as stated above. 1107: The patient was evaluated in room C7. A complete history and physical examination was performed. 1122: NSS 1000 ml @ 50 mls/hr IV 1319: Upon reevaluation, the patient is resting. I discussed my findings with the patient's family and they understand and agree with the treatment plan. Based on the patients age, coexisting illnesses, exam and lab findings the decision to treat as an inpatient was made. The patient remained stable while under my care. The patient will be evaluated for further management. 1321: Rocephin 1 gm IV 1350: I reviewed the patient's case with Dr. Springer. [facility] will evaluate the patient for further management. 1415: Aspirin 600 mg [place] Medical Decision Differential diagnoses includes but is not limited to toxic, metabolic, infectious, traumatic, cardiac, neurologic, hematologic, psychiatric and inflammatory etiologies. Patient is an 81-year-old female with a poor baseline of presents the ER now completely nonverbal and unable to move the left side. Last known well was over 12 hours ago. CBC along with BMP, and troponin were unremarkable. CT head was performed and shows a large stroke which is the likely cause of her left-sided weakness. Updated family at bedside. UA shows leukocytes and white cells. She does have a history of excessive UTIs. Patient did spike a fever just prior to admission. She was given a dose of antibiotics. I question if this secondary to the UTI. Patient was admitted for further workup. Medication Reconcilliation Current Medication List: was personally reviewed by me Blood Pressure Screening Patient's blood pressure: Normal blood pressure Consults Time Called: 1343 Consulting Physician: Dr. Springer Returned Call: 1350 I reviewed the patient's case with Dr. Springer. [facility] will evaluate the patient for further management. Impression Primary Impression: Stroke Scribe Attestation The scribe's documentation has been prepared under my direction and personally reviewed by me in its entirety. I confirm that the note above accurately reflects all work, treatment, procedures, and medical decision making performed by me. Departure Information Dispostion Being Evaluated By Hospitalist Referrals Jaspreet Cruz M.D. 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
--- NOTE | 2016-12-22 20:44 | History and Physical ---
History & Physical Date & Time of Service: Dec 22, 2016 at 20:38 Chief Complaint: Need For Comfort Care, Stroke Due To Embolism Primary Care Physician: Jaspreet Cruz M.D. Past Medical/Surgical History Medical Problems: (1) Abnormal EKG Status: Resolved (2) Atrial fibrillation Status: Chronic (3) Back pain Status: Resolved (4) Blood clot in abdominal vein Status: Chronic (5) blood clot lower extremity Status: Chronic (6) Bronchitis Status: Chronic (7) Cholecystectomy Status: Resolved (8) Deep venous thrombosis Status: Chronic (9) Dementia Status: Chronic (10) Elevated WBC count Status: Resolved (11) Emphysema Status: Chronic (12) Encephalopathy Status: Resolved (13) Gallbladder problem Status: Chronic (14) Head injury Status: Resolved (15) Heart disease Status: Chronic (16) Hematoma Status: Resolved (17) Hematuria Status: Resolved (18) Hypertension Status: Chronic (19) Hypokalemia Status: Resolved (20) Hyponatremia Status: Resolved (21) Pneumonia Status: Chronic (22) Swelling of right extremity Status: Resolved (23) Swelling of right extremity Status: Resolved (24) Syncope Status: Resolved (25) Urinary tract infection Status: Resolved Family History FH: HTN (hypertension) FH: diabetes mellitus Gallbladder disease Heart disease Lung disease Social History Smoking Status: Former Smoker Drug Use: none Marital Status: Housing status: lives with family Occupational Status: retired Immunizations History of Influenza Vaccine: Unknown History of Tetanus Vaccine?: Unknown History of Pneumococcal: Unknown History of Hepatitis B Vaccine: Unknown Multi-Drug Resistant Organisms History of MDRO: No Allergies Coded Allergies: Penicillins (Verified Allergy, Unknown, HAS HAD ROCEPHIN W/OUT PROBLEM, ) Sulfa Antibiotics (Verified Allergy, Unknown, Unknown, 12/22/16) Sulfamethoxazole (Verified Allergy, Unknown, 12/22/16) Heparin (Verified Adverse Reaction, Unknown, Significant GI bleed, 12/22/16 ) (per Carlos H&P) Home Medications Scheduled Calcium Carbonate-Vitamin D (Calcium), 1 TAB PO DAILY Cholecalciferol (Vitamin D3), 1,000 UNITS PO DAILY Clopidogrel (Plavix), 75 MG PO QAM Dextromethorphan-Guaifenesin (Mucinex Dm), 1 TAB PO DAILY Diltiazem Hcl Coated Beads (Cartia Xt), 240 MG PO DAILY Erythromycin Opth (Erythromycin Opth), 1 APPLN IO HS Furosemide (Furosemide), 20 MG PO DAILY Metoprolol Tartrate (Lopressor), 12.5 MG PO BID Multivitamin (Multivitamin), 1 TAB PO DAILY Nitrofurantoin Monohyd Macro (Nitrofurantoin Monohydrat), 100 MG PO DAILY Nystatin (Nystop), 1 APPLN EXT TID Pantoprazole (Pantoprazole Sodium), 40 MG PO QAM Potassium Chloride Microencaps (Potassium Chloride Er), 20 MEQ PO DAILY Vitamins C & E (Vitamin C), 1 CAP PO DAILY Scheduled PRN Acetaminophen (Tylenol Arthritis Ext Rel), 650 MG PO Q8H PRN for Pain Acetaminophen/Hydrocodone (Hydrocodone/Acetaminophen 5-325 mg), 0.5 TAB PO DAILY PRN for Pain Lorazepam (Lorazepam), 0.5-1 MG PO BID PRN for Anxiety Physical Exam Vital Signs Date Time Temp Pulse Resp B/P (MAP) Pulse Ox O2 Delivery O2 Flow Rate FiO2 12/22/16 17:14 36.7 89 17 131/83 (99) 96 Room Air 12/22/16 16:00 96 Room Air 12/22/16 15:31 101 22 163/95 96 Room Air 12/22/16 15:00 163/95 12/22/16 14:47 99 31 94 12/22/16 14:15 96 22 140/96 96 12/22/16 14:14 140/96 12/22/16 14:00 151/101 12/22/16 13:47 90 27 96 12/22/16 13:34 38.1 82 20 129/88 98 Room Air 12/22/16 13:28 129/88 12/22/16 11:47 79 24 97 12/22/16 11:18 85 12/22/16 11:07 141/99 12/22/16 11:02 149/104 12/22/16 10:58 96 Room Air 12/22/16 10:58 36.7 91 22 141/99 99 Room Air Diagnostics Laboratory Results Results Past 24 Hours Test 12/22/16 11:25 12/22/16 11:34 12/22/16 11:39 12/22/16 15:30 Range/Units White Blood Count 10.73 4.8-10.8 K/uL Red Blood Count 4.56 4.2-5.4 M/uL Hemoglobin 13.3 12.0-16.0 g/dL Hematocrit 41.0 37-47 % Mean Corpuscular Volume 89.9 80-100 fL Mean Corpuscular Hemoglobin 29.2 25-34 pg Mean Corpuscular Hemoglobin Concent 32.4 32-36 g/dl Platelet Count 238 130-400 K/uL Mean Platelet Volume 9.5 7.4-10.4 fL Neutrophils (%) (Auto) 80.7 % Lymphocytes (%) (Auto) 9.8 % Monocytes (%) (Auto) 8.6 % Eosinophils (%) (Auto) 0.4 % Basophils (%) (Auto) 0.2 % Neutrophils # (Auto) 8.67 1.4-6.5 K/uL Lymphocytes # (Auto) 1.05 1.2-3.4 K/uL Monocytes # (Auto) 0.92 0.11-0.59 K/uL Eosinophils # (Auto) 0.04 0-0.5 K/uL Basophils # (Auto) 0.02 0-0.2 K/uL RDW Standard Deviation 48.6 36.4-46.3 fL RDW Coefficient of Variation 14.9 11.5-14.5 % Immature Granulocyte % (Auto) 0.3 % Immature Granulocyte # (Auto) 0.03 0.00-0.02 K/uL Prothrombin Time 10.8 9.0-12.0 SECONDS Prothromb Time International Ratio 1.0 0.9-1.1 Activated Partial Thromboplast Time 23.3 21.0-31.0 SECONDS Partial Thromboplastin Ratio 0.9 Sodium Level 133 136-145 mmol/L Potassium Level 4.1 3.5-5.1 mmol/L Chloride Level 99 98-107 mmol/L Carbon Dioxide Level 28 21-32 mmol/L Anion Gap 6.0 3-11 mmol/L Blood Urea Nitrogen 15 7-18 mg/dl Creatinine 0.91 0.60-1.20 mg/dl Est Creatinine Clear Calc Drug Dose 37.8 ml/min Estimated GFR () 69.1 Estimated GFR (Non- 59.6 BUN/Creatinine Ratio 16.2 10-20 Random Glucose 179 70-99 mg/dl Calcium Level 8.6 8.5-10.1 mg/dl Total Creatine Kinase 40 26-192 U/L Creatine Kinase MB 1.0 0.5-3.6 ng/ml Creatine Kinase MB Ratio 2.5 0-3.0 Troponin I < 0.015 0-0.045 ng/ml Bedside Glucose 170 70-90 mg/dl Bedside Prothrombin Time INR 1.1 0.9-1.1 Urine Color YELLOW Urine Appearance CLOUDY CLEAR Urine pH 7.0 4.5-7.5 Urine Specific [place] 1.013 1.000-1.030 Urine Protein NEG NEG Urine Glucose (UA) NEG NEG Urine Ketones NEG NEG Urine Occult Blood NEG NEG Urine Nitrite NEG NEG Urine Bilirubin NEG NEG Urine Urobilinogen NEG NEG Urine Leukocyte Esterase SMALL NEG Urine WBC (Auto) 10-30 0-5 /hpf Urine RBC (Auto) 0-4 0-4 /hpf Urine Hyaline Casts (Auto) 1-5 0-5 /lpf Urine Epithelial Cells (Auto) >30 0-5 /lpf Urine Bacteria (Auto) NEG NEG Urine Pathogenic Casts 0 /lpf Microbiology Results 12/22/16 Urine Culture, Received Pending Impression Assessment and Plan admit #[id number] Advanced Directives Existing Living Will: No Existing Power of Artist Relationship Manager: No VTE Prophylaxis VTE Risk Assessment Done? Y/N: Yes Risk Level: Moderate Given or contraindicated: Treatment not indicated
--- NOTE | 2016-12-22 21:48 | HISTORY & PHYSICAL EXAMINATION ---
DATE OF ADMISSION: 12/22/2016 CHIEF COMPLAINT: Poorly responsive and left-sided paralysis. HISTORY OF PRESENT ILLNESS: The patient is an 81-year-old female, who I have known from prior hospitalizations who has a baseline of very severe dementia. The family notes that she was less alert than she was and then yesterday they noted that she was using her left arm and was kind of leaning to the right a little bit. They did note that she was actually able to drink a glass of water this morning without any difficulty; however, otherwise as they started to realize that she was definitely not herself and was not moving the left side of her body they called 911 and brought her to the hospital. No HPI or review of systems is obtainable from the patient and very little else is available from discussion with the family as her history does seem to be fairly narrow and straightforward. PAST MEDICAL HISTORY: Includes severe dementia, prior strokes, atrial fibrillation, frequent UTIs and prior venous thromboembolic disease. SURGICAL HISTORY: Cholecystectomy. ALLERGIES: PENICILLIN AND SULFA. SOCIAL HISTORY: She has very caring daughters who take care of her at home. She lives at home with them and their goal is to get her back home with them. FAMILY HISTORY: Includes hypertension, diabetes, gallbladder disease, heart disease and lung disease. HABITS: She is a former smoker. She is and again lives with her family. MEDICATIONS: Her home meds are Tylenol 650 every 8 hours p.r.n. pain, acetaminophen/hydrocodone 325/5 half a tab daily p.r.n. severe pain, calcium 1 tab daily, vitamin D 1000 international units daily, Plavix 75 mg daily, Mucinex DM daily, diltiazem 240 daily, erythromycin ophthalmic at bedtime, Lasix 20 mg daily, lorazepam 0.5-1 mg b.i.d. p.r.n. anxiety, metoprolol 12.5 mg p.o. b.i.d., multivitamin daily, nitrofurantoin 100 mg daily, Nystatin t.i.d., Protonix 40 mg daily, potassium 20 mEq daily and vitamin C daily. PHYSICAL EXAMINATION: VITAL SIGNS: Temperature 36.7, pulse 91, respiratory rate 22, blood pressure 141/99, 96% on room air. Later she did have 38.1 degree temperature rectally. GENERAL: She awakens, but is not really alert. She will kind of move around in the bed and moan, maybe just a little and maybe try to sit up a little. She generally does not look at all in any distress. HEENT: Normocephalic and atraumatic. Mucous membranes are slightly dry. CARDIOVASCULAR: Irregularly irregular, distant, without any notable rubs, murmurs or gallops. LUNGS: Clear to auscultation bilaterally. No rales, rhonchi or wheezes with reasonable spontaneous effort. ABDOMEN: Soft, nondistended, nontender, no masses or organomegaly. EXTREMITIES: Without cyanosis, clubbing or edema. No calf tenderness. SKIN: Dry with poor turgor. NEUROLOGIC: Shows a rather significant left facial droop. She moves her right arm and not her left. She does not do anything to command. Legs are difficult to assess because she is not moving to command, but I suspect of course that she has left leg weakness as well. Sensory is impossible to assess due to her inability to communicate, follow commands or give feedback. MUSCULOSKELETAL: Yields no gross lesions. MENTAL STATE: She is nonverbal, does not follow commands. LABORATORIES AND DIAGNOSTICS: CBC shows a white count of 10.73, hemoglobin 13.3 and platelets 238. Complete metabolic panel with sodium 133, potassium 4.1, chloride 99, CO2 28, BUN 15, creatinine 0.91, calcium 8.6, glucose 179, CK total of 40 with an MB of 1 and troponin of less than 0.015. Urinalysis is greater than 30 epithelial cells, 10-30 white cells with small amount of leukocyte esterase and negative bacteria. Specific gravity 1.013. PT of 10.8, INR of 1 and PTT 23.3. Head CT shows a very large right temporoparietal evolving infarct that appears to be in the MCA territory. No intracranial hemorrhage. She also has chronic subacute right inferior cerebellar infarct new since her CT of mid October and she has multiple chronic appearing infarcts. ASSESSMENT AND PLAN: 1. Acute cerebrovascular accident. Unfortunately, with the size of the cerebrovascular accident plus or minus the additional cerebrovascular accident in the cerebellar area superimposed on her baseline dementia, age and frailty, this appears to be in absolutely catastrophic event. I had an extensive, detailed and jennifer discussion with the daughters in this regard and they expressed good understanding. Their ultimate goal would be to get their mother home under hospice and comfort care, but at this point in time we all agreed that it is prudent to admit her to see what her needs are going to be and ensure that they will be able to take care of things at home and be able to work with the palliative care service and social media manager in regards to meeting their needs. Certainly, it appears to be an atrial fibrillation related stroke given the size and distribution. 2. Atrial fibrillation. She has been longstanding not on anticoagulation. Currently, rate is under control. We will be holding off on any home medications until it is clear that she can swallow, but it does not appear that she is going to run into any trouble with rapid ventricular response. 3. Fever. She does not really show any signs of infection. We will follow her closely, but I do wonder given the size of the stroke if it is not central fever; we will follow. She does not appear to be uncomfortable. 4. Deep venous thrombosis prophylaxis; not indicated given the severity of her illness. 5. Severe dementia; supportive care and I support the family's goal of trying to get her home. [facility]
[2016-12-23 00:14] VITALS: BP 117/81; PULSE 86; TEMP 36.7; O2SAT 94
[2016-12-23 08:12] VITALS: BP 122/77; PULSE 96; TEMP 36.8; O2SAT 95
--- NOTE | 2016-12-23 08:40 | Medical Student: [facility] ---
Med Student Progress Note Date of Service Dec 23, 2016. Subjective Pt evaluation today including: conversation w/ family, physical exam, lab review, review of studies Voiding: no voiding problems Patient examined laying in bed with daughter present at bedside. No acute events overnight. Patient is nonverbal with eyes closed, moves bilateral upper extremities and right lower extremity spontaneously but does not follow directions. Appears calm and not in distress. ROS not completed. No other complaints at this time. Review of Systems Notes: ROS not completed as patient is nonverbal. Objective Vital Signs Date Time Temp Pulse Resp B/P (MAP) Pulse Ox O2 Delivery O2 Flow Rate FiO2 12/23/16 08:12 36.8 96 16 122/77 (92) 95 Room Air 12/23/16 00:14 36.7 86 18 117/81 (93) 94 12/23/16 00:00 Room Air 12/22/16 17:14 36.7 89 17 131/83 (99) 96 Room Air 12/22/16 16:00 96 Room Air 12/22/16 15:31 101 22 163/95 96 Room Air 12/22/16 15:00 163/95 12/22/16 14:47 99 31 94 12/22/16 14:15 96 22 140/96 96 12/22/16 14:14 140/96 12/22/16 14:00 151/101 12/22/16 13:47 90 27 96 12/22/16 13:34 38.1 82 20 129/88 98 Room Air 12/22/16 13:28 129/88 12/22/16 11:47 79 24 97 12/22/16 11:18 85 12/22/16 11:07 141/99 12/22/16 11:02 149/104 12/22/16 10:58 96 Room Air 12/22/16 10:58 36.7 91 22 141/99 99 Room Air Physical Exam General Appearance: no apparent distress, + thin Eyes: bilateral eyes pertinent finding (both eyes closed) Neck: supple, no carotid bruits Respiratory/Chest: lungs clear, normal breath sounds, no respiratory distress, no accessory muscle use Cardiovascular: no gallop, no murmur, + irregularly irregular, + normal peripheral pulses Abdomen: normal bowel sounds, soft Extremities: normal capillary refill, + pertinent finding (moves BUE and RLE extremities spontaneously) Laboratory Results Last 24 Hours Test 12/22/16 11:25 12/22/16 11:34 12/22/16 11:39 12/22/16 15:30 White Blood Count 10.73 K/uL Red Blood Count 4.56 M/uL Hemoglobin 13.3 g/dL Hematocrit 41.0 % Mean Corpuscular Volume 89.9 fL Mean Corpuscular Hemoglobin 29.2 pg Mean Corpuscular Hemoglobin Concent 32.4 g/dl Platelet Count 238 K/uL Mean Platelet Volume 9.5 fL Neutrophils (%) (Auto) 80.7 % Lymphocytes (%) (Auto) 9.8 % Monocytes (%) (Auto) 8.6 % Eosinophils (%) (Auto) 0.4 % Basophils (%) (Auto) 0.2 % Neutrophils # (Auto) 8.67 K/uL Lymphocytes # (Auto) 1.05 K/uL Monocytes # (Auto) 0.92 K/uL Eosinophils # (Auto) 0.04 K/uL Basophils # (Auto) 0.02 K/uL RDW Standard Deviation 48.6 fL RDW Coefficient of Variation 14.9 % Immature Granulocyte % (Auto) 0.3 % Immature Granulocyte # (Auto) 0.03 K/uL Prothrombin Time 10.8 SECONDS Prothromb Time International Ratio 1.0 Activated Partial Thromboplast Time 23.3 SECONDS Partial Thromboplastin Ratio 0.9 Sodium Level 133 mmol/L Potassium Level 4.1 mmol/L Chloride Level 99 mmol/L Carbon Dioxide Level 28 mmol/L Anion Gap 6.0 mmol/L Blood Urea Nitrogen 15 mg/dl Creatinine 0.91 mg/dl Est Creatinine Clear Calc Drug Dose 37.8 ml/min Estimated GFR () 69.1 Estimated GFR (Non- 59.6 BUN/Creatinine Ratio 16.2 Random Glucose 179 mg/dl Calcium Level 8.6 mg/dl Total Creatine Kinase 40 U/L Creatine Kinase MB 1.0 ng/ml Creatine Kinase MB Ratio 2.5 Troponin I < 0.015 ng/ml Bedside Glucose 170 mg/dl Bedside Prothrombin Time INR 1.1 Urine Color YELLOW Urine Appearance CLOUDY Urine pH 7.0 Urine Specific [place] 1.013 Urine Protein NEG Urine Glucose (UA) NEG Urine Ketones NEG Urine Occult Blood NEG Urine Nitrite NEG Urine Bilirubin NEG Urine Urobilinogen NEG Urine Leukocyte Esterase SMALL Urine WBC (Auto) 10-30 /hpf Urine RBC (Auto) 0-4 /hpf Urine Hyaline Casts (Auto) 1-5 /lpf Urine Epithelial Cells (Auto) >30 /lpf Urine Bacteria (Auto) NEG Urine Pathogenic Casts /lpf Assessment and Plan Assessment and Plan: This is an 81yo female with history of prior CVA, afib not on AC, and severe dementia who presented with AMS and left-sided weakness, NIHSS 16. CT head findings consistent with right-sided CVA, most likely embolic etiology based on distribution and in the context of the patient's history. The patient has good support at home as her two daughters live with her and take care of her. They have voiced desire to go home on hospice. Evaluation by hospice, PT, OT and [facility] are pending and will guide recommendations for discharge. Plan: Precautions: fall, aspiration 1. CVA, most likely embolic in nature -CT head findings consistent with right-sided embolic CVA in MCA distribution -patient's family elects for home hospice -hospice, PT, OT, [facility] evaluations and recommendations pending 2. Afib -not on AC due to risks (age, prior CVA), plavix is on med list but it is unclear if she is actually taking it -currently rate controlled on diltiazem and metoprolol 3. Severe dementia -stable at this time, patient is nonverbal but appears calm and not in distress -aspiration precautions -fall precautions 4. DVT prophylaxis -deferred after discussion of r/b/a 5. Diet -NPO, considerable aspiration risk at this time and will await [facility] recommendations before initiating diet 6. Discharge planning -Location: home on hospice -Date:
[2016-12-23] MEDS: SODIUM CHLOR 0.45% + 20MEQ KCL 1,000 ML IV SCH (09:25)
--- NOTE | 2016-12-23 10:40 | Palliative Care Consultation ---
Consultation Date of Consultation: Dec 23, 2016. Requesting Physician: Dr. Springer Attending Physician: Dr. Burrell Reason for Consultation: Goals of care History of Present Illness This 81 year old female patient with PMH end-stage dementia, CVA, TIAs, and others listed below, presented to the ED last evening after her family found her to not be moving left side of body and to not be "acting like herself." On CT of head, she was found to have a large right MCA territory infarct, believed to be secondary to atrial fibrillation. Family opted for comfort measures only. Palliative care consulted. I met with the patient and her daughter, Lissette Mccurdy, in room 421. Patient is awake, in no distress, touching her face with right hand, is moving left arm somewhat, not noted to move left leg. She does not verbally respond at all, not making eye contact, does not follow commands. Lissette stated that patient is not far from her baseline, but normally she is able to ambulate with walk and assistance. Lissette confirmed that patient is comfort measures only. Speech is to come and see patient later to assess swallowing ability. Daughter is agreeable to comfort feeding if patient is able to tolerate, despite risk of aspiration. However, she would never want her mother to have a feeding tube, and she says that all four of her siblings are in agreement as well. Family would like to take patient home on hospice, they already care for her at home . Past Medical/Surgical History Medical History: Severe dementia CVAs Atrial fibrillation Frequent UTIs VTE disease. Social History Smoking Status: Former Smoker History of Alcohol Use: No Drug Use: none Marital Status: Housing Status: lives with family Occupation Status: retired Review of Systems unable to obtain due to patient's mental status Allergies Coded Allergies: Penicillins (Verified Allergy, Unknown, HAS HAD ROCEPHIN W/OUT PROBLEM, ) Sulfa Antibiotics (Verified Allergy, Unknown, Unknown, 12/22/16) Sulfamethoxazole (Verified Allergy, Unknown, 12/22/16) Heparin (Verified Adverse Reaction, Unknown, Significant GI bleed, 12/22/16 ) (per Gricelda's H&P) Medications Current Inpatient Medications Medications (Trade) Dose Ordered Sig/Kathy Route Start Time Stop Time Status Last Admin Dose Admin Ondansetron HCl (Zofran Inj) 4 mg Q6H PRN IV 12/22/16 15:00 01/21/17 14:59 Miscellaneous Information (Pharmacist Discharge Med Rec Consult) 1 ea UD PRN N/A 12/22/16 15:00 01/21/17 14:59 Potassium Chloride/Sodium Chloride 1,000 ml @ 60 mls/hr [id number] IV 12/22/16 16:45 01/21/17 16:44 12/23/16 09:25 60 MLS/HR Physical Exam Date Time Temp Pulse Resp B/P (MAP) Pulse Ox O2 Delivery O2 Flow Rate FiO2 12/23/16 08:12 36.8 96 16 122/77 (92) 95 Room Air 12/23/16 00:14 36.7 86 18 117/81 (93) 94 12/23/16 00:00 Room Air 12/22/16 17:14 36.7 89 17 131/83 (99) 96 Room Air 12/22/16 16:00 96 Room Air 12/22/16 15:31 101 22 163/95 96 Room Air 12/22/16 15:00 163/95 12/22/16 14:47 99 31 94 12/22/16 14:15 96 22 140/96 96 12/22/16 14:14 140/96 12/22/16 14:00 151/101 12/22/16 13:47 90 27 96 12/22/16 13:34 38.1 82 20 129/88 98 Room Air 12/22/16 13:28 129/88 12/22/16 11:47 79 24 97 12/22/16 11:18 85 12/22/16 11:07 141/99 12/22/16 11:02 149/104 12/22/16 10:58 96 Room Air 12/22/16 10:58 36.7 91 22 141/99 99 Room Air General Appearance: no apparent distress, + cachetic, + thin Neck: supple, no JVD Respiratory: lungs clear, no respiratory distress, no accessory muscle use Cardiovascular: regular rate, rhythm, no edema, + normal peripheral pulses Abdomen: normal bowel sounds, soft Neurologic/Psychiatric: alert, + pertinent finding (nonverbal) Skin: normal color Laboratory Results Last 24 Hours Test 12/22/16 11:25 8/24/17 11:34 12/22/16 11:39 12/22/16 15:30 White Blood Count 10.73 K/uL Red Blood Count 4.56 M/uL Hemoglobin 13.3 g/dL Hematocrit 41.0 % Mean Corpuscular Volume 89.9 fL Mean Corpuscular Hemoglobin 29.2 pg Mean Corpuscular Hemoglobin Concent 32.4 g/dl Platelet Count 238 K/uL Mean Platelet Volume 9.5 fL Neutrophils (%) (Auto) 80.7 % Lymphocytes (%) (Auto) 9.8 % Monocytes (%) (Auto) 8.6 % Eosinophils (%) (Auto) 0.4 % Basophils (%) (Auto) 0.2 % Neutrophils # (Auto) 8.67 K/uL Lymphocytes # (Auto) 1.05 K/uL Monocytes # (Auto) 0.92 K/uL Eosinophils # (Auto) 0.04 K/uL Basophils # (Auto) 0.02 K/uL RDW Standard Deviation 48.6 fL RDW Coefficient of Variation 14.9 % Immature Granulocyte % (Auto) 0.3 % Immature Granulocyte # (Auto) 0.03 K/uL Prothrombin Time 10.8 SECONDS Prothromb Time International Ratio 1.0 Activated Partial Thromboplast Time 23.3 SECONDS Partial Thromboplastin Ratio 0.9 Sodium Level 133 mmol/L Potassium Level 4.1 mmol/L Chloride Level 99 mmol/L Carbon Dioxide Level 28 mmol/L Anion Gap 6.0 mmol/L Blood Urea Nitrogen 15 mg/dl Creatinine 0.91 mg/dl Est Creatinine Clear Calc Drug Dose 37.8 ml/min Estimated GFR () 69.1 Estimated GFR (Non- 59.6 BUN/Creatinine Ratio 16.2 Random Glucose 179 mg/dl Calcium Level 8.6 mg/dl Total Creatine Kinase 40 U/L Creatine Kinase MB 1.0 ng/ml Creatine Kinase MB Ratio 2.5 Troponin I < 0.015 ng/ml Bedside Glucose 170 mg/dl Bedside Prothrombin Time INR 1.1 Urine Color YELLOW Urine Appearance CLOUDY Urine pH 7.0 Urine Specific [place] 1.013 Urine Protein NEG Urine Glucose (UA) NEG Urine Ketones NEG Urine Occult Blood NEG Urine Nitrite NEG Urine Bilirubin NEG Urine Urobilinogen NEG Urine Leukocyte Esterase SMALL Urine WBC (Auto) 10-30 /hpf Urine RBC (Auto) 0-4 /hpf Urine Hyaline Casts (Auto) 1-5 /lpf Urine Epithelial Cells (Auto) >30 /lpf Urine Bacteria (Auto) NEG Urine Pathogenic Casts /lpf Assessment & Plan Palliative Performance Scale: 20 % Problem list: Nonverbal Left sided weakess AMS, end-stage dementia Large right MCA infarct Atrial fibrillation Goals of care (Z51.5) Palliative care recs: -Lissette confirmed DNR status -Goal is home with hospice. Comfort measures only. -Family is okay with comfort feeding if patient able to swallow, no feeding tube if unable to swallow. -Explained POLST form to daughter and offered to complete it, Lissette would like to wait for siblings to decide. -Recommend adding Roxanol 2.5mg PO Q3h PRN pain or SOB, atropine 1% oph soln 4 drops SL Q4h PRN secretions. Thank you kindly for this consult. Please contact me with any further palliative care needs.
[2016-12-23] MEDS ORDERED: MoRPHine SULFATE 2.5 MG/0.125 ML UDP PO PRN (15:30)
--- NOTE | 2016-12-23 15:31 | Progress Note ---
Subjective Date of Service: Dec 23, 2016. Subjective Pt evaluation today including: conversation w/ patient, conversation w/ family , physical exam, chart review, lab review, review of studies, review of inpatient medication list Resting comfortably in bed Noncommunicative due to end stage dementia Daughter at bedside Problem List Medical Problems: (1) Cardiac ischemia Status: Acute (2) DVT (deep venous thrombosis) Status: Acute (3) Elevated liver enzymes Status: Acute (4) Facial laceration Status: Acute (5) Fall Status: Acute (6) Fall Status: Acute (7) Finger laceration Status: Acute (8) Head trauma Status: Acute (9) Scalp hematoma Status: Acute (10) Sepsis Status: Acute (11) Stroke Status: Acute (12) Stroke Status: Acute (13) UTI (urinary tract infection) Status: Acute (14) UTI (urinary tract infection) Status: Acute Review of Systems Unable to obtain due to severe dementia Objective Vital Signs Date Time Temp Pulse Resp B/P (MAP) Pulse Ox O2 Delivery O2 Flow Rate FiO2 12/23/16 09:25 Room Air 12/23/16 08:12 36.8 96 16 122/77 (92) 95 Room Air 12/23/16 00:14 36.7 86 18 117/81 (93) 94 12/23/16 00:00 Room Air 12/22/16 17:14 36.7 89 17 131/83 (99) 96 Room Air 12/22/16 16:00 96 Room Air 12/22/16 15:31 101 22 163/95 96 Room Air Physical Exam General Appearance: WD/WN, + mild distress, + thin Eyes: normal inspection, PERRL, EOMI, sclerae normal Neck: supple, no adenopathy, thyroid normal, no JVD Respiratory/Chest: chest non-tender, lungs clear, normal breath sounds, no respiratory distress Cardiovascular: no edema, no gallop, no JVD, no murmur Abdomen: non tender, soft, no organomegaly Extremities: non-tender, normal inspection, no pedal edema Neurologic/Psychiatric: no motor/sensory deficits, alert, + disoriented Skin: normal color, warm/dry, no rash Lymphatic: no adenopathy Laboratory Results Last 24 Hours Test 12/22/16 15:30 Urine Color YELLOW Urine Appearance CLOUDY Urine pH 7.0 Urine Specific [place] 1.013 Urine Protein NEG Urine Glucose (UA) NEG Urine Ketones NEG Urine Occult Blood NEG Urine Nitrite NEG Urine Bilirubin NEG Urine Urobilinogen NEG Urine Leukocyte Esterase SMALL Urine WBC (Auto) 10-30 /hpf Urine RBC (Auto) 0-4 /hpf Urine Hyaline Casts (Auto) 1-5 /lpf Urine Epithelial Cells (Auto) >30 /lpf Urine Bacteria (Auto) NEG Urine Pathogenic Casts /lpf Assessment and Plan Acute cerebrovascular accident with large left sided MCA stroke PT refused by daughter Dysphagia screening rec honey thick liquids Daughter POA would like comfort care only Started on roxanol 2.5 mg q 4 hrs PRN pain and atropine drops Daughter would like to take pt home Atrial fibrillation. She has been longstanding not on anticoagulation. Currently, rate is under control. Deep venous thrombosis prophylaxis; not indicated given the severity of her illness. Severe dementia; supportive care and I support the family's goal of trying to get her home.
[2016-12-23 16:00] VITALS: O2SAT 95
[2016-12-23 16:58] VITALS: BP 152/100; PULSE 98; TEMP 36.1; O2SAT 96
[2016-12-23 19:22] VITALS: BP 137/91; PULSE 105
[2016-12-23] MEDS: METOPROLOL TARTRATE 25 MG TAB PO SCH (19:30)
[2016-12-24 00:26] VITALS: BP 151/91; PULSE 101; TEMP 36.6; O2SAT 98
[2016-12-24 00:36] VITALS: O2SAT 95
[2016-12-24] MEDS ORDERED: MoRPHine SULFATE 2.5 MG/0.125 ML UDP PO STA (01:42)
[2016-12-24] MEDS: SODIUM CHLOR 0.45% + 20MEQ KCL 1,000 ML IV SCH ×2 (01:48→18:44)
[2016-12-24] MEDS ORDERED: MoRPHine SULF/NSS 250MG/250ML 250 ML IV PRN (03:00)
[2016-12-24] MEDS: CLOPIDOGREL BISULFATE 75 MG TAB PO SCH (08:00)
[2016-12-24] MEDS: PANTOprazole SOD 40 MG TAB PO SCH (08:00)
[2016-12-24] MEDS: DILTIAZEM HCL 240 MG CAPCR PO SCH (08:00)
[2016-12-24] MEDS: METOPROLOL TARTRATE 25 MG TAB PO SCH ×2 (08:00→20:00)
[2016-12-24] MEDS ORDERED: NURSING VERBAL MED ORDER ONE (11:45)
--- NOTE | 2016-12-24 14:24 | Progress Note ---
Subjective Date of Service: Dec 24, 2016. Subjective Pt evaluation today including: conversation w/ patient, conversation w/ family , physical exam, chart review, lab review, review of studies, review of inpatient medication list Was asked to leave room as pt seems to be actively dying Problem List Medical Problems: (1) Cardiac ischemia Status: Acute (2) DVT (deep venous thrombosis) Status: Acute (3) Elevated liver enzymes Status: Acute (4) Facial laceration Status: Acute (5) Fall Status: Acute (6) Fall Status: Acute (7) Finger laceration Status: Acute (8) Head trauma Status: Acute (9) Scalp hematoma Status: Acute (10) Sepsis Status: Acute (11) Stroke Status: Acute (12) Stroke Status: Acute (13) UTI (urinary tract infection) Status: Acute (14) UTI (urinary tract infection) Status: Acute Review of Systems Deferred as told to leave the room Objective Vital Signs Date Time Temp Pulse Resp B/P (MAP) Pulse Ox O2 Delivery O2 Flow Rate FiO2 12/24/16 00:36 95 Room Air 12/24/16 00:26 36.6 101 18 151/91 (111) 98 Room Air 12/23/16 19:22 105 137/91 (106) 12/23/16 16:58 36.1 98 18 152/100 (117) 96 Nasal Cannula 2.0 12/23/16 16:00 95 Room Air Physical Exam Comments: Deferred as told by family to leave the room Assessment and Plan Acute cerebrovascular accident with large left sided MCA stroke PT refused by daughter Dysphagia screening rec honey thick liquids Daughter POA would like comfort care only Started on roxanol 2.5 mg q 4 hrs PRN pain and atropine drops Daughter would like to take pt home Actively dying at this time Atrial fibrillation. She has been longstanding not on anticoagulation. Currently, rate is under control. Deep venous thrombosis prophylaxis; not indicated given the severity of her illness. Severe dementia; supportive care and I support the family's goal of trying to get her home.
[2016-12-24 16:00] VITALS: O2SAT 95
[2016-12-24] MEDS ORDERED: NURSING DECISION MEDICATION ORDER SCH ×2 (19:15→21:00)
[2016-12-25 00:02] VITALS: BP 94/64; PULSE 113; TEMP 37; O2SAT 92
[2016-12-25 00:05] VITALS: O2SAT 95
[2016-12-25] MEDS: PANTOprazole SOD 40 MG TAB PO SCH (08:00)
[2016-12-25] MEDS: DILTIAZEM HCL 240 MG CAPCR PO SCH (08:00)
[2016-12-25] MEDS: METOPROLOL TARTRATE 25 MG TAB PO SCH (08:00)
[2016-12-25] MEDS: CLOPIDOGREL BISULFATE 75 MG TAB PO SCH (08:00)
[2016-12-25] MEDS: SODIUM CHLOR 0.45% + 20MEQ KCL 1,000 ML IV SCH (10:38)
[2016-12-25 16:00] VITALS: O2SAT 95
--- NOTE | 2016-12-25 16:19 | Progress Note ---
Subjective Date of Service: Dec 25, 2016. Subjective Pt evaluation today including: conversation w/ patient, conversation w/ family , physical exam, chart review, lab review, review of studies, review of inpatient medication list Daughters at bedside, very emotional Patient nonresponsive No distress Comfort measures Problem List Medical Problems: (1) Cardiac ischemia Status: Acute (2) DVT (deep venous thrombosis) Status: Acute (3) Elevated liver enzymes Status: Acute (4) Facial laceration Status: Acute (5) Fall Status: Acute (6) Fall Status: Acute (7) Finger laceration Status: Acute (8) Head trauma Status: Acute (9) Scalp hematoma Status: Acute (10) Sepsis Status: Acute (11) Stroke Status: Acute (12) Stroke Status: Acute (13) UTI (urinary tract infection) Status: Acute (14) UTI (urinary tract infection) Status: Acute Review of Systems Unable to obtain as pt in nonresponsive Objective Vital Signs Date Time Temp Pulse Resp B/P (MAP) Pulse Ox O2 Delivery O2 Flow Rate FiO2 12/25/16 00:05 95 Room Air 12/25/16 00:02 37.0 113 20 94/64 (74) 92 Physical Exam General Appearance: WD/WN, no apparent distress Eyes: normal inspection, PERRL, EOMI, sclerae normal Neck: supple, no adenopathy, thyroid normal, no JVD Respiratory/Chest: chest non-tender, lungs clear, + decreased breath sounds Cardiovascular: no edema, no gallop, no JVD, no murmur Abdomen: non tender, soft, no organomegaly Extremities: non-tender, normal inspection, no pedal edema Assessment and Plan 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 She has been longstanding not on anticoagulation. Currently, rate is under control. Deep venous thrombosis prophylaxis; not indicated given the severity of her illness. Severe dementia; supportive care and I support the family's goal of trying to get her home. DNR code status
--- NOTE | 2016-12-25 17:59 | Death Summary ---
Summary of Admission Date Dec 22, 2016 at 14:54 Date & Time of Dec 25, 2016. 4:57 PM Cause of Acute CVA Hospital Course Acute cerebrovascular accident with large left sided MCA stroke PT refused by daughter Dysphagia screening rec honey thick liquids Daughter ARASELI would like comfort care only Cont on morphine drip in addition to roxanol 2.5 mg q 4 hrs PRN pain and atropine drops Actively dying at this time, called to pronounce pt on 12/25/16, no heart or lung sounds ascultated, no corneal reflex, pupils nonreactive Pronounced at 4:57PM Atrial fibrillation. She has been longstanding not on anticoagulation. Currently, rate is under control. Deep venous thrombosis prophylaxis; not indicated given the severity of her illness. Severe dementia; supportive care and I support the family's goal of trying to get her home. DNR code status
== END 2016-12-25 18:50 | disposition expired | DRG 66 ==
LOC: EDBD 10:47 → C.EDC 10:48 → C.4E 14:54 → ENRESERV 15:35
PROVIDERS: ADMIT Family Medicine; ATTEND Hospitalist
DX: I63.9 Cerebral infarction, unspecified (principal); I48.91 Unspecified atrial fibrillation; Z66 Do not resuscitate; Z51.5 Encounter for palliative care; F03.90 Unspecified dementia, unspecified severity, without behavioral disturbance, psychotic disturbance, mood disturbance, and anxiety; J43.9 Emphysema, unspecified; R50.9 Fever, unspecified; Z87.440 Personal history of urinary (tract) infections; Z87.891 Personal history of nicotine dependence; Z86.73 Personal history of transient ischemic attack (TIA), and cerebral infarction without residual deficits; Z83.3 Family history of diabetes mellitus; Z82.49 Family history of ischemic heart disease and other diseases of the circulatory system